=== PATIENT | male | born 1950 | race Caucasian/White ===

== ENCOUNTER 2020-05-12 11:32 | Emergency (ER) | payer MEDICARE, OTHER, SELFPAY ==
[2020-05-12 11:44] VITALS: BP 156/96; PULSE 80; RESP 20; TEMP 37.5; O2SAT 97; BMI 62.8
--- NOTE | 2020-05-12 11:56 | XR_ITS ---
EXAMINATION: XR CHEST CLINICAL INFORMATION: Fever and chills. COMPARISON: None TECHNIQUE: Frontal view of the chest was obtained. FINDINGS: The lungs are well expanded and clear. No focal consolidation or other abnormality. The pleural spaces are clear. Heart size is normal. Cardiac contours are unremarkable. Atherosclerotic changes are present in the aortic arch. Multilevel spondylosis is evident in the thoracic spine. No acute bony abnormality. IMPRESSION: No acute abnormality.
--- NOTE | 2020-05-12 12:06 | ED.FEVER ---
HPI - Fever General Chief Complaint: Fever Stated Complaint: fever Time Seen by Provider: 05/12/20 11:52 Source: patient Mode of arrival: ambulatory Limitations: no limitations History of Present Illness HPI Narrative: 69 y.o male with history of afib s/p cardioversion, on eliquis, HTN, depression prestenting with fever of 101 at home, fatgiue, myalgias, productive cough, and SOB for the last 2 days. He has a history of influenza B earlier this year and states he feels this feels similar. He lives with his who is not ill. No known sick contacts or known exposure to COVID-19. MD elicited complaint: fever and malaise Onset (ago): day(s) (2) Measured temperature: 101 F Exacerbating factors: exertion Relieving factors: acetaminophen Associated symptoms: chills, myalgias, headache, nasal congestion, cough, shortness of breath and nausea Treatments prior to arrival fever: none Related Data Allergies Allergy/AdvReac Type Severity Reaction Status Date / Time No Known Allergies Allergy Unverified 04/26/20 15:57 N.K.D.A. Allergy Unknown Uncoded 12/29/19 00:00 Review of Systems Review of Systems: Constitutional: positive fever and chills ENT/Mouth: mild sore throat, No Rhinorrhea, No Swallowing Difficulty Eyes: No Eye Pain, No Swelling, No Redness Cardiovascular: No Chest Pain, positive SOB, No Orthopnea, negative Edema Respiratory: postiive productive cough of white and brown phlegm, No Wheezing, positive dyspnea Gastrointestinal: positive Nausea, No Vomiting, No Diarrhea, No abdominal Pain, No Hematochezia, No Melena Genitourinary: No Dysuria, No Urinary Frequency, No Hematuria Musculoskeletal: No joint pain, positive Myalgias Skin: No Skin Lesions, No rash Neuro: No Weakness, No Numbness, No Dizziness, positive Headache Psych: No Anxiety/Panic, No Depression Heme/Lymph: No Bruising, No Lymphadenopathy Endocrine: No Polyuria, No Polydipsia All other 10 point ROS are negative. [facility] Past Medical History Attestation statement: The following information was validated with the patient. Medical History Cardiac arrhythmia Hypertension Social History Social History Alcohol intake: never Smoking Status: Never smoker Smoked in Last 30 Days: No Use of substances other than those prescribed or required for medical reasons: No Advance Directives: No Advance Directives Information Provided: No Physical Exam Vital Signs and I&O and Narrative: Vital Signs and I&O: Vital Signs Temp 99.5 F 05/12/20 11:44 Pulse 78 05/12/20 14:38 Resp 20 05/12/20 14:38 BP 148/99 H 05/12/20 14:38 Pulse Ox 97 05/12/20 11:44 Intake & Output 05/11/20 05/12/20 05/12/20 18:59 06:59 18:59 Intake Total 1000 / 1000 Balance 1000 / 1000 Weight 210 kg Intake: Intake, IV Amoun t 1000 / 1000 0.9 % Sodium C hloride 1,000 ml 1000 / 1000 @ 999 mls/hr I VCONT .Q1H1M NANNETTE Rx#:[id number] Body Mass Index 62.8 Appearance: Alert. Oriented X3. No acute distress. Eyes: Pupils equal, round and reactive to light. ENT: Pharynx normal. Neck: Normal inspection. Neck supple. CVS: Normal heart rate and rhythm. Pulses normal. Respiratory: No respiratory distress. Breath sounds normal. Abdomen: Soft and nontender. Skin: Skin warm and dry. Normal skin color. Normal skin turgor. Extremities: No lower extremity edema. No lower extremity edema. Neuro: Oriented X 3. No motor deficit. No sensory deficit. Course Course Hospital Course: 69 y/o male with hx afib, HTN, depression presenting with flu-like symptoms. Non-toxic appearing. Will panculture, gently hydrate and check CXR, COVID and influenza. Reevaluation(s) Reevaluation #1: Labs show mild hyperkalemia 5.3 - patient is on lisinopril. Lactic acid 2.1. Gently hydrating now. No leukocytosis, CXR and UA are clear. LFT's mildly elevated without abd pain/tenderness. CPR low making COVID less likely. Signs and symptoms likely due to another viral process. Vitals remain stable and he is in no distress. Time: 15:28 Reevaluation #2: Lactic acid normalized. Remains stable for discharge. MDM - Fever Differential Diagnosis Differential diagnosis: Likely fever of unknown origin, gastroenteritis, community acquired pneumonia, viral infection, sepsis and influenza Medical Records Attestation: I reviewed the patient's medical records. Lab Data Attestation: I reviewed the patient's lab results. Result diagrams: 05/12/20 12:35 05/12/20 12:36 Labs: Lab Results 05/12/20 05/12/20 05/12/20 Range/Units 12:25 12:35 12:35 WBC 7.1 (4.8-10.8) X10*3/uL RBC 4.64 (4.60-5.80) X10*6/uL Hgb 15.2 (14.0-18.0) g/dl Hct 44.3 (42-52) % MCV 95.5 (80-98) fL MCH 32.8 (27.0-33.0) pg MCHC 34.3 (31.0-36.0) g/dl RDW 13.3 (11.0-16.0) % Plt Count 247 (160-400) X10*3/uL MPV 10.0 (9.4-12.4) fL Immature Gran % (Auto) 0.4 (0.0-0.4) % Neut % (Auto) 63.2 (45-73) % Lymph % (Auto) 25.4 (20-40) % [place] % (Auto) 8.5 (2-11) % Eos % (Auto) 1.8 (0-4) % Baso % (Auto) 0.7 (0-2) % Neut # (Auto) 4.5 (2.0-8.3) X10*3/uL Lymph # (Auto) 1.8 (1.2-4.9) X10*3/uL [place] # (Auto) 0.6 (0.1-1.2) X10*3/uL Eos # (Auto) 0.1 (0.0-0.4) X10*3/uL Baso # (Auto) 0.1 (0.0-0.2) X10*3/uL Abs Immat Gran (auto) 0.03 (0.00-0.03) X10*3/uL Absolute Nucleated RBC 0.000 (0.0-0.012) X10*3/uL Nucleated RBC % (auto) 0.0 (0.0-0.2) /100WBC PT 14.8 H (10.8-13.0) SEC INR 1.2 H (0.9-1.1) APTT 35.0 (24.1-38.0) SEC Sodium (135-145) mmol/L Potassium (3.3-5.1) mmol/l Chloride (96-108) mmol/L Carbon Dioxide (22-29) mmol/L Anion Gap (12-20) BUN (9-16) mg/dL Creatinine (0.5-1.4) mg/dL Estim Creat Clear Calc Estimated GFR Random Glucose (60-115) mg/dL Lactic Acid (0.5-2.0) mmol/L Lactic Acid Fup @ 2Hr (0.5-2.0) mmol/L Calcium (8.4-10.2) mg/dL Magnesium (1.6-2.6) mg/dL Total Bilirubin (0.0-1.0) mg/dL Direct Bilirubin (0.0-0.5) mg/dL AST (5-37) U/L ALT (0-40) U/L Alkaline Phosphatase (39-117) U/L Lactate Dehydrogenase (118-273) U/L C-Reactive Protein (< or = 0.50) mg/dL Total Protein (6.5-8.0) g/dL Albumin (3.5-5.0) g/dL Procalcitonin ng/mL Urine Color YELLOW Urine Appearance CLEAR Urine pH 6.0 (5.0-8.0) Ur Specific [place] 1.025 (1.005-1.025) Urine Protein NEG (NEG-TRACE) MG/DL Urine Glucose (UA) NEG (NEG) MG/DL Urine Ketones NEG (NEG) MG/DL Urine Blood TRACE (NEG) Urine Nitrite NEG (NEG) Ur Leukocyte Esterase NEG (NEG) Urine RBC 0-2 (0) /HPF Urine WBC 0 (0-4) /HPF Ur Squamous Epith Cells NONE /LPF Urine Bacteria NONE /LPF Urine Mucus 1+ /LPF 05/12/20 05/12/20 05/12/20 Range/Units 12:35 12:35 12:36 WBC (4.8-10.8) X10*3/uL RBC (4.60-5.80) X10*6/uL Hgb (14.0-18.0) g/dl Hct (42-52) % MCV (80-98) fL MCH (27.0-33.0) pg MCHC (31.0-36.0) g/dl RDW (11.0-16.0) % Plt Count (160-400) X10*3/uL MPV (9.4-12.4) fL Immature Gran % (Auto) (0.0-0.4) % Neut % (Auto) (45-73) % Lymph % (Auto) (20-40) % [place] % (Auto) (2-11) % Eos % (Auto) (0-4) % Baso % (Auto) (0-2) % Neut # (Auto) (2.0-8.3) X10*3/uL Lymph # (Auto) (1.2-4.9) X10*3/uL [place] # (Auto) (0.1-1.2) X10*3/uL Eos # (Auto) (0.0-0.4) X10*3/uL Baso # (Auto) (0.0-0.2) X10*3/uL Abs Immat Gran (auto) (0.00-0.03) X10*3/uL Absolute Nucleated RBC (0.0-0.012) X10*3/uL Nucleated RBC % (auto) (0.0-0.2) /100WBC PT (10.8-13.0) SEC INR (0.9-1.1) APTT (24.1-38.0) SEC Sodium 141 (135-145) mmol/L Potassium 5.3 H (3.3-5.1) mmol/l Chloride 103 (96-108) mmol/L Carbon Dioxide 31 H (22-29) mmol/L Anion Gap 12 (12-20) BUN 10 (9-16) mg/dL Creatinine 0.94 (0.5-1.4) mg/dL Estim Creat Clear Calc 133.1 Estimated GFR > 60 Random Glucose 107 (60-115) mg/dL Lactic Acid 2.1 H* (0.5-2.0) mmol/L Lactic Acid Fup @ 2Hr (0.5-2.0) mmol/L Calcium 9.6 (8.4-10.2) mg/dL Magnesium 1.8 (1.6-2.6) mg/dL Total Bilirubin 0.8 (0.0-1.0) mg/dL Direct Bilirubin 0.4 (0.0-0.5) mg/dL AST 48 H (5-37) U/L ALT 54 H (0-40) U/L Alkaline Phosphatase 70 (39-117) U/L Lactate Dehydrogenase 205 (118-273) U/L C-Reactive Protein 0.04 (< or = 0.50) mg/dL Total Protein 7.1 (6.5-8.0) g/dL Albumin 4.2 (3.5-5.0) g/dL Procalcitonin 0.02 ng/mL Urine Color Urine Appearance Urine pH (5.0-8.0) Ur Specific [place] (1.005-1.025) Urine Protein (NEG-TRACE) MG/DL Urine Glucose (UA) (NEG) MG/DL Urine Ketones (NEG) MG/DL Urine Blood (NEG) Urine Nitrite (NEG) Ur Leukocyte Esterase (NEG) Urine RBC (0) /HPF Urine WBC (0-4) /HPF Ur Squamous Epith Cells /LPF Urine Bacteria /LPF Urine Mucus /LPF 05/12/20 Range/Units 14:54 WBC (4.8-10.8) X10*3/uL RBC (4.60-5.80) X10*6/uL Hgb (14.0-18.0) g/dl Hct (42-52) % MCV (80-98) fL MCH (27.0-33.0) pg MCHC (31.0-36.0) g/dl RDW (11.0-16.0) % Plt Count (160-400) X10*3/uL MPV (9.4-12.4) fL Immature Gran % (Auto) (0.0-0.4) % Neut % (Auto) (45-73) % Lymph % (Auto) (20-40) % [place] % (Auto) (2-11) % Eos % (Auto) (0-4) % Baso % (Auto) (0-2) % Neut # (Auto) (2.0-8.3) X10*3/uL Lymph # (Auto) (1.2-4.9) X10*3/uL [place] # (Auto) (0.1-1.2) X10*3/uL Eos # (Auto) (0.0-0.4) X10*3/uL Baso # (Auto) (0.0-0.2) X10*3/uL Abs Immat Gran (auto) (0.00-0.03) X10*3/uL Absolute Nucleated RBC (0.0-0.012) X10*3/uL Nucleated RBC % (auto) (0.0-0.2) /100WBC PT (10.8-13.0) SEC INR (0.9-1.1) APTT (24.1-38.0) SEC Sodium (135-145) mmol/L Potassium (3.3-5.1) mmol/l Chloride (96-108) mmol/L Carbon Dioxide (22-29) mmol/L Anion Gap (12-20) BUN (9-16) mg/dL Creatinine (0.5-1.4) mg/dL Estim Creat Clear Calc Estimated GFR Random Glucose (60-115) mg/dL Lactic Acid (0.5-2.0) mmol/L Lactic Acid Fup @ 2Hr 1.4 (0.5-2.0) mmol/L Calcium (8.4-10.2) mg/dL Magnesium (1.6-2.6) mg/dL Total Bilirubin (0.0-1.0) mg/dL Direct Bilirubin (0.0-0.5) mg/dL AST (5-37) U/L ALT (0-40) U/L Alkaline Phosphatase (39-117) U/L Lactate Dehydrogenase (118-273) U/L C-Reactive Protein (< or = 0.50) mg/dL Total Protein (6.5-8.0) g/dL Albumin (3.5-5.0) g/dL Procalcitonin ng/mL Urine Color Urine Appearance Urine pH (5.0-8.0) Ur Specific [place] (1.005-1.025) Urine Protein (NEG-TRACE) MG/DL Urine Glucose (UA) (NEG) MG/DL Urine Ketones (NEG) MG/DL Urine Blood (NEG) Urine Nitrite (NEG) Ur Leukocyte Esterase (NEG) Urine RBC (0) /HPF Urine WBC (0-4) /HPF Ur Squamous Epith Cells /LPF Urine Bacteria /LPF Urine Mucus /LPF Imaging Data Chest x-ray: Attestation: I personally reviewed and interpreted this imaging study as follows: My impression: No PNA and No GGO to suggest COVID. Radiologist's impression: IMPRESSION: No acute abnormality. Critical Care Time Critical Care Time Critical Care Time: No Discharge Plan Discharge Clinical Impression: Viral infection, Elevated liver enzymes, Hyperkalemia Patient Disposition: Home, Self-Care Instructions: Viral Syndrome (ED) Additional Instructions: You were tested for COVID-19 today. We will call you with the results in 2-3 days. Your lab work showed a mild elevation in your liver enzymes which is non-specific. Recommend following up with your PCP this week for repeat blood work. Stay hydrated. Take over the counter cold and flu medications for your fever, muscle aches and mild cough. If you develop difficulty breathing or chest pain come back to the ER for further evaluation.
[2020-05-12 12:12] VITALS: TEMP 38.3
[2020-05-12] MEDS: 0.9 % Sodium Chloride 1,000 ML 999 ML IVCONT (12:39)
[2020-05-12 12:45] LABS: MANUAL DIFF FLAG NO
[2020-05-12 12:47] LABS: Basophils Absolute Auto 0.1 X10*3/uL (0.0-0.2); Basophils Percent Auto 0.7 % (0-2); Eosinophils Absolute Auto 0.1 X10*3/uL (0.0-0.4); Eosinophils Percent Auto 1.8 % (0-4); Hematocrit 44.3 % (42-52); Hemoglobin 15.2 g/dl (14.0-18.0); Imm Gran Abs Auto 0.03 X10*3/uL (0.00-0.03); Imm Gran Pct Auto 0.4 % (0.0-0.4); Lymphocytes Absolute Auto 1.8 X10*3/uL (1.2-4.9); Lymphocytes Percent Auto 25.4 % (20-40); Mean Corpuscular HGB Conc 34.3 g/dl (31.0-36.0); Mean Corpuscular Hemoglobin 32.8 pg (27.0-33.0); Mean Corpuscular Volume 95.5 fL (80-98); Monocytes Absolute Auto 0.6 X10*3/uL (0.1-1.2); Monocytes Percent Auto 8.5 % (2-11); Neutrophils Absolute Auto 4.5 X10*3/uL (2.0-8.3); Neutrophils Percent Auto 63.2 % (45-73); Platelet Count 247 X10*3/uL (160-400); Red Blood Count 4.64 X10*6/uL (4.60-5.80); Red Cell Distribution Width 13.3 % (11.0-16.0); White Blood Count 7.1 X10*3/uL (4.8-10.8)
[2020-05-12 12:51] LABS: Glucose Urine UA NEG (NEG); Leukocyte Esterase Urine NEG (NEG); Nitrite Urine NEG (NEG); Specific Gravity - Urine 1.025 (1.005-1.025); Urine Blood TRACE (NEG); Urine Ketones NEG (NEG); Urine Protein NEG (NEG-TRACE)
[2020-05-12 12:54] LABS: INTERNATIONAL NORM RATIO 1.2 (0.9-1.1); Prothrombin Time 14.8 SEC (10.8-13.0)
[2020-05-12 12:55] LABS: Appearance Urine CLEAR; Color Urine YELLOW
[2020-05-12 12:59] LABS: Mucus Urine 1+ /LPF; RBC Urine 0-2 /HPF (0); WBC Urine 0 /HPF (0-4)
[2020-05-12 13:10] LABS: Alanine Aminotransferase 54 U/L (0-40); Albumin Level 4.2 g/dL (3.5-5.0); Alkaline Phosphatase 70 U/L (39-117); Anion Gap 12 (12-20); Aspartate Amino Transferase 48 U/L (5-37); Bilirubin Direct 0.4 mg/dL (0.0-0.5); Bilirubin Total 0.8 mg/dL (0.0-1.0); Blood Urea Nitrogen 10 mg/dL (9-16); C Reactive Protein 0.04 mg/dL (< or = 0.50); Calcium 9.6 mg/dL (8.4-10.2); Carbon Dioxide 31 mmol/L (22-29); Chloride 103 mmol/L (96-108); Creatinine Clr Calc Pharmacy 133.1; Estimated Glomerular Filt Rate > 60; Glucose Random 107 mg/dL (60-115); Lactate Dehydrogenase 205 U/L (118-273); Magnesium 1.8 mg/dL (1.6-2.6); Potassium 5.3 mmol/l (3.3-5.1); Sodium 141 mmol/L (135-145); Total Protein 7.1 g/dL (6.5-8.0)
[2020-05-12 13:20] LABS: Lactic Acid 2.1 mmol/L (0.5-2.0)
[2020-05-12 13:27] LABS: Procalcitonin 0.02 ng/mL
[2020-05-12 14:38] VITALS: BP 148/99; PULSE 78; RESP 20
[2020-05-12 14:43] LABS: Reflex Lactate? Lactic Acid Added
[2020-05-12 15:18] LABS: ~Lactic Acid-LAB USE ONLY 1.4 mmol/L (0.5-2.0)
== END 2020-05-12 15:55 | disposition home or self-care (01) ==
PROVIDERS: Physician Assistant; Emergency Provider Emergency Medicine; PCP Nurse Practitioner Family
DX: B34.9 Viral infection, unspecified (principal); Z20.828 Contact with and (suspected) exposure to other viral communicable diseases; R50.9 Fever, unspecified; R79.89 Other specified abnormal findings of blood chemistry; E87.5 Hyperkalemia; I10 Essential (primary) hypertension; I48.91 Unspecified atrial fibrillation; Z79.899 Other long term (current) drug therapy
CPT/HCPCS: 36415; 71045; 80048; 80076; 81001; 83605; 83615; 83735; 84145; 85025; 85610; 85730; 86140; 87040; 87635; 96360; 99284

== ENCOUNTER 2020-08-21 13:05 | Inpatient (IN) | payer MEDICARE, OTHER, SELFPAY ==
[2020-08-21 13:08] VITALS: BP 166/105; BP 175/115; PULSE 106; PULSE 115; RESP 22; TEMP 37.2; O2SAT 92; BMI 27.7
--- NOTE | 2020-08-21 13:09 | ECG_ITS ---
Test Reason : DYSPNEA Blood Pressure : / mmHG Vent. Rate : 109 BPM Atrial Rate : 109 BPM P-R Int : 188 ms QRS Dur : 076 ms QT Int : 326 ms P-R-T Axes : 077 020 072 degrees QTc Int : 439 ms Sinus tachycardia Otherwise normal ECG When compared with ECG of 30-AUG-2018 12:18, Vent. rate has increased BY 52 BPM Referred By: Shala Wasserman Electronically Signed By:CATHY NAGY MD
--- NOTE | 2020-08-21 13:09 | XR_ITS ---
EXAMINATION: XR CHEST CLINICAL INFORMATION: Shortness of breath, difficulty breathing COMPARISON: Chest radiographs 05/12/2020, 10/18/2019 TECHNIQUE: Portable upright AP x2 views of the chest was obtained. FINDINGS: The lungs are clear. There is no pneumothorax, vascular congestion, airspace consolidation, or groundglass opacity. The heart is normal in size. The hilar and mediastinal contours and bony structures are stable. XR/XR chest 1V IMPRESSION: Unremarkable examination.
--- NOTE | 2020-08-21 13:30 | ED.GENADULT ---
HPI - General Adult General Chief complaint: General Medical Stated complaint: diff breathing flu like sx Time Seen by Provider: 08/21/20 13:08 Source: patient and EMS Mode of arrival: EMS Limitations: no limitations History of Present Illness HPI narrative: 70 y/o male with history of COPD, atrial fibrillation/atrial flutter on apixaban, hx cardioversion multiple times in the past, HTN, HLD, hx etoh abuse who presents with 1 day history of dry cough, fatigue and SOB. He lives with his grandson who had a cold last week. He states he was getting ready to go into the walk-in clinic for evaluation today and after going up the stairs in his home he was so SOB he called 911. He states he couldn't breathe. No chest pain, fevers but he was diaphoretic on EMS arrival with SpO2 high 80's per report. MD complaint: SOB Onset (ago): day(s) (1) Location: chest Radiation: non-radiation Severity: severe Quality: aching Relieving factors: rest Exacerbating factors: movement Associated symptoms: cough, fever/chills, headaches, loss of appetite, malaise, shortness of breath and weakness Treatments prior to arrival: none Related Data Previous Rx's Medication Instructions Recorded apixaban 5 mg tablet 5 mg PO BID 90 Days #180 tab 08/01/20 Allergies Allergy/AdvReac Type Severity Reaction Status Date / Time No Known Allergies Allergy Verified 08/21/20 13:15 Review of Systems Review of Systems: Constitutional: No Fever, + Chills ENT/Mouth: No sore throat, No Rhinorrhea, No Swallowing Difficulty Cardiovascular: No Chest Pain, + SOB, No Orthopnea, No Edema Respiratory: + Cough, No Sputum, + Wheezing, + dyspnea Gastrointestinal: No Nausea, No Vomiting, No Diarrhea, No abdominal Pain Genitourinary: No Dysuria, No Urinary Frequency Musculoskeletal: No joint pain, + Myalgias Skin: No Skin Lesions, No rash Neuro: + Weakness, No Numbness, No Dizziness, + Headache Psych: No Anxiety/Panic, No Depression Heme/Lymph: No Bruising, No Lymphadenopathy PMFSH Past Medical History Attestation statement: The following information was validated with the patient. Medical History (Updated 08/21/20 @ 15:44 by INOCENCIO Conti) Atrial fibrillation Cardiac arrhythmia Hypertension Social History Social History Alcohol intake: never Smoking Status: Never smoker Advance Directives: No Advance Directives Information Provided: No Physical Exam Vital Signs: Vital Signs: Last Vital Signs Temp 96.5 F L 08/21/20 15:30 Pulse 93 08/21/20 15:30 Resp 20 08/21/20 15:30 BP 173/89 H 08/21/20 15:30 Pulse Ox 98 08/21/20 15:30 Body Mass Index 27.7 Appearance: Alert. Oriented X3. Mild respiratory distress with rapid breathing pattern Eyes: Pupils equal, round and reactive to light. ENT: Pharynx normal. Neck: Normal inspection. Neck supple. CVS: tachycardic, regular rhythm. Pulses normal. Respiratory: Mild respiratory distress, dyspneic when speaking, belly breathing at times, expiratory wheezes throughout right lung wayne, left lung coarse Abdomen: Softly distended and nontender. +BS x4 Skin: Skin warm and dry. Normal skin color. Normal skin turgor. No rashes. Extremities: No lower extremity edema. Negative Kirit's sign Neuro: Oriented X 3. No motor deficit. No sensory deficit. 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 He is dyspneic when speaking and SOB, RR mid 20's with wheezing, SpO2 92% on RA here, placed on 2L NC with improvement to 95%. Inhaler and IV steroids ordered for now. Concern for COVID-19 infection vs influenza, vs pneumonia vs COPD exacerbation. COVID/septic workup sent. Reevaluation(s) Reevaluation #1: Viral PCR negative. CXR without acute abnormality. DDimer <200 and patient is anticoagulated on Eliquis. Given degree of SOB will get CT chest to further assess. Reevaluation #2: CT chest did now show acute pulmonary disease, specifically no GGO or infiltrates. Pulmonary nodules noted. Will need outpatient follow up. He continues to be wheezy on exam and SOB. No convincing evidence for PNA or acute bronchitis. Will hold off on antibiotics for now. IV steroids given. Now that COVID is negative we can give an hour long albuterol nebulizer treatment. He remains on 3L NC. Will admit. Spoke with Dr. Blackburn who will admit. Medical Decision Making Lab Data Result diagrams: 08/21/20 13:24 08/21/20 13:31 Labs: Lab Results 08/21/20 08/21/20 08/21/20 Range/Units 13:23 13:23 13:23 WBC (4.8-10.8) X10*3/uL RBC (4.60-5.80) X10*6/uL Hgb (14.0-18.0) g/dl Hct (42-52) % MCV (80-98) fL MCH (27.0-33.0) pg MCHC (31.0-36.0) g/dl RDW (11.0-16.0) % Plt Count (160-400) X10*3/uL MPV (9.4-12.4) fL Immature Gran % (Auto) (0.0-0.4) % Neut % (Auto) (45-73) % Lymph % (Auto) (20-40) % [place] % (Auto) (2-11) % Eos % (Auto) (0-4) % Baso % (Auto) (0-2) % Lymph # (Auto) (1.2-4.9) X10*3/uL [place] # (Auto) (0.1-1.2) X10*3/uL Eos # (Auto) (0.0-0.4) X10*3/uL Baso # (Auto) (0.0-0.2) X10*3/uL Abs Immat Gran (auto) (0.00-0.03) X10*3/uL Absolute Neuts (auto) (2.0-8.3) X10*3/uL Absolute Nucleated RBC (0.0-0.012) X10*3/uL Nucleated RBC % (auto) (0.0-0.2) /100WBC PT 13.5 H (10.8-13.0) SEC INR 1.1 (0.9-1.1) APTT 33.0 (24.1-38.0) SEC D-Dimer < 200 NG/ML Sodium (135-145) mmol/L Potassium (3.3-5.1) mmol/l Chloride (96-108) mmol/L Carbon Dioxide (22-29) mmol/L Anion Gap (12-20) BUN (9-16) mg/dL Creatinine (0.5-1.4) mg/dL Estim Creat Clear Calc Estimated GFR POC Glucose (60-115) mg/dL Random Glucose (60-115) mg/dL Lactic Acid 1.8 (0.5-2.0) mmol/L Calcium (8.4-10.2) mg/dL Magnesium (1.6-2.6) mg/dL Ferritin (20-250) ng/mL Total Bilirubin (0.0-1.0) mg/dL Direct Bilirubin (0.0-0.5) mg/dL AST (5-37) U/L ALT (0-40) U/L Alkaline Phosphatase (39-117) U/L Troponin I High Sens < 3.5 (<3.5-35.0) ng/L C-Reactive Protein (< or = 0.50) mg/dL B-Natriuretic Peptide 44 (<100) pg/mL Total Protein (6.5-8.0) g/dL Albumin (3.5-5.0) g/dL Procalcitonin ng/mL Coronavirus (PCR) (Negative) Influenza Type A (PCR) (Negative) Influenza Type B (PCR) (Negative) RSV RNA Qual (PCR) (Negative) 08/21/20 08/21/20 08/21/20 Range/Units 13:24 13:31 13:31 WBC 9.3 (4.8-10.8) X10*3/uL RBC 4.47 L (4.60-5.80) X10*6/uL Hgb 14.7 (14.0-18.0) g/dl Hct 43.5 (42-52) % MCV 97.3 (80-98) fL MCH 32.9 (27.0-33.0) pg MCHC 33.8 (31.0-36.0) g/dl RDW 12.7 (11.0-16.0) % Plt Count 218 (160-400) X10*3/uL MPV 10.0 (9.4-12.4) fL Immature Gran % (Auto) 0.2 (0.0-0.4) % Neut % (Auto) 81.1 H (45-73) % Lymph % (Auto) 7.7 L (20-40) % [place] % (Auto) 8.9 (2-11) % Eos % (Auto) 1.8 (0-4) % Baso % (Auto) 0.3 (0-2) % Lymph # (Auto) 0.7 L (1.2-4.9) X10*3/uL [place] # (Auto) 0.8 (0.1-1.2) X10*3/uL Eos # (Auto) 0.2 (0.0-0.4) X10*3/uL Baso # (Auto) 0.0 (0.0-0.2) X10*3/uL Abs Immat Gran (auto) 0.02 (0.00-0.03) X10*3/uL Absolute Neuts (auto) 7.5 (2.0-8.3) X10*3/uL Absolute Nucleated RBC 0.000 (0.0-0.012) X10*3/uL Nucleated RBC % (auto) 0.0 (0.0-0.2) /100WBC PT (10.8-13.0) SEC INR (0.9-1.1) APTT (24.1-38.0) SEC D-Dimer NG/ML Sodium 141 (135-145) mmol/L Potassium 3.9 D (3.3-5.1) mmol/l Chloride 103 (96-108) mmol/L Carbon Dioxide 26 (22-29) mmol/L Anion Gap 16 (12-20) BUN 9 (9-16) mg/dL Creatinine 0.74 (0.5-1.4) mg/dL Estim Creat Clear Calc 101.9 Estimated GFR > 60 POC Glucose (60-115) mg/dL Random Glucose 151 H D (60-115) mg/dL Lactic Acid (0.5-2.0) mmol/L Calcium 9.5 (8.4-10.2) mg/dL Magnesium 1.7 (1.6-2.6) mg/dL Ferritin 247 (20-250) ng/mL Total Bilirubin 0.8 (0.0-1.0) mg/dL Direct Bilirubin 0.4 (0.0-0.5) mg/dL AST 37 (5-37) U/L ALT 62 H (0-40) U/L Alkaline Phosphatase 98 D (39-117) U/L Troponin I High Sens (<3.5-35.0) ng/L C-Reactive Protein 4.82 H (< or = 0.50) mg/dL B-Natriuretic Peptide (<100) pg/mL Total Protein 7.4 (6.5-8.0) g/dL Albumin 4.3 (3.5-5.0) g/dL Procalcitonin 0.05 ng/mL Coronavirus (PCR) (Negative) Influenza Type A (PCR) (Negative) Influenza Type B (PCR) (Negative) RSV RNA Qual (PCR) (Negative) 08/21/20 08/21/20 Range/Units 13:31 13:33 WBC (4.8-10.8) X10*3/uL RBC (4.60-5.80) X10*6/uL Hgb (14.0-18.0) g/dl Hct (42-52) % MCV (80-98) fL MCH (27.0-33.0) pg MCHC (31.0-36.0) g/dl RDW (11.0-16.0) % Plt Count (160-400) X10*3/uL MPV (9.4-12.4) fL Immature Gran % (Auto) (0.0-0.4) % Neut % (Auto) (45-73) % Lymph % (Auto) (20-40) % [place] % (Auto) (2-11) % Eos % (Auto) (0-4) % Baso % (Auto) (0-2) % Lymph # (Auto) (1.2-4.9) X10*3/uL [place] # (Auto) (0.1-1.2) X10*3/uL Eos # (Auto) (0.0-0.4) X10*3/uL Baso # (Auto) (0.0-0.2) X10*3/uL Abs Immat Gran (auto) (0.00-0.03) X10*3/uL Absolute Neuts (auto) (2.0-8.3) X10*3/uL Absolute Nucleated RBC (0.0-0.012) X10*3/uL Nucleated RBC % (auto) (0.0-0.2) /100WBC PT (10.8-13.0) SEC INR (0.9-1.1) APTT (24.1-38.0) SEC D-Dimer NG/ML Sodium (135-145) mmol/L Potassium (3.3-5.1) mmol/l Chloride (96-108) mmol/L Carbon Dioxide (22-29) mmol/L Anion Gap (12-20) BUN (9-16) mg/dL Creatinine (0.5-1.4) mg/dL Estim Creat Clear Calc Estimated GFR POC Glucose 157 H (60-115) mg/dL Random Glucose (60-115) mg/dL Lactic Acid (0.5-2.0) mmol/L Calcium (8.4-10.2) mg/dL Magnesium (1.6-2.6) mg/dL Ferritin (20-250) ng/mL Total Bilirubin (0.0-1.0) mg/dL Direct Bilirubin (0.0-0.5) mg/dL AST (5-37) U/L ALT (0-40) U/L Alkaline Phosphatase (39-117) U/L Troponin I High Sens (<3.5-35.0) ng/L C-Reactive Protein (< or = 0.50) mg/dL B-Natriuretic Peptide (<100) pg/mL Total Protein (6.5-8.0) g/dL Albumin (3.5-5.0) g/dL Procalcitonin ng/mL Coronavirus (PCR) NEGATIVE (Negative) Influenza Type A (PCR) NEGATIVE (Negative) Influenza Type B (PCR) NEGATIVE (Negative) RSV RNA Qual (PCR) NEGATIVE (Negative) ECG Data Attestation: I personally reviewed and interpreted this ECG as follows: Interpretation: sinus tachycardia, HR 109, artifact presents, normal AK interval, normal QTc, no ST elevations Discharge Plan Discharge Clinical Impression: Acute exacerbation of chronic obstructive pulmonary disease Patient Disposition: Admitted As Inpatient
[2020-08-21 13:32] LABS: Basophils Percent Auto 0.3 % (0-2); Eosinophils Absolute Auto 0.2 X10*3/uL (0.0-0.4); Eosinophils Percent Auto 1.8 % (0-4); Hematocrit 43.5 % (42-52); Hemoglobin 14.7 g/dl (14.0-18.0); Imm Gran Abs Auto 0.02 X10*3/uL (0.00-0.03); Imm Gran Pct Auto 0.2 % (0.0-0.4); Lymphocytes Absolute Auto 0.7 X10*3/uL (1.2-4.9); Lymphocytes Percent Auto 7.7 % (20-40); MANUAL DIFF FLAG NO; Mean Corpuscular HGB Conc 33.8 g/dl (31.0-36.0); Mean Corpuscular Hemoglobin 32.9 pg (27.0-33.0); Mean Corpuscular Volume 97.3 fL (80-98); Monocytes Absolute Auto 0.8 X10*3/uL (0.1-1.2); Monocytes Percent Auto 8.9 % (2-11); Neutrophils Absolute Auto 7.5 X10*3/uL (2.0-8.3); Neutrophils Percent Auto 81.1 % (45-73); Platelet Count 218 X10*3/uL (160-400); Red Blood Count 4.47 X10*6/uL (4.60-5.80); Red Cell Distribution Width 12.7 % (11.0-16.0); White Blood Count 9.3 X10*3/uL (4.8-10.8)
[2020-08-21 13:38] LABS: Glucose, Whole Blood 157 mg/dL (60-115)
[2020-08-21 13:40] LABS: INTERNATIONAL NORM RATIO 1.1 (0.9-1.1); Prothrombin Time 13.5 SEC (10.8-13.0)
[2020-08-21] MEDS: Albuterol Sulfate 90 MCG 8 GM INHALER 4 PUFF INHALE (13:43)
[2020-08-21] MEDS: 0.9 % Sodium Chloride 1,000 ML 999 ML IVCONT ×2 (13:45→15:18)
[2020-08-21 13:46] LABS: D Dimer < 200 NG/ML
[2020-08-21] MEDS: methylPREDNISolone Sod Succ/PF 125 MG/2 ML VIAL IVPUSH (13:49)
[2020-08-21] MEDS: Acetaminophen 325 MG TABLET 975 MG PO (13:49)
[2020-08-21 13:53] LABS: Lactic Acid 1.8 mmol/L (0.5-2.0)
[2020-08-21 14:04] LABS: B Type Natriuretic Peptide 44 pg/mL (<100); Troponin-I High Sensitivity < 3.5 ng/L (<3.5-35.0)
[2020-08-21 14:17] LABS: Influenza A PCR NEGATIVE (Negative); Influenza B PCR NEGATIVE (Negative); Resp Syncy Virus RNA Qual PCR NEGATIVE (Negative); SARS COV2 PCR INHOUSE NEGATIVE (Negative)
[2020-08-21 14:26] LABS: Alanine Aminotransferase 62 U/L (0-40); Albumin Level 4.3 g/dL (3.5-5.0); Alkaline Phosphatase 98 U/L (39-117); Anion Gap 16 (12-20); Aspartate Amino Transferase 37 U/L (5-37); Bilirubin Direct 0.4 mg/dL (0.0-0.5); Bilirubin Total 0.8 mg/dL (0.0-1.0); Blood Urea Nitrogen 9 mg/dL (9-16); C Reactive Protein 4.82 mg/dL (< or = 0.50); Calcium 9.5 mg/dL (8.4-10.2); Carbon Dioxide 26 mmol/L (22-29); Chloride 103 mmol/L (96-108); Creatinine Clr Calc Pharmacy 101.9; Estimated Glomerular Filt Rate > 60; Glucose Random 151 mg/dL (60-115); Magnesium 1.7 mg/dL (1.6-2.6); Potassium 3.9 mmol/l (3.3-5.1); Sodium 141 mmol/L (135-145); Total Protein 7.4 g/dL (6.5-8.0)
--- NOTE | 2020-08-21 14:36 | CT_ITS ---
EXAMINATION: CT CHEST WITHOUT CONTRAST CLINICAL INFORMATION: Shortness of breath. Difficulty breathing. COMPARISON: Previous chest x-rays most recent from earlier the same day in or the chest August 2016 TECHNIQUE: Multidetector volumetric CT imaging of the chest was done. Axial MIP volume rendering provided. Sagittal and coronal reformatted images were obtained. This CT examination was performed using dose optimization techniques as appropriate, variously including the following: *Automated exposure control *Adjustment of mA and/or kV according to patient size (this includes techniques or standardized protocols for targeted exams where dose is matched to indication/reason for exam; i.e. 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 There is a 4 mm peripheral or subpleural left lower lobe nodule adjacent to the pleural fissure axial image 264 series 5. There is a 2 mm peripheral right lower lobe nodule axial image 334 series 5. The lungs are otherwise clear. MEDIASTINUM: There is a slightly 1 cm low-attenuation right thyroid nodule. There are small mediastinal lymph nodes. The heart does not appear enlarged. The ascending thoracic aorta is dilated measuring 4.3 x 4.5 cm. The aortic arch is slightly dilated measuring 3.5 cm. The descending thoracic aorta is upper normal in size measuring 3 cm. There is no pericardial effusion. There is mild coronary artery calcification. PLEURA: There is no pleural effusion. No pleural mass or thickening. AXILLA: No lymphadenopathy. UPPER ABDOMEN: The gallbladder is incompletely visualized but appears upper normal in size. There may be a left renal cyst that is partially visualized measuring 2 cm. The celiac axis appears dilated measuring 1.5 cm. This could be better evaluated with CTA. OSSEOUS STRUCTURES: There are degenerative changes of the spine. CT/CT chest wo con IMPRESSION: Limited exam due to artifact from respiratory motion. No evidence for acute disease in the chest. Small pulmonary nodules, largest measuring 4 mm. According to the UPDATED 2017 Fleischner Society recommendations, the advised follow-up imaging for less than 6 mm nodule, low risk, no chest CT follow-up needed and high risk, optional chest CT follow-up in one year. Dilated ascending thoracic aorta and aortic arch. This is not appreciably changed from previous MRI of the chest August 2016. Dilated celiac axis measuring 1.6 cm. This could be better evaluated with CTA Upper normal-size gallbladder. Probable left renal cyst.
[2020-08-21 14:48] LABS: Procalcitonin 0.05 ng/mL
[2020-08-21 14:50] LABS: Ferritin 247 ng/mL (20-250)
[2020-08-21 15:30] VITALS: BP 173/89; PULSE 93; RESP 20; TEMP 35.8; O2SAT 98
--- NOTE | 2020-08-21 15:32 | PC.NURSE ---
Pt on 3liters o2 and 2nd bag of IVF running. He states that he feels much better at this time.
[2020-08-21] MEDS: Albuterol Sulfate (0.083%) 2.5 MG/3 ML VIAL.NEB 10 MG INHALE (15:42)
[2020-08-21 16:44] LABS: Adenovirus PCR Not Detected (Not Detect.); Bordetella parapertussis PCR Not Detected (Not Detect.); Bordetella pertussis PCR Not Detected (Not Detect.); Chlamydia pneumoniae PCR Not Detected (Not Detect.); Coronavirus 229E PCR Not Detected (Not Detect.); Coronavirus HKU1 PCR Not Detected (Not Detect.); Coronavirus NL63 PCR Not Detected (Not Detect.); Coronavirus OC43 PCR Not Detected (Not Detect.); Human metapneumovirus PCR Not Detected (Not Detect.); Influenza A PCR Not Detected (Not Detect.); Influenza B PCR Not Detected (Not Detect.); Mycoplasma pneumoniae PCR Not Detected (Not Detect.); Parainfluenza 1 PCR Not Detected (Not Detect.); Parainfluenza 2 PCR Not Detected (Not Detect.); Parainfluenza 3 PCR Not Detected (Not Detect.); Parainfluenza 4 PCR Not Detected (Not Detect.); RSV PCR Not Detected (Not Detect.); SARS-CoV-2 PCR Not Detected (Not Detect.)
[2020-08-21 17:55] VITALS: BP 170/87; PULSE 98; RESP 17; TEMP 35.6; O2SAT 97
[2020-08-21 20:13] LABS: Glucose Urine UA NEG (NEG); Leukocyte Esterase Urine NEG (NEG); Nitrite Urine NEG (NEG); PH 5.5 (5.0-8.0); Specific Gravity - Urine >= 1.030 (1.005-1.025); Urine Blood 1+ (NEG); Urine Ketones 5 MG/DL (NEG); Urine Protein NEG (NEG-TRACE)
[2020-08-21 20:19] LABS: Appearance Urine CLEAR; Color Urine YELLOW
[2020-08-21 20:22] LABS: WBC Urine 0-2 /HPF (0-4)
[2020-08-21 20:23] LABS: Mucus Urine 2+ /LPF; Squamous Epithelial Cell Urine 1+ /LPF
--- NOTE | 2020-08-21 20:55 | P.HPHOSP_ITS ---
History of Present Illness Date of Service: 08/21/20 Chief Complaint: Shortness of breath ankle symptoms This is a 70-year-old male with past medical history of COPD, atrial fibrillation on Eliquis, hypertension who presents to the hospital complaining of shortness of breath for the past 3 days. Patient reports that he started having cold symptoms including runny nose, rigors, generalized body aches as well as shortness of breath, and cough for about 3 days. He has no sputum production although feels congested in the chest he is just unable to bring up any phlegm. He had a fever yesterday of 101, no nausea vomiting, no abdominal pain, no diarrhea constipation. No urinary symptoms and no lower extremity edema. On arrival to the ED found to have a temp of 99.0?, heart rate of 106, respiratory rate of 22, blood pressure 166/105, satting 92% on room air Labs are significant for WBC count of 9.3, sodium of 141, potassium 3.9, glucose of 157, ALT of 62, C-reactive protein of 4.8, BNP of 44, UA negative, COVID-19 negative, influenza and RSV. Expanded respiratory viral panel pending otherwise. Chest CT shows no evidence of acute disease in the chest, small pulmonary nodules largest measuring 4 mm. Dilated ascending thoracic aorta and aortic arch with no change from MRI done in August 2016. Past medical history: COPD, atrial fib on Eliquis, hypertension Surgical history: Hernia repair, cardiac ablation, cardioversion, appendectomy Family history: Significant for prostate cancer in father as well as heart disease, mother had lung cancer Social history: Comes from home, walks independently, denies any tobacco alcohol or illicit drugs Review of Systems Review of Systems: Yes all other systems are reviewed and are negative [facility] Medical History (Updated 08/21/20 @ 21:04 by Jamin Schuster MD) Atrial fibrillation Cardiac arrhythmia COPD (chronic obstructive pulmonary disease) Hypertension Social History Alcohol intake: never Smoking Status: Never smoker Advance Directives: No Advance Directives Information Provided: No Meds Allergies Allergy/AdvReac Type Severity Reaction Status Date / Time No Known Allergies Allergy Verified 08/21/20 13:15 Home Medications Medication Instructions Recorded Confirmed Type atorvastatin 80 mg PO BEDTIME 08/21/20 08/21/20 History carvedilol 6.25 mg PO BID 08/21/20 08/21/20 History lisinopril 5 mg PO DAILY 08/21/20 08/21/20 History paroxetine HCl 20 mg PO DAILY 08/21/20 08/21/20 History Physical Exam Vital Signs and Narrative: Vital Signs: Last Vital Signs Temp 96.1 F L 08/21/20 17:55 Pulse 98 08/21/20 17:55 Resp 17 08/21/20 17:55 BP 170/87 H 08/21/20 17:55 Pulse Ox 97 08/21/20 17:55 Body Mass Index 27.7 Const: General: cooperative and no acute distress Orientation/co nsciousness: patient oriented x3 Eyes: General: appearance normal, both eyes and all related structures Resp: Effort & Inspection: normal respiratory effort and able to speak in co mplete sentences Cardio: Rate: regular rate Rhythm: regular rhythm GI: Palpation (GI): Soft to palpation Auscultation: normal bowel sounds Skin: General skin exam: no rashes or lesions noted Neuro: General: patient oriented x3 Cognition (Neuro): normal cognition Extrem: General: Yes normal to inspection and Yes no pedal edema Results Labs CBC and Chem 7: 08/21/20 13:24 08/21/20 13:31 Labs: Laboratory Results - last 24 hr 08/21/20 08/21/20 08/21/20 13:23 13:23 13:23 MCV MCH MCHC RDW Plt Count MPV Immature Gran % (Auto) Neut % (Auto) Lymph % (Auto) [place] % (Auto) Eos % (Auto) Baso % (Auto) Lymph # (Auto) [place] # (Auto) Eos # (Auto) Baso # (Auto) Abs Immat Gran (auto) Absolute Neuts (auto) Absolute Nucleated RBC Nucleated RBC % (auto) PT 13.5 H INR 1.1 APTT 33.0 D-Dimer < 200 Anion Gap Estim Creat Clear Calc Estimated GFR POC Glucose Random Glucose Lactic Acid 1.8 Calcium Magnesium Ferritin Total Bilirubin Direct Bilirubin AST ALT Alkaline Phosphatase Troponin I High Sens < 3.5 C-Reactive Protein B-Natriuretic Peptide 44 Total Protein Albumin Procalcitonin Urine Color Urine Appearance Urine pH Ur Specific Walters Urine Protein Urine Glucose (UA) Urine Ketones Urine Blood Urine Nitrite Ur Leukocyte Esterase Urine RBC Urine WBC Ur Squamous Epith Cells Urine Bacteria Urine Mucus Coronavirus (PCR) Influenza Type A (PCR) Influenza Type B (PCR) RSV RNA Qual (PCR) 08/21/20 08/21/20 08/21/20 13:24 13:31 13:31 MCV 97.3 MCH 32.9 MCHC 33.8 RDW 12.7 Plt Count 218 MPV 10.0 Immature Gran % (Auto) 0.2 Neut % (Auto) 81.1 H Lymph % (Auto) 7.7 L [place] % (Auto) 8.9 Eos % (Auto) 1.8 Baso % (Auto) 0.3 Lymph # (Auto) 0.7 L [place] # (Auto) 0.8 Eos # (Auto) 0.2 Baso # (Auto) 0.0 Abs Immat Gran (auto) 0.02 Absolute Neuts (auto) 7.5 Absolute Nucleated RBC 0.000 Nucleated RBC % (auto) 0.0 PT INR APTT D-Dimer Anion Gap 16 Estim Creat Clear Calc 101.9 Estimated GFR > 60 POC Glucose Random Glucose 151 H D Lactic Acid Calcium 9.5 Magnesium 1.7 Ferritin 247 Total Bilirubin 0.8 Direct Bilirubin 0.4 AST 37 ALT 62 H Alkaline Phosphatase 98 D Troponin I High Sens C-Reactive Protein 4.82 H B-Natriuretic Peptide Total Protein 7.4 Albumin 4.3 Procalcitonin 0.05 Urine Color Urine Appearance Urine pH Ur Specific Walters Urine Protein Urine Glucose (UA) Urine Ketones Urine Blood Urine Nitrite Ur Leukocyte Esterase Urine RBC Urine WBC Ur Squamous Epith Cells Urine Bacteria Urine Mucus Coronavirus (PCR) Influenza Type A (PCR) Influenza Type B (PCR) RSV RNA Qual (PCR) 08/21/20 08/21/20 08/21/20 13:31 13:33 20:00 MCV MCH MCHC RDW Plt Count MPV Immature Gran % (Auto) Neut % (Auto) Lymph % (Auto) [place] % (Auto) Eos % (Auto) Baso % (Auto) Lymph # (Auto) [place] # (Auto) Eos # (Auto) Baso # (Auto) Abs Immat Gran (auto) Absolute Neuts (auto) Absolute Nucleated RBC Nucleated RBC % (auto) PT INR APTT D-Dimer Anion Gap Estim Creat Clear Calc Estimated GFR POC Glucose 157 H Random Glucose Lactic Acid Calcium Magnesium Ferritin Total Bilirubin Direct Bilirubin AST ALT Alkaline Phosphatase Troponin I High Sens C-Reactive Protein B-Natriuretic Peptide Total Protein Albumin Procalcitonin Urine Color YELLOW Urine Appearance CLEAR Urine pH 5.5 Ur Specific Walters >= 1.030 H Urine Protein NEG Urine Glucose (UA) NEG Urine Ketones 5 Urine Blood 1+ H Urine Nitrite NEG Ur Leukocyte Esterase NEG Urine RBC 1-4 Urine WBC 0-2 Ur Squamous Epith Cells 1+ Urine Bacteria NONE Urine Mucus 2+ Coronavirus (PCR) NEGATIVE Influenza Type A (PCR) NEGATIVE Influenza Type B (PCR) NEGATIVE RSV RNA Qual (PCR) NEGATIVE Imaging Radiologist's Impressions: Impressions Chest X-Ray 08/21/20 13:09 IMPRESSION: Unremarkable examination. Chest CT 08/21/20 14:36 IMPRESSION: Limited exam due to artifact from respiratory motion. No evidence for acute disease in the chest. Small pulmonary nodules, largest measuring 4 mm. According to the UPDATED 2017 Fleischner Society recommendations, the advised follow-up imaging for less than 6 mm nodule, low risk, no chest CT follow-up needed and high risk, optional chest CT follow-up in one year. Dilated ascending thoracic aorta and aortic arch. This is not appreciably changed from previous MRI of the chest August 2016. Dilated celiac axis measuring 1.6 cm. This could be better evaluated with CTA Upper normal-size gallbladder. Probable left renal cyst. Assessment and Plan (1) Acute exacerbation of chronic obstructive pulmonary disease: Status: Acute (2) Atrial fibrillation: Qualifiers: Atrial fibrillation type: paroxysmal Qualified Code(s): I48.0 - Paroxysmal atrial fibrillation Status: Acute (3) Sepsis: Status: Acute 70-year-old male with history of COPD who presents to the hospital with complaints shortness of breath # acute COPD exacerbation - no hypoxia, has evidence of sepsis including tachycardia, tachypnea - COVID-19 negative, has chronic changes in the lungs with no acute changes and no evidence of pneumonia Plan: -will start him on Solu-Medrol 40 IV b.i.d., DuoNeb p.r.n., q.i.d. scheduled - given his severity of symptoms will start him on azithromycin - follow cultures # Sepsis - 2/2 COPD - UA -ve, CXR/CT shows no pna, covid 19 negative - pending RVP Plan: - Azithromycin - Blood culture - Tx of COPD as above # A. fib - rate controlled - continue carvedilol and eliquis DVT ppx: Eliquis
[2020-08-21 21:09] VITALS: BP 146/77; PULSE 77; RESP 16; TEMP 35.8; O2SAT 99
[2020-08-21 21:34] VITALS: BP 136/97; PULSE 80
[2020-08-21] MEDS: Apixaban 5 MG TABLET PO (21:34)
[2020-08-21] MEDS: Atorvastatin Calcium 80 MG TABLET PO (21:34)
[2020-08-21] MEDS: carvediloL 6.25 MG TABLET PO (21:34)
[2020-08-21] MEDS: Azithromycin 500 MG TABLET PO (22:17)
[2020-08-21 23:53] VITALS: BP 172/95; PULSE 105; RESP 20; TEMP 36.8; O2SAT 96
[2020-08-22] VITALS (9 sets, daily range): BP systolic 116–189; BP diastolic 75–109; PULSE 84–106; RESP 16–28; TEMP 35.7–36.7; O2SAT 96–98
[2020-08-22] MEDS: 0.9 % Sodium Chloride Flush 3 ML SYRINGE IVFLUSH ×4 (05:51→21:19)
[2020-08-22 05:52] LABS: Hematocrit 39.5 % (42-52); Hemoglobin 13.2 g/dl (14.0-18.0); Imm Gran Abs Auto 0.04 X10*3/uL (0.00-0.03); Imm Gran Pct Auto 0.5 % (0.0-0.4); Lymphocytes Absolute Auto 0.6 X10*3/uL (1.2-4.9); Lymphocytes Percent Auto 7.3 % (20-40); MANUAL DIFF FLAG SCAN; Mean Corpuscular HGB Conc 33.4 g/dl (31.0-36.0); Mean Corpuscular Hemoglobin 32.8 pg (27.0-33.0); Mean Corpuscular Volume 98.3 fL (80-98); Mean Platelet Volume 9.8 fL (9.4-12.4); Monocytes Absolute Auto 0.4 X10*3/uL (0.1-1.2); Monocytes Percent Auto 4.4 % (2-11); Neutrophils Absolute Auto 7.3 X10*3/uL (2.0-8.3); Neutrophils Percent Auto 87.8 % (45-73); Platelet Count 192 X10*3/uL (160-400); Red Blood Count 4.02 X10*6/uL (4.60-5.80); Red Cell Distribution Width 12.8 % (11.0-16.0); SCAN SMEAR FLAG 1; White Blood Count 8.3 X10*3/uL (4.8-10.8)
[2020-08-22 06:15] LABS: Anion Gap 12 (12-20); Blood Urea Nitrogen 8 mg/dL (9-16); Calcium 8.6 mg/dL (8.4-10.2); Carbon Dioxide 27 mmol/L (22-29); Chloride 107 mmol/L (96-108); Creatinine Clr Calc Pharmacy 109.3; Estimated Glomerular Filt Rate > 60; Glucose Random 152 mg/dL (60-115); Potassium 4.4 mmol/l (3.3-5.1); Sodium 142 mmol/L (135-145)
[2020-08-22 06:29] LABS: SLIDE REVIEW VERIFIED
[2020-08-22] MEDS: PARoxetine HCL 20 MG TABLET PO (08:31)
[2020-08-22] MEDS: carvediloL 6.25 MG TABLET PO ×2 (08:31→21:18)
[2020-08-22] MEDS: Apixaban 5 MG TABLET PO ×2 (08:32→21:18)
[2020-08-22 08:51] LABS: Rhino/Enterovirus PCR Detected (Not Detect.)
--- NOTE | 2020-08-22 12:32 | MHC.CM.PN ---
Addendum entered by Ellen Nunes 08/24/20 15:51: PCP IS ASHLEY GUNN. CASE MANAGEMENT OFFICE UPDATED. Original Note: CM met with patient [facility]. Admission pending bed. Very pleasant and cooperative. No HCP. Reviewed process and pt refuses completion at this time. Aware that if pt needed rehab, we would need to complete HCP. Understands. Pt is an [employer] , served in [place]. [facility]. PCP is Jose Marie N.P. IMM reviewed and signed. D/C plan is home without services. Will continue to monitor for d/c needs
--- NOTE | 2020-08-22 12:42 | PC.NURSE ---
CALLED UP TO [facility] FOR REPORT, EXPECTING CALL BACK
--- NOTE | 2020-08-22 14:04 | HO.PM.IMPN ---
Subjective Subjective Date of Service: 08/22/20 Interval History: Seen in follow-up for COPD exacerbation. He reports overall feeling much better than yesterday. But does not feel to be back at his baseline. Review of Systems No fever new line Shortness of breath. No cough No confusion Physical Exam Vital Signs: Vital Signs: Last Vital Signs Temp 97.8 F 08/22/20 13:53 Pulse 90 08/22/20 13:57 Resp 28 H 08/22/20 13:53 BP 171/98 H 08/22/20 13:57 Pulse Ox 96 08/22/20 13:53 Body Mass Index 27.7 Const: General: cooperative and no acute distress Orientation/consciousness: patient oriented x3 Resp: Other: Breath sounds diminished. Effort & Inspection: normal respiratory effort and able to speak in complete sentences Cardio: Rate: regular rate Rhythm: regular rhythm GI: Palpation (GI): Soft to palpation Auscultation: normal bowel sounds Skin: General skin exam: no rashes or lesions noted Neuro: General: patient oriented x3 Cognition (Neuro): normal cognition Objective Data Current Medications Generic Name Dose Route Start Last Admin Trade Name Davionq PRN Reason Stop Dose Admin Acetaminophen 650 mg 08/21/20 20:08 Acetaminophen 325 Mg Tablet PO Q6H PRN Pain, Mild (Pain Scale 1-3) Apixaban 5 mg 08/21/20 21:00 08/22/20 08:32 Apixaban 5 Mg Tablet PO 5 mg BID NANNETTE Administration Atorvastatin Calcium 80 mg 08/21/20 21:00 08/21/20 21:34 Atorvastatin Calcium 80 Mg Tablet PO 80 mg BEDTIME NANNETTE Administration Azithromycin 500 mg 08/21/20 22:00 08/21/20 22:17 Azithromycin 500 Mg Tablet PO 500 mg Q24H NANNETTE Administration Carvedilol 6.25 mg 08/21/20 21:00 08/22/20 08:31 Carvedilol 6.25 Mg Tablet PO 6.25 mg BID NANNETTE Administration Protocol Docusate Sodium 100 mg 08/21/20 20:08 Docusate Sodium 100 Mg Capsule PO DAILY PRN Constipation Lisinopril 5 mg 08/22/20 09:00 08/22/20 08:31 Lisinopril 5 Mg Tablet PO 5 mg DAILY NANNETTE Administration Protocol Ondansetron HCl 4 mg 08/21/20 20:08 Ondansetron Hcl 4 Mg/2 Ml Vial IVPUSH Q8H PRN Nausea and Vomiting Paroxetine HCl 20 mg 08/22/20 09:00 08/22/20 08:31 Paroxetine Hcl 20 Mg Tablet PO 20 mg DAILY NANNETTE Administration Pharmacy Consult 1 each 08/21/20 19:47 Consult Rx Perform Med Rec MISCELLANE ONCE PRN Consult order Sodium Chloride 3 ml 08/22/20 00:00 08/22/20 07:33 0.9 % Sodium Chloride Flush 3 Ml Syringe IVFLUSH 3 ml QSHIFT NANNETTE Administration Labs CBC & Chem 7: 08/22/20 05:40 08/22/20 05:40 Assessment and Plan (1) Acute exacerbation of chronic obstructive pulmonary disease: Status: Acute (2) Atrial fibrillation: Status: Acute (3) Sepsis: Status: Acute Assessment and Plan: 70-year-old male with history of COPD who presents to the hospital with complaints shortness of breath # acute COPD exacerbation--clinically improving. - no hypoxia, has evidence of sepsis including tachycardia, tachypnea - COVID-19 negative, has chronic changes in the lungs with no acute changes and no evidence of pneumonia Plan: -prednisone 40 mg daily for total of 5 days. - given his severity of symptoms will start him on azithromycin - follow cultures # Sepsis - 2/2 COPD --he no longer meets sepsis criteria. He probably has acute bronchitis. - UA -ve, CXR/CT shows no pna, covid 19 negative - pending RVP Plan: - Azithromycin - Blood culture - Tx of COPD as above # A. fib - rate controlled - continue carvedilol and eliquis # hypertension: Continue lisinopril if BP remained elevated increase the dose or add another medication. DVT ppx: Eliquis I think he can go home tomorrow.
[2020-08-22] MEDS: predniSONE 20 MG TABLET 40 MG PO (14:24)
--- NOTE | 2020-08-22 15:02 | PC.NURSE ---
[address] Stout aware
[2020-08-22] MEDS: Atorvastatin Calcium 80 MG TABLET PO (21:18)
[2020-08-22] MEDS: Azithromycin 500 MG TABLET PO (21:18)
[2020-08-23] VITALS (8 sets, daily range): BP systolic 141–172; BP diastolic 86–105; PULSE 76–88; RESP 18; TEMP 36.4–37; O2SAT 94–97
[2020-08-23] MEDS: 0.9 % Sodium Chloride Flush 3 ML SYRINGE IVFLUSH ×2 (10:31→16:31)
[2020-08-23] MEDS: Apixaban 5 MG TABLET PO ×2 (10:32→21:11)
[2020-08-23] MEDS: carvediloL 6.25 MG TABLET PO ×2 (10:32→21:11)
[2020-08-23] MEDS: predniSONE 20 MG TABLET 40 MG PO (10:32)
[2020-08-23] MEDS: PARoxetine HCL 20 MG TABLET PO (10:32)
--- NOTE | 2020-08-23 13:45 | P.PNIM_ITS ---
Subjective Subjective Date of Service: 08/23/20 Interval History: copd execerebation Review of Systems Patient still short of breath has some cough and producing yellow sputum. Denies any fever or chills or abdominal pain. Physical Exam Vital Signs: Vital Signs: Last Vital Signs Temp 97.5 F 08/23/20 11:50 Pulse 79 08/23/20 11:50 Resp 18 08/23/20 11:50 BP 163/97 H 08/23/20 11:50 Pulse Ox 96 08/23/20 11:50 Body Mass Index 27.7 Physical exam: Constitutional: Seems to be short of breath Cvs: rrr, [id number] , no murmur. res: air entry seems dimished , has b/l wheezing abd: no rebound or guarding ,nt, bs present. ext pulses present , no cyanosis neuro: axo3 , nonfocal. Objective Data Current Medications Generic Name Dose Route Start Last Admin Trade Name Freq PRN Reason Stop Dose Admin Acetaminophen 650 mg 08/21/20 20:08 Acetaminophen 325 Mg Tablet PO Q6H PRN Pain, Mild (Pain Scale 1-3) Albuterol/Ipratropium 3 ml 08/23/20 16:00 Albuterol/Iprat 2.5/0.5mg 3 Ml Ampul.Neb INHALE RQ4H WHILE AWAKE NANNETTE Albuterol/Ipratropium 3 ml 08/23/20 12:41 Albuterol/Iprat 2.5/0.5mg 3 Ml Ampul.Neb INHALE Q6H PRN Shortness of Breath Apixaban 5 mg 08/21/20 21:00 08/23/20 10:32 Apixaban 5 Mg Tablet PO 5 mg BID NANNETTE Administration Atorvastatin Calcium 80 mg 08/21/20 21:00 08/22/20 21:18 Atorvastatin Calcium 80 Mg Tablet PO 80 mg BEDTIME NANNETTE Administration Azithromycin 500 mg 08/21/20 22:00 08/22/20 21:18 Azithromycin 500 Mg Tablet PO 500 mg Q24H NANNETTE Administration Carvedilol 6.25 mg 08/21/20 21:00 08/23/20 10:32 Carvedilol 6.25 Mg Tablet PO 6.25 mg BID NANNETTE Administration Protocol Docusate Sodium 100 mg 08/21/20 20:08 Docusate Sodium 100 Mg Capsule PO DAILY PRN Constipation Lisinopril 5 mg 08/22/20 09:00 08/23/20 10:32 Lisinopril 5 Mg Tablet PO 5 mg DAILY NANNETTE Administration Protocol Ondansetron HCl 4 mg 08/21/20 20:08 Ondansetron Hcl 4 Mg/2 Ml Vial IVPUSH Q8H PRN Nausea and Vomiting Paroxetine HCl 20 mg 08/22/20 09:00 08/23/20 10:32 Paroxetine Hcl 20 Mg Tablet PO 20 mg DAILY NANNETTE Administration Pharmacy Consult 1 each 08/21/20 19:47 Consult Rx Perform Med Rec MISCELLANE ONCE PRN Consult order Prednisone 40 mg 08/22/20 14:10 08/23/20 10:32 Prednisone 20 Mg Tablet PO 40 mg DAILY NANNETTE Administration Sodium Chloride 3 ml 08/22/20 00:00 08/23/20 10:31 0.9 % Sodium Chloride Flush 3 Ml Syringe IVFLUSH 3 ml QSHIFT NANNETTE Administration Labs CBC & Chem 7: 08/22/20 05:40 08/22/20 05:40 Microbiology Microbiology Results: Microbiology 08/21/20 13:31 Blood - Venous Blood Culture - Preliminary No growth after 24 hours. 08/21/20 13:22 Blood - Venous Blood Culture - Preliminary No growth after 24 hours. Assessment and Plan (1) Sepsis: Status: Acute (2) Acute exacerbation of chronic obstructive pulmonary disease: Status: Acute (3) Atrial fibrillation: Status: Acute Assessment and Plan: 70-year-old male with history of COPD who presents to the hospital with c omplaints shortness of breath 1.acute COPD exacerbation- seems sob ,? nebs fall off started back. COVID-19 negative, has chronic changes in the lungs with no acute changes and no evidence of pneumonia. added nebs back, prednisone, taper oxygen slowly. continue azithromycin day2 2.Sepsis - 2/2 COPD --he no longer meets sepsis criteria. He probably has acute bronchitis. UA -ve, CXR/CT shows no pna, covid 19 negative RVP -shows positive for entero/rhino virus. continue Azithromycin , Blood culture prelim neg@24hrs 3. A. fib - rate controlled - continue carvedilol and eliquis 4.hypertension: Continue lisinopril if BP remained elevated increase the dose or add another medication. DVT ppx: Eliquis
[2020-08-23] MEDS: Albuterol/Iprat 2.5/0.5MG 3 ML AMPUL.NEB INHALE ×2 (15:07→21:24)
[2020-08-23] MEDS: Atorvastatin Calcium 80 MG TABLET PO (21:11)
[2020-08-23] MEDS: Azithromycin 500 MG TABLET PO (21:11)
[2020-08-24] VITALS (12 sets, daily range): BP systolic 155–184; BP diastolic 86–100; PULSE 76–92; RESP 18–20; TEMP 36.3–37.2; O2SAT 93–98
[2020-08-24] MEDS: 0.9 % Sodium Chloride Flush 3 ML SYRINGE IVFLUSH ×3 (00:38→17:00)
[2020-08-24] MEDS: Albuterol/Iprat 2.5/0.5MG 3 ML AMPUL.NEB INHALE ×4 (08:24→21:02)
[2020-08-24] MEDS: predniSONE 20 MG TABLET 40 MG PO (10:08)
[2020-08-24] MEDS: PARoxetine HCL 20 MG TABLET PO (10:09)
[2020-08-24] MEDS: carvediloL 6.25 MG TABLET PO ×2 (10:10→22:09)
[2020-08-24] MEDS: Apixaban 5 MG TABLET PO ×2 (10:10→22:09)
--- NOTE | 2020-08-24 12:00 | PC.NURSE ---
forrest Duran concerning BP 173/100, had his bp medication at 10:09 AM. Pt denies any chest pain, shortness of breath.
--- NOTE | 2020-08-24 15:16 | MHC.CM.PN ---
PATIENT IS AWARE THAT HE IS DISCHARGED HOME TOMORROW (08/25/20) HE IS AGREEABLE TO [facility] AND CHOOSES [facility]. REFERRAL PLACED. IF THEY ARE UNABLE TO OFFER, PATIENT IS AGREEABLE TO WHICH [facility] IS ABLE TO OFFER SERVICES. HE WILL NEED A PAIR OF [employer]ADA-PANTS TO GO HOME IN. TO TRANSPORT PATIENT HOME. IMM 08/24 IN CHART
--- NOTE | 2020-08-24 15:40 | MHC.CM.PN ---
[facility] IS OFFERING RN SKILLS. [facility] IS UNABLE TO SERVICE [facility]. IMM 08/24 IN CHART
--- NOTE | 2020-08-24 16:06 | P.PNIM_ITS ---
Subjective Subjective Date of Service: 08/24/20 Interval History: copd exacerbation. Review of Systems still sob, has cough Physical Exam Vital Signs: Vital Signs: Last Vital Signs Temp 97.3 F 08/24/20 10:57 Pulse 80 08/24/20 15:40 Resp 18 08/24/20 10:57 BP 162/95 H 08/24/20 12:30 Pulse Ox 94 08/24/20 10:57 Body Mass Index 27.7 Physical exam: Constitutional: Not in acute distress HEENT: Eyes anicteric, no discharge Mouth: Clean, no thrush Note significant erythema in the throat Cvs: rrr, [id number] , no murmur res: clear to auscultation ,no rhonchii or wheezing abd: no rebound or guarding ,nt, bs present. ext pulses present , no cyanosis neuro: axo3 , nonfocal. Objective Data Current Medications Generic Name Dose Route Start Last Admin Trade Name Freq PRN Reason Stop Dose Admin Acetaminophen 650 mg 08/21/20 20:08 Acetaminophen 325 Mg Tablet PO Q6H PRN Pain, Mild (Pain Scale 1-3) Albuterol/Ipratropium 3 ml 08/23/20 16:00 08/24/20 15:40 Albuterol/Iprat 2.5/0.5mg 3 Ml Ampul.Neb INHALE 3 ml RQ4H WHILE AWAKE NANNETTE Administration Albuterol/Ipratropium 3 ml 08/23/20 12:41 Albuterol/Iprat 2.5/0.5mg 3 Ml Ampul.Neb INHALE Q6H PRN Shortness of Breath Apixaban 5 mg 08/21/20 21:00 08/24/20 10:10 Apixaban 5 Mg Tablet PO 5 mg BID NANNETTE Administration Atorvastatin Calcium 80 mg 08/21/20 21:00 08/23/20 21:11 Atorvastatin Calcium 80 Mg Tablet PO 80 mg BEDTIME NANNETTE Administration Azithromycin 500 mg 08/21/20 22:00 08/23/20 21:11 Azithromycin 500 Mg Tablet PO 500 mg Q24H NANNETTE Administration Carvedilol 6.25 mg 08/21/20 21:00 08/24/20 10:10 Carvedilol 6.25 Mg Tablet PO 6.25 mg BID NANNETTE Administration Protocol Docusate Sodium 100 mg 08/21/20 20:08 Docusate Sodium 100 Mg Capsule PO DAILY PRN Constipation Lisinopril 5 mg 08/22/20 09:00 08/24/20 10:09 Lisinopril 5 Mg Tablet PO 5 mg DAILY [facility] Administration Protocol Ondansetron HCl 4 mg 08/21/20 20:08 Ondansetron Hcl 4 Mg/2 Ml Vial IVPUSH Q8H PRN Nausea and Vomiting Paroxetine HCl 20 mg 08/22/20 09:00 08/24/20 10:09 Paroxetine Hcl 20 Mg Tablet PO 20 mg DAILY NANNETTE Administration Pharmacy Consult 1 each 08/21/20 19:47 Consult Rx Perform Med Rec MISCELLANE ONCE PRN Consult order Prednisone 40 mg 08/22/20 14:10 08/24/20 10:08 Prednisone 20 Mg Tablet PO 40 mg DAILY NANNETTE Administration Sodium Chloride 3 ml 08/22/20 00:00 08/24/20 10:11 0.9 % Sodium Chloride Flush 3 Ml Syringe IVFLUSH 3 ml QSHIFT NANNETTE Administration Labs CBC & Chem 7: 08/22/20 05:40 08/22/20 05:40 Microbiology Microbiology Results: Microbiology 08/21/20 13:31 Blood - Venous Blood Culture - Preliminary No growth after 48 hours. 08/21/20 13:22 Blood - Venous Blood Culture - Preliminary No growth after 48 hours. Assessment and Plan (1) Sepsis: Status: Acute (2) Acute exacerbation of chronic obstructive pulmonary disease: Status: Acute (3) Atrial fibrillation: Status: Acute Assessment and Plan: 70-year-old male with history of COPD who presents to the hospital with complaints shortness of breath 1.acute COPD exacerbation- sob seems improving COVID-19 negative, has chronic changes in the lungs with no acute changes and no evidence of pneumonia. added nebs back, prednisone, taper oxygen slowly. continue azithromycin day3 2.Sepsis - 2/2 COPD --he no longer meets sepsis criteria. He probably has acute bronchitis. UA -ve, CXR/CT shows no pna, covid 19 negative RVP -shows positive for entero/rhino virus. continue Azithromycin , Blood culture prelim neg@24hrs 3. A. fib - rate controlled - continue carvedilol and eliquis 4.hypertension: Continue lisinopril if BP remained elevated increase the dose or add another medication. DVT ppx: Eliquis
[2020-08-24] MEDS: Atorvastatin Calcium 80 MG TABLET PO (22:09)
[2020-08-24] MEDS: Azithromycin 500 MG TABLET PO (22:09)
[2020-08-25] MEDS: 0.9 % Sodium Chloride Flush 3 ML SYRINGE IVFLUSH ×2 (00:05→08:42)
[2020-08-25 00:57] VITALS: BP 170/90; BP 179/103; PULSE 79; RESP 16; TEMP 36.4; O2SAT 94
[2020-08-25 04:44] VITALS: BP 178/90; PULSE 88; RESP 16; TEMP 37.3; O2SAT 94
[2020-08-25] MEDS: Albuterol/Iprat 2.5/0.5MG 3 ML AMPUL.NEB INHALE (07:51)
[2020-08-25 07:54] VITALS: PULSE 95; O2SAT 96
[2020-08-25 07:56] VITALS: BP 180/82; PULSE 81; RESP 20; TEMP 36.7; O2SAT 95
[2020-08-25] MEDS: Apixaban 5 MG TABLET PO (08:41)
[2020-08-25] MEDS: PARoxetine HCL 20 MG TABLET PO (08:41)
[2020-08-25] MEDS: carvediloL 6.25 MG TABLET PO (08:42)
[2020-08-25] MEDS: predniSONE 20 MG TABLET 40 MG PO (08:45)
[2020-08-25 09:20] VITALS: BP 168/94
[2020-08-25 12:00] VITALS: BP 166/99; PULSE 82; RESP 17; TEMP 36.3; O2SAT 96
--- NOTE | 2020-08-25 12:58 | P.DS_ITS ---
DS: Providers Provider Date of Service: 08/25/20 Date of admission: 08/21/20 20:08 Primary care physician: Unknown Physician DS: Diagnosis Discharge Diagnosis (1) Sepsis: Status: Acute (2) Acute exacerbation of chronic obstructive pulmonary disease: Status: Acute (3) Atrial fibrillation: Status: Acute DS: Medications Discharge Medications Home Medications: Home Medications Medication Instructions Recorded Confirmed atorvastatin 80 mg PO BEDTIME 08/21/20 08/21/20 carvedilol 6.25 mg PO BID 08/21/20 08/21/20 lisinopril 5 mg PO DAILY 08/21/20 08/21/20 paroxetine HCl 20 mg PO DAILY 08/21/20 08/21/20 Previous Rx's Medication Instructions Recorded apixaban 5 mg tablet 5 mg PO BID 90 Days #180 tab 08/01/20 DS: Summary Hospital Course Hospital Course: 70-year-old male with past medical history of COPD, atrial fibrillation on Eliquis, hypertension who presents to the hospital complaining of shortness of breath for the past 3 days. Patient reports that he started having cold symptoms including runny nose, rigors, generalized body aches as well as shortness of breath, and cough for about 3 days. He has no sputum production although feels congested in the chest he is just unable to bring up any phlegm. He had a fever yesterday of 101, no nausea vomiting, no abdominal pain, no diarrhea constipation. No urinary symptoms and no lower extremity edema. On arrival to the ED found to have a temp of 99.0?, heart rate of 106, respiratory rate of 22, blood pressure 166/105, satting 92% on room air Labs are significant for WBC count of 9.3, sodium of 141, potassium 3.9, glucose of 157, ALT of 62, C-reactive protein of 4.8, BNP of 44, UA negative, COVID-19 negative, influenza and RSV. Expanded respiratory viral panel pending otherwise. Chest CT shows no evidence of acute disease in the chest, small pulmonary nodules largest measuring 4 mm. Dilated ascending thoracic aorta and aortic arch with no change from MRI done in August 2016. Past medical history: COPD, atrial fib on Eliquis, hypertension. Hospital Course problem bauer section: Patient was admitted for shortness of breath and found to have sepsis/probably related to COPD exacerbation and acute bronchitis: Patient was started on steroids, nebs, azithromycin and subsequently patient shortness of breath improved as well as sepsis. Patient is going home with p.o. steroids and azithromycin-please complete the course. Above management discussed with the patient in detail length he understand and in agreement with the above plan, time spent 50 minutes and 50% time spent on counseling. Significant findings: As above. Procedures performed: None. Treatment and response: As above. Complications: None. Time Spent with Patient Time attestation: Total time spent providing and/or coordinating discharge services: Discharge coordination time: Greater than 30 minutes Physical Exam Vital Signs: Vital Signs: Last Vital Signs Temp 97.3 F 08/25/20 12:00 Pulse 82 08/25/20 12:00 Resp 17 08/25/20 12:00 BP 166/99 H 08/25/20 12:00 Pulse Ox 96 08/25/20 12:00 Body Mass Index 27.7 Physical exam: Constitutional: Patient not in distress. Cvs: rrr, [id number] , no murmur res: clear to auscultation ,no rhonchii or wheezing abd: no rebound or guarding ,nt, bs present. ext pulses present , no cyanosis neuro: axo3 , nonfocal. DS: Data Data Completed and Pending Labs on day of discharge: Laboratory Tests 08/21/20 08/21/20 08/21/20 13:00 13:23 13:23 WBC RBC Hgb Hct MCV MCH MCHC RDW Plt Count MPV Immature Gran % (Auto) Neut % (Auto) Lymph % (Auto) [place] % (Auto) Eos % (Auto) Baso % (Auto) Lymph # (Auto) [place] # (Auto) Eos # (Auto) Baso # (Auto) Abs Immat Gran (auto) Absolute Neuts (auto) Absolute Nucleated RBC Nucleated RBC % (auto) Smear Tech's Comments PT 13.5 H INR 1.1 APTT 33.0 D-Dimer < 200 Sodium Potassium Chloride Carbon Dioxide Anion Gap BUN Creatinine Estim Creat Clear Calc Estimated GFR POC Glucose Random Glucose Lactic Acid 1.8 Calcium Magnesium Ferritin Total Bilirubin Direct Bilirubin AST ALT Alkaline Phosphatase Troponin I High Sens C-Reactive Protein B-Natriuretic Peptide Total Protein Albumin Procalcitonin Urine Color Urine Appearance Urine pH Ur Specific [place] Urine Protein Urine Glucose (UA) Urine Ketones Urine Blood Urine Nitrite Ur Leukocyte Esterase Urine RBC Urine WBC Ur Squamous Epith Cells Urine Bacteria Urine Mucus Respiratory Panel Anders[place] See Note Adenovirus (Rapid PCR) Not Detected B.pert (TEM-PCR) Not Detected B.parapertussis DNA PCR Not Detected C. pneumoniae DNA (PCR) Not Detected Coronavirus (PCR) Coronavirus OC43 (PCR) Not Detected Coronavirus HKU1 (PCR) Not Detected Coronavirus 229E (PCR) Not Detected Coronavirus NL63 (PCR) Not Detected Human Metapneumovir PCR Not Detected Influenza A (RT-PCR) Not Detected Influenza Type A (PCR) Influenza B (RT-PCR) Not Detected Influenza Type B (PCR) M. pneumoniae (PCR) Not Detected Parainfluenza 1 (PCR) Not Detected Parainfluenza 2 (PCR) Not Detected Parainfluenza 3 (PCR) Not Detected Parainfluenza 4 (PCR) Not Detected RSV (PCR) Not Detected RSV RNA Qual (PCR) Entero/Rhino (PCR) Detected A SARS-CoV-2 RNA (RT-PCR) Not Detected 08/21/20 08/21/20 08/21/20 13:23 13:24 13:31 WBC 9.3 RBC 4.47 L Hgb 14.7 Hct 43.5 MCV 97.3 MCH 32.9 MCHC 33.8 RDW 12.7 Plt Count 218 MPV 10.0 Immature Gran % (Auto) 0.2 Neut % (Auto) 81.1 H Lymph % (Auto) 7.7 L [place] % (Auto) 8.9 Eos % (Auto) 1.8 Baso % (Auto) 0.3 Lymph # (Auto) 0.7 L [place] # (Auto) 0.8 Eos # (Auto) 0.2 Baso # (Auto) 0.0 Abs Immat Gran (auto) 0.02 Absolute Neuts (auto) 7.5 Absolute Nucleated RBC 0.000 Nucleated RBC % (auto) 0.0 Smear Tech's Comments PT INR APTT D-Dimer Sodium 141 Potassium 3.9 D Chloride 103 Carbon Dioxide 26 Anion Gap 16 BUN 9 Creatinine 0.74 Estim Creat Clear Calc 101.9 Estimated GFR > 60 POC Glucose Random Glucose 151 H D Lactic Acid Calcium 9.5 Magnesium 1.7 Ferritin 247 Total Bilirubin 0.8 Direct Bilirubin 0.4 AST 37 ALT 62 H Alkaline Phosphatase 98 D Troponin I High Sens < 3.5 C-Reactive Protein 4.82 H B-Natriuretic Peptide 44 Total Protein 7.4 Albumin 4.3 Procalcitonin Urine Color Urine Appearance Urine pH Ur Specific [place] Urine Protein Urine Glucose (UA) Urine Ketones Urine Blood Urine Nitrite Ur Leukocyte Esterase Urine RBC Urine WBC Ur Squamous Epith Cells Urine Bacteria Urine Mucus Respiratory Panel [place] Adenovirus (Rapid PCR) B.pert (TEM-PCR) B.parapertussis DNA PCR C. pneumoniae DNA (PCR) Coronavirus (PCR) Coronavirus OC43 (PCR) Coronavirus HKU1 (PCR) Coronavirus 229E (PCR) Coronavirus NL63 (PCR) Human Metapneumovir PCR Influenza A (RT-PCR) Influenza Type A (PCR) Influenza B (RT-PCR) Influenza Type B (PCR) M. pneumoniae (PCR) Parainfluenza 1 (PCR) Parainfluenza 2 (PCR) Parainfluenza 3 (PCR) Parainfluenza 4 (PCR) RSV (PCR) RSV RNA Qual (PCR) Entero/Rhino (PCR) SARS-CoV-2 RNA (RT-PCR) 08/21/20 08/21/20 08/21/20 13:31 13:31 13:33 WBC RBC Hgb Hct MCV MCH MCHC RDW Plt Count MPV Immature Gran % (Auto) Neut % (Auto) Lymph % (Auto) [place] % (Auto) Eos % (Auto) Baso % (Auto) Lymph # (Auto) [place] # (Auto) Eos # (Auto) Baso # (Auto) Abs Immat Gran (auto) Absolute Neuts (auto) Absolute Nucleated RBC Nucleated RBC % (auto) Smear Tech's Comments PT INR APTT D-Dimer Sodium Potassium Chloride Carbon Dioxide Anion Gap BUN Creatinine Estim Creat Clear Calc Estimated GFR POC Glucose 157 H Random Glucose Lactic Acid Calcium Magnesium Ferritin Total Bilirubin Direct Bilirubin AST ALT Alkaline Phosphatase Troponin I High Sens C-Reactive Protein B-Natriuretic Peptide Total Protein Albumin Procalcitonin 0.05 Urine Color Urine Appearance Urine pH Ur Specific [place] Urine Protein Urine Glucose (UA) Urine Ketones Urine Blood Urine Nitrite Ur Leukocyte Esterase Urine RBC Urine WBC Ur Squamous Epith Cells Urine Bacteria Urine Mucus Respiratory Panel [place] Adenovirus (Rapid PCR) B.pert (TEM-PCR) B.parapertussis DNA PCR C. pneumoniae DNA (PCR) Coronavirus (PCR) NEGATIVE Coronavirus OC43 (PCR) Coronavirus HKU1 (PCR) Coronavirus 229E (PCR) Coronavirus NL63 (PCR) Human Metapneumovir PCR Influenza A (RT-PCR) Influenza Type A (PCR) NEGATIVE Influenza B (RT-PCR) Influenza Type B (PCR) NEGATIVE M. pneumoniae (PCR) Parainfluenza 1 (PCR) Parainfluenza 2 (PCR) Parainfluenza 3 (PCR) Parainfluenza 4 (PCR) RSV (PCR) RSV RNA Qual (PCR) NEGATIVE Entero/Rhino (PCR) SARS-CoV-2 RNA (RT-PCR) 08/21/20 08/22/20 08/22/20 20:00 05:40 05:40 WBC 8.3 RBC 4.02 L Hgb 13.2 L Hct 39.5 L MCV 98.3 H MCH 32.8 MCHC 33.4 RDW 12.8 Plt Count 192 MPV 9.8 Immature Gran % (Auto) 0.5 H Neut % (Auto) 87.8 H Lymph % (Auto) 7.3 L [place] % (Auto) 4.4 Eos % (Auto) 0.0 Baso % (Auto) 0.0 Lymph # (Auto) 0.6 L [place] # (Auto) 0.4 Eos # (Auto) 0.0 Baso # (Auto) 0.0 Abs Immat Gran (auto) 0.04 H Absolute Neuts (auto) 7.3 Absolute Nucleated RBC 0.000 Nucleated RBC % (auto) 0.0 Smear Tech's Comments VERIFIED PT INR APTT D-Dimer Sodium 142 Potassium 4.4 Chloride 107 Carbon Dioxide 27 Anion Gap 12 BUN 8 L Creatinine 0.69 Estim Creat Clear Calc 109.3 Estimated GFR > 60 POC Glucose Random Glucose 152 H Lactic Acid Calcium 8.6 D Magnesium Ferritin Total Bilirubin Direct Bilirubin AST ALT Alkaline Phosphatase Troponin I High Sens C-Reactive Protein B-Natriuretic Peptide Total Protein Albumin Procalcitonin Urine Color YELLOW Urine Appearance CLEAR Urine pH 5.5 Ur Specific [place] >= 1.030 H Urine Protein NEG Urine Glucose (UA) NEG Urine Ketones 5 Urine Blood 1+ H Urine Nitrite NEG Ur Leukocyte Esterase NEG Urine RBC 1-4 Urine WBC 0-2 Ur Squamous Epith Cells 1+ Urine Bacteria NONE Urine Mucus 2+ Respiratory Panel [place] Adenovirus (Rapid PCR) B.pert (TEM-PCR) B.parapertussis DNA PCR C. pneumoniae DNA (PCR) Coronavirus (PCR) Coronavirus OC43 (PCR) Coronavirus HKU1 (PCR) Coronavirus 229E (PCR) Coronavirus NL63 (PCR) Human Metapneumovir PCR Influenza A (RT-PCR) Influenza Type A (PCR) Influenza B (RT-PCR) Influenza Type B (PCR) M. pneumoniae (PCR) Parainfluenza 1 (PCR) Parainfluenza 2 (PCR) Parainfluenza 3 (PCR) Parainfluenza 4 (PCR) RSV (PCR) RSV RNA Qual (PCR) Entero/Rhino (PCR) SARS-CoV-2 RNA (RT-PCR) Preliminary micro results at discharge 08/21/20 13:31 Blood Culture - Preliminary Blood - Venous No growth after 48 hours. 08/21/20 13:22 Blood Culture - Preliminary Blood - Venous No growth after 48 hours. Discharge Plan Discharge Patient Disposition: Home, Self-Care Referrals: Physician,Unknown [Primary Care Provider] - Discharge Medications: New prednisone 20 mg Tablet 40 mg PO DAILY Qty: 6 RF: 0 azithromycin [Zithromax] 250 mg tablet 250 mg PO DAILY Qty: 4 RF: 0 Continued Eliquis 5 mg tablet 5 mg PO BID 90 Days Qty: 180 RF: 3 atorvastatin 80 mg Tablet 80 mg PO BEDTIME RF: 0 carvedilol 6.25 mg Tablet 6.25 mg PO BID RF: 0 paroxetine HCl 20 mg Tablet 20 mg PO DAILY RF: 0 Changed lisinopril 5 mg Tablet 10 mg PO DAILY Qty: 60 RF: 0 Discharge Orders: Discharge Order (Routine); Ordered 08/25/20 Ordered By: Luis Fernando Duran Diet: advance to usual diet Activity on Discharge: As tolerated Visit Report Forms: Patient Portal Discharge page Care Plan Goals: Patient was admitted for shortness of breath an sepsis/probably related to COPD exacerbation and acute bronchitis: Patient was started on steroids, nebs, azithromycin and subsequently patient shortness of breath improved as well as sepsis. Patient is going home with p.o. steroids and azithromycin-please complete the course. Health Concerns: As above. Plan of Treatment: As above.
--- NOTE | 2020-08-26 09:42 | MHC.CM.PN ---
PT WAS DISCHARGED HOME ON WITH NO SERVICES ORDERED. PT WAS TRANSPORTED BY FAMILY. [facility] WAS NOTIFIED OF DC AND CANCELLATION OF REFERRAL VIA [employer].
--- NOTE | 2020-08-27 16:36 | MHC.CM.PN ---
CM REVEIVED A MESSAGE FROM CALL CENTER THAT THIS PT HAD CALLED AND WAS WORRIED HIS BP WAS HIGH AND HE NEEDS A VNA. CM SPOKE TO HOSPITALIST WHO DC'D PT AND A VNA ORDER WAS ADDED. PER CALL CENTER, PT ALSO INFORMED HIS PCP THAT HIS BP WAS HIGH AND WAS WAITING FOR A RESPONSE. [facility] TO [facility]MINE IF THEY WOULD STILL BE ABLE TO PROVIDE PTS SERVICES. CM RECEIVED A RETURN MESSAGE FROM [facility] WHO WILL CHECK AVAILABILITY TOMORROW AND PROVIDE AN ANSWER. 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
--- NOTE | 2020-08-27 17:57 | W.MHC.F2F ---
Service Date Service Date: 08/27/20 Encounter Date of encounter: 08/27/20 Encounter: copd exerecebation/sepsis Reasons for Services Homebound: Leaving the home is medically contraindicated at this time without the asist of a device and/or another person due th the listed conditions above and below. Homebound supporting statement: Patient is generalized weak and needed going to the appointment, monitor blood pressure Certification: Based on the above findings, I certify that this patient is confined to the home and needs intermittent intermediate care, physical therapy and/or speech therapy, or continues to need occupational therapy. The patient is under my care, and I have initiated the establishment of the plan of care. The patient will be followed by a physician who will periodically review the plan of care.
--- NOTE | 2020-08-28 09:07 | MHC.CM.PN ---
T/w spoke with Dr. Kasper office and they will contact [facility] to set up nursing for patient. Spoke with patient and informed him of plan.
== END 2020-08-25 15:55 | disposition home or self-care (01) | DRG 872 ==
LOC: HO.ED 15:44 → HO.EDOVER 20:30 → HO.S3 08-22 12:35
PROVIDERS: Physician Assistant; Admitting Provider Internal Medicine; Emergency Provider Emergency Medicine Emergency Medical Services; PCP Nurse Practitioner Family; Visit Provider Internal Medicine
DX: A41.9 Sepsis, unspecified organism (principal); J44.1 Chronic obstructive pulmonary disease with (acute) exacerbation; J44.0 Chronic obstructive pulmonary disease with (acute) lower respiratory infection; I10 Essential (primary) hypertension; I48.0 Paroxysmal atrial fibrillation; J20.6 Acute bronchitis due to rhinovirus; Z20.822 Contact with and (suspected) exposure to COVID-19; Z79.01 Long term (current) use of anticoagulants; Z79.899 Other long term (current) drug therapy
CPT/HCPCS: 0241U; 36415; 71045; 71250; 80048; 80076; 81001; 82728; 82947; 83605; 83735; 83880; 84145; 84484; 85025; 85379; 85610; 85730; 86140; 87040; 87633; 93005; 94640; 94644; 96361; 96374; 99285; J2930

== ENCOUNTER → 2020-09-21 11:25 | Outpatient (BNVA) | payer MEDICARE, OTHER, SELFPAY | PROVIDERS: PCP Nurse Practitioner Family; Visit Provider Surgery | DX: I71.2 Thoracic aortic aneurysm, without rupture (principal); R91.8 Other nonspecific abnormal finding of lung field; Z79.899 Other long term (current) drug therapy | CPT/HCPCS: 99212 ==

== ENCOUNTER → 2020-10-08 13:54 | Outpatient (BNVA) | payer MEDICARE, OTHER, SELFPAY | PROVIDERS: PCP Nurse Practitioner Family; Visit Provider Internal Medicine Pulmonary Disease | DX: R91.8 Other nonspecific abnormal finding of lung field (principal); R94.2 Abnormal results of pulmonary function studies | CPT/HCPCS: 99202 ==

== ENCOUNTER → 2020-10-17 10:36 | Outpatient (REF) | payer MEDICARE, OTHER, SELFPAY ==
--- NOTE | 2020-10-17 10:43 | CA_ITS ---
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 Normal LV systolic and diastolic function 2. Moderately dilated ascending aorta at 4.6 cm 3. Mild aortic and mitral regurgitation 4. No gross pericardial effusion Findings Left Ventricle Normal left ventricular size, thickness, and systolic function. The visually estimated ejection fraction is between 55-60%. Diastolic function is normal for age. Right Ventricle Normal right ventricular cavity size and systolic function. Atria The left atrium is normal in size. Interatrial shunt cannot be excluded. The right atrium is normal in size. Aortic Valve The aortic valve was not well visualized. There is no aortic valve stenosis. There is mild aortic valve regurgitation. Mitral Valve There is mild anterior and posterior mitral leaflet thickening. There is mild mitral valve regurgitation. There is no mitral valve stenosis. Pulmonic Valve The pulmonic valve was not well visualized. Tricuspid Valve Likely normal tricuspid valve structure and function. There is mild tricuspid valve regurgitation. The right ventricular systolic pressure is normal. The right ventricular systolic pressure is 22 mmHg. There is no evidence of pulmonary hypertension. Great Vessels The pulmonary artery was not well visualized. There is moderate dilatation of the ascending aorta measuring 4.60 cm. Venous The inferior vena cava is normal in size and collapses greater than 50% with inspiration. Pericardium/Pleural There is no evidence of pericardial effusion. Prior Study Comparison Changes noted compared to prior study dated: 04/20/2019. Ascending aorta was mention to be of normal size on prior study, consider further evaluation with CTA Measurements 2D Linear Measurements IVSd: 1.09 0.6-0.9/0.6-1.0 cm LVIDd: 5.16 3.9-5.3/4.2-5.9 cm LVIDd Index: 2.37 2.4-3.2/2.2-3.1 cm/m2 LVIDs: 3.86 2.0-3.6 cm LVPWd: 1.23 0.7-1.1 cm Ao Root: 3.90 2.1-3.5 cm LA Diam: 3.40 2.7-3.8/3.0-4.0 cm LAIDs Index: 1.56 1.5-2.3 cm/m2 LV Mass: 292.37 67-162/88-224 g LV Mass Index: 134.11 43-95/49-115 g/m2 LVOT Diam: 2.10 3.0+(-)1.3 cm 2D Systolic Function EF 4C: 60.90 >55% EF 2C: 47.50 >55% EF BiP: 55.10 >55% Mitral Valve MV Pk E: 0.88 MV PK A: 0.64 MV Decel Time: 170.00 E/A: 1.40 E'Lateral: 8.70 E'Medial: 9.25 E/E' Med: 9.50 E/E' Lat: 10.10 PHT: 50.00 MVA PHT: 4.40 Decel Mcmullen: 5.14 Aortic Valve AoV Pk Brian: 1.19 AoV Pk Grad: 6.00 AI Pk Brian: 3.34 AI Mcmullen: 1.45 LVOT LVOT Pk Brian: 0.98 LVOT Mn Brian: 0.62 LVOT VTI: 0.21 LVOT Pk Grad: 4.00 LVOT Mn Grad: 2.00 LVOT Diam: 2.10 LVOT Area: 3.46 Diastolic Function MV Pk E: 0.88 MV Pk A: 0.64 E/A: 1.40 E'Medial: 9.25 E/E' Med: 9.50 E' Laterial: 8.70 E/E' Lat: 10.10 Tricuspid Valve TR Pk Brian: 2.20 TR Pk Grad: 19.00 RA Press: 3.00 RVSP: 22.00 Great Vessels Aorta Ao Root-2D: 3.90 2.0-3.7 cm Ao Asc: 4.60 2.1-3.4 cm Updated in Other Vendor System with Status of Final Dhiraj Gurrola MD electronically signed on 10/17/2020 5:22:25 PM with status of Final
--- NOTE | 2020-10-17 10:48 | ECG_ITS ---
Hook-up date: 2020-10-17 11:55:00 Duration: 23:28:00 Test Indications: AFIB Medications: 101808 QRS complexes 255 Ventricular ectopics which represent <1 % of total QRS comp. 1241 Supraventricular ectopics which represent 1 % of total QRS comp. * Paced QRS complexs which represent % of total QRS comp. VENTRICULAR ECTOPY 253 Isolated 3 Bigeminal Cycles 1 Couplets 0 Runs 0 Beats in Runs * Beats LONGEST at * BPM at :: -- * Beats FASTEST at * BPM at :: -- SUPRAVENTRICULAR ECTOPY 1188 Isolated 11 Couplets 7 Runs 31 Beats in Runs 8 Beats LONGEST at 192 BPM at 02:23:11 2020-10-18 8 Beats FASTEST at 192 BPM at 02:23:11 2020-10-18 HEART RATES 57 MIN at 03:46:26 2020-10-18 85 AVG 136 MAX at 17:32:27 2020-10-17 LONGEST RR 1.4560 secs at 03:46:23 2020-10-18 S-T LEVELS Channel 1 - 128 mm at 11:55:00 2020-10-17 - 128 mm at 11:55:00 2020-10-17 Channel 2 - 128 mm at 11:55:00 2020-10-17 - 128 mm at 11:55:00 2020-10-17 Channel 3 - 128 mm at 03:11:41 -- - 128 mm at 03:11:41 Underlying rhythm is sinus; Average ventricular rate 85/min; range 57-136/min; Occasional PACs(1%); mostly isolated; Possible very brief atrial flutter (vs PAC run); No events in patient diary. Referred By: Atul Santos Overread By: ATUL SANTOS
== END ==
LOC: HO.CARD 10:36
PROVIDERS: Visit Provider Internal Medicine
DX: I48.0 Paroxysmal atrial fibrillation (principal); I42.8 Other cardiomyopathies; Z98.890 Other specified postprocedural states
CPT/HCPCS: 93225; 93226; 93306

== ENCOUNTER → 2020-11-05 10:14 | Outpatient (BNVA) | payer MEDICARE, OTHER, SELFPAY | PROVIDERS: PCP Nurse Practitioner Family; Visit Provider Internal Medicine | DX: I48.0 Paroxysmal atrial fibrillation (principal); I42.8 Other cardiomyopathies; I10 Essential (primary) hypertension; I71.2 Thoracic aortic aneurysm, without rupture; Z98.890 Other specified postprocedural states | CPT/HCPCS: 99212 ==

== ENCOUNTER 2020-11-07 07:36 | Outpatient (REF) | payer MEDICARE, OTHER, SELFPAY ==
[2020-11-07 11:59] LABS: TSH reflex Free T4 3.19 uIU/mL (0.32-4.0)
[2020-11-07 12:19] LABS: Alanine Aminotransferase 29 U/L (0-40); Albumin Level 4.3 g/dL (3.5-5.0); Alkaline Phosphatase 64 U/L (39-117); Aspartate Amino Transferase 24 U/L (5-37); Bilirubin Total 0.6 mg/dL (0.0-1.0); Blood Urea Nitrogen 18 mg/dL (9-16); Calcium 9.2 mg/dL (8.4-10.2); Cholesterol 164 mg/dL; Estimated Glomerular Filt Rate > 60; Glucose Fasting 93 mg/dL (60-99); HDL Cholesterol 87 mg/dL; LDL Cholesterol Calculated 62 mg/dl; Triglycerides 78 mg/dL
[2020-11-07 12:41] LABS: Anion Gap 17 (12-20); Carbon Dioxide 25 mmol/L (22-29); Chloride 104 mmol/L (96-108); Potassium 6.1 mmol/L (3.3-5.1); Sodium 140 mmol/L (135-145)
[2020-11-07 16:53] LABS: Anion Gap 16 (12-20); Carbon Dioxide 26 mmol/L (22-29); Chloride 103 mmol/L (96-108); Potassium 5.8 mmol/L (3.3-5.1); Sodium 139 mmol/L (135-145)
== END 2020-11-07 07:37 | disposition home or self-care (01) ==
LOC: HO.HMGCLDS 07:36
PROVIDERS: PCP Nurse Practitioner Family; Visit Provider Nurse Practitioner Family
DX: J44.1 Chronic obstructive pulmonary disease with (acute) exacerbation (principal); E87.5 Hyperkalemia; I10 Essential (primary) hypertension
CPT/HCPCS: 36415; 80051; 80053; 80061; 84443

== ENCOUNTER 2020-11-09 10:52 | Outpatient (REF) | payer MEDICARE, OTHER, SELFPAY ==
[2020-11-09 14:47] LABS: Anion Gap 14 (12-20); Carbon Dioxide 31 mmol/L (22-29); Chloride 103 mmol/L (96-108); Potassium 5.4 mmol/L (3.3-5.1); Sodium 143 mmol/L (135-145)
[2020-11-09 14:52] LABS: Prostate Specific Antigen Scr 1.42 ng/mL (<0.05-4.0)
== END 2020-11-09 10:53 | disposition home or self-care (01) ==
LOC: HO.HMGCLDS 10:52
PROVIDERS: PCP Nurse Practitioner Family; Visit Provider Nurse Practitioner Family
DX: E87.5 Hyperkalemia (principal); Z12.5 Encounter for screening for malignant neoplasm of prostate
CPT/HCPCS: 36415; 80051; 84153

== ENCOUNTER 2020-11-10 08:55 | Outpatient (REF) | payer MEDICARE, OTHER, SELFPAY ==
[2020-11-10 09:38] LABS: Anion Gap 10 (12-20); Carbon Dioxide 34 mmol/L (22-29); Chloride 103 mmol/L (96-108); Potassium 5.7 mmol/L (3.3-5.1); Sodium 141 mmol/L (135-145)
== END 2020-11-10 08:56 | disposition home or self-care (01) ==
LOC: HO.LAB 08:55
PROVIDERS: PCP Nurse Practitioner Family; Visit Provider Nurse Practitioner Family
DX: E87.5 Hyperkalemia (principal)
CPT/HCPCS: 36415; 80051

== ENCOUNTER 2020-11-12 15:19 | Outpatient (REF) | payer MEDICARE, OTHER, SELFPAY ==
[2020-11-12 16:54] LABS: Anion Gap 14 (12-20); Carbon Dioxide 28 mmol/L (22-29); Chloride 102 mmol/L (96-108); Potassium 5.3 mmol/L (3.3-5.1); Sodium 139 mmol/L (135-145)
== END 2020-11-12 15:20 | disposition home or self-care (01) ==
LOC: HO.HMGCLDS 15:19
PROVIDERS: PCP Nurse Practitioner Family; Visit Provider Nurse Practitioner Family
DX: E87.5 Hyperkalemia (principal)
CPT/HCPCS: 36415; 80051

== ENCOUNTER 2020-11-19 09:25 | Outpatient (REF) | payer MEDICARE, OTHER, SELFPAY ==
[2020-11-19 11:54] LABS: Anion Gap 13 (12-20); Blood Urea Nitrogen 18 mg/dL (9-16); Calcium 9.6 mg/dL (8.4-10.2); Carbon Dioxide 29 mmol/L (22-29); Chloride 106 mmol/L (96-108); Estimated Glomerular Filt Rate > 60; Glucose Random 90 mg/dL (60-115); Potassium 5.2 mmol/L (3.3-5.1); Sodium 143 mmol/L (135-145)
== END 2020-11-19 09:26 | disposition home or self-care (01) ==
LOC: HO.HMGCLDS 09:25
PROVIDERS: PCP Nurse Practitioner Family; Visit Provider Nurse Practitioner Family
DX: E87.5 Hyperkalemia (principal)
CPT/HCPCS: 36415; 80048

== ENCOUNTER 2020-11-23 11:03 | Outpatient (REF) | payer MEDICARE, OTHER, SELFPAY ==
[2020-11-23 14:16] LABS: Anion Gap 15 (12-20); Carbon Dioxide 28 mmol/L (22-29); Chloride 107 mmol/L (96-108); Sodium 145 mmol/L (135-145)
== END 2020-11-23 11:04 | disposition home or self-care (01) ==
LOC: HO.HMGCLDS 11:03
PROVIDERS: PCP Nurse Practitioner Family; Visit Provider Nurse Practitioner Family
DX: E87.5 Hyperkalemia (principal)
CPT/HCPCS: 36415; 80051

== ENCOUNTER 2021-01-23 08:54 | Outpatient (REF) | payer MEDICARE, OTHER, SELFPAY ==
--- NOTE | ~2021-01-23 | CT_ITS ---
EXAMINATION: CT CHEST WITHOUT CONTRAST CLINICAL INFORMATION: Follow-up pulmonary nodule COMPARISON: Previous chest CT August 2020 TECHNIQUE: Multidetector volumetric CT imaging of the chest was done. Axial MIP volume rendering provided. Sagittal and coronal reformatted images were obtained. This CT examination was performed using dose optimization techniques as appropriate, variously including the following: *Automated exposure control *Adjustment of mA and/or kV according to patient size (this includes techniques or standardized protocols for targeted exams where dose is matched to indication/reason for exam; i.e. extremities or head) *Use of iterative reconstruction technique DLP: 187 mGy-cm FINDINGS: LUNGS: There is biapical pleural and parenchymal scarring. There are small bilateral pulmonary nodules that are stable. Largest pulmonary nodules are 2 x 5 mm peripheral or subpleural left lower lobe nodule axial image 236 series 5 and a 3 x 5 mm left lower lobe peripheral or subpleural nodule adjacent to the fissure axial image 236 series 5. These probably represent subpleural lymph nodes. No new pulmonary nodules are seen. MEDIASTINUM: There is a 1 cm right thyroid nodule that is stable. No follow-up indicated. There are small mediastinal lymph nodes that are stable. No enlarged lymph nodes are seen. The heart does not appear enlarged. There is mild coronary artery calcification. The thoracic aorta is slightly dilated. The ascending thoracic aorta measures 4.3 x 4.3 cm. The aortic arch measures 3.3 cm. The descending thoracic aorta is normal in caliber measuring 2.8 cm. PLEURA: There is no pleural effusion. No pleural mass or thickening. AXILLA: No lymphadenopathy. UPPER ABDOMEN: There may be a 2 cm left renal cyst that is partially visualized. The gallbladder again appears upper normal in size. There is dilatation of the proximal celiac axis measuring 1.5 cm. This may represent post stenotic dilatation or aneurysm. Again, this could be better evaluated with CTA. OSSEOUS STRUCTURES: There are degenerative changes of the spine. CT/CT chest wo con IMPRESSION: Stable small pulmonary nodules. Mild coronary artery calcification. Stable dilatation of the thoracic aorta. Stable abdominal findings. Probable renal cysts, prominent gallbladder and dilated celiac axis questionable for poststenotic dilatation versus aneurysm.
== END 2021-01-23 08:55 | disposition home or self-care (01) ==
LOC: HO.CT 08:54
PROVIDERS: PCP Nurse Practitioner Family; Visit Provider Internal Medicine Pulmonary Disease
DX: R91.8 Other nonspecific abnormal finding of lung field (principal)
CPT/HCPCS: 71250

== ENCOUNTER 2021-01-24 14:06 | Outpatient (REF) | payer MEDICARE, OTHER, SELFPAY ==
--- NOTE | 2021-01-24 17:01 | PFT_ITS ---
INDICATION: Abnormal PFT. SPIROMETRY: FEV1 to FVC is 50% with an FEV1 of 2.19 L, which is 64% predicted and an FVC of 4.38 L, which is 93% predicted. Post bronchodilators, there was a significant improvement of the FVC by 20% and of the FEV1 by 21%. The maximum voluntary ventilation 62% predicted. No significant small airways disease. LUNG VOLUMES: Total lung capacity 108% predicted with a residual volume 169% predicted. DIFFUSION CAPACITY: DLCO 66% predicted. COMPARISONS: PFTs from 2013. INTERPRETATION: There is an obstructive ventilatory defect consistent with moderate COPD. There was a significant response to bronchodilators noted and significant small airways disease. There is also a moderate decrease in maximum voluntary ventilation of 62%. Lung volumes are demonstrating significant air trapping due to the COPD and mild diffusion impairment. When compared to 2013, there is a significant decrease in the FVC and significant decrease in the FEV1. No significant change in total lung capacity. A significant increase in the residual volume and a significant decrease in the diffusion capacity. Clinical correlation warranted. MD CHARLES Holly/MODDesi / [id number]
== END 2021-01-24 14:07 | disposition home or self-care (01) ==
LOC: HO.RESP 14:06
PROVIDERS: PCP Nurse Practitioner Family; Visit Provider Internal Medicine Pulmonary Disease
DX: R94.2 Abnormal results of pulmonary function studies (principal)
CPT/HCPCS: 94060; 94727; 94729

== ENCOUNTER → 2021-02-12 10:53 | Outpatient (BNVA) | payer MEDICARE, OTHER, SELFPAY | PROVIDERS: PCP Nurse Practitioner Family; Visit Provider Internal Medicine Pulmonary Disease | DX: J44.9 Chronic obstructive pulmonary disease, unspecified (principal); R91.8 Other nonspecific abnormal finding of lung field | CPT/HCPCS: 99212 ==

== ENCOUNTER → 2021-04-11 10:28 | Outpatient (REF) | payer MEDICARE, OTHER, SELFPAY ==
--- NOTE | 2021-04-11 10:33 | CA_ITS ---
Transthoracic Echocardiogram Patient (Last, First, Middle): Nakul Real, Gender: Male Date of : 1950 Age: 70 Procedure Date: 04/11/2021 Procedure Type: Transthoracic Echocardiogram Location: OP Height: 182.88 cm Weight: 99.79 kg BSA: 2.22 m2 Heart Rate: bpm BP: 135 / 85 mmHg Personal Lines Account Executive: Referring MD: Juarez Herrera MD Symptoms: I71.2 - Thoracic aortic aneurysm, without rupture Conclusions: - 1. Normal LV systolic and diastolic function 2. Moderately dilated ascending aorta at 4.7 cm 3. Mild aortic regurgitation 4. No gross pericardial effusion 5. Normal RV systolic pressure Findings Left Ventricle Normal left ventricular size, thickness, and systolic function. The visually estimated ejection fraction is between 55-60%. Spectral Doppler is indicative of a normal filling pattern. Right Ventricle Normal right ventricular cavity size and systolic function. Atria The left atrium is likely dilated. There is lipomatous hypertrophy of the interatrial septum. There is no evidence of interatrial shunt. The right atrium is normal in size. Aortic Valve The aortic valve was not well visualized. There is no aortic valve stenosis. There is mild aortic valve regurgitation. Mitral Valve Normal mitral valve structure and function. There is trace mitral valve regurgitation. There is no mitral valve stenosis. Pulmonic Valve The pulmonic valve is likely normal. There is trace pulmonic valve regurgitation. Tricuspid Valve Normal tricuspid valve structure. There is mild tricuspid valve regurgitation. The right ventricular systolic pressure is normal. The right ventricular systolic pressure is 28 mmHg. Normal right atrial pressure. There is no evidence of pulmonary hypertension. Great Vessels The pulmonary artery was not well visualized. There is moderate dilatation of the ascending aorta. Venous The inferior vena cava is normal in size and collapses greater than 50% with inspiration. Pericardium/Pleural There is no evidence of pericardial effusion. Prior Study Comparison No significant change compared to prior study dated: 10/17/2020. Measurements 2D Linear Measurements RVIDd: 3.14 RVIDd Index: 1.41 IVSd: 1.05 0.6-0.9/0.6-1.0 cm LVIDd: 5.83 3.9-5.3/4.2-5.9 cm LVIDd Index: 2.63 2.4-3.2/2.2-3.1 cm/m2 LVIDs: 4.03 2.0-3.6 cm LVPWd: 1.09 0.7-1.1 cm Ao Root: 4.10 2.1-3.5 cm LA Diam: 3.70 2.7-3.8/3.0-4.0 cm LAIDs Index: 1.67 1.5-2.3 cm/m2 LV Mass: 320.43 67-162/88-224 g LV Mass Index: 144.34 43-95/49-115 g/m2 LVOT Diam: 2.40 3.0+(-)1.3 cm 2D Systolic Function EF 4C: 57.50 >55% EF 2C: 51.80 >55% Mitral Valve MV Pk E: 0.51 MV PK A: 0.41 MV Decel Time: 296.00 E/A: 1.20 E'Lateral: 9.25 E'Medial: 9.25 E/E' Med: 5.50 E/E' Lat: 5.50 Aortic Valve AoV Pk Brian: 1.41 AoV Mn Brian: 1.11 AoV VTI: 0.30 AoV Pk Grad: 8.00 Aov Mn Grad: 5.00 ROSALVA Cont.VTI: 2.47 LVOT LVOT Pk Brian: 0.85 LVOT Mn Brian: 0.63 LVOT VTI: 0.16 LVOT Pk Grad: 3.00 LVOT Mn Grad: 2.00 LVOT Diam: 2.40 LVOT Area: 4.52 Diastolic Function MV Pk E: 0.51 MV Pk A: 0.41 E/A: 1.20 E'Medial: 9.25 E/E' Med: 5.50 E' Laterial: 9.25 E/E' Lat: 5.50 Right Ventricle TAPSE (mm): 21.00 TVS' Brian: 7.90 Tricuspid Valve TR Pk Brian: 2.52 TR Pk Grad: 25.00 RA Press: 3.00 RVSP: 28.00 Great Vessels Aorta Ao Root-2D: 4.10 2.0-3.7 cm Ao Asc: 4.70 2.1-3.4 cm Ao Arch: 4.00 Updated in Other Vendor System with Status of Final Dhiraj Gurrola MD electronically signed on 04/12/2021 11:47:05 AM with status of Final
== END ==
LOC: HO.CARD 10:28
PROVIDERS: Visit Provider Internal Medicine
DX: I71.2 Thoracic aortic aneurysm, without rupture (principal)
CPT/HCPCS: 93306

== ENCOUNTER → 2021-05-13 10:30 | Outpatient (BNVA) | payer MEDICARE, OTHER, SELFPAY | PROVIDERS: PCP Nurse Practitioner Family; Visit Provider Internal Medicine | DX: I48.0 Paroxysmal atrial fibrillation (principal); I42.8 Other cardiomyopathies; I10 Essential (primary) hypertension; I71.2 Thoracic aortic aneurysm, without rupture | CPT/HCPCS: 99212 ==

== ENCOUNTER 2021-05-26 07:47 | Inpatient (IN) | payer OTHER, MEDICARE, SELFPAY ==
[2021-05-26] VITALS (12 sets, daily range): BP systolic 128–166; BP diastolic 82–100; PULSE 92–113; RESP 17–26; TEMP 36.5–37.9; O2SAT 84–97; BMI 29.1
--- NOTE | ~2021-05-26 | XR_ITS ---
EXAMINATION: XR CHEST CLINICAL INFORMATION: Dyspnea. COMPARISON: Chest radiograph done on 08/21/2020. TECHNIQUE: Frontal view of the chest was obtained. FINDINGS: No significant abnormality is noted involving the heart, lungs, mediastinum, bony thorax or soft tissues. No significant change since 08/21/2020. XR/XR chest 1V IMPRESSION: No radiographic evidence of acute cardiopulmonary disease, unchanged since 08/21/2020.
--- NOTE | 2021-05-26 07:59 | ED.SOB ---
HPI - SOB/Dyspnea General Chief Complaint: Dyspnea Stated Complaint: copd Time Seen by Provider: 05/26/21 07:59 Source: patient Mode of arrival: ambulatory Limitations: no limitations History of Present Illness HPI Narrative: EMS notes RA sats 84% - 88% on arrival to ED placed on 4L NC up to 94% MD elicited complaint: shortness of breath and cough Pertinent past history: COPD Onset (ago): day(s) (started on ) Timing: constant and progressively worsening Severity: moderate Exacerbating factors: exertion Relieving factors: oxygen and rest Known history of: COPD Associated symptoms: fever (101), cough, wheezing and sputum production Treatment prior to arrival: oxygen and bronchodilator (2 duonebs with EMS ) Related Data Home Medications Medication Instructions Recorded Confirmed latanoprost 0.005 % eye drops 1 drp OPHTHALMIC (EYE) BEDTIME 01/10/21 05/26/21 triamcinolone acetonide 0.1 % 1 appl TOPICAL DAILY PRN 01/10/21 05/26/21 topical ointment lisinopril 5 mg tablet 10 mg PO DAILY 03/14/21 05/26/21 cholecalciferol (vitamin D3) 25 25 mcg PO DAILY 05/26/21 05/26/21 mcg (1,000 unit) tablet (Vitamin D3) Previous Rx's Medication Instructions Recorded apixaban 5 mg tablet (Eliquis) 5 mg PO BID 90 Days #180 tab 08/01/20 umeclidinium 62.5 mcg-vilanterol 1 inh INHALATION DAILY 30 Days #1 02/12/21 25 mcg/actuation powdr for ea inhalation (Anoro Ellipta) amlodipine 5 mg tablet 5 mg PO DAILY 90 Days #90 tab 04/07/21 carvedilol 6.25 mg tablet 6.25 mg PO BID #180 tab 04/24/21 atorvastatin 80 mg tablet 80 mg PO DAILY #90 tab 05/23/21 paroxetine HCl 20 mg tablet 20 mg PO QAM #90 tab 05/24/21 Allergies Allergy/AdvReac Type Severity Reaction Status Date / Time No Known Allergies Allergy Verified 03/14/21 11:54 Review of Systems Review of Systems: Constitutional : pos Fever, No Chills ENT/Mouth : No sore throat, No Rhinorrhea, No Swallowing Difficulty Eyes: No Eye Pain, No Swelling, No Redness Cardiovascular : No Chest Pain, positive SOB, No Orthopnea, no Edema Respiratory : pos Cough, pos Sputum, pos Wheezing, positive dyspnea Gastrointestinal : No Nausea, No Vomiting, No Diarrhea, No abdominal Pain, No Hematochezia, No Melena Genitourinary : No Dysuria, No Urinary Frequency, No Hematuria Musculoskeletal : No joint pain, No Myalgias Skin : No Skin Lesions, No rash Neuro : No Weakness, No Numbness, No Dizziness, No Headache Psych : No Anxiety/Panic, No Depression Heme/Lymph: No Bruising, No Lymphadenopathy Endocrine : No Polyuria, No Polydipsia All other systems reviewed and are negative [facility] Past Medical History Attestation statement: The following information was validated with the patient. Medical History Atrial fibrillation Cardiac arrhythmia COPD (chronic obstructive pulmonary disease) Essential hypertension Hypertension NICM (nonischemic cardiomyopathy) PAF (paroxysmal atrial fibrillation) Surgical History History of appendectomy History of colonoscopy History of hernia repair Status post catheter ablation of atrial fibrillation Family History Family History (Updated 03/14/21 @ 11:17 by Leslie Barksdale) Father Cancer of prostate Mother No problems noted. Daughter No problems noted. Daughter No problems noted. Brother Cancer of prostate Social History Social History Household Members: Family Housing: House Do you presently have visiting nurse or other home services: No Alcohol intake: never Patient Tobacco Use Status: Never used Tobacco Second Hand Smoke Exposure: No Advance Directives: Yes Advance Directives Information Provided: No Advance Directives on File: No service: Yes Current occupational status: retired Physical Exam Vital Signs: Vital Signs: Last Vital Signs Temp 98.3 F 05/26/21 15:38 Pulse 100 05/26/21 15:38 Resp 17 05/26/21 15:38 BP 153/88 H 05/26/21 15:38 Pulse Ox 94 05/26/21 15:38 Body Mass Index 29.1 Appearance: Alert. Oriented X3. Mild acute distress. Eyes: Pupils equal, round and reactive to light. ENT: Pharynx normal. Neck: Normal inspection. Neck supple. CVS: tachycardic heart rate and rhythm. Pulses normal. Respiratory: mild respiratory distress tachypnea/retractions. Breath sounds diminished with diffuse wheezing and rhonchi Abdomen: Soft and nontender. Skin: Skin warm and dry. Normal skin color. Normal skin turgor. Extremities: No lower extremity edema. No calf ttp Neuro: Oriented X 3. No motor deficit. No sensory deficit. MDM - SOB/Dyspnea MDM Narrative Medical decision making narrative: 70 yo male with COPD, NICM, afib, HTN, takes eliquis at this time c/o cough, fevers, sputum production found to be hypoxic by EMS - not usually on home O2. Patient is wheezing on arrival here. At this time labs, COVID/RSV swab, CXR, cultures, lactic acid, neb, IV steroids and empiric antibiotics for COPD. Dispo per results improvement if he requires O2 Lab Data Result diagrams: 05/26/21 08:28 05/26/21 08:28 Labs: Lab Results 05/26/21 05/26/21 05/26/21 Range/Units 08:11 08:28 08:28 WBC 6.1 (4.8-10.8) X10*3/uL RBC 4.55 L (4.60-5.80) X10*6/uL Hgb 14.3 (14.0-18.0) g/dl Hct 42.8 (42-52) % MCV 94.1 (80-98) fL MCH 31.4 (27.0-33.0) pg MCHC 33.4 (31.0-36.0) g/dl RDW 13.2 (11.0-16.0) % Plt Count 165 (160-400) X10*3/uL MPV 9.9 (9.4-12.4) fL Immature Gran % (Auto) 0.3 (0.0-0.4) % Neut % (Auto) 72.7 (45-73) % Lymph % (Auto) 13.0 L (20-40) % [place] % (Auto) 11.5 H (2-11) % Eos % (Auto) 2.0 (0-4) % Baso % (Auto) 0.5 (0-2) % Lymph # (Auto) 0.8 L (1.2-4.9) X10*3/uL [place] # (Auto) 0.7 (0.1-1.2) X10*3/uL Eos # (Auto) 0.1 (0.0-0.4) X10*3/uL Baso # (Auto) 0.0 (0.0-0.2) X10*3/uL Abs Immat Gran (auto) 0.02 (0.00-0.03) X10*3/uL Absolute Neuts (auto) 4.4 (2.0-8.3) X10*3/uL Absolute Nucleated RBC 0.000 (0.0-0.012) X10*3/uL Nucleated RBC % (auto) 0.0 (0.0-0.2) /100WBC Sodium 136 (135-145) mmol/L Potassium 4.2 (3.3-5.1) mmol/L Chloride 103 (96-108) mmol/L Carbon Dioxide 21 L (22-29) mmol/L Anion Gap 16 (12-20) BUN 7 L D (9-16) mg/dL Creatinine 0.83 (0.5-1.4) mg/dL Estim Creat Clear Calc 97.3 Estimated GFR > 60 Random Glucose 136 H D (60-115) mg/dL Lactic Acid (0.5-2.0) mmol/L Lactic Acid Fup @ 2Hr (0.5-2.0) mmol/L Calcium 9.1 (8.4-10.2) mg/dL Magnesium 1.6 (1.6-2.6) mg/dL Total Bilirubin 0.6 (0.0-1.0) mg/dL Direct Bilirubin 0.3 (0.0-0.5) mg/dL AST 32 (5-37) U/L ALT 45 H (0-40) U/L Alkaline Phosphatase 89 D (39-117) U/L Troponin I High Sens (<3.5-35.0) ng/L B-Natriuretic Peptide (<100) pg/mL Total Protein 7.3 (6.5-8.0) g/dL Albumin 4.2 (3.5-5.0) g/dL Coronavirus (PCR) NEGATIVE (Negative) Influenza Type A (PCR) NEGATIVE (Negative) Influenza Type B (PCR) NEGATIVE (Negative) RSV RNA Qual (PCR) POSITIVE A (Negative) 05/26/21 05/26/21 05/26/21 Range/Units 08:28 08:28 10:49 WBC (4.8-10.8) X10*3/uL RBC (4.60-5.80) X10*6/uL Hgb (14.0-18.0) g/dl Hct (42-52) % MCV (80-98) fL MCH (27.0-33.0) pg MCHC (31.0-36.0) g/dl RDW (11.0-16.0) % Plt Count (160-400) X10*3/uL MPV (9.4-12.4) fL Immature Gran % (Auto) (0.0-0.4) % Neut % (Auto) (45-73) % Lymph % (Auto) (20-40) % [place] % (Auto) (2-11) % Eos % (Auto) (0-4) % Baso % (Auto) (0-2) % Lymph # (Auto) (1.2-4.9) X10*3/uL [place] # (Auto) (0.1-1.2) X10*3/uL Eos # (Auto) (0.0-0.4) X10*3/uL Baso # (Auto) (0.0-0.2) X10*3/uL Abs Immat Gran (auto) (0.00-0.03) X10*3/uL Absolute Neuts (auto) (2.0-8.3) X10*3/uL Absolute Nucleated RBC (0.0-0.012) X10*3/uL Nucleated RBC % (auto) (0.0-0.2) /100WBC Sodium (135-145) mmol/L Potassium (3.3-5.1) mmol/L Chloride (96-108) mmol/L Carbon Dioxide (22-29) mmol/L Anion Gap (12-20) BUN (9-16) mg/dL Creatinine (0.5-1.4) mg/dL Estim Creat Clear Calc Estimated GFR Random Glucose (60-115) mg/dL Lactic Acid 3.1 H* (0.5-2.0) mmol/L Lactic Acid Fup @ 2Hr 2.6 H* (0.5-2.0) mmol/L Calcium (8.4-10.2) mg/dL Magnesium (1.6-2.6) mg/dL Total Bilirubin (0.0-1.0) mg/dL Direct Bilirubin (0.0-0.5) mg/dL AST (5-37) U/L ALT (0-40) U/L Alkaline Phosphatase (39-117) U/L Troponin I High Sens < 3.5 (<3.5-35.0) ng/L B-Natriuretic Peptide 14 (<100) pg/mL Total Protein (6.5-8.0) g/dL Albumin (3.5-5.0) g/dL Coronavirus (PCR) (Negative) Influenza Type A (PCR) (Negative) Influenza Type B (PCR) (Negative) RSV RNA Qual (PCR) (Negative) ECG Data Attestation: I personally reviewed and interpreted this ECG as follows: ECG interpretation date: 05/26/21 ECG interpretation time: 08:16 Interpretation: Rate: 100 Rhythm: NSR Kopperl: left Normal P waves. Normal ANA. Normal QRS complex. ST T wave : no AMINA< nonspecific qTC: normal prior studies: no acute ischemia The study has been interpreted contemporaneously by me. . Critical Care Time Critical Care Time Critical Care Time: Yes Total Critical Care Time: 45 Attestation: repeat nebs, treatment of hypoxia I attest to this time spent taking care of the patient Discharge Plan Discharge Clinical Impression: Acute exacerbation of chronic obstructive airways disease, Acidosis, lactic, Hypoxia, RSV infection Patient Disposition: Admitted As Inpatient
--- NOTE | 2021-05-26 08:04 | ECG_ITS ---
Test Reason : dyspnea Blood Pressure : / mmHG Vent. Rate : 100 BPM Atrial Rate : 100 BPM P-R Int : 176 ms QRS Dur : 084 ms QT Int : 344 ms P-R-T Axes : 077 -13 057 degrees QTc Int : 443 ms Normal sinus rhythm Low voltage QRS Left axis deviation Abnormal ECG When compared with ECG of 21-AUG-2020 13:18, No significant change was found Referred By: Johanna Earl Electronically Signed By:GIANA ALEXANDRA MD
[2021-05-26] MEDS: Albuterol Sulfate (0.083%) 2.5 MG/3 ML VIAL.NEB INHALE ×4 (08:09→20:11)
[2021-05-26 08:33] LABS: MANUAL DIFF FLAG NO
[2021-05-26 08:34] LABS: Basophils Percent Auto 0.5 % (0-2); Eosinophils Absolute Auto 0.1 X10*3/uL (0.0-0.4); Hematocrit 42.8 % (42-52); Hemoglobin 14.3 g/dl (14.0-18.0); Imm Gran Abs Auto 0.02 X10*3/uL (0.00-0.03); Imm Gran Pct Auto 0.3 % (0.0-0.4); Lymphocytes Absolute Auto 0.8 X10*3/uL (1.2-4.9); Mean Corpuscular HGB Conc 33.4 g/dl (31.0-36.0); Mean Corpuscular Hemoglobin 31.4 pg (27.0-33.0); Mean Corpuscular Volume 94.1 fL (80-98); Mean Platelet Volume 9.9 fL (9.4-12.4); Monocytes Absolute Auto 0.7 X10*3/uL (0.1-1.2); Monocytes Percent Auto 11.5 % (2-11); Neutrophils Absolute Auto 4.4 X10*3/uL (2.0-8.3); Neutrophils Percent Auto 72.7 % (45-73); Platelet Count 165 X10*3/uL (160-400); Red Blood Count 4.55 X10*6/uL (4.60-5.80); Red Cell Distribution Width 13.2 % (11.0-16.0); White Blood Count 6.1 X10*3/uL (4.8-10.8)
[2021-05-26 08:36] LABS: Venous Blood Gas Refer to POC result
[2021-05-26] MEDS: 0.9 % Sodium Chloride 250 ML IV (08:40)
--- NOTE | 2021-05-26 08:50 | PHA.MEDREC ---
Pharmacy Consult ? Medication Reconciliation Pharmacy has completed the medication reconciliation. Patient is unsure if he is still taking lisinopril. It was just filled at his pharmacy in April for a 90 days supply. Sadaf Adkins, RicoD
[2021-05-26 08:54] LABS: Alanine Aminotransferase 45 U/L (0-40); Albumin Level 4.2 g/dL (3.5-5.0); Alkaline Phosphatase 89 U/L (39-117); Anion Gap 16 (12-20); Aspartate Amino Transferase 32 U/L (5-37); Bilirubin Direct 0.3 mg/dL (0.0-0.5); Bilirubin Total 0.6 mg/dL (0.0-1.0); Blood Urea Nitrogen 7 mg/dL (9-16); Calcium 9.1 mg/dL (8.4-10.2); Carbon Dioxide 21 mmol/L (22-29); Chloride 103 mmol/L (96-108); Creatinine Clr Calc Pharmacy 97.3; Estimated Glomerular Filt Rate > 60; Glucose Random 136 mg/dL (60-115); Magnesium 1.6 mg/dL (1.6-2.6); Potassium 4.2 mmol/L (3.3-5.1); Sodium 136 mmol/L (135-145); Total Protein 7.3 g/dL (6.5-8.0)
[2021-05-26 08:56] LABS: Lactic Acid 3.1 mmol/L (0.5-2.0)
[2021-05-26 08:58] LABS: B Type Natriuretic Peptide 14 pg/mL (<100); Troponin-I High Sensitivity < 3.5 ng/L (<3.5-35.0)
[2021-05-26] MEDS: cefTRIAXone sodium 1 GM in 0.9 % Sodium Chloride 50 ML IV (09:29)
[2021-05-26] MEDS: methylPREDNISolone Sod Succ 125 MG/2 ML VIAL IVPUSH (09:29)
[2021-05-26] MEDS: Azithromycin 500 MG in 0.9 % Sodium Chloride 250 ML 125 MG IV (09:30)
[2021-05-26 10:22] LABS: Influenza A PCR NEGATIVE (Negative); Influenza B PCR NEGATIVE (Negative); Resp Syncy Virus RNA Qual PCR POSITIVE (Negative); SARS COV2 PCR INHOUSE NEGATIVE (Negative)
[2021-05-26 10:31] LABS: Reflex Lactate? Lactic Acid Added
--- NOTE | 2021-05-26 10:58 | P.HPHOSP_ITS ---
History of Present Illness Date of Service: 05/26/21 <Deidra Villa NP - Last Filed: 05/26/21 13:58> Chief Complaint: Shortness of breath <Deidra Villa NP - Last Filed: 05/26/21 13:58> 70 year old man presenting with increased shortness of breath since . He reported that his grandson had a cold and he feels like he also had a cold. He reported fevers and chills at night, tmax 100. He has been sleeping in his chair the last few days. in the ED, CXR negative for consolidation or effusion. He was noted to be hypoxic at 87% on ra. He is also noted to have tachycardia, tachypnea, lactic acidosis and is RSV positive. He was given solumedrol, rocephin. azithromycin and albuterol in the ED. He will be admitted for further management and treatment of COPD exacerbation. <Deidra Villa NP - Last Filed: 05/26/21 13:58> 70 year old man presenting with increased shortness of breath since . He reported that his grandson had a cold and he feels like he also had a cold. He reported fevers and chills at night, tmax 100. He has been sleeping in his chair the last few days. in the ED, CXR negative for consolidation or effusion. He was noted to be hypoxic at 87% on ra. He is also noted to have tachycardia, tachy pnea, lactic acidosis and is RSV positive. He was given solumedrol, rocephin. azithromycin and albuterol in the ED. He will be admitted for further management and treatment of COPD exacerbation. <Yuriy Stout MD - Last Filed: 06/03/21 16:23> Review of Systems Review of Systems: Denies any recent fever chills or decrease in appetite respiratory See hPI cardiovascular Denies chest pain gastrointestinal denies any dysphagia abdominal pain nausea vomiting or diarrhea genitourinary denies any dysuria frequency or hematuria musculoskeletal denies any joint pain or swelling neuropsych denies any weakness or seizures all other systems reviewed are negative <Deidra Villa NP - Last Filed: 05/26/21 13:58> [facility] Medical History: Medical History Atrial fibrillation Cardiac arrhythmia COPD (chronic obstructive pulmonary disease) Essential hypertension Hypertension NICM (nonischemic cardiomyopathy) PAF (paroxysmal atrial fibrillation) <Deidra Villa NP - Last Filed: 05/26/21 13:58> Family History: Family History (Updated 03/14/21 @ 11:17 by Leslie Barksdale) Father Cancer of prostate Mother No problems noted. Daughter No problems noted. Daughter No problems noted. Brother Cancer of prostate <Deidra Villa NP - Last Filed: 05/26/21 13:58> Pertinent family history: . <Deidra Villa NP - Last Filed: 05/26/21 13:58> Surgical History: Surgical History History of appendectomy History of colonoscopy History of hernia repair Status post catheter ablation of atrial fibrillation <Deidra Villa NP - Last Filed: 05/26/21 13:58> Social History: Social History Household Members: Spouse Housing: House Do you presently have visiting nurse or other home services: No Alcohol intake: never Patient Tobacco Use Status: Never used Tobacco Second Hand Smoke Exposure: No Advance Directives Date on File: 05/26/21 service: Yes Current occupational status: retired <Deidra Villa NP - Last Filed: 05/26/21 13:58> Meds Allergies/Adverse reactions: Allergies Allergy/AdvReac Type Severity Reaction Status Date / Time No Known Allergies Allergy Verified 03/14/21 11:54 <Deidra Villa NP - Last Filed: 05/26/21 13:58> Active Medications: Current Medications Sodium Chloride (Ns) 250 mls @ 250 mls/hr IV .Q1H NANNETTE Stop: 05/26/21 11:44 Pharmacy Consult (Consult Rx Perform Med Rec) 1 each MISCELLANE ONCE PRN PRN Reason: Consult order <Deidra Villa NP - Last Filed: 05/26/21 13:58> Home medications: Home Medications Medication Instructions Recorded Confirmed Last Taken Type latanoprost 0.005 % eye drops 1 drp OPHTHALMIC (EYE) BEDTIME 01/10/21 05/26/21 05/25/21 History triamcinolone acetonide 0.1 % 1 appl TOPICAL DAILY PRN 01/10/21 05/26/21 05/25/21 History topical ointment lisinopril 5 mg tablet 10 mg PO DAILY 03/14/21 05/26/21 05/25/21 History cholecalciferol (vitamin D3) 25 25 mcg PO DAILY 05/26/21 05/26/21 05/25/21 History mcg (1,000 unit) tablet (Vitamin D3) <Deidra Villa NP - Last Filed: 05/26/21 13:58> Physical Exam Vital Signs and Narrative: Vital Signs: Last Vital Signs Temp 99.9 F 05/26/21 10:51 Pulse 104 H 05/26/21 10:51 Resp 26 H 05/26/21 10:51 BP 166/94 H 05/26/21 10:51 Pulse Ox 93 05/26/21 10:51 Body Mass Index 29.1 <Deidra Villa NP - Last Filed: 05/26/21 13:58> Appearing in no acute distress head is normocephalic atraumatic eyes pupils are PERRLA sclera is anicteric mouth throat mucous membranes are intact and moist neck is supple no lymphadenopathy, no JVD noted lung sounds are clear to auscultation heart regular rate rhythm, clear S1, S2 positive bowel sounds, abdomen is soft, nontender neuro patient is alert x3, no focal deficits <Deidra Villa NP - Last Filed: 05/26/21 13:58> Results Labs CBC and Chem 7: : 05/28/21 05:49 05/28/21 05:45 <Deidra Villa NP - Last Filed: 05/26/21 13:58> Labs: Laboratory Results - last 24 hr 05/26/21 05/26/21 05/26/21 08:11 08:28 08:28 MCV 94.1 MCH 31.4 MCHC 33.4 RDW 13.2 Plt Count 165 MPV 9.9 Immature Gran % (Auto) 0.3 Neut % (Auto) 72.7 Lymph % (Auto) 13.0 L [place] % (Auto) 11.5 H Eos % (Auto) 2.0 Baso % (Auto) 0.5 Lymph # (Auto) 0.8 L [place] # (Auto) 0.7 Eos # (Auto) 0.1 Baso # (Auto) 0.0 Abs Immat Gran (auto) 0.02 Absolute Neuts (auto) 4.4 Absolute Nucleated RBC 0.000 Nucleated RBC % (auto) 0.0 Anion Gap 16 Estim Creat Clear Calc 97.3 Estimated GFR > 60 Random Glucose 136 H D Lactic Acid Calcium 9.1 Magnesium 1.6 Total Bilirubin 0.6 Direct Bilirubin 0.3 AST 32 ALT 45 H Alkaline Phosphatase 89 D Troponin I High Sens B-Natriuretic Peptide Total Protein 7.3 Albumin 4.2 Coronavirus (PCR) NEGATIVE Influenza Type A (PCR) NEGATIVE Influenza Type B (PCR) NEGATIVE RSV RNA Qual (PCR) POSITIVE A 05/26/21 05/26/21 08:28 08:28 MCV MCH MCHC RDW Plt Count MPV Immature Gran % (Auto) Neut % (Auto) Lymph % (Auto) [place] % (Auto) Eos % (Auto) Baso % (Auto) Lymph # (Auto) [place] # (Auto) Eos # (Auto) Baso # (Auto) Abs Immat Gran (auto) Absolute Neuts (auto) Absolute Nucleated RBC Nucleated RBC % (auto) Anion Gap Estim Creat Clear Calc Estimated GFR Random Glucose Lactic Acid 3.1 H* Calcium Magnesium Total Bilirubin Direct Bilirubin AST ALT Alkaline Phosphatase Troponin I High Sens < 3.5 B-Natriuretic Peptide 14 Total Protein Albumin Coronavirus (PCR) Influenza Type A (PCR) Influenza Type B (PCR) RSV RNA Qual (PCR) <Deidra Villa NP - Last Filed: 05/26/21 13:58> Imaging Radiologist's Impressions: Impressions Chest X-Ray 05/26/21 08:04 IMPRESSION: No radiographic evidence of acute cardiopulmonary disease, unchanged since 08/21/2020. <Deidra Villa NP - Last Filed: 05/26/21 13:58> Assessment and Plan (1) Acute exacerbation of chronic obstructive airways disease: Status: Acute <Deidra Villa NP - Last Filed: 05/26/21 13:58> (2) Hypertension: Status: Acute <Deidra Villa NP - Last Filed: 05/26/21 13:58> (3) Acute respiratory failure with hypoxia: Status: Acute <Deidra Villa NP - Last Filed: 05/26/21 13:58> (4) Viral sepsis: Status: Acute <Deidra Villa NP - Last Filed: 05/26/21 13:58> (5) PAF (paroxysmal atrial fibrillation): Status: Acute <Deidra Villa NP - Last Filed: 05/26/21 13:58> 70 year old man admitted with viral sepsis secondary to RSV and COPD exacerbation Severe sepsis. Viral. tachycardia, tachypnea, lactic acidosis Follow blood cultures COPD exacerbation /RSV positive Will treat with Solu-Medrol, scheduled DuoNeb treatments Azithromycin Supplemental oxygen as needed Paroxysmal atrial fibrillation. No exacerbation Continue carvedilol and Eliquis Hypertension. Stable blood pressure Continue amlodipine and lisinopril Mental health Continue home medications DVT prophylaxis with [facility] Attending Dr. Stout <Deidra Villa NP - Last Filed: 05/26/21 13:58> 70 year old man admitted with viral sepsis secondary to RSV and COPD exacerbation Severe sepsis. Viral. tachycardia, tachypnea, lactic acidosis Follow blood cultures COPD exacerbation /RSV positive Will treat with Solu-Medrol, scheduled DuoNeb treatments Azithromycin Supplemental oxygen as needed Paroxysmal atrial fibrillation. No exacerbation Continue carvedilol and Eliquis Hypertension. Stable blood pressure Continue amlodipine and lisinopril Mental health Continue home medications DVT prophylaxis with [facility] Attending Dr. Stout I saw and examine patient and discussed physical finding, labs, medication and studies with mid-level provider and I agree with plan and disposition as above. --Thomas Stout MD <Yuriy Stout MD - Last Filed: 06/03/21 16:23> Quality Stroke Does the patient have a stroke diagnosis?: No <Deidra Villa NP - Last Filed: 05/26/21 13:58> VTE Prior VTE?: No <Deidra Villa NP - Last Filed: 05/26/21 13:58> VTE Risk Level:: Medical - moderate - high <Deidra Villa NP - Last Filed: 05/26/21 13:58> VTE Device Contraindication: Treatment Not Indicated <Deidra Villa NP - Last Filed: 05/26/21 13:58> VTE Drug Contraindication: N/A - Med Ordered <Deidra Villa NP - Last Filed: 05/26/21 13:58>
[2021-05-26 11:10] LABS: ~Lactic Acid-LAB USE ONLY 2.6 mmol/L (0.5-2.0)
--- NOTE | 2021-05-26 12:08 | PC.NURSE ---
call to med surg. will await return call
[2021-05-26 12:54] LABS: Reflex Lactate? 2 Y
[2021-05-26 13:23] LABS: ~Lactic Acid-LAB USE ONLY 2.4 mmol/L (0.5-2.0)
[2021-05-26] MEDS: 0.9 % Sodium Chloride Flush 3 ML SYRINGE IVFLUSH ×2 (17:34→20:18)
[2021-05-26 17:47] LABS: Lactic Acid 4.1 mmol/L (0.5-2.0)
[2021-05-26] MEDS: 0.9 % Sodium Chloride 1,000 ML 999 ML IV (18:13)
[2021-05-26 19:30] LABS: Reflex Lactate? Lactic Acid Added
[2021-05-26 21:57] LABS: Reflex Lactate? 2 Y
[2021-05-26] MEDS: Dextrose 5 % and 0.45 % NaCl 1,000 ML 50 ML IVCONT (22:37)
[2021-05-26 22:40] LABS: ~Lactic Acid-LAB USE ONLY 4.9 mmol/L (0.5-2.0)
[2021-05-27] VITALS (10 sets, daily range): BP systolic 146–176; BP diastolic 78–110; PULSE 95–110; RESP 16–20; TEMP 36.8–37; O2SAT 93–97
[2021-05-27 06:02] LABS: MANUAL DIFF FLAG NO
[2021-05-27 06:05] LABS: Hematocrit 42.8 % (42-52); Hemoglobin 13.9 g/dl (14.0-18.0); Imm Gran Abs Auto 0.03 X10*3/uL (0.00-0.03); Imm Gran Pct Auto 0.4 % (0.0-0.4); Lymphocytes Absolute Auto 0.6 X10*3/uL (1.2-4.9); Lymphocytes Percent Auto 8.3 % (20-40); Mean Corpuscular HGB Conc 32.5 g/dl (31.0-36.0); Mean Corpuscular Volume 95.3 fL (80-98); Mean Platelet Volume 9.9 fL (9.4-12.4); Monocytes Absolute Auto 0.6 X10*3/uL (0.1-1.2); Monocytes Percent Auto 8.1 % (2-11); Neutrophils Absolute Auto 6.4 X10*3/uL (2.0-8.3); Neutrophils Percent Auto 83.2 % (45-73); Platelet Count 179 X10*3/uL (160-400); Red Blood Count 4.49 X10*6/uL (4.60-5.80); Red Cell Distribution Width 13.4 % (11.0-16.0); White Blood Count 7.7 X10*3/uL (4.8-10.8)
[2021-05-27 06:20] LABS: Anion Gap 16 (12-20); Blood Urea Nitrogen 8 mg/dL (9-16); Calcium 9.1 mg/dL (8.4-10.2); Carbon Dioxide 23 mmol/L (22-29); Chloride 107 mmol/L (96-108); Creatinine Clr Calc Pharmacy 102.2; Estimated Glomerular Filt Rate > 60; Glucose Random 162 mg/dL (60-115); Potassium 4.1 mmol/L (3.3-5.1); Sodium 142 mmol/L (135-145)
[2021-05-27] MEDS: 0.9 % Sodium Chloride Flush 3 ML SYRINGE IVFLUSH ×3 (07:56→20:38)
[2021-05-27 08:19] LABS: VBG Base Excess -1.9 mmol/L; VBG HCO3 22 mmol/L (22-26); VBG pCO2 34 mmHg; VBG pO2 51 mmHg
[2021-05-27 08:20] LABS: Glucose, Whole Blood 131 mg/dL (60-115)
[2021-05-27] MEDS: Albuterol Sulfate (0.083%) 2.5 MG/3 ML VIAL.NEB INHALE ×4 (08:33→20:24)
[2021-05-27 08:55] LABS: Lactic Acid 1.7 mmol/L (0.5-2.0)
--- NOTE | 2021-05-27 09:20 | MHC.CM.PN ---
IMM 05/27/2021, CM REVIEWED INSURANCE COVERAGE W/PT AND PT REPORTS MEDICARE COVERS 80%, [facility] 20% AND HE USES [facility] FOR AUDIOLOGY APPTS ONLY, EMR REVIEWED PT ADMITTED W/COPD EXAC AND RSV, CM MET W/PT WHO REPORTS HE LIVES W/ AND SON IN APT ATTACHED TO HOUSE, PT IS INDEPENDENT AT HOME, USES [employer]HAL[employer] AND NO OTHER DME, NO HOME SERVICES HOWEVER WOULD LIKE [facility] UPON D/C WHOM HE USED IN AUGUST AFTER INPT STAY. PCP AND NO HCP, CM HAS OFFERED TO COMPLETE. D/C PLAN: HOME W/[facility], FAMILY FOR TRANSPORT. PCP: HARMONY TIMMONS
[2021-05-27] MEDS: Azithromycin 500 MG in 0.9 % Sodium Chloride 250 ML 125 MG IV (10:32)
--- NOTE | 2021-05-27 11:15 | PM.IMPN ---
Progress Note: A&P (1) Viral sepsis: Status: Acute (2) Acute respiratory failure with hypoxia: Status: Acute (3) COPD (chronic obstructive pulmonary disease): Status: Acute (4) Hypertension: Status: Acute Assessment and Plan: 70 year old man admitted with viral sepsis secondary to RSV and COPD exacerbation Severe sepsis. Viral. tachycardia, tachypnea, lactic acidosis Follow blood cultures COPD exacerbation /RSV positive. Still very wheezy Will treat with Solu-Medrol 60mg Q8, scheduled and prn DuoNeb treatments Azithromycin Supplemental oxygen as needed Paroxysmal atrial fibrillation.? No exacerbation Continue carvedilol and Eliquis Hypertension.? Stable blood pressure Continue amlodipine and lisinopril Mental health Continue home medications DVT prophylaxis with [facility] Attending Dr. Blackburn Subjective Subjective Date of Service: 05/27/21 Review of Systems Follow up COPD exacerbation Still very wheezy and short of breath Physical Exam Vital Signs: Vital Signs: Last Vital Signs Temp 98.6 F 05/27/21 08:00 Pulse 110 H 05/27/21 08:34 Resp 16 05/27/21 08:00 BP 170/110 H 05/27/21 08:00 Pulse Ox 93 05/27/21 08:00 Body Mass Index 29.1 Appearing in no acute distress lung sounds expiratory wheezing heart regular rate rhythm, clear S1, S2 positive bowel sounds, abdomen is soft, nontender neuro patient is alert x3, no focal deficits Objective Data Current Medications Acetaminophen (Acetaminophen 325 Mg Tablet) 650 mg PO Q6H PRN PRN Reason: Pain, Mild (Pain Scale 1-3) Albuterol Sulfate (Albuterol Sulfate (0.083%) 2.5 Mg/3 Ml Vial.Neb) 2.5 mg INHALE RQ4H WHILE AWAKE [facility] Last Admin: 05/27/21 08:33 Dose: 2.5 mg Documented by: Azithromycin 500 mg/ Sodium (Chloride) 250 mls @ 125 mls/hr IV Q24H NANNETTE Last Admin: 05/27/21 10:32 Dose: 125 mls/hr Documented by: Dextrose/Sodium Chloride (D51/2ns) 1,000 mls @ 50 mls/hr IVCONT .Q20H NANNETTE Last Admin: 05/26/21 22:37 Dose: 50 mls/hr Documented by: Ondansetron HCl (Ondansetron Hcl 4 Mg/2 Ml Vial) 4 mg IVPUSH Q8H PRN PRN Reason: Nausea and Vomiting Pharmacy Consult (Consult Rx Perform Med Rec) 1 each MISCELLANE ONCE PRN PRN Reason: Consult order Sodium Chloride (0.9 % Sodium Chloride Flush 3 Ml Syringe) 3 ml IVFLUSH QSHIFT [facility] Last Admin: 05/27/21 07:56 Dose: 3 ml Documented by: Labs CBC & Chem 7: 05/27/21 05:30 05/27/21 05:30 Labs: Laboratory Results - last 24 hr 05/26/21 05/26/21 05/26/21 08:08 08:32 13:03 MCV MCH MCHC RDW Plt Count MPV Immature Gran % (Auto) Neut % (Auto) Lymph % (Auto) [place] % (Auto) Eos % (Auto) Baso % (Auto) Lymph # (Auto) [place] # (Auto) Eos # (Auto) Baso # (Auto) Abs Immat Gran (auto) Absolute Neuts (auto) Absolute Nucleated RBC Nucleated RBC % (auto) VBG pH 7.40 VBG pCO2 34 VBG pO2 51 VBG HCO3 22 VBG O2 Saturation 79.0 VBG Base Excess -1.9 Anion Gap Estim Creat Clear Calc Estimated GFR POC Glucose 131 H Random Glucose Lactic Acid Lactic Acid Fup @ 2Hr Lactic Acid Fup @ 4Hr 2.4 H* Calcium 05/26/21 05/26/21 05/26/21 17:26 19:41 22:13 MCV MCH MCHC RDW Plt Count MPV Immature Gran % (Auto) Neut % (Auto) Lymph % (Auto) [place] % (Auto) Eos % (Auto) Baso % (Auto) Lymph # (Auto) [place] # (Auto) Eos # (Auto) Baso # (Auto) Abs Immat Gran (auto) Absolute Neuts (auto) Absolute Nucleated RBC Nucleated RBC % (auto) VBG pH VBG pCO2 VBG pO2 VBG HCO3 VBG O2 Saturation VBG Base Excess Anion Gap Estim Creat Clear Calc Estimated GFR POC Glucose Random Glucose Lactic Acid 4.1 H* Lactic Acid Fup @ 2Hr 4.0 H* Lactic Acid Fup @ 4Hr 4.9 H* Calcium 05/27/21 05/27/21 05/27/21 05:30 05:30 08:25 MCV 95.3 MCH 31.0 MCHC 32.5 RDW 13.4 Plt Count 179 MPV 9.9 Immature Gran % (Auto) 0.4 Neut % (Auto) 83.2 H Lymph % (Auto) 8.3 L [place] % (Auto) 8.1 Eos % (Auto) 0.0 Baso % (Auto) 0.0 Lymph # (Auto) 0.6 L [place] # (Auto) 0.6 Eos # (Auto) 0.0 Baso # (Auto) 0.0 Abs Immat Gran (auto) 0.03 Absolute Neuts (auto) 6.4 Absolute Nucleated RBC 0.000 Nucleated RBC % (auto) 0.0 VBG pH VBG pCO2 VBG pO2 VBG HCO3 VBG O2 Saturation VBG Base Excess Anion Gap 16 Estim Creat Clear Calc 102.2 Estimated GFR > 60 POC Glucose Random Glucose 162 H Lactic Acid 1.7 Lactic Acid Fup @ 2Hr Lactic Acid Fup @ 4Hr Calcium 9.1 Microbiology Microbiology Results: Microbiology 05/26/21 08:27 Blood - Venous Blood Culture - Preliminary No growth after 24 hours. Quality Stroke Does the patient have a stroke diagnosis?: No VTE Prior VTE?: No VTE Risk Level:: Medical - moderate - high VTE Device Contraindication: Treatment Not Indicated VTE Drug Contraindication: N/A - Med Ordered
[2021-05-27] MEDS: amLODIPine Besylate 5 MG TABLET PO (11:55)
[2021-05-27] MEDS: lisinopriL 10 MG TABLET PO (11:56)
[2021-05-27] MEDS: PARoxetine HCL 20 MG TABLET PO (11:56)
[2021-05-27] MEDS: methylPREDNISolone Sod Succ 125 MG/2 ML VIAL 60 MG IVPUSH (16:22)
[2021-05-27] MEDS: Dextrose 5 % and 0.45 % NaCl 1,000 ML 50 ML IVCONT (16:22)
[2021-05-27] MEDS: carvediloL 6.25 MG TABLET PO (20:37)
[2021-05-27] MEDS: Apixaban 5 MG TABLET PO (20:37)
[2021-05-27] MEDS: Latanoprost 0.005 % Ophth Sol 2.5 ML DROPS 1 DROP EYE-BOTH (20:44)
[2021-05-28] VITALS (14 sets, daily range): BP systolic 135–169; BP diastolic 81–95; PULSE 86–103; RESP 16–22; TEMP 36.2–37.1; O2SAT 91–95
[2021-05-28] MEDS: Albuterol Sulfate (0.083%) 2.5 MG/3 ML VIAL.NEB INHALE ×6 (00:30→23:43)
[2021-05-28] MEDS: methylPREDNISolone Sod Succ 125 MG/2 ML VIAL 60 MG IVPUSH ×4 (00:37→23:59)
[2021-05-28 06:27] LABS: Anion Gap 17 (12-20); Blood Urea Nitrogen 11 mg/dL (9-16); Calcium 9.3 mg/dL (8.4-10.2); Carbon Dioxide 24 mmol/L (22-29); Chloride 107 mmol/L (96-108); Creatinine Clr Calc Pharmacy 103.6; Estimated Glomerular Filt Rate > 60; Glucose Random 163 mg/dL (60-115); Potassium 4.8 mmol/L (3.3-5.1); Sodium 143 mmol/L (135-145)
[2021-05-28 06:46] LABS: Hemoglobin 13.7 g/dl (14.0-18.0); Mean Corpuscular HGB Conc 31.9 g/dl (31.0-36.0); Mean Corpuscular Hemoglobin 30.6 pg (27.0-33.0); Mean Corpuscular Volume 96.2 fL (80-98); Mean Platelet Volume 10.2 fL (9.4-12.4); Platelet Count 215 X10*3/uL (160-400); Red Blood Count 4.47 X10*6/uL (4.60-5.80); Red Cell Distribution Width 13.6 % (11.0-16.0); White Blood Count 8.3 X10*3/uL (4.8-10.8)
[2021-05-28] MEDS: 0.9 % Sodium Chloride Flush 3 ML SYRINGE IVFLUSH ×3 (08:06→19:31)
[2021-05-28] MEDS: carvediloL 6.25 MG TABLET PO ×2 (08:07→19:31)
[2021-05-28] MEDS: PARoxetine HCL 20 MG TABLET PO (08:07)
[2021-05-28] MEDS: lisinopriL 10 MG TABLET PO (08:10)
[2021-05-28] MEDS: Apixaban 5 MG TABLET PO ×2 (08:10→19:31)
[2021-05-28] MEDS: Atorvastatin Calcium 80 MG TABLET PO (08:11)
[2021-05-28] MEDS: amLODIPine Besylate 5 MG TABLET PO (08:11)
[2021-05-28] MEDS: Cholecalciferol (Vitamin D3) 25 MCG TABLET PO (08:12)
--- NOTE | 2021-05-28 08:58 | P.PNIM_ITS ---
Progress Note: A&P (1) COPD (chronic obstructive pulmonary disease): Status: Acute (2) PAF (paroxysmal atrial fibrillation): Status: Acute (3) Hypertension: Status: Acute Assessment and Plan: 70 year old man admitted with viral sepsis secondary to RSV and COPD exacerbation Severe sepsis. Viral. Resolved tachycardia, tachypnea, lactic acidosis Follow blood cultures COPD exacerbation /RSV positive. Improving but still wheezy Will treat with Solu-Medrol 60mg Q8, scheduled and prn DuoNeb treatments Azithromycin Supplemental oxygen as needed Paroxysmal atrial fibrillation.? No exacerbation Continue carvedilol and Eliquis Hypertension.? Stable blood pressure Continue amlodipine and lisinopril Mental health Continue home medications DVT prophylaxis with [facility] Attending Dr. Blackburn Subjective Subjective Date of Service: 05/28/21 Review of Systems Follow up and COPD exacerbation Still wheezing but sloghtly improved Physical Exam Vital Signs: Vital Signs: Last Vital Signs Temp 97.2 F 05/28/21 07:34 Pulse 97 05/28/21 08:11 Resp 19 05/28/21 07:34 BP 169/95 H 05/28/21 08:11 Pulse Ox 93 05/28/21 07:34 Body Mass Index 29.1 Appearing in no acute distress lung sounds exp wheezing heart regular rate rhythm, clear S1, S2 positive bowel sounds, abdomen is soft, nontender neuro patient is alert x3, no focal deficits Objective Data Current Medications Acetaminophen (Acetaminophen 325 Mg Tablet) 650 mg PO Q6H PRN PRN Reason: Pain, Mild (Pain Scale 1-3) Albuterol Sulfate (Albuterol Sulfate (0.083%) 2.5 Mg/3 Ml Vial.Neb) 2.5 mg INHALE RQ4H WHILE AWAKE [facility] Last Admin: 05/28/21 07:44 Dose: 2.5 mg Documented by: Albuterol Sulfate (Albuterol Sulfate (0.083%) 2.5 Mg/3 Ml Vial.Neb) 2.5 mg INHALE RQ4H PRN PRN Reason: Wheezing Last Admin: 05/27/21 12:36 Dose: 2.5 mg Documented by: Amlodipine Besylate (Amlodipine Besylate 5 Mg Tablet) 5 mg PO DAILY [facility]; Protocol Last Admin: 05/28/21 08:11 Dose: 5 mg Documented by: Apixaban (Apixaban 5 Mg Tablet) 5 mg PO BID [facility] Last Admin: 05/28/21 08:10 Dose: 5 mg Documented by: Atorvastatin Calcium (Atorvastatin Calcium 80 Mg Tablet) 80 mg PO DAILY [facility] Last Admin: 05/28/21 08:11 Dose: 80 mg Documented by: Carvedilol (Carvedilol 6.25 Mg Tablet) 6.25 mg PO BID [facility]; Protocol Last Admin: 05/28/21 08:07 Dose: 6.25 mg Documented by: Azithromycin 500 mg/ Sodium (Chloride) 250 mls @ 125 mls/hr IV Q24H [facility] Last Infusion: 05/27/21 12:32 Dose: Infused Documented by: Latanoprost (Latanoprost 0.005 % Ophth Samara 2.5 Ml Drops) 1 drop EYE-BOTH BEDTIME [facility] Last Admin: 05/27/21 20:44 Dose: 1 drop Documented by: Lisinopril (Lisinopril 10 Mg Tablet) 10 mg PO DAILY [facility]; Protocol Last Admin: 05/28/21 08:10 Dose: 10 mg Documented by: Methylprednisolone Sodium Succinate (Methylprednisolone Sod Succ 125 Mg/2 Ml Via l) 60 mg IVPUSH Q8H [facility] Last Admin: 05/28/21 08:13 Dose: 60 mg Documented by: Ondansetron HCl (Ondansetron Hcl 4 Mg/2 Ml Vial) 4 mg IVPUSH Q8H PRN PRN Reason: Nausea and Vomiting Paroxetine HCl (Paroxetine Hcl 20 Mg Tablet) 20 mg PO DAILY [facility] Last Admin: 05/28/21 08:07 Dose: 20 mg Documented by: Pharmacy Consult (Consult Rx Perform Med Rec) 1 each MISCELLANE ONCE PRN PRN Reason: Consult order Sodium Chloride (0.9 % Sodium Chloride Flush 3 Ml Syringe) 3 ml IVFLUSH QSHIFT [facility] Last Admin: 05/28/21 08:06 Dose: 3 ml Documented by: Triamcinolone Acetonide (Triamcinolone Acet 0.1 % Oint 15 Gm Tube) 1 appl TOPICAL DAILY PRN PRN Reason: Rash Vitamin D (Cholecalciferol (Vitamin D3) 25 Mcg Tablet) 25 mcg PO DAILY [facility] Last Admin: 05/28/21 08:12 Dose: 25 mcg Documented by: Labs CBC & Chem 7: 05/28/21 05:49 05/28/21 05:45 Labs: Laboratory Results - last 24 hr 05/28/21 05/28/21 05:45 05:49 MCV 96.2 MCH 30.6 MCHC 31.9 RDW 13.6 Plt Count 215 MPV 10.2 Absolute Nucleated RBC 0.000 Nucleated RBC % (auto) 0.0 Anion Gap 17 Estim Creat Clear Calc 103.6 Estimated GFR > 60 Random Glucose 163 H Calcium 9.3 Microbiology Microbiology Results: Microbiology 05/26/21 09:25 Blood - Venous Blood Culture - Preliminary No growth after 24 hours. 05/26/21 08:27 Blood - Venous Blood Culture - Preliminary No growth after 24 hours. Quality Stroke Does the patient have a stroke diagnosis?: No VTE Prior VTE?: No VTE Risk Level:: Medical - moderate - high VTE Device Contraindication: Treatment Not Indicated VTE Drug Contraindication: N/A - Med Ordered
[2021-05-28] MEDS: Azithromycin 500 MG in 0.9 % Sodium Chloride 250 ML 125 MG IV (09:36)
[2021-05-28] MEDS: Latanoprost 0.005 % Ophth Sol 2.5 ML DROPS 1 DROP EYE-BOTH (19:52)
[2021-05-28 22:04] LABS: CDiff Gene PCR NEGATIVE (Negative)
[2021-05-29] VITALS (14 sets, daily range): BP systolic 139–180; BP diastolic 81–95; PULSE 82–97; RESP 18–20; TEMP 36.3–37.2; O2SAT 90–98
[2021-05-29] MEDS: Albuterol Sulfate (0.083%) 2.5 MG/3 ML VIAL.NEB INHALE ×2 (03:50→08:58)
[2021-05-29] MEDS: Atorvastatin Calcium 80 MG TABLET PO (08:07)
[2021-05-29] MEDS: carvediloL 6.25 MG TABLET PO ×2 (08:07→20:14)
[2021-05-29] MEDS: Apixaban 5 MG TABLET PO ×2 (08:07→20:14)
[2021-05-29] MEDS: amLODIPine Besylate 5 MG TABLET PO (08:07)
[2021-05-29] MEDS: Cholecalciferol (Vitamin D3) 25 MCG TABLET PO (08:08)
[2021-05-29] MEDS: lisinopriL 10 MG TABLET PO (08:08)
[2021-05-29] MEDS: methylPREDNISolone Sod Succ 125 MG/2 ML VIAL 60 MG IVPUSH (08:08)
[2021-05-29] MEDS: PARoxetine HCL 20 MG TABLET PO (08:08)
[2021-05-29] MEDS: 0.9 % Sodium Chloride Flush 3 ML SYRINGE IVFLUSH ×3 (08:09→23:16)
[2021-05-29] MEDS: Azithromycin 500 MG in 0.9 % Sodium Chloride 250 ML 125 MG IV (10:26)
--- NOTE | 2021-05-29 11:15 | HO.PM.IMPN ---
Subjective Subjective Date of Service: 05/29/21 Interval History: seen and examined this AM reports loose stool, which are chronic for him, asking for imdoium which he takes at home. denies abd pain, n/v breathing still not good . reports fatigue and exhaustion with even minimal movement Review of Systems negative except above Physical Exam Vital Signs: Vital Signs: Last Vital Signs Temp 97.9 F 05/29/21 08:00 Pulse 93 05/29/21 08:58 Resp 20 05/29/21 08:00 BP 180/89 H 05/29/21 08:08 Pulse Ox 94 05/29/21 08:00 Body Mass Index 29.1 Const: Other: General - no acute distress, appears comfortable Cardiovascular - regular rate and rhythm, S1-S2 Lungs - scattered wheezing Abdomen - soft, nontender, no rebound or guarding Extremities - no edema bilaterally Neuro - awake and alert, no focal deficits Objective Data Active Medications Acetaminophen (Acetaminophen 325 Mg Tablet) 650 mg PO Q6H PRN PRN Reason: Pain, Mild (Pain Scale 1-3) Albuterol Sulfate (Albuterol Sulfate (0.083%) 2.5 Mg/3 Ml Vial.Neb) 2.5 mg INHALE RQ4H WHILE AWAKE [facility] Last Admin: 05/29/21 08:58 Dose: 2.5 mg Documented by: ADRIANNA Albuterol Sulfate (Albuterol Sulfate (0.083%) 2.5 Mg/3 Ml Vial.Neb) 2.5 mg INHALE RQ4H PRN PRN Reason: Wheezing Last Admin: 05/27/21 12:36 Dose: 2.5 mg Documented by: TRU Amlodipine Besylate (Amlodipine Besylate 5 Mg Tablet) 5 mg PO DAILY [facility]; Protocol Last Admin: 05/29/21 08:07 Dose: 5 mg Documented by: OXANA Apixaban (Apixaban 5 Mg Tablet) 5 mg PO BID [facility] Last Admin: 05/29/21 08:07 Dose: 5 mg Documented by: OXANA Atorvastatin Calcium (Atorvastatin Calcium 80 Mg Tablet) 80 mg PO DAILY [facility] Last Admin: 05/29/21 08:07 Dose: 80 mg Documented by: OXANA Carvedilol (Carvedilol 6.25 Mg Tablet) 6.25 mg PO BID [facility]; Protocol Last Admin: 05/29/21 08:07 Dose: 6.25 mg Documented by: OXANA Azithromycin 500 mg/ Sodium (Chloride) 250 mls @ 125 mls/hr IV Q24H [facility] Last Admin: 05/29/21 10:26 Dose: 125 mls/hr Documented by: OXANA Latanoprost (Latanoprost 0.005 % Ophth Samara 2.5 Ml Drops) 1 drop EYE-BOTH BEDTIME [facility] Last Admin: 05/28/21 19:52 Dose: 1 drop Documented by: DB Lisinopril (Lisinopril 10 Mg Tablet) 10 mg PO DAILY [facility]; Protocol Last Admin: 05/29/21 08:08 Dose: 10 mg Documented by: OXANA Loperamide HCl (Loperamide Hcl 2 Mg Capsule) 2 mg PO Q4H PRN PRN Reason: Diarrhea Methylprednisolone Sodium Succinate (Methylprednisolone Sod Succ 125 Mg/2 Ml Vial) 60 mg IVPUSH Q8H [facility] Last Admin: 05/29/21 08:08 Dose: 60 mg Documented by: OXANA Ondansetron HCl (Ondansetron Hcl 4 Mg/2 Ml Vial) 4 mg IVPUSH Q8H PRN PRN Reason: Nausea and Vomiting Paroxetine HCl (Paroxetine Hcl 20 Mg Tablet) 20 mg PO DAILY [facility] Last Admin: 05/29/21 08:08 Dose: 20 mg Documented by: OXANA Pharmacy Consult (Consult Rx Perform Med Rec) 1 each MISCELLANE ONCE PRN PRN Reason: Consult order Sodium Chloride (0.9 % Sodium Chloride Flush 3 Ml Syringe) 3 ml IVFLUSH QSHIFT [facility] Last Admin: 05/29/21 08:09 Dose: 3 ml Documented by: OXANA Triamcinolone Acetonide (Triamcinolone Acet 0.1 % Oint 15 Gm Tube) 1 appl TOPICAL DAILY PRN PRN Reason: Rash Vitamin D (Cholecalciferol (Vitamin D3) 25 Mcg Tablet) 25 mcg PO DAILY [facility] Last Admin: 05/29/21 08:08 Dose: 25 mcg Documented by: OXANA Labs CBC & Chem 7: 05/28/21 05:49 05/28/21 05:45 Labs: Laboratory Results - last 24 hr 05/28/21 16:50 C. difficile Tox B Gene NEGATIVE Microbiology Microbiology Results: Microbiology 05/26/21 09:25 Blood Culture - Preliminary Blood - Venous No growth after 48 hours. 05/26/21 08:27 Blood Culture - Preliminary Blood - Venous No growth after 48 hours. Assessment and Plan (1) Viral sepsis: Status: Acute Assessment and Plan: 70 year old man admitted with viral sepsis secondary to RSV and COPD exacerbation Severe sepsis secondary to Viral infection (RSV) sepsis resolved blood cx negative COPD exacerbation secondary to RSV Acute respiratory failure with hypoxia -- present on admission (84% on arrival) still highly symptomatic with minial exertion (SOB with movement from bed to commode) continue solu-medrol, taper to 40 BID continue updrafts continue O2 -- wean as tolerated PAF Continue carvedilol and Eliquis Hypertension Continue amlodipine and lisinopril Diarrhea chronic prn immodium Mood Continue home medications DVT prophylaxis - on eliquis Full Code Quality Stroke Does the patient have a stroke diagnosis?: No VTE Prior VTE?: No VTE Risk Level:: Medical - moderate - high VTE Device Contraindication: Treatment Not Indicated VTE Drug Contraindication: N/A - Med Ordered
[2021-05-29] MEDS: Albuterol/Iprat 2.5/0.5MG 3 ML AMPUL.NEB INHALE ×3 (11:57→21:00)
--- NOTE | 2021-05-29 15:36 | MHC.CM.PN ---
EMR REVIEWED, PT'S BP ELEVATED THIS AM, PT CONT'S TO NEED SUPPLEMENTAL O2 AT 2L NC AND IV SOLU-MEDROL, NO PLAN FOR D/C TODAY, CM WILL CONT TO FOLLOW D/C NEEDS. D/C PLAN: HOME W/[facility] FOR SN, FAMILY FOR TRANSPORT
[2021-05-29] MEDS: methylPREDNISolone Sod Succ 40 MG/ML VIAL IVPUSH (20:14)
[2021-05-29] MEDS: Latanoprost 0.005 % Ophth Sol 2.5 ML DROPS 1 DROP EYE-BOTH (20:15)
[2021-05-29] MEDS: Loperamide HCl 2 MG CAPSULE PO (20:20)
[2021-05-30] VITALS (11 sets, daily range): BP systolic 141–180; BP diastolic 75–99; PULSE 83–122; RESP 16–20; TEMP 36.7–37.1; O2SAT 83–95
[2021-05-30] MEDS: Albuterol Sulfate (0.083%) 2.5 MG/3 ML VIAL.NEB INHALE (01:20)
[2021-05-30] MEDS: methylPREDNISolone Sod Succ 40 MG/ML VIAL IVPUSH (06:29)
[2021-05-30] MEDS: 0.9 % Sodium Chloride Flush 3 ML SYRINGE IVFLUSH (08:08)
[2021-05-30] MEDS: PARoxetine HCL 20 MG TABLET PO (08:08)
[2021-05-30] MEDS: Apixaban 5 MG TABLET PO (08:08)
[2021-05-30] MEDS: Atorvastatin Calcium 80 MG TABLET PO (08:08)
[2021-05-30] MEDS: carvediloL 6.25 MG TABLET PO (08:08)
[2021-05-30] MEDS: Cholecalciferol (Vitamin D3) 25 MCG TABLET PO (08:08)
[2021-05-30] MEDS: lisinopriL 10 MG TABLET PO (08:09)
[2021-05-30] MEDS: amLODIPine Besylate 5 MG TABLET PO (08:09)
[2021-05-30] MEDS: Albuterol/Iprat 2.5/0.5MG 3 ML AMPUL.NEB INHALE ×3 (08:18→15:51)
--- NOTE | 2021-05-30 12:50 | PM.DS ---
DS: Providers Provider Date of Service: 05/30/21 Date of admission: 05/26/21 10:56 Primary care physician: CAYDEN Beal DS: Diagnosis Discharge Diagnosis (1) Viral sepsis: Status: Acute (2) Acute respiratory failure with hypoxia: Status: Acute (3) Acute exacerbation of chronic obstructive airways disease: Status: Acute (4) RSV infection: Status: Acute DS: Summary Hospital Course Hospital Course: From the admission HPI: 70 year old man presenting with increased shortness of breath since . He reported that his grandson had a cold and he feels like he also had a cold. He reported fevers and chills at night, tmax 100. He has been sleeping in his chair the last few days. in the ED, CXR negative for consolidation or effusion. He was noted to be hypoxic at 87% on ra. He is also noted to have tachycardia, tachypnea, lactic acidosis and is RSV positive. He was given solumedrol, rocephin. azithromycin and albuterol in the ED. He will be admitted for further management and treatment of COPD exacerbation. Hospital Course: Patient was found to be hypoxic despite treatment in the ED. He was started on supplemental oxygen, systemic steroids, scheduled and PRN bronchodilators and empiric zithromax. Over the course of 4 days in the hospital, the patients respiratory symptoms improved significantly. He completed a course of zithromax for COPD exacerbation in the hospital. He was weaned from oxygen to room air at rest. However, he did desaturate with exertion and was evaluated for home oxgey for which he qualified (3L oxymizer) with exertion. He will be discahrge home with a short course of prednisone. 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 He should continue his baseline COPD medications as previously. He should maintain standard precautions at home due to his RSV. He was offered physical therapy evaluation (in the hospital) and possible short term rehabilitation transition -- both of which he refused. Instead, he opted for visiting nusing and PT at home, which will be arranged. Time Spent with Patient Time attestation: Total time spent providing and/or coordinating discharge services: Discharge coordination time: Greater than 30 minutes Quality: Stroke Does the patient have a stroke diagnosis?: No Physical Exam Vital Signs: Vital Signs: Last Vital Signs Temp 98.2 F 10/21/21 11:34 Pulse 85 05/30/21 11:34 Resp 19 05/30/21 11:34 BP 141/75 H 05/30/21 11:34 Pulse Ox 92 05/30/21 11:34 Body Mass Index 29.1 Const: Other: General - no acute distress, appears comfortable Cardiovascular - regular rate and rhythm, S1-S2 Lungs - no wheezing, no distress at rest Abdomen - soft, nontender, no rebound or guarding Extremities - no edema bilaterally Neuro - awake and alert, no focal deficits DS: Data Data Completed and Pending Labs on day of discharge: Preliminary micro results at discharge 05/26/21 09:25 Blood Culture - Preliminary Blood - Venous No growth after 48 hours. 05/26/21 08:27 Blood Culture - Preliminary Blood - Venous No growth after 48 hours. Discharge Plan Discharge Patient Disposition: Home Health Service Discharge Diagnosis: COPD due to RSV Referrals: Lillian Medina [Outside] - 1 Day (RETIREMENT, PLEASE CALL [phone] IF YOU DO NOT HEAR FROM A NURSE BY NOON ON 05/31/21.) Jose Marie FNP- [Primary Care Provider] - 1 Week Discharge Medications: New prednisone 20 mg tablet 40 mg PO DAILY Qty: 10 RF: 0 Continued Eliquis 5 mg tablet 5 mg PO BID 90 Days Qty: 180 RF: 3 amlodipine 5 mg tablet 5 mg PO DAILY 90 Days Qty: 90 RF: 0 carvedilol 6.25 mg tablet 6.25 mg PO BID Qty: 180 RF: 0 atorvastatin 80 mg tablet 80 mg PO DAILY Qty: 90 RF: 1 paroxetine HCl 20 mg tablet 20 mg PO QAM Qty: 90 RF: 1 cholecalciferol (vitamin D3) [Vitamin D3] 25 mcg (1,000 unit) Tablet 25 mcg PO DAILY RF: 0 latanoprost 0.005 % drops 1 drp ophthalmic (eye) BEDTIME RF: 0 triamcinolone acetonide 0.1 % ointment 1 appl topical DAILY PRN (Reason: Rash) RF: 0 lisinopril 5 mg tablet 10 mg PO DAILY RF: 0 Anoro Ellipta 62.5-25 mcg/actuation blister with device 1 inh inhalation DAILY 30 Days Qty: 1 RF: 6 Discharge Orders: Discharge Order (Routine); Ordered 05/30/21 Ordered By: Marky Blackburn Diet: advance to usual diet Activity on Discharge: As tolerated Stand Alone Forms: Patient Portal Discharge page Care Plan Goals: To stay healthy and out of the hospital. Health Concerns: COPD RSV infection Plan of Treatment: COPD - Take 5 more days of prednisone RSV infection - Standard precautions at home. Assessment: 70 yo M admitted for acute. hypoxic resp failure due to COPD due to RSV. Treated with steroids and updrafts. Improved and will be d/c home on 5 more days steroids. Also tested for home o2 and qualified for 3L with oxymizer. Patient Instructions: Respiratory Syncytial Virus (DC)
--- NOTE | 2021-05-30 15:24 | P.F2F_ITS ---
Service Date Service Date: 05/30/21 Encounter Date of encounter: 05/30/21 Reasons for Services Signs and symptoms assessed: medication management symptom assessment Reason for senior living: medication management and medication treatment Reason for physical therapy: therapeutic exercises Overseeing Care: Jose Marie Homebound: Leaving the home is medically contraindicated at this time without the asist of a device and/or another person due th the listed conditions above and below. Reason homebound: shortness of breath with minimal effort Certification: Based on the above findings, I certify that this patient is confined to the home and needs intermittent senior living care, physical therapy and/or speech therapy, or continues to need occupational therapy. The patient is under my care, and I have initiated the establishment of the plan of care. The patient will be followed by a physician who will periodically review the plan of care.
--- NOTE | 2021-05-30 15:29 | MHC.CM.PN ---
PT DISCHARGING HOME W/NEW O2 ON EXERTION AND [facility] FOR [facility], PT ARRANGING TRANSPORTATION
== END 2021-05-30 16:23 | disposition home health service (06) | DRG 871 ==
LOC: HO.ED 10:36 → HO.EDOVER 11:54 → HO.S3 11:55
PROVIDERS: Admitting Provider Nurse Practitioner Acute Care; Emergency Provider Emergency Medicine; PCP Nurse Practitioner Family; Visit Provider Family Medicine
DX: A41.89 Other specified sepsis (principal); J96.01 Acute respiratory failure with hypoxia; J44.1 Chronic obstructive pulmonary disease with (acute) exacerbation; E87.2 Acidosis; I10 Essential (primary) hypertension; K52.9 Noninfective gastroenteritis and colitis, unspecified; R65.20 Severe sepsis without septic shock; B97.4 Respiratory syncytial virus as the cause of diseases classified elsewhere; Z20.822 Contact with and (suspected) exposure to COVID-19; Z79.01 Long term (current) use of anticoagulants; Z79.899 Other long term (current) drug therapy
CPT/HCPCS: 0241U; 36415; 71045; 80048; 80076; 82803; 82947; 83605; 83735; 83880; 84484; 85025; 85027; 87040; 87493; 93005; 94640; 99284; J0456; J0696; J2920; J2930

== ENCOUNTER → 2021-06-20 10:15 | Outpatient (BNVA) | payer MEDICARE, OTHER, SELFPAY | PROVIDERS: PCP Nurse Practitioner Family; Visit Provider Internal Medicine Pulmonary Disease | DX: J44.9 Chronic obstructive pulmonary disease, unspecified (principal); R91.8 Other nonspecific abnormal finding of lung field; Z99.81 Dependence on supplemental oxygen | CPT/HCPCS: 99212 ==

== ENCOUNTER 2021-08-23 12:11 | Outpatient (REF) | payer MEDICARE, OTHER, SELFPAY ==
[2021-08-23 13:53] LABS: Appearance Urine CLEAR; Color Urine YELLOW; Glucose Urine UA NEG (NEG); Leukocyte Esterase Urine NEG (NEG); Nitrite Urine NEG (NEG); PH 5.5 (5.0-8.0); Specific Gravity - Urine 1.025 (1.005-1.025); Urine Blood NEG (NEG); Urine Ketones NEG (NEG); Urine Protein NEG (NEG-TRACE)
[2021-08-23 14:25] LABS: Alanine Aminotransferase 22 U/L (0-40); Albumin Level 4.1 g/dL (3.5-5.0); Alkaline Phosphatase 66 U/L (39-117); Anion Gap 13 (12-20); Aspartate Amino Transferase 17 U/L (5-37); Bilirubin Total 0.6 mg/dL (0.0-1.0); Blood Urea Nitrogen 13 mg/dL (9-16); Calcium 9.8 mg/dL (8.4-10.2); Carbon Dioxide 28 mmol/L (22-29); Chloride 107 mmol/L (96-108); Cholesterol 202 mg/dL; Estimated Glomerular Filt Rate > 60; Glucose Fasting 93 mg/dL (60-99); HDL Cholesterol 75 mg/dL; LDL Cholesterol Calculated 101 mg/dl; Potassium 4.5 mmol/L (3.3-5.1); Sodium 143 mmol/L (135-145); Total Protein 6.9 g/dL (6.5-8.0); Triglycerides 133 mg/dL
[2021-08-23 14:32] LABS: TSH reflex Free T4 4.95 uIU/mL (0.32-4.0)
[2021-08-23 15:10] LABS: Free T4 (Free Thyroxine) 0.82 ng/dL (0.71-1.85)
== END 2021-08-23 12:12 | disposition home or self-care (01) ==
LOC: HO.HMGCLDS 12:11
PROVIDERS: PCP Nurse Practitioner Family; Visit Provider Nurse Practitioner Family
DX: E87.2 Acidosis (principal); B97.4 Respiratory syncytial virus as the cause of diseases classified elsewhere; J44.9 Chronic obstructive pulmonary disease, unspecified; I10 Essential (primary) hypertension
CPT/HCPCS: 36415; 80053; 80061; 81003; 84439; 84443

== ENCOUNTER 2021-09-07 22:53 | Emergency (ER) | payer MEDICARE, OTHER, SELFPAY ==
[2021-09-07 22:59] VITALS: BP 113/73; PULSE 72; RESP 16; TEMP 37; O2SAT 94; BMI 29.8
--- NOTE | 2021-09-07 23:26 | ED_ITS ---
HPI - Skin/Abscess/Foreign Bdy General Chief complaint: Skin/Abscess/Foreign Body Stated complaint: lac on arm Time Seen by Provider: 09/07/21 22:55 Source: patient Mode of arrival: ambulatory Limitations: no limitations History of Present Illness HPI narrative: 71-year-old male on who presents emergency department for evaluation of laceration to his left wrist. The patient was washing a glass when the glass broke and cut his wrist. He states that his clean up the wound and the wound continued to bleed therefore came to emergency department for evaluation. Patient does not know when his last tetanus shot was given but he believes that it was within 5 years. MD complaint: laceration Onset (ago): hour(s) (1) Tetanus up to date: unsure Location: LUE (Left wrist) Severity: mild Quality: aching Pain Consistency: constant Relieving factors: none Exacerbating factors: none Treatments prior to arrival: other (Patient washed the wound out with soap and water) Related Data Home Medications Medication Instructions Recorded Confirmed latanoprost 0.005 % eye 1 drp OPHTHALMIC (EYE) 01/10/21 06/18/21 drops BEDTIME triamcinolone acetonide 0.1 1 appl TOPICAL DAILY PRN 01/10/21 06/18/21 % topical ointment lisinopril 5 mg tablet 10 mg PO DAILY 03/14/21 06/18/21 cholecalciferol (vitamin D3) 25 mcg PO DAILY 05/26/21 06/18/21 25 mcg (1,000 unit) tablet (Vitamin D3) Previous Rx's Medication Instructions Recorded atorvastatin 80 mg tablet 80 mg PO DAILY #90 tab 05/23/21 paroxetine HCl 20 mg tablet 20 mg PO QAM #90 tab 05/24/21 prednisone 10 mg tablet 40 mg PO DAILY 5 Days #20 tab 07/15/21 Anoro Ellipta 62.5 mcg-25 1 ea INHALATION DAILY #180 ea NS 07/29/21 mcg/actuation powder for inhalation (umeclidinium-vilanterol) apixaban 5 mg tablet (Eliquis) 5 mg PO BID 90 Days #180 tab 08/06/21 amlodipine 5 mg tablet 5 mg PO DAILY 90 Days #90 tab 08/12/21 carvedilol 6.25 mg tablet 6.25 mg PO BID #180 tab 08/31/21 Allergies Allergy/AdvReac Type Severity Reaction Status Date / Time No Known Allergies Allergy Verified 09/07/21 23:02 Review of Systems Verdana 4l Review of Systems: Yes all other systems are reviewed and Verdana 4d are negative [facility] Past Medical History Medical History Atrial fibrillation Cardiac arrhythmia COPD (chronic obstructive pulmonary disease) COPD (chronic obstructive pulmonary disease) Essential hypertension Hypertension NICM (nonischemic cardiomyopathy) PAF (paroxysmal atrial fibrillation) RSV infection Surgical History History of appendectomy History of colonoscopy History of hernia repair Status post catheter ablation of atrial fibrillation Family History Family History Father Cancer of prostate Mother No problems noted. Daughter No problems noted. Daughter No problems noted. Brother Cancer of prostate Social History Social History Household Members: Spouse Housing: House Do you presently have visiting nurse or other home services: No Alcohol intake: never Patient Tobacco Use Status: Never used Tobacco Second Hand Smoke Exposure: No Advance Directives Date on File: 05/26/21 service: Yes Current occupational status: retired Physical Exam Verdana 4l Vital Signs: Verdana 4d Verdana 4d Vital Signs: Verdana 4d Verdana 4Bd Last Vital Signs Verdana 4d Biomass Technician New 4d Biomass Technician New 4d Temp 98.6 F 09/07/21 22:59 Biomass Technician New 4d Pulse 72 09/07/21 22:59 Biomass Technician New 4d Resp 16 09/07/21 22:59 BP 113/73 09/07/21 22:59 Pulse Ox 94 09/07/21 22:59 BMI result Body Mass Index 29.8 Const: Other: Awake, alert, male patient, very pleasant cooperative. Does not appear to be in distress Extrem: Other: Patient has a 4.0 cm laceration to the left wrist, the laceration is full skin thickness, there is no active bleeding noted, the patient has full range of motion of his wrist and his fingers with normal sensory exam normal capillary refill Course Course Course Narrative: 71-year-old male who sustained a laceration to his left wrist while he was washing dishes and a glass broke. Patient had a 4.0 cm laceration to his left wrist which was full skin thickness and required suture repair. The patient's wound was repaired with 4.0 Ethilon sutures x5. Patient's wound was then covered with bacitracin and a sterile dressing. The wound is a low wrist tetanus wound in the patient believes that he has had a tetanus shot within 5-10 years. He does not want a tetanus shot at this time and he wants to follow-up with his PCP to check his tetanus status and get 1 as an outpatient. Patient was given printed and verbal instructions and discharged home. Procedures Laceration 4.0 cm left wrist laceration: Site: other (Wrist) Side (If applicable): left Size (cm): 4.0 Description: linear Depth: simple, single layer Local Anesthetic: lidocaine 1% Amount of anesthesia used (mL): 5 Pre-repair: wound explored Skin layer closed with: nylon Size (cm): 4-0 Number of sutures: 5 Technique: simple, interrupted Discharge Plan Discharge Clinical Impression: Laceration of wrist Patient Disposition: Home, Self-Care Instructions: Laceration (ED) Additional Instructions: The laceration was closed with non dissolvable stitches. The stitches need to be removed in 7-10 days by either your doctor, in urgent care clinic or the emergency department. Apply bacitracin twice a day to the wound until the stitches are removed. Watch for signs of infection which would include increased redness, increased pain, red streaks going away from the wound, drainage of pus. If the wound looks infected you should follow-up with PCP or come back to the emergency department for re-evaluation. This is a low risk wound for tetanus however you should check with her doctor on Thursday morning to see if your tetanus vaccination is up-to-date. Follow-up with your doctor in 1 days. Please return to the emergency department if your symptoms get worse or if you develop any symptoms that are concerning to you. Prescriptions: No Action atorvastatin 80 mg tablet 80 mg PO DAILY Qty: 90 1RF paroxetine HCl 20 mg tablet 20 mg PO QAM Qty: 90 1RF prednisone 10 mg tablet 40 mg PO DAILY 5 Days Qty: 20 0RF Anoro Ellipta 62.5-25 mcg/actuation blister with device 1 ea inhalation DAILY Qty: 180 2RF Eliquis 5 mg tablet 5 mg PO BID 90 Days Qty: 180 3RF amlodipine 5 mg tablet 5 mg PO DAILY 90 Days Qty: 90 1RF carvedilol 6.25 mg tablet 6.25 mg PO BID Qty: 180 0RF cholecalciferol (vitamin D3) [Vitamin D3] 25 mcg (1,000 unit) Tablet 25 mcg PO DAILY 0RF latanoprost 0.005 % drops 1 drp ophthalmic (eye) BEDTIME 0RF triamcinolone acetonide 0.1 % ointment 1 appl topical DAILY PRN (Reason: Rash) 0RF lisinopril 5 mg tablet 10 mg PO DAILY 0RF
[2021-09-07] MEDS: Lidocaine HCl 1 % MPF 5 ML VIAL 10 ML INFILTRATI (23:32)
== END 2021-09-07 23:44 | disposition home or self-care (01) ==
LOC: HO.ED 23:38
PROVIDERS: Emergency Provider Emergency Medicine Emergency Medical Services; PCP Nurse Practitioner Family
DX: S61.512A Laceration without foreign body of left wrist, initial encounter (principal); W25.XXXA Contact with sharp glass, initial encounter; I10 Essential (primary) hypertension; I48.0 Paroxysmal atrial fibrillation; Y93.G1 Activity, food preparation and clean up; Y92.010 Kitchen of single-family (private) house as the place of occurrence of the external cause; Y99.9 Unspecified external cause status; Z79.01 Long term (current) use of anticoagulants
CPT/HCPCS: 12002; 99284

== ENCOUNTER → 2021-10-17 11:07 | Outpatient (BNVA) | payer MEDICARE, OTHER, SELFPAY | PROVIDERS: PCP Nurse Practitioner Family; Visit Provider Internal Medicine Pulmonary Disease | DX: J44.9 Chronic obstructive pulmonary disease, unspecified (principal); R91.8 Other nonspecific abnormal finding of lung field; Z99.81 Dependence on supplemental oxygen | CPT/HCPCS: 99212 ==

== ENCOUNTER → 2021-10-23 10:16 | Outpatient (REF) | payer MEDICARE, OTHER, SELFPAY ==
--- NOTE | 2021-10-23 10:19 | CA_ITS ---
Transthoracic Echocardiogram Patient (Last, First, Middle): Nakul Real, Gender: Male Date of : 1950 Age: 71 Procedure Date: 10/23/2021 Procedure Type: Transthoracic Echocardiogram Location: OP Height: 182.88 cm Weight: 102.06 kg BSA: 2.24 m2 Heart Rate: bpm BP: 135 / 90 mmHg Production Metal Sprayer: YR/TO Referring MD: Juarez Herrera MD Symptoms: I71.2 - Thoracic aortic aneurysm, without rupture Study Quality: Fair ECG Rhythm: Sinus with extra beats Conclusions: - The left ventricular systolic function is normal. The calculated ejection fraction is 60% by biplane method. - No obvious valvular pathology seen on this study. - There is mild dilatation of the sinuses of Valsalva measuring 4.30 cm, no dilatation of the sino tubular ridge measuring 3.88 cm, moderate dilatation of the ascending aorta measuring 4.70 cm, and no dilatation of the aortic arch measuring 3.70 cm. Findings Left Ventricle There is normal left ventricular wall thickness. The left ventricular systolic function is normal. The calculated ejection fraction is 60% by biplane method. There is no evidence of regional wall motion abnormalities. Diastolic function is normal for age. Top-normal of LV size. LVEDD 5.6cm. Right Ventricle Normal right ventricular cavity size and systolic function. Atria Both atria are normal in size. Aortic Valve There is a normal trileaflet aortic valve. There is no aortic valve stenosis. There is no aortic valve regurgitation. Mitral Valve The mitral valve appears normal. There is trace mitral valve regurgitation. There is no mitral valve stenosis. Pulmonic Valve The pulmonic valve was not well visualized. Tricuspid Valve There is trace tricuspid valve regurgitation. The pulmonary artery systolic pressure is normal. Great Vessels There is mild dilatation of the sinuses of Valsalva measuring 4.30 cm, no dilatation of the sino tubular ridge measuring 3.88 cm, moderate dilatation of the ascending aorta measuring 4.70 cm, and no dilatation of the aortic arch measuring 3.70 cm. Venous The inferior vena cava is normal in size and collapses greater than 50% with inspiration. Pericardium/Pleural There is a trivial pericardial effusion. Prior Study Comparison No significant change compared to prior study dated: 04/11/2021. Recommendations, Care & Conclusions No obvious valvular pathology seen on this study. Measurements 2D Linear Measurements IVSd: 0.86 0.6-0.9/0.6-1.0 cm LVIDd: 5.56 3.9-5.3/4.2-5.9 cm LVIDd Index: 2.48 2.4-3.2/2.2-3.1 cm/m2 LVIDs: 3.66 2.0-3.6 cm LVPWd: 0.93 0.7-1.1 cm LA Diam: 4.50 2.7-3.8/3.0-4.0 cm LAIDs Index: 2.01 1.5-2.3 cm/m2 LV Mass: 233.86 67-162/88-224 g LV Mass Index: 104.40 43-95/49-115 g/m2 LVOT Diam: 2.30 3.0+(-)1.3 cm 2D Systolic Function EF 4C: 61.00 >55% EF 2C: 58.80 >55% EF BiP: 59.60 >55% Mitral Valve MV Pk E: 0.61 MV PK A: 0.50 MV Decel Time: 187.00 E/A: 1.20 E'Lateral: 6.64 E'Medial: 5.87 E/E' Med: 10.40 E/E' Lat: 9.20 PHT: 55.00 MVA PHT: 4.00 Decel Towner: 3.27 Aortic Valve AoV Pk Brian: 1.23 AoV Mn Brian: 0.91 AoV VTI: 0.26 AoV Pk Grad: 6.00 Aov Mn Grad: 4.00 ROSALVA Cont.VTI: 3.36 LVOT LVOT Pk Brian: 0.96 LVOT Mn Brian: 0.68 LVOT VTI: 0.21 LVOT Pk Grad: 4.00 LVOT Mn Grad: 2.00 LVOT Diam: 2.30 LVOT Area: 4.15 Diastolic Function MV Pk E: 0.61 MV Pk A: 0.50 E/A: 1.20 E'Medial: 5.87 E/E' Med: 10.40 E' Laterial: 6.64 E/E' Lat: 9.20 Right Ventricle TAPSE (mm): 24.30 TVS' Brian: 12.00 Tricuspid Valve TR Pk Brian: 2.26 TR Pk Grad: 20.00 RA Press: 3.00 RVSP: 23.00 Great Vessels Aorta Sinus of Valsalva: 4.30 2.0-3.[address] Ridge: 3.88 1.7-3.4 cm Ao Asc: 4.70 2.1-3.4 cm Ao Arch: 3.70 Updated in Other Vendor System with Status of Final Juarez Herrera MD electronically signed on 10/25/2021 4:28:23 PM with status of Final
== END ==
LOC: HO.CARD 10:16
PROVIDERS: PCP Nurse Practitioner Family; Visit Provider Internal Medicine
DX: I71.2 Thoracic aortic aneurysm, without rupture (principal)
CPT/HCPCS: 93306

== ENCOUNTER → 2021-11-18 11:10 | Outpatient (BNVA) | payer MEDICARE, OTHER, SELFPAY | PROVIDERS: PCP Nurse Practitioner Family; Referring Provider Nurse Practitioner Family; Visit Provider Internal Medicine | DX: I48.0 Paroxysmal atrial fibrillation (principal); I42.8 Other cardiomyopathies; I71.2 Thoracic aortic aneurysm, without rupture; I10 Essential (primary) hypertension | CPT/HCPCS: 99212 ==

== ENCOUNTER 2022-01-13 12:31 | Outpatient (REF) | payer MEDICARE, OTHER, SELFPAY ==
[2022-01-13 14:21] LABS: Prostate Specific Antigen Scr 1.39 ng/mL (<0.05-4.0)
== END 2022-01-13 12:32 | disposition home or self-care (01) ==
LOC: HO.HMGCLDS 12:31
PROVIDERS: PCP Nurse Practitioner Family; Visit Provider Nurse Practitioner Family
DX: Z12.5 Encounter for screening for malignant neoplasm of prostate (principal)
CPT/HCPCS: 36415; 84153

== ENCOUNTER 2022-02-28 15:37 | Inpatient (IN) | payer OTHER, MEDICARE, SELFPAY ==
[2022-02-28] VITALS (8 sets, daily range): BP systolic 97–126; BP diastolic 72–84; PULSE 89–130; RESP 16–20; TEMP 36.6; O2SAT 94–100; BMI 32.5
--- NOTE | 2022-02-28 15:38 | ECG_ITS ---
Test Reason : AFIB Blood Pressure : / mmHG Vent. Rate : 130 BPM Atrial Rate : 000 BPM P-R Int : 000 ms QRS Dur : 080 ms QT Int : 304 ms P-R-T Axes : 000 -20 092 degrees QTc Int : 447 ms Atrial fibrillation with rapid ventricular response Inferior infarct (cited on or before 28-FEB-2022) Possible Anterior infarct , age undetermined Abnormal ECG When compared with ECG of 26-MAY-2021 08:07, Atrial fibrillation has replaced Sinus rhythm Nonspecific T wave abnormality now evident in Lateral leads Referred By: Generic ED Physician Electronically Signed By:Matthew Savage
[2022-02-28 15:57] LABS: MANUAL DIFF FLAG NO
[2022-02-28 16:00] LABS: Basophils Percent Auto 0.4 % (0-2); Eosinophils Absolute Auto 0.1 X10*3/uL (0.0-0.4); Eosinophils Percent Auto 1.1 % (0-4); Hematocrit 47.7 % (42.0-52.0); Hemoglobin 15.8 g/dl (14.0-18.0); Imm Gran Abs Auto 0.03 X10*3/uL (0.00-0.03); Imm Gran Pct Auto 0.4 % (0.0-0.4); Lymphocytes Absolute Auto 1.6 X10*3/uL (1.2-4.9); Lymphocytes Percent Auto 18.6 % (20-40); Mean Corpuscular HGB Conc 33.1 g/dl (31.0-36.0); Mean Corpuscular Hemoglobin 30.7 pg (27.0-33.0); Mean Corpuscular Volume 92.6 fL (80.0-98.0); Mean Platelet Volume 9.8 fL (9.4-12.4); Monocytes Absolute Auto 0.8 X10*3/uL (0.1-1.2); Monocytes Percent Auto 9.1 % (2-11); Neutrophils Percent Auto 70.4 % (45-73); Platelet Count 266 X10*3/uL (160-400); Red Blood Count 5.15 X10*6/uL (4.60-5.80); Red Cell Distribution Width 13.4 % (11.0-16.0); White Blood Count 8.6 X10*3/uL (4.8-10.8)
[2022-02-28 16:16] LABS: Alanine Aminotransferase 58 U/L (0-40); Albumin Level 4.4 g/dL (3.5-5.0); Alkaline Phosphatase 73 U/L (39-117); Anion Gap 14 (12-20); Aspartate Amino Transferase 35 U/L (5-37); Bilirubin Total 0.8 mg/dL (0.0-1.0); Blood Urea Nitrogen 17 mg/dL (9-16); Calcium 9.6 mg/dL (8.4-10.2); Carbon Dioxide 26 mmol/L (22-29); Chloride 106 mmol/L (96-108); Creatinine Clr Calc Pharmacy 98.6; Estimated Glomerular Filt Rate > 60; Glucose Random 130 mg/dL (60-115); Potassium 4.6 mmol/L (3.3-5.1); Sodium 141 mmol/L (135-145); Total Protein 7.3 g/dL (6.5-8.0)
[2022-02-28 16:20] LABS: B Type Natriuretic Peptide 215 pg/mL (<100); Troponin-I High Sensitivity 3.6 ng/L (<3.5-35.0)
--- NOTE | 2022-02-28 17:28 | ED_ITS ---
HPI - Arrhythmia/Palpitations General Chief Complaint: Arrhythmia/Palpitations Stated Complaint: Afib w/ RBR Time Seen by Provider: 02/28/22 15:49 Source: patient Mode of arrival: ambulatory Limitations: no limitations History of Present Illness HPI narrative: Patient history of AFib status post cardioversion on Eliquis patient has been in sinus rhythm since had cardioversion last year for last 4 days patient having palpitation episodes with slight weakness and dizziness and shortness of breath heart rate been fluctuating between 80-140. On arrival patient's heart rate was in 130s Related Data Home Medications Medication Instructions Recorded Confirmed latanoprost 0.005 % eye drops 1 drp ophthalmic (eye) BEDTIME 01/10/21 02/28/22 triamcinolone acetonide 0.1 % 1 appl topical DAILY PRN Rash 01/10/21 02/28/22 topical ointment cholecalciferol (vitamin D3) 25 25 mcg PO DAILY 05/26/21 02/28/22 mcg (1,000 unit) tablet (Vitamin D3) Previous Rx's Medication Instructions Recorded apixaban 5 mg tablet (Eliquis) 5 mg PO BID 90 days #180 tabs 08/06/21 Anoro Ellipta 62.5 mcg-25 1 ea inhalation DAILY #180 ea 10/17/21 mcg/actuation powder for inhalation (umeclidinium-vilanterol) amlodipine 5 mg tablet 7.5 mg PO DAILY 90 days #135 tabs 11/18/21 atorvastatin 80 mg tablet 80 mg PO DAILY #90 tabs 11/22/21 carvedilol 6.25 mg tablet 6.25 mg PO BID #180 tabs 11/22/21 paroxetine HCl 20 mg tablet 20 mg PO QAM #90 tabs 11/22/21 Allergies Allergy/AdvReac Type Severity Reaction Status Date / Time No Known Allergies Allergy Verified 01/13/22 12:20 Review of Systems Review of Systems: Yes all other systems are reviewed and are negative PMFSH Past Medical History Medical History Atrial fibrillation Cardiac arrhythmia COPD (chronic obstructive pulmonary disease) COPD (chronic obstructive pulmonary disease) Essential hypertension Hypertension NICM (nonischemic cardiomyopathy) PAF (paroxysmal atrial fibrillation) RSV infection Surgical History History of appendectomy History of colonoscopy History of hernia repair Status post catheter ablation of atrial fibrillation Family History Family History Father Cancer of prostate Mother No problems noted. Daughter No problems noted. Daughter No problems noted. Brother Cancer of prostate Social History Social History Household Members: Spouse Housing: House Do you presently have visiting nurse or other home services: No Alcohol intake: current Alcohol intake frequency: 3 or more drinks per day Patient Tobacco Use Status: Never used Tobacco e-Cigarette/Vaping Use: Never Used Second Hand Smoke Exposure: No Use of substances other than those prescribed or required for medical reasons: No Advance Directives: Yes Advance Directives Information Provided: No Advance Directives on File: No Advance Directives Date on File: 05/26/21 service: Yes Current occupational status: retired Physical Exam Vital Signs: Vital Signs: Last Vital Signs Temp 97.8 F 02/28/22 15:41 Pulse 104 H 02/28/22 22:02 Resp 19 02/28/22 20:35 BP 126/80 02/28/22 22:02 Pulse Ox 95 02/28/22 22:02 O2 Del Method 02/28/22 22:02 BMI result Body Mass Index 32.5 Appearance: Alert. Oriented X3. No acute distress. Eyes: No pallor /icterus ENT: Pharynx normal. Oral Mucosa moist Neck: Normal inspection. Neck supple. CVS: Tachycardia regular irregular. Pulses normal. Respiratory: No respiratory distress. Equal air entry bilateral, no wheezing/rales/rhonchi Abdomen: Soft and nontender. Bowel sounds are present, no mass palpable, no CVA tenderness Skin: Skin warm and dry. Normal skin color. Normal skin turgor. Extremities: No lower extremity edema. No calf tenderness Neuro: Oriented X 3. No motor deficit. No sensory deficit. MDM - Arrhythmia/Palpitations MDM Narrative Medical decision making narrative: 2300 Patient with AFib with rapid ventricular rate is started on Cardizem drip rate controlled now but still in AFib will admit for further evaluation and management Lab Data Attestation: I reviewed the patient's lab results. Result diagrams: 02/28/22 15:49 02/28/22 15:50 Labs: Lab Results 02/28/22 02/28/22 02/28/22 Range/Units 15:49 15:50 15:50 WBC 8.6 (4.8-10.8) X10*3/uL RBC 5.15 (4.60-5.80) X10*6/uL Hgb 15.8 (14.0-18.0) g/dl Hct 47.7 (42.0-52.0) % MCV 92.6 (80.0-98.0) fL MCH 30.7 (27.0-33.0) pg MCHC 33.1 (31.0-36.0) g/dl RDW 13.4 (11.0-16.0) % Plt Count 266 (160-400) X10*3/uL MPV 9.8 (9.4-12.4) fL Immature Gran % (Auto) 0.4 (0.0-0.4) % Neut % (Auto) 70.4 (45-73) % Lymph % (Auto) 18.6 L (20-40) % Larue % (Auto) 9.1 (2-11) % Eos % (Auto) 1.1 (0-4) % Baso % (Auto) 0.4 (0-2) % Lymph # (Auto) 1.6 (1.2-4.9) X10*3/uL Larue # (Auto) 0.8 (0.1-1.2) X10*3/uL Eos # (Auto) 0.1 (0.0-0.4) X10*3/uL Baso # (Auto) 0.0 (0.0-0.2) X10*3/uL Abs Immat Gran (auto) 0.03 (0.00-0.03) X10*3/uL Absolute Neuts (auto) 6.0 (2.0-8.3) x10*3/uL Absolute Nucleated RBC 0.000 (0.0-0.012) X10*3/uL Nucleated RBC % (auto) 0.0 (0.0-0.2) /100WBC PT (10.0-13.1) SEC INR (0.9-1.1) APTT (24.1-38.0) SEC Sodium 141 (135-145) mmol/L Potassium 4.6 (3.3-5.1) mmol/L Chloride 106 (96-108) mmol/L Carbon Dioxide 26 (22-29) mmol/L Anion Gap 14 (12-20) BUN 17 H (9-16) mg/dL Creatinine 0.85 (0.5-1.4) mg/dL Estim Creat Clear Calc 98.6 Estimated GFR > 60 Random Glucose 130 H (60-115) mg/dL Calcium 9.6 (8.4-10.2) mg/dL Total Bilirubin 0.8 (0.0-1.0) mg/dL AST 35 D (5-37) U/L ALT 58 H (0-40) U/L Alkaline Phosphatase 73 (39-117) U/L Troponin I High Sens 3.6 (<3.5-35.0) ng/L B-Natriuretic Peptide 215 H (<100) pg/mL Total Protein 7.3 (6.5-8.0) g/dL Albumin 4.4 (3.5-5.0) g/dL 02/28/22 Range/Units 17:55 WBC (4.8-10.8) X10*3/uL RBC (4.60-5.80) X10*6/uL Hgb (14.0-18.0) g/dl Hct (42.0-52.0) % MCV (80.0-98.0) fL MCH (27.0-33.0) pg MCHC (31.0-36.0) g/dl RDW (11.0-16.0) % Plt Count (160-400) X10*3/uL MPV (9.4-12.4) fL Immature Gran % (Auto) (0.0-0.4) % Neut % (Auto) (45-73) % Lymph % (Auto) (20-40) % Larue % (Auto) (2-11) % Eos % (Auto) (0-4) % Baso % (Auto) (0-2) % Lymph # (Auto) (1.2-4.9) X10*3/uL Larue # (Auto) (0.1-1.2) X10*3/uL Eos # (Auto) (0.0-0.4) X10*3/uL Baso # (Auto) (0.0-0.2) X10*3/uL Abs Immat Gran (auto) (0.00-0.03) X10*3/uL Absolute Neuts (auto) (2.0-8.3) x10*3/uL Absolute Nucleated RBC (0.0-0.012) X10*3/uL Nucleated RBC % (auto) (0.0-0.2) /100WBC PT 12.1 (10.0-13.1) SEC INR 1.1 (0.9-1.1) APTT 43.9 H (24.1-38.0) SEC Sodium (135-145) mmol/L Potassium (3.3-5.1) mmol/L Chloride (96-108) mmol/L Carbon Dioxide (22-29) mmol/L Anion Gap (12-20) BUN (9-16) mg/dL Creatinine (0.5-1.4) mg/dL Estim Creat Clear Calc Estimated GFR Random Glucose (60-115) mg/dL Calcium (8.4-10.2) mg/dL Total Bilirubin (0.0-1.0) mg/dL AST (5-37) U/L ALT (0-40) U/L Alkaline Phosphatase (39-117) U/L Troponin I High Sens (<3.5-35.0) ng/L B-Natriuretic Peptide (<100) pg/mL Total Protein (6.5-8.0) g/dL Albumin (3.5-5.0) g/dL Critical Care Time Critical Care Time Critical Care Time: Yes Total Critical Care Time: 50 Attestation: I spent 50 minutes of critical care, with interventions, assessments, speaking to patient, consultants, and family. Discharge Plan Discharge Clinical Impression: Paroxysmal atrial fibrillation with rapid ventricular response Patient Disposition: Admitted As Inpatient
[2022-02-28] MEDS: dilTIAZem HCL 50 MG/10 ML VIAL 20 MG IVPUSH (17:59)
--- NOTE | 2022-02-28 18:07 | PC.NURSE ---
pt alert and oriented, skin pwd, respirations even and unlabored, pt reports since Thursday he has been experiencing palpitations, reports hx of a-fib and some sob but denies chest pain a-fib on the monitor originally was in the 140's, now in the high 90-80
[2022-02-28 18:08] LABS: INTERNATIONAL NORM RATIO 1.1 (0.9-1.1); Prothrombin Time 12.1 SEC (10.0-13.1)
[2022-02-28 18:10] LABS: Partial Thromboplastin Time 43.9 SEC (24.1-38.0)
[2022-02-28] MEDS: dilTIAZem HCL 125 MG in 0.9 % Sodium Chloride 100 ML 10 MG IVCONT (20:15)
--- NOTE | 2022-02-28 21:26 | P.HPHOSP_ITS ---
History of Present Illness Date of Service: 02/28/22 Chief Complaint: Palpitations 71-year-old male with a past medical history of hypertension, hyperlipidemia, COPD-not on home oxygen, atrial fibrillation status post ablation, on Eliquis, nonischemic cardiomyopathy; presented to the hospital today with a chief co mplaint of palpitation. Patient reports that for the past 2 days he has been having palpitations, feels heart racing, no associated lightheadedness dizziness, shortness of breath. Denies any fever chills cough. Denies any sputum production. Denies any GI symptoms. Patient mentioned that he had ablation in the past for AFib; and has not had AFib until this past 2 days. Review of all other systems is negative except mentioned above ER course: Per ER team patient on presentation noted to be in rapid AFib with heart rate in 140s; did not improve with IV pushes; subsequently started on diltiazem drip. Admitted to the hospital for further management. [facility] Medical History Atrial fibrillation Cardiac arrhythmia COPD (chronic obstructive pulmonary disease) COPD (chronic obstructive pulmonary disease) Essential hypertension Hypertension NICM (nonischemic cardiomyopathy) PAF (paroxysmal atrial fibrillation) RSV infection Family History Father Cancer of prostate Mother No problems noted. Daughter No problems noted. Daughter No problems noted. Brother Cancer of prostate Surgical History History of appendectomy History of colonoscopy History of hernia repair Status post catheter ablation of atrial fibrillation Social History Household Members: Spouse Housing: House Do you presently have visiting nurse or other home services: No Alcohol intake: current Alcohol intake frequency: 3 or more drinks per day Patient Tobacco Use Status: Never used Tobacco e-Cigarette/Vaping Use: Never Used Second Hand Smoke Exposure: No Use of substances other than those prescribed or required for medical reasons: No Advance Directives: Yes Advance Directives Information Provided: No Advance Directives on File: No Advance Directives Date on File: 05/26/21 service: Yes Current occupational status: retired Meds Allergies Allergy/AdvReac Type Severity Reaction Status Date / Time No Known Allergies Allergy Verified 01/13/22 12:20 Active Medications: Current Medications Acetaminophen (Acetaminophen 325 Mg Tablet) 650 mg PO Q6H PRN PRN Reason: Pain, Mild (Pain Scale 1-3) Diltiazem HCl 125 mg/ Sodium (Chloride) 125 mls @ 0 mls/hr IVCONT .Q0M [facility]; Protocol Last Titration: 02/28/22 20:47 Dose: 15 mg/hr, 15 mls/hr Melatonin (Melatonin 3 Mg Tablet) 6 mg PO BEDTIME PRN PRN Reason: Insomnia Senna (Sennosides 8.6 Mg Tablet) 17.2 mg PO BEDTIME PRN PRN Reason: Constipation Sodium Chloride (0.9 % Sodium Chloride Flush 3 Ml Syringe) 3 ml IVFLUSH QSHIFT [facility] Home Medications Medication Instructions Recorded Confirmed Last Taken Type latanoprost 0.005 % eye drops 1 drp ophthalmic (eye) BEDTIME 01/10/21 01/13/22 05/25/21 History triamcinolone acetonide 0.1 % 1 appl topical DAILY PRN Rash 01/10/21 01/13/22 05/25/21 History topical ointment cholecalciferol (vitamin D3) 25 25 mcg PO DAILY 05/26/21 01/13/22 05/25/21 History mcg (1,000 unit) tablet (Vitamin D3) Physical Exam Vital Signs and Narrative: Vital Signs: Last Vital Signs Temp 97.8 F 02/28/22 15:41 Pulse 123 H 02/28/22 20:35 Resp 19 02/28/22 20:35 BP 110/79 02/28/22 20:35 Pulse Ox 95 02/28/22 20:35 O2 Del Method 02/28/22 20:35 BMI result Body Mass Index 32.5 Gen: Appears be in no acute distress HEENT: NCAT, Moist mucosa. Pulmonary: Vesicular breath sounds, fair air entry CVS: Normal S1-S2 Abdomen: BS+, Soft, Nontender Extremities: Warm well perfused Neuro: Alert and awake. Results Labs CBC and Chem 7: 02/28/22 15:49 02/28/22 15:50 Labs: Laboratory Results - last 24 hr 02/28/22 02/28/22 02/28/22 15:49 15:50 15:50 MCV 92.6 MCH 30.7 MCHC 33.1 RDW 13.4 Plt Count 266 MPV 9.8 Immature Gran % (Auto) 0.4 Neut % (Auto) 70.4 Lymph % (Auto) 18.6 L Hodgeman % (Auto) 9.1 Eos % (Auto) 1.1 Baso % (Auto) 0.4 Lymph # (Auto) 1.6 Hodgeman # (Auto) 0.8 Eos # (Auto) 0.1 Baso # (Auto) 0.0 Abs Immat Gran (auto) 0.03 Absolute Neuts (auto) 6.0 Absolute Nucleated RBC 0.000 Nucleated RBC % (auto) 0.0 PT INR APTT Anion Gap 14 Estim Creat Clear Calc 98.6 Estimated GFR > 60 Random Glucose 130 H Calcium 9.6 Total Bilirubin 0.8 AST 35 D ALT 58 H Alkaline Phosphatase 73 Troponin I High Sens 3.6 B-Natriuretic Peptide 215 H Total Protein 7.3 Albumin 4.4 02/28/22 17:55 MCV MCH MCHC RDW Plt Count MPV Immature Gran % (Auto) Neut % (Auto) Lymph % (Auto) Hodgeman % (Auto) Eos % (Auto) Baso % (Auto) Lymph # (Auto) Hodgeman # (Auto) Eos # (Auto) Baso # (Auto) Abs Immat Gran (auto) Absolute Neuts (auto) Absolute Nucleated RBC Nucleated RBC % (auto) PT 12.1 INR 1.1 APTT 43.9 H Anion Gap Estim Creat Clear Calc Estimated GFR Random Glucose Calcium Total Bilirubin AST ALT Alkaline Phosphatase Troponin I High Sens B-Natriuretic Peptide Total Protein Albumin Assessment and Plan (1) Rapid atrial fibrillation: Status: Acute Plan 71-year-old male with a past medical history of hypertension, hyperlipidemia, COPD-not on home oxygen, atrial fibrillation status post ablation, on Eliquis, nonischemic cardiomyopathy; presented to the hospital today with a chief complaint of palpitation. Noted to be in rapid AFib. Admitted for further management. AFib with RVR: Patient started on diltiazem drip in the ER-will continue Monitor on telemetry cycle cardiac enzymes Continue home carvedilol Continue home Eliquis Echocardiogram Cardiology consult History of hypertension/hyperlipidemia: Continue home carvedilol, statin. Hold home amlodipine for now. DVT prophylaxis: Patient on Eliquis Code status: Full code Quality Stroke Does the patient have a stroke diagnosis?: No VTE Prior VTE?: No VTE Risk Level:: Medical - moderate - high VTE Device Contraindication: Treatment Not Indicated VTE Drug Contraindication: N/A - Med Ordered
--- NOTE | 2022-02-28 22:30 | ECG_ITS ---
Test Reason : ARRYTHYMIA Blood Pressure : / mmHG Vent. Rate : 086 BPM Atrial Rate : 000 BPM P-R Int : 000 ms QRS Dur : 080 ms QT Int : 362 ms P-R-T Axes : 000 -09 021 degrees QTc Int : 433 ms Atrial fibrillation Inferior infarct (cited on or before 28-FEB-2022) Abnormal ECG When compared with ECG of 28-FEB-2022 15:33, Vent. rate has decreased BY 44 BPM Questionable change in initial forces of Inferior leads Nonspecific T wave abnormality now evident in Inferior leads Referred By: Rodriguez Chavez Electronically Signed By:Matthew Savage
--- NOTE | 2022-02-28 22:46 | PHA.MEDREC ---
Pharmacy Consult ? Medication Reconciliation Pharmacy has reviewed the medication reconciliation done by Ellen
[2022-03-01 00:30] VITALS: BMI 32.3
[2022-03-01] MEDS: 0.9 % Sodium Chloride Flush 3 ML SYRINGE IVFLUSH (00:40)
[2022-03-01 00:43] VITALS: BP 131/90; PULSE 104; RESP 20; TEMP 36.8; O2SAT 95
[2022-03-01] MEDS: dilTIAZem HCL 125 MG in 0.9 % Sodium Chloride 100 ML 15 MG IVCONT ×2 (05:12→14:10)
[2022-03-01 06:41] LABS: MANUAL DIFF FLAG NO
[2022-03-01 06:46] LABS: Basophils Percent Auto 0.3 % (0-2); Eosinophils Absolute Auto 0.1 X10*3/uL (0.0-0.4); Hematocrit 44.5 % (42.0-52.0); Hemoglobin 14.6 g/dl (14.0-18.0); Imm Gran Abs Auto 0.04 X10*3/uL (0.00-0.03); Imm Gran Pct Auto 0.5 % (0.0-0.4); Lymphocytes Absolute Auto 1.8 X10*3/uL (1.2-4.9); Lymphocytes Percent Auto 21.2 % (20-40); Mean Corpuscular HGB Conc 32.8 g/dl (31.0-36.0); Mean Corpuscular Hemoglobin 30.8 pg (27.0-33.0); Mean Corpuscular Volume 93.9 fL (80.0-98.0); Mean Platelet Volume 10.4 fL (9.4-12.4); Monocytes Absolute Auto 0.7 X10*3/uL (0.1-1.2); Monocytes Percent Auto 8.2 % (2-11); Neutrophils Percent Auto 68.8 % (45-73); Platelet Count 230 X10*3/uL (160-400); Red Blood Count 4.74 X10*6/uL (4.60-5.80); Red Cell Distribution Width 13.2 % (11.0-16.0); White Blood Count 8.7 X10*3/uL (4.8-10.8)
[2022-03-01 07:51] VITALS: BP 95/61; PULSE 94; RESP 18; TEMP 37.2; O2SAT 95
[2022-03-01 08:14] LABS: Anion Gap 13 (12-20); Blood Urea Nitrogen 14 mg/dL (9-16); Carbon Dioxide 27 mmol/L (22-29); Chloride 106 mmol/L (96-108); Creatinine Clr Calc Pharmacy 104.4; Estimated Glomerular Filt Rate > 60; Glucose Random 106 mg/dL (60-115); Potassium 4.3 mmol/L (3.3-5.1); Sodium 142 mmol/L (135-145)
[2022-03-01 08:57] LABS: Calcium 9.2 mg/dL (8.4-10.2)
--- NOTE | 2022-03-01 09:50 | P.CONCA_ITS ---
History of Present Illness History of Present Illness Date of Service: 03/01/22 Requesting physician: Yuriy Stout Chief complaint: Afib w/ RVR Narrative: 71-year-old gentleman with background history of atrial fibrillation status post ablation who is presenting with palpitations and fatigue. He was noted to be in AFib with RVR. Denying any chest discomfort shortness of breath. He was started on Cardizem drip but continues to have uncontrolled heart rates. He is saying his feeling little better than admission. Has been taking Eliquis regularly. [facility] Past Medical History Medical History Atrial fibrillation Cardiac arrhythmia COPD (chronic obstructive pulmonary disease) COPD (chronic obstructive pulmonary disease) Essential hypertension Hypertension NICM (nonischemic cardiomyopathy) PAF (paroxysmal atrial fibrillation) RSV infection Family History Family History Father Cancer of prostate Mother No problems noted. Daughter No problems noted. Daughter No problems noted. Brother Cancer of prostate Surgical History Surgical History History of appendectomy History of colonoscopy History of hernia repair Status post catheter ablation of atrial fibrillation Social History Social History Household Members: Spouse Housing: House Do you presently have visiting nurse or other home services: No Alcohol intake: current Alcohol intake frequency: 3 or more drinks per day Patient Tobacco Use Status: Never used Tobacco e-Cigarette/Vaping Use: Never Used Second Hand Smoke Exposure: No Use of substances other than those prescribed or required for medical reasons: No Have you been hit, kicked, punched, or otherwise hurt by someone within the past year? If so, by whom?: No Do you feel safe in your current relationship?: Yes Is there a partner from a previous relationship who is making you feel unsafe now?: No Are you made to feel afraid or neglected: No Advance Directives: Yes Advance Directives Information Provided: No Advance Directives on File: No Advance Directives Date on File: 05/26/21 Do you have thoughts of harming others: None Do you have a plan to hurt others: No Plan Recently lost weight without trying: No Nutrition Risks: No Nutritional Risk service: Yes Current occupational status: retired Meds Allergies Allergy/AdvReac Type Severity Reaction Status Date / Time No Known Allergies Allergy Verified 01/13/22 12:20 Active Medications: Current Medications Acetaminophen (Acetaminophen 325 Mg Tablet) 650 mg PO Q6H PRN PRN Reason: Pain, Mild (Pain Scale 1-3) Diltiazem HCl 125 mg/ Sodium (Chloride) 125 mls @ 0 mls/hr IVCONT .Q[facility]M [facility]; Protocol Last Titration: 03/01/22 09:15 Dose: 15 mg/hr, 15 mls/hr Melatonin (Melatonin 3 Mg Tablet) 6 mg PO BEDTIME PRN PRN Reason: Insomnia Senna (Sennosides 8.6 Mg Tablet) 17.2 mg PO BEDTIME PRN PRN Reason: Constipation Sodium Chloride (0.9 % Sodium Chloride Flush 3 Ml Syringe) 3 ml IVFLUSH QSHIFT [facility] Last Admin: 03/01/22 09:05 Dose: Not Given Home Medications Medication Instructions Recorded Confirmed Last Taken Type latanoprost 0.005 % eye drops 1 drp ophthalmic (eye) BEDTIME 01/10/21 02/28/22 05/25/21 History triamcinolone acetonide 0.1 % 1 appl topical DAILY PRN Rash 01/10/21 02/28/22 05/25/21 History topical ointment cholecalciferol (vitamin D3) 25 25 mcg PO DAILY 05/26/21 02/28/22 05/25/21 History mcg (1,000 unit) tablet (Vitamin D3) Physical Exam Vital Signs: Vital Signs: Last Vital Signs Temp 99.0 F 03/01/22 07:51 Pulse 94 03/01/22 07:51 Resp 18 03/01/22 07:51 BP 95/61 03/01/22 07:51 Pulse Ox 95 03/01/22 07:51 O2 Del Method 03/01/22 07:51 BMI result Body Mass Index 32.3 GENERAL APPEARANCE: in no acute distress, pleasant. NECK: no carotid bruit, no jugular venous distention. SKIN: no suspicious lesions, warm and dry. HEART: no murmurs, irregularly regular rhythm. Tachycardic. LUNGS: clear to auscultation bilaterally. ABDOMEN: soft, nontender. EXTREMITIES: no edema. PERIPHERAL PULSES: equal. NEUROLOGIC: No gross deficits, AAO X 3 Objective Labs and Meds Result diagrams: 03/01/22 05:59 03/01/22 05:59 Lab results: Laboratory Results - last 24 hr 02/28/22 02/28/22 02/28/22 15:49 15:50 15:50 WBC 8.6 RBC 5.15 Hgb 15.8 Hct 47.7 MCV 92.6 MCH 30.7 MCHC 33.1 RDW 13.4 Plt Count 266 MPV 9.8 Immature Gran % (Auto) 0.4 Neut % (Auto) 70.4 Lymph % (Auto) 18.6 L Alexander % (Auto) 9.1 Eos % (Auto) 1.1 Baso % (Auto) 0.4 Lymph # (Auto) 1.6 Alexander # (Auto) 0.8 Eos # (Auto) 0.1 Baso # (Auto) 0.0 Abs Immat Gran (auto) 0.03 Absolute Neuts (auto) 6.0 Absolute Nucleated RBC 0.000 Nucleated RBC % (auto) 0.0 PT INR APTT Sodium 141 Potassium 4.6 Chloride 106 Carbon Dioxide 26 Anion Gap 14 BUN 17 H Creatinine 0.85 Estim Creat Clear Calc 98.6 Estimated GFR > 60 Random Glucose 130 H Calcium 9.6 Total Bilirubin 0.8 AST 35 D ALT 58 H Alkaline Phosphatase 73 Troponin I High Sens 3.6 B-Natriuretic Peptide 215 H Total Protein 7.3 Albumin 4.4 02/28/22 03/01/22 03/01/22 17:55 05:59 05:59 WBC 8.7 RBC 4.74 Hgb 14.6 Hct 44.5 MCV 93.9 MCH 30.8 MCHC 32.8 RDW 13.2 Plt Count 230 MPV 10.4 Immature Gran % (Auto) 0.5 H Neut % (Auto) 68.8 Lymph % (Auto) 21.2 Alexander % (Auto) 8.2 Eos % (Auto) 1.0 Baso % (Auto) 0.3 Lymph # (Auto) 1.8 Alexander # (Auto) 0.7 Eos # (Auto) 0.1 Baso # (Auto) 0.0 Abs Immat Gran (auto) 0.04 H Absolute Neuts (auto) 6.0 Absolute Nucleated RBC 0.000 Nucleated RBC % (auto) 0.0 PT 12.1 INR 1.1 APTT 43.9 H Sodium 142 Potassium 4.3 Chloride 106 Carbon Dioxide 27 Anion Gap 13 BUN 14 Creatinine 0.80 Estim Creat Clear Calc 104.4 Estimated GFR > 60 Random Glucose 106 Calcium 9.2 Total Bilirubin AST ALT Alkaline Phosphatase Troponin I High Sens B-Natriuretic Peptide Total Protein Albumin Assessment and Plan (1) Paroxysmal atrial fibrillation with rapid ventricular response: Status: Acute Plan 71-year-old gentleman known history of atrial fibrillation status post ablation the pattern is presenting with fatigue and palpitations. Was noted to be in AFib with RVR. On anticoagulation with Eliquis. Heart rate is uncontrolled. He is maxed out on Cardizem currently. Can continue Cardizem drip for now. Continue carvedilol at the same dose. If he continues to have fast heart rates then we can try couple of IV doses of digoxin. I will not start standing dose of digoxin with Cardizem and carvedilol though. He will need cardioversion on Thursday. Keep him NPO after midnight on Thursday. Thank you for allowing me to participate in the care of your patient. Please feel free to contact me if you have any questions. Procedures Date of Service Date of Service: 03/01/22
--- NOTE | 2022-03-01 10:19 | HO.PM.IMPN ---
Subjective Subjective Date of Service: 03/01/22 Interval History: f/u on afib with rvr hr remains intermittently high, no sob, bP is marginal Review of Systems no sob no fever Physical Exam Vital Signs: Vital Signs: Last Vital Signs Temp 99.0 F 03/01/22 07:51 Pulse 94 03/01/22 07:51 Resp 18 03/01/22 07:51 BP 95/61 03/01/22 07:51 Pulse Ox 95 03/01/22 07:51 O2 Del Method 03/01/22 07:51 BMI result Body Mass Index 32.3 Const: Other: General: AO X 3, no acute distress Resp: CTA bilateral CVS: [id number] GI: +BS, NT, no distention Skin: No rash Neuro: motor grossly intact Psych: appropriate affect Objective Data Active Medications Acetaminophen (Acetaminophen 325 Mg Tablet) 650 mg PO Q6H PRN PRN Reason: Pain, Mild (Pain Scale 1-3) Diltiazem HCl 125 mg/ Sodium (Chloride) 125 mls @ 0 mls/hr IVCONT .Q0M [facility]; Protocol Last Titration: 03/01/22 09:15 Dose: 15 mg/hr, 15 mls/hr Documented By: TATIANA Melatonin (Melatonin 3 Mg Tablet) 6 mg PO BEDTIME PRN PRN Reason: Insomnia Senna (Sennosides 8.6 Mg Tablet) 17.2 mg PO BEDTIME PRN PRN Reason: Constipation Sodium Chloride (0.9 % Sodium Chloride Flush 3 Ml Syringe) 3 ml IVFLUSH [facility] Last Admin: 03/01/22 09:05 Dose: Not Given Documented By: TATIANA Non-Admin Reason: IV Running Labs CBC & Chem 7: 03/01/22 05:59 03/01/22 05:59 Labs: Laboratory Results - last 24 hr 02/28/22 02/28/22 02/28/22 15:49 15:50 15:50 MCV 92.6 MCH 30.7 MCHC 33.1 RDW 13.4 Plt Count 266 MPV 9.8 Immature Gran % (Auto) 0.4 Neut % (Auto) 70.4 Lymph % (Auto) 18.6 L [place]illion % (Auto) 9.1 Eos % (Auto) 1.1 Baso % (Auto) 0.4 Lymph # (Auto) 1.6 [place] # (Auto) 0.8 Eos # (Auto) 0.1 Baso # (Auto) 0.0 Abs Immat Gran (auto) 0.03 Absolute Neuts (auto) 6.0 Absolute Nucleated RBC 0.000 Nucleated RBC % (auto) 0.0 PT INR APTT Anion Gap 14 Estim Creat Clear Calc 98.6 Estimated GFR > 60 Random Glucose 130 H Calcium 9.6 Total Bilirubin 0.8 AST 35 D ALT 58 H Alkaline Phosphatase 73 Troponin I High Sens 3.6 B-Natriuretic Peptide 215 H Total Protein 7.3 Albumin 4.4 02/28/22 03/01/22 03/01/22 17:55 05:59 05:59 MCV 93.9 MCH 30.8 MCHC 32.8 RDW 13.2 Plt Count 230 MPV 10.4 Immature Gran % (Auto) 0.5 H Neut % (Auto) 68.8 Lymph % (Auto) 21.2 [place] % (Auto) 8.2 Eos % (Auto) 1.0 Baso % (Auto) 0.3 Lymph # (Auto) 1.8 [place] # (Auto) 0.7 Eos # (Auto) 0.1 Baso # (Auto) 0.0 Abs Immat Gran (auto) 0.04 H Absolute Neuts (auto) 6.0 Absolute Nucleated RBC 0.000 Nucleated RBC % (auto) 0.0 PT 12.1 INR 1.1 APTT 43.9 H Anion Gap 13 Estim Creat Clear Calc 104.4 Estimated GFR > 60 Random Glucose 106 Calcium 9.2 Total Bilirubin AST ALT Alkaline Phosphatase Troponin I High Sens B-Natriuretic Peptide Total Protein Albumin Assessment and Plan (1) Paroxysmal atrial fibrillation with rapid ventricular response: Status: Acute Plan 71-year-old male with a past medical history of hypertension, hyperlipidemia, COPD-not on home oxygen, atrial fibrillation status post ablation, on Eliquis, nonischemic cardiomyopathy; presented to the hospital today with a chief complaint of palpitation.? Noted to be in rapid AFib.? Admitted for further management.? AFib with RVR Heart rate still fluctuating Wean cardizem iv and transition to oral cardizem and discontinue Norvasc for HTN Monitor on telemetry continue corege Continue home Eliquis Cardiology will see him History of hypertension/hyperlipidemia:? Continue home carvedilol, statin.? Hold home amlodipine for now. DVT prophylaxis:? Patient on Eliquis Code status: Full code Quality Stroke Does the patient have a stroke diagnosis?: No VTE Prior VTE?: No VTE Risk Level:: Medical - moderate - high VTE Device Contraindication: Treatment Not Indicated VTE Drug Contraindication: N/A - Med Ordered
[2022-03-01 11:40] VITALS: BP 115/79; PULSE 85; RESP 18; TEMP 36.4; O2SAT 95
[2022-03-01] MEDS: Apixaban 5 MG TABLET PO ×2 (11:54→20:03)
[2022-03-01] MEDS: PARoxetine HCL 20 MG TABLET PO (11:54)
[2022-03-01 19:51] VITALS: BP 114/78; PULSE 89; RESP 18; TEMP 36.7; O2SAT 95
[2022-03-01] MEDS: Atorvastatin Calcium 80 MG TABLET PO (20:03)
[2022-03-01] MEDS: carvediloL 6.25 MG TABLET PO (20:03)
[2022-03-01] MEDS: Melatonin 3 MG TABLET 6 MG PO (20:04)
[2022-03-01] MEDS: Latanoprost 0.005 % Ophth Sol 2.5 ML DROPS 1 DROP EYE-BOTH (21:08)
[2022-03-01 22:54] VITALS: PULSE 79
[2022-03-01 22:58] VITALS: BP 166/82; PULSE 76; RESP 18; TEMP 36.4; O2SAT 98
[2022-03-02] VITALS (7 sets, daily range): BP systolic 106–116; BP diastolic 62–79; PULSE 70–103; RESP 17–20; TEMP 36.4–37.3; O2SAT 94–95
--- NOTE | 2022-03-02 08:11 | HO.PM.IMPN ---
Subjective Subjective Date of Service: 03/02/22 Interval History: f/u on afib with rvr hr remains intermittently high, presently in 130, Review of Systems no sob no fever Physical Exam Vital Signs: Vital Signs: Last Vital Signs Temp 98.8 F 03/02/22 02:54 Pulse 88 03/02/22 02:54 Resp 17 03/02/22 02:54 BP 106/68 03/02/22 02:54 Pulse Ox 94 03/02/22 02:54 O2 Del Method 03/02/22 02:54 BMI result Body Mass Index 32.3 Const: Other: General: AO X 3, no acute distress Resp: CTA bilateral CVS: [id number] GI: +BS, NT, no distention Skin: No rash Neuro: motor grossly intact Psych: appropriate affect Objective Data Active Medications Acetaminophen (Acetaminophen 325 Mg Tablet) 650 mg PO Q6H PRN PRN Reason: Pain, Mild (Pain Scale 1-3) Apixaban (Apixaban 5 Mg Tablet) 5 mg PO BID [facility] Last Admin: 03/01/22 20:03 Dose: 5 mg Documented By: REYMUNDO Atorvastatin Calcium (Atorvastatin Calcium 80 Mg Tablet) 80 mg PO BEDTIME NANNETTE Last Admin: 03/01/22 20:03 Dose: 80 mg Documented By: REYMUNDO Carvedilol (Carvedilol 6.25 Mg Tablet) 6.25 mg PO BID [facility]; Protocol Last Admin: 03/01/22 20:03 Dose: 6.25 mg Documented By: REYMUNDO Diltiazem HCl 125 mg/ Sodium (Chloride) 125 mls @ 0 mls/hr IVCONT .Q0M [facility]; Protocol Last Titration: 03/01/22 22:53 Dose: 0 mg/hr, 0 mls/hr Documented By: REYMUNDO Latanoprost (Latanoprost 0.005 % Ophth Samara 2.5 Ml Drops) 1 drop EYE-BOTH BEDTIME [facility] Last Admin: 03/01/22 21:08 Dose: 1 drop Documented By: REYMUNDO Melatonin (Melatonin 3 Mg Tablet) 6 mg PO BEDTIME PRN PRN Reason: Insomnia Last Admin: 03/01/22 20:04 Dose: 6 mg Documented By: REYMUNDO Non-Formulary Medication (Umeclidinium-Vilanterol [Anoro Ellipta]) 1 each INHALE DAILY [facility] Paroxetine HCl (Paroxetine Hcl 20 Mg Tablet) 20 mg PO DAILY [facility] Last Admin: 03/01/22 11:54 Dose: 20 mg Documented By: TATIANA Senna (Sennosides 8.6 Mg Tablet) 17.2 mg PO BEDTIME PRN PRN Reason: Constipation Sodium Chloride (0.9 % Sodium Chloride Flush 3 Ml Syringe) 3 ml IVFLUSH QSHIFT [facility] Last Admin: 03/02/22 00:34 Dose: Not Given Documented By: REYMUNDO Non-Admin Reason: IV Running Triamcinolone Acetonide (Triamcinolone Acet 0.1 % Oint 15 Gm Tube) 1 appl TOPICAL DAILY PRN PRN Reason: Rash Vitamin D (Cholecalciferol (Vitamin D3) 25 Mcg Tablet) 25 mcg PO DAILY [facility] Labs CBC & Chem 7: 03/01/22 05:59 03/01/22 05:59 Labs: Laboratory Results - last 24 hr 03/01/22 05:59 Anion Gap 13 Estim Creat Clear Calc 104.4 Estimated GFR > 60 Random Glucose 106 Calcium 9.2 Assessment and Plan (1) Paroxysmal atrial fibrillation with rapid ventricular response: Status: Acute Plan 71-year-old male with a past medical history of hypertension, hyperlipidemia, COPD-not on home oxygen, atrial fibrillation status post ablation, on Eliquis, nonischemic cardiomyopathy; presented to the hospital today with a chief complaint of palpitation.? Noted to be in rapid AFib.? Admitted for further management.? AFib with RVR Heart rate still fluctuating continue IV cardizem Monitor on telemetry continue corege Continue home Eliquis Will have cardioversion on 03/03 History of hypertension/hyperlipidemia:? Continue home carvedilol, statin.? hold norvasc DVT prophylaxis:? Patient on Eliquis Code status: Full code Need for inaptient: AFIB with RVR on IV cardizem, will need cardioversion Quality Stroke Does the patient have a stroke diagnosis?: No VTE Prior VTE?: No VTE Risk Level:: Medical - moderate - high VTE Device Contraindication: Treatment Not Indicated VTE Drug Contraindication: N/A - Med Ordered
[2022-03-02] MEDS: 0.9 % Sodium Chloride Flush 3 ML SYRINGE IVFLUSH ×3 (08:58→20:16)
[2022-03-02] MEDS: dilTIAZem HCL 125 MG in 0.9 % Sodium Chloride 100 ML 10 MG IVCONT (10:09)
[2022-03-02] MEDS: Cholecalciferol (Vitamin D3) 25 MCG TABLET PO (10:13)
[2022-03-02] MEDS: PARoxetine HCL 20 MG TABLET PO (10:13)
[2022-03-02] MEDS: carvediloL 6.25 MG TABLET PO ×2 (10:13→20:17)
[2022-03-02] MEDS: Apixaban 5 MG TABLET PO ×2 (10:13→20:17)
--- NOTE | 2022-03-02 12:04 | PM.PNCARD ---
Subjective Subjective Date of Service: 03/02/22 Interval history: Seen examined at bedside. On Cardizem drip. Denying symptoms. Physical Exam Vital Signs: Last Vital Signs Temp 98.1 F 03/02/22 11:50 Pulse 72 03/02/22 11:50 Resp 18 03/02/22 11:50 BP 110/62 03/02/22 11:50 Pulse Ox 95 03/02/22 11:50 O2 Del Method 03/02/22 11:50 BMI result Body Mass Index 32.3 GENERAL APPEARANCE: in no acute distress, pleasant. NECK: no carotid bruit, no jugular venous distention. SKIN: no suspicious lesions, warm and dry. HEART: no murmurs, irregularly regular rhythm. Tachycardic. LUNGS: clear to auscultation bilaterally. ABDOMEN: soft, nontender. EXTREMITIES: no edema. PERIPHERAL PULSES: equal. NEUROLOGIC: No gross deficits, AAO X 3 Objective Labs and Meds Result diagrams: 03/01/22 05:59 03/01/22 05:59 Progress Note: A&P Assessment and plan (1) Paroxysmal atrial fibrillation with rapid ventricular response: Status: Acute Plan 71-year-old gentleman with symptomatic paroxysmal atrial fibrillation. On Cardizem drip and carvedilol. He is anticoagulated. He will need cardioversion. Keep NPO after midnight. Thank you for allowing me to participate in the care of your patient. Please feel free to contact me if you have any questions. Time Spent With Patient Time: Total time spent is greater than 50% in coordination of care (as documented) at patient's floor/unit and/or counseling patient: Progress Note: Quality Stroke Does the patient have a stroke diagnosis?: No Procedures Date of Service Date of Service: 03/02/22
--- NOTE | 2022-03-02 12:12 | MHC.CM.PN ---
PT REPORTS HE LIVES WITH HIS AND IS INDEPENDENT WITH CARE PT DENIES USE OF DME OR HOME SERVICES PT REPORTS HE IS COVID VACCINATED AND BOOSTED X 2 PT REPORTS HE DOES NOT HAVE A HCP YET BUT DOES HAVE THE INFO AT HOME HE PLANS TO REVIEW/COMPLETE WITH HIS , HE DECLINED OFFERS TO COMPLETE ONE HERE WITH ASSISTANCE OF CM PT REPORTS HIS PCP IS HARMONY TIMMONS, NOT LEO GUNN INDICATED IN PAST NOTES. IMM DELIVERED CURRENT DC PLAN HOME NO SERVICES TO TRANSPORT
--- NOTE | 2022-03-02 16:03 | PC.NURSE ---
Pt Anora inhaler from home placed in pt specific bin. Pharmacy notified.
[2022-03-02] MEDS: Latanoprost 0.005 % Ophth Sol 2.5 ML DROPS 1 DROP EYE-BOTH (20:17)
[2022-03-02] MEDS: Atorvastatin Calcium 80 MG TABLET PO (20:17)
[2022-03-02] MEDS: Melatonin 3 MG TABLET 6 MG PO (20:24)
[2022-03-03] VITALS (10 sets, daily range): BP systolic 101–129; BP diastolic 57–90; PULSE 71–120; RESP 16–22; TEMP 36.1–37; O2SAT 93–98
--- NOTE | 2022-03-03 02:26 | PC.NURSE ---
Cardizem drip held since 14:30 for HR 90's. Upon shift report, pt's HR 88-low 100's. Cardizem gtt order is to titrate for HR<120 and goal of 90. Did not restart due to HR bouncing between 86-109, afib. Coreg given at HS as ordered. Pt NPO for cardioversion. Will continue to monitor.
[2022-03-03] MEDS: carvediloL 6.25 MG TABLET PO ×2 (08:34→21:02)
[2022-03-03] MEDS: Cholecalciferol (Vitamin D3) 25 MCG TABLET PO (08:34)
[2022-03-03] MEDS: PARoxetine HCL 20 MG TABLET PO (08:34)
[2022-03-03] MEDS: 0.9 % Sodium Chloride Flush 3 ML SYRINGE IVFLUSH ×3 (08:35→21:03)
[2022-03-03] MEDS: Apixaban 5 MG TABLET PO ×2 (08:37→21:02)
--- NOTE | 2022-03-03 09:54 | HO.PM.IMPN ---
Subjective Subjective Date of Service: 03/03/22 Interval History: f/u on afib with rvr he remains in afib with rvr Review of Systems no sob no fever Physical Exam Vital Signs: Vital Signs: Last Vital Signs Temp 97.5 F 03/03/22 07:30 Pulse 71 03/03/22 07:30 Resp 20 03/03/22 07:30 BP 108/68 03/03/22 07:30 Pulse Ox 94 03/03/22 07:30 O2 Del Method 03/03/22 07:30 BMI result Body Mass Index 32.3 Const: Other: General: AO X 3, no acute distress Resp: CTA bilateral CVS: S1,[id number] GI: +BS, NT, no distention Skin: No rash Neuro: motor grossly intact Psych: appropriate affect Objective Data Active Medications Acetaminophen (Acetaminophen 325 Mg Tablet) 650 mg PO Q6H PRN PRN Reason: Pain, Mild (Pain Scale 1-3) Apixaban (Apixaban 5 Mg Tablet) 5 mg PO BID [facility] Last Admin: 03/03/22 08:37 Dose: 5 mg Documented By: LISANDRA Atorvastatin Calcium (Atorvastatin Calcium 80 Mg Tablet) 80 mg PO BEDTIME NANNETTE Last Admin: 03/02/22 20:17 Dose: 80 mg Documented By: MARGARITA Carvedilol (Carvedilol 6.25 Mg Tablet) 6.25 mg PO BID [facility]; Protocol Last Admin: 03/03/22 08:34 Dose: 6.25 mg Documented By: LISANDRA Diltiazem HCl 125 mg/ Sodium (Chloride) 125 mls @ 0 mls/hr IVCONT .Q0M [facility]; Protocol Last Titration: 03/02/22 14:52 Dose: 0 mg/hr, 0 mls/hr Documented By: CESIA Latanoprost (Latanoprost 0.005 % Ophth Samara 2.5 Ml Drops) 1 drop EYE-BOTH BEDTIME [facility] Last Admin: 03/02/22 20:17 Dose: 1 drop Documented By: MARGARITA Melatonin (Melatonin 3 Mg Tablet) 6 mg PO BEDTIME PRN PRN Reason: Insomnia Last Admin: 03/02/22 20:24 Dose: 6 mg Documented By: MARGARITA Pt Own (Umeclidinium -Vilanterol [Anoro Ellipta] 62.5-25 Mcg /Actuation) 1 puff PO RDAILY [facility] Last Admin: 03/03/22 08:37 Dose: 1 puff Documented By: LISANDRA Paroxetine HCl (Paroxetine Hcl 20 Mg Tablet) 20 mg PO DAILY [facility] Last Admin: 03/03/22 08:34 Dose: 20 mg Documented By: LISANDRA Senna (Sennosides 8.6 Mg Tablet) 17.2 mg PO BEDTIME PRN PRN Reason: Constipation Sodium Chloride (0.9 % Sodium Chloride Flush 3 Ml Syringe) 3 ml IVFLUSH QSHIFT [facility] Last Admin: 03/03/22 08:35 Dose: 3 ml Documented By: LISANDRA Triamcinolone Acetonide (Triamcinolone Acet 0.1 % Oint 15 Gm Tube) 1 appl TOPICAL DAILY PRN PRN Reason: Rash Vitamin D (Cholecalciferol (Vitamin D3) 25 Mcg Tablet) 25 mcg PO DAILY [facility] Last Admin: 03/03/22 08:34 Dose: 25 mcg Documented By: LISANDRA Labs CBC & Chem 7: 03/01/22 05:59 03/01/22 05:59 Assessment and Plan (1) Paroxysmal atrial fibrillation with rapid ventricular response: Status: Acute Plan 71-year-old male with a past medical history of hypertension, hyperlipidemia, COPD-not on home oxygen, atrial fibrillation status post ablation, on Eliquis, nonischemic cardiomyopathy; presented to the hospital today with a chief complaint of palpitation.? Noted to be in rapid AFib.? Admitted for further management.? Chronic AFIB s/p ablation in the past now AFIB with RVR again continue IV cardizem not really controlling HR Monitor on telemetry continue corege Continue Eliquis For cardioversion today 03/03 HTN--Coreg HLD--Statin DVT prophylaxis:? Patient on Eliquis Code status: Full code Need for inaptient: AFIB with RVR on IV cardizem, will need cardioversion Quality Stroke Does the patient have a stroke diagnosis?: No VTE Prior VTE?: No VTE Risk Level:: Medical - moderate - high VTE Device Contraindication: Treatment Not Indicated VTE Drug Contraindication: N/A - Med Ordered
--- NOTE | 2022-03-03 10:56 | PM.PNCARD ---
Subjective Subjective Date of Service: 03/03/22 Interval history: He states that he is feeling okay. Does not have any clear cardiac symptoms at this time. Review of Systems Review of Systems Yes all other systems are reviewed and are negative Constitutional: Reports as per HPI Eyes: Reports as per HPI Reports as per HPI Cardiovascular: Reports as per HPI, Denies acrocyanosis, Denies cool extremities, Denies chest pain, Denies leg edema, Denies lightheadedness, Denies palpitations and Denies dyspnea Respiratory: Reports as per HPI, Reports no additional respiratory complaints and Denies dyspnea Gastrointestinal: Reports as per HPI and Reports no additional gastrointestinal complaints Genitourinary: Reports no additional male genitourinary complaints and Reports as per HPI Musculoskeletal: Reports no additional musculoskeletal complaints and Reports as per HPI Skin/Breast: Reports system reviewed and no additional complaints, except as docu Reports system reviewed and no additional complaints, except as documented and Reports as per HPI Psychiatric: Reports no additional psychiatric complaints and Reports as per HPI Endocrine: Reports no additional endocrine complaints, Reports as per HPI and Denies palpitations Hematologic/Lymphatic: Reports no additional hematologic/lymphatic complaints and Reports as per HPI Allergic/Immunologic: Reports no additional allergic/immunologic complaints and Reports as per HPI Physical Exam Vital Signs: Last Vital Signs Temp 97.5 F 03/03/22 07:30 Pulse 71 03/03/22 07:30 Resp 20 03/03/22 07:30 BP 108/68 03/03/22 07:30 Pulse Ox 94 03/03/22 07:30 O2 Del Method 03/03/22 07:30 BMI result Body Mass Index 32.3 Const General: comfortable and no acute distress Orientation/consciousness: patient oriented x3 HEENT Other: Unremarkable Head: Yes normal to inspection Neck Neck: Yes normal visual inspection Chest Chest palpation & inspection: normal inspection of the chest Resp Auscultation: clear to auscultation bilaterally Cardio Palpation: normal PMI Heart sounds: S1 normal heart sound present, S2 normal heart sound present, no gallops, no murmurs and no rubs GI Palpation (GI): Soft to palpation Back/Spine/Pelvis Other: unremarkable Skin General skin exam: no rashes or lesions noted Neuro General: patient oriented x3 Extrem General: Yes normal to inspection Psych Mental Status: mental status grossly normal Objective Labs and Meds Result diagrams: 03/01/22 05:59 03/01/22 05:59 Progress Note: A&P Assessment and plan (1) Paroxysmal atrial fibrillation with rapid ventricular response: Status: Acute Plan He continues to be in atrial fibrillation with rapid rate. Has been on diltiazem drip but not at this time. Otherwise, listed to be on carvedilol as well as Eliquis. He has a history of prior ablation as well as history of tachycardia induced cardiomyopathy. We will plan on proceeding with cardioversion today. Per patient, he has been on uninterrupted Eliquis. Keep NPO. Discussed with . Time Spent With Patient Time: Total time spent is greater than 50% in coordination of care (as documented) at patient's floor/unit and/or counseling patient: 35min. Progress Note: Quality Stroke Does the patient have a stroke diagnosis?: No Procedures Date of Service Date of Service: 03/03/22
--- NOTE | 2022-03-03 11:02 | MHC.SHP ---
Pre-Procedural Eval Section A Date of Service: 03/03/22 Section B Chief Complaint: Afib w/ RVR Allergies: Allergies Allergy/AdvReac Type Severity Reaction Status Date / Time No Known Allergies Allergy Verified 01/13/22 12:20 Plan I have reviewed the history and physical and performed a pertinent physical examination on my patient. No changes have occurred unless specified.
--- NOTE | 2022-03-03 12:40 | HO.ANESPROP2 ---
HPI - Anesthesia Eval Consult details Narrative: Atrial fibrillation with RVR PMFSH Active Problems Active Problems: All Active Problems (Updated 02/28/22 @ 23:30 by Rodriguez Chavez MD) Paroxysmal atrial fibrillation with rapid ventricular response (Acute) Rapid atrial fibrillation (Acute) Medicare annual wellness visit, subsequent (Acute) Laceration of wrist (Acute) Visit for suture removal (Acute) Supplemental oxygen dependent (Acute) Lactic acid acidosis (Acute) RSV (respiratory syncytial virus infection) (Acute) COPD (chronic obstructive pulmonary disease) (Acute) Encounter for annual wellness visit (AWV) in Medicare patient (Acute) Screening PSA (prostate specific antigen) (Acute) Hyperkalemia (Acute) Essential hypertension (Acute) NICM (nonischemic cardiomyopathy) (Acute) Status post catheter ablation of atrial fibrillation (Acute) Obstructive pattern present on pulmonary function testing (Acute) Ascending aortic aneurysm (Acute) Pulmonary nodules (Acute) Sepsis (Acute) Acute exacerbation of chronic obstructive pulmonary disease (Acute) Atrial fibrillation (Acute) Past Medical History Medical History Atrial fibrillation Cardiac arrhythmia COPD (chronic obstructive pulmonary disease) COPD (chronic obstructive pulmonary disease) Essential hypertension Hypertension NICM (nonischemic cardiomyopathy) PAF (paroxysmal atrial fibrillation) RSV infection Family History Family History Father Cancer of prostate Mother No problems noted. Daughter No problems noted. Daughter No problems noted. Brother Cancer of prostate Family history of problems with anesthesia: No Surgical History Surgical History History of appendectomy History of colonoscopy History of hernia repair Status post catheter ablation of atrial fibrillation History of Problems with Anesthesia: No Social History Social History Household Members: Spouse Housing: House Do you presently have visiting nurse or other home services: No Alcohol intake: current Alcohol intake frequency: 3 or more drinks per day Patient Tobacco Use Status: Never used Tobacco e-Cigarette/Vaping Use: Never Used Second Hand Smoke Exposure: No Use of substances other than those prescribed or required for medical reasons: No Currently Displaying Signs/Symptoms of Drug Intoxication Withdrawal: No Have you been hit, kicked, punched, or otherwise hurt by someone within the past year? If so, by whom?: No Do you feel safe in your current relationship?: Yes Is there a partner from a previous relationship who is making you feel unsafe now?: No Are you made to feel afraid or neglected: No Are you DNR?: No Advance Directives: Yes Advance Directives Information Provided: No Advance Directives on File: No Advance Directives Date on File: 05/26/21 Do you have thoughts of harming others: None Do you have a plan to hurt others: No Plan Recently lost weight without trying: No Nutrition Risks: No Nutritional Risk service: Yes Current occupational status: retired [employer] Allergies Allergy/AdvReac Type Severity Reaction Status Date / Time No Known Allergies Allergy Verified 01/13/22 12:20 Active Medications: Current Medications Acetaminophen (Acetaminophen 325 Mg Tablet) 650 mg PO Q6H PRN PRN Reason: Pain, Mild (Pain Scale 1-3) Apixaban (Apixaban 5 Mg Tablet) 5 mg PO BID [facility] Last Admin: 03/03/22 08:37 Dose: 5 mg Atorvastatin Calcium (Atorvastatin Calcium 80 Mg Tablet) 80 mg PO BEDTIME [facility] Last Admin: 03/02/22 20:17 Dose: 80 mg Carvedilol (Carvedilol 6.25 Mg Tablet) 6.25 mg PO BID [facility]; Protocol Last Admin: 03/03/22 08:34 Dose: 6.25 mg Diltiazem HCl 125 mg/ Sodium (Chloride) 125 mls @ 0 mls/hr IVCONT .Q0M [facility]; Protocol Last Titration: 03/02/22 14:52 Dose: 0 mg/hr, 0 mls/hr Latanoprost (Latanoprost 0.005 % Ophth Samara 2.5 Ml Drops) 1 drop EYE-BOTH BEDTIME [facility] Last Admin: 03/02/22 20:17 Dose: 1 drop Melatonin (Melatonin 3 Mg Tablet) 6 mg PO BEDTIME PRN PRN Reason: Insomnia Last Admin: 03/02/22 20:24 Dose: 6 mg Pt Own (Umeclidinium -Vilanterol [Anoro Ellipta] 62.5-25 Mcg /Actuation) 1 puff PO RDAILY [facility] Last Admin: 03/03/22 08:37 Dose: 1 puff Paroxetine HCl (Paroxetine Hcl 20 Mg Tablet) 20 mg PO DAILY [facility] Last Admin: 03/03/22 08:34 Dose: 20 mg Senna (Sennosides 8.6 Mg Tablet) 17.2 mg PO BEDTIME PRN PRN Reason: Constipation Sodium Chloride (0.9 % Sodium Chloride Flush 3 Ml Syringe) 3 ml IVFLUSH QSHIFT [facility] Last Admin: 03/03/22 08:35 Dose: 3 ml Triamcinolone Acetonide (Triamcinolone Acet 0.1 % Oint 15 Gm Tube) 1 appl TOPICAL DAILY PRN PRN Reason: Rash Vitamin D (Cholecalciferol (Vitamin D3) 25 Mcg Tablet) 25 mcg PO DAILY [facility] Last Admin: 03/03/22 08:34 Dose: 25 mcg Home Medications Medication Instructions Recorded Confirmed Last Taken Type latanoprost 0.005 % eye drops 1 drp ophthalmic (eye) BEDTIME 01/10/21 02/28/22 05/25/21 History triamcinolone acetonide 0.1 % 1 appl topical DAILY PRN Rash 01/10/21 02/28/22 05/25/21 History topical ointment cholecalciferol (vitamin D3) 25 25 mcg PO DAILY 05/26/21 02/28/22 05/25/21 History mcg (1,000 unit) tablet (Vitamin D3) Exam Exam Date and Time: March 03, 2022 1240 Height,Weight and Vital Signs: Height 6 ft Weight 108 kg Last Vital Signs Temp 97.9 F 03/03/22 11:28 Pulse 110 H 03/03/22 11:28 Resp 20 03/03/22 11:28 BP 102/78 03/03/22 11:28 Pulse Ox 95 03/03/22 11:28 O2 Del Method 03/03/22 11:28 Pertinent Lab Results Pertinent Lab Results: Laboratory Tests 02/28/22 02/28/22 02/28/22 15:49 15:50 15:50 WBC 8.6 RBC 5.15 Hgb 15.8 Hct 47.7 MCV 92.6 MCH 30.7 MCHC 33.1 RDW 13.4 Plt Count 266 MPV 9.8 Immature Gran % (Auto) 0.4 Neut % (Auto) 70.4 Lymph % (Auto) 18.6 L Dukes % (Auto) 9.1 Eos % (Auto) 1.1 Baso % (Auto) 0.4 Lymph # (Auto) 1.6 Dukes # (Auto) 0.8 Eos # (Auto) 0.1 Baso # (Auto) 0.0 Abs Immat Gran (auto) 0.03 Absolute Neuts (auto) 6.0 Absolute Nucleated RBC 0.000 Nucleated RBC % (auto) 0.0 PT INR APTT Sodium 141 Potassium 4.6 Chloride 106 Carbon Dioxide 26 Anion Gap 14 BUN 17 H Creatinine 0.85 Estim Creat Clear Calc 98.6 Estimated GFR > 60 Random Glucose 130 H Calcium 9.6 Total Bilirubin 0.8 AST 35 D ALT 58 H Alkaline Phosphatase 73 Troponin I High Sens 3.6 B-Natriuretic Peptide 215 H Total Protein 7.3 Albumin 4.4 02/28/22 03/01/22 03/01/22 17:55 05:59 05:59 WBC 8.7 RBC 4.74 Hgb 14.6 Hct 44.5 MCV 93.9 MCH 30.8 MCHC 32.8 RDW 13.2 Plt Count 230 MPV 10.4 Immature Gran % (Auto) 0.5 H Neut % (Auto) 68.8 Lymph % (Auto) 21.2 Dukes % (Auto) 8.2 Eos % (Auto) 1.0 Baso % (Auto) 0.3 Lymph # (Auto) 1.8 Dukes # (Auto) 0.7 Eos # (Auto) 0.1 Baso # (Auto) 0.0 Abs Immat Gran (auto) 0.04 H Absolute Neuts (auto) 6.0 Absolute Nucleated RBC 0.000 Nucleated RBC % (auto) 0.0 PT 12.1 INR 1.1 APTT 43.9 H Sodium 142 Potassium 4.3 Chloride 106 Carbon Dioxide 27 Anion Gap 13 BUN 14 Creatinine 0.80 Estim Creat Clear Calc 104.4 Estimated GFR > 60 Random Glucose 106 Calcium 9.2 Total Bilirubin AST ALT Alkaline Phosphatase Troponin I High Sens B-Natriuretic Peptide Total Protein Albumin Airway Mallampati Class: III TM Dist: >3cm Neck ROM: Full Loose/Missing/Broken Teeth: No Heart: irre g irreg s1s2 Lungs: cta b/l Assessment and Plan Assessment Anesthesia Assessment: Anesthesia Plan Discussed and Chart Reviewed Final Anesthetic Review Family History of Problems with Anesthesia: No History of Problems with Anesthesia: No NPO: Yes ASA Class: III Final Preanesthetic Review: No Changes in Pt Med Stat, Meds/Allgs Chart Reviewed, Consent Obtained/Reviewed and Anes Risks/Benef Reviewed Patient Risk: Intermediate Procedure Risk: Intermediate Assessment/Block/Sedation in SS: Assess/Block/Sedation-SS Anesthetic Plan Anesthetic Plan: GA and Agree w/ Assess. and Plan Disposition: Standard PACU
[2022-03-03] MEDS: Lactated Ringers 500 ML 50 ML IV (12:51)
--- NOTE | 2022-03-03 13:22 | ECG_ITS ---
Test Reason : CARDIOVERSION Blood Pressure : / mmHG Vent. Rate : 081 BPM Atrial Rate : 081 BPM P-R Int : 186 ms QRS Dur : 088 ms QT Int : 368 ms P-R-T Axes : 056 -20 024 degrees QTc Int : 427 ms Normal sinus rhythm Normal ECG When compared with ECG of 28-FEB-2022 23:13, Sinus rhythm has replaced Atrial fibrillation Referred By: Atul Santos Electronically Signed By:ATUL SANTOS
--- NOTE | 2022-03-03 13:23 | HO.CARDIVERS ---
Cardioversion Procedure Note Cardioversion Date of Procedure: 03/03/2022 Ordering Provider: Dr. Herrera. Performing Provider: Dr. Herrera. Indication for Procedure: Atrial fibrillation with rapid rate Pre-Op Diagnosis: Atrial fibrillation with rapid rate Post-Op Diagnosis: Sinus rhythm. History: See full consultation and follow-up notes. Consent: Informed consent obtained. Procedure: After informed consent was obtained, patient was taken to the PACU. The patient was then positioned appropriately. The cardioversion pads were placed in anteroposterior position. Once under anesthesia, 120 joules of synchronized shock was administered. The rhythm converted from atrial fibrillation to sinus rhythm. Patient remained in sinus rhythm after the end of procedure. Complications: None. Impression: Successful cardioversion from atrial fibrillation to sinus. Recommendations: Start amiodarone.
[2022-03-03] MEDS: Amiodarone HCL 200 MG TABLET 400 MG PO ×2 (13:51→20:59)
--- NOTE | 2022-03-03 14:08 | MHC.CM.PN ---
Per MD ROUNDS, Patient is not yet medically cleared for dc (needs Cardioversion);Home is the goal and CM will continue to follow for any changing dc needs.
[2022-03-03] MEDS: Melatonin 3 MG TABLET 6 MG PO (21:01)
[2022-03-03] MEDS: Atorvastatin Calcium 80 MG TABLET PO (21:02)
[2022-03-03] MEDS: Latanoprost 0.005 % Ophth Sol 2.5 ML DROPS 1 DROP EYE-BOTH (21:04)
[2022-03-04 02:58] VITALS: BP 104/59; PULSE 69; RESP 20; TEMP 37; O2SAT 98
--- NOTE | 2022-03-04 07:13 | HO.POSTANES ---
Post Anesthesia Evaluation Post Anesthesia Evaluation Vital Signs: Vital Signs Temp Pulse Resp BP Pulse Ox O2 Del Method 03/04/22 02:58 98.6 F 69 20 104/59 L 98 Room Air 03/03/22 23:11 98.2 F 79 18 111/57 L 93 Room Air Anesthesia: General Mental Status: Awake Pain Control: Satisfactory Nausea/Vomiting: None Hydration: Adequate Anesthesia-Related Issues: No Anes. Related Issues
[2022-03-04 07:31] VITALS: BP 109/66; PULSE 76; RESP 20; TEMP 36.6; O2SAT 95
--- NOTE | 2022-03-04 08:11 | ECG_ITS ---
Test Reason : post cardioversion Blood Pressure : / mmHG Vent. Rate : 070 BPM Atrial Rate : 070 BPM P-R Int : 196 ms QRS Dur : 092 ms QT Int : 396 ms P-R-T Axes : 080 -11 011 degrees QTc Int : 427 ms Normal sinus rhythm Normal ECG When compared with ECG of 03-MAR-2022 13:29, No significant change was found Referred By: Atul Santos Electronically Signed By:ATUL SANTOS
[2022-03-04] MEDS: 0.9 % Sodium Chloride Flush 3 ML SYRINGE IVFLUSH (08:46)
[2022-03-04] MEDS: Amiodarone HCL 200 MG TABLET 400 MG PO (08:46)
[2022-03-04] MEDS: carvediloL 6.25 MG TABLET PO (08:47)
[2022-03-04] MEDS: PARoxetine HCL 20 MG TABLET PO (08:47)
[2022-03-04] MEDS: Apixaban 5 MG TABLET PO (08:47)
[2022-03-04] MEDS: Cholecalciferol (Vitamin D3) 25 MCG TABLET PO (08:47)
--- NOTE | 2022-03-04 10:01 | PM.PNCARD ---
Subjective Subjective Date of Service: 03/04/22 Interval history: He states that he feels okay. No specific cardiac symptoms. Review of Systems Review of Systems Yes all other systems are reviewed and are negative Constitutional: Reports as per HPI Eyes: Reports as per HPI Reports as per HPI Cardiovascular: Reports as per HPI, Denies acrocyanosis, Denies cool extremities, Denies chest pain, Denies leg edema, Denies lightheadedness, Denies palpitations and Denies dyspnea Respiratory: Reports as per HPI, Reports no additional respiratory complaints and Denies dyspnea Gastrointestinal: Reports as per HPI and Reports no additional gastrointestinal complaints Genitourinary: Reports no additional male genitourinary complaints and Reports as per HPI Musculoskeletal: Reports no additional musculoskeletal complaints and Reports as per HPI Skin/Breast: Reports system reviewed and no additional complaints, except as docu Reports system reviewed and no additional complaints, except as documented and Reports as per HPI Psychiatric: Reports no additional psychiatric complaints and Reports as per HPI Endocrine: Reports no additional endocrine complaints, Reports as per HPI and Denies palpitations Hematologic/Lymphatic: Reports no additional hematologic/lymphatic complaints and Reports as per HPI Allergic/Immunologic: Reports no additional allergic/immunologic complaints and Reports as per HPI Physical Exam Vital Signs: Last Vital Signs Temp 97.9 F 03/04/22 07:31 Pulse 76 03/04/22 07:31 Resp 20 03/04/22 07:31 BP 109/66 03/04/22 07:31 Pulse Ox 95 03/04/22 07:31 O2 Del Method 03/04/22 07:31 O2 Flow Rate 2 03/03/22 13:30 BMI result Body Mass Index 32.3 Const General: comfortable and no acute distress Orientation/consciousness: patient oriented x3 HEENT Other: Unremarkable Head: Yes normal to inspection Neck Neck: Yes normal visual inspection Chest Chest palpation & inspection: normal inspection of the chest Resp Auscultation: clear to auscultation bilaterally Cardio Palpation: normal PMI Heart sounds: S1 normal heart sound present, S2 normal heart sound present, no gallops, no murmurs and no rubs GI Palpation (GI): Soft to palpation Back/Spine/Pelvis Other: unremarkable Skin General skin exam: no rashes or lesions noted Neuro General: patient oriented x3 Extrem General: Yes normal to inspection Psych Mental Status: mental status grossly normal Objective Labs and Meds Result diagrams: 03/01/22 05:59 03/01/22 05:59 Progress Note: A&P Assessment and plan (1) Paroxysmal atrial fibrillation with rapid ventricular response: Status: Acute (2) Excessive drinking alcohol: Status: Acute Plan As he continued to be in atrial fibrillation with rapid rate, he underwent cardioversion today. He did well with 120 joules and converted to sinus rhythm. We can keep him on amiodarone 200 mg b.i.d. for 2 weeks or so and then changed to 100 mg daily. Continue with anticoagulation. Otherwise, with regard to excessive alcohol use, counseled about this extensively. Advised him that if he continues keep drinking, then he will probably have recurrent atrial fibrillation. He states he understands and will try to control it. However not sure if he will keep his word. There is slight abnormality LFTs. Could be from his alcohol use. Can be followed through the office. We will arrange follow-up in the office. Time Spent With Patient Time: Total time spent is greater than 50% in coordination of care (as documented) at patient's floor/unit and/or counseling patient: 35min. Progress Note: Quality Stroke Does the patient have a stroke diagnosis?: No Procedures Date of Service Date of Service: 03/04/22
--- NOTE | 2022-03-04 11:35 | P.DS_ITS ---
DS: Providers Provider Date of Service: 03/04/22 Date of admission: 02/28/22 21:25 Primary care physician: ALLEN Beal Consults: 02/28/22 21:26 Consult to Cardiology Routine Consulting Provider: Matthew Savage Reason for consultation: afib RVR DS: Diagnosis Discharge Diagnosis (1) Paroxysmal atrial fibrillation with rapid ventricular response: Status: Acute (2) Excessive drinking alcohol: Status: Acute DS: Summary Hospital Course Hospital Course: 71-year-old male with a past medical history of hypertension, hyperlipidemia, COPD-not on home oxygen, atrial fibrillation status post ablation, on Eliquis, nonischemic cardiomyopathy; presented to the hospital today with a chief complaint of palpitation.? Noted to be in rapid AFib.? Admitted for further management.? Hopsital course: patient came to the hospital due to AFib with RVR -started on a Cardizem drip and seen by Cardiology - patient is status post cardioversion yesterday now in sinus rhythm- patient Coreg continued as well as amiodarone added after cardioversion- patient needs to take amiodarone 200 mg by mouth twice daily until 03/18/2022, and then switched to amiodarone 200 mg daily by mouth on March 19 2022. patient was strongly advised to abstain from alcohol, monitor liver function test with PCP in 1 week due to mild elevated LFT. Cardiology may arrange their own appointment. Above management discussed with the patient in detail length he understand and in agreement with the above plan, time spent 50 minutes and 50% time spent on counseling. Significant findings: As above. Procedures performed: None. Treatment and response: As above. Complications: None. Time Spent with Patient Time attestation: Total time spent providing and/or coordinating discharge services: Discharge coordination time: Greater than 30 minutes Quality: Safe Use of Opioids Does Pt have an Active Cancer Diagnosis on the Problem List?: No Quality: Stroke Does the patient have a stroke diagnosis?: No Physical Exam Vital Signs: Vital Signs: Last Vital Signs Temp 97.9 F 03/04/22 07:31 Pulse 76 03/04/22 07:31 Resp 20 03/04/22 07:31 BP 109/66 03/04/22 07:31 Pulse Ox 95 03/04/22 07:31 O2 Del Method 03/04/22 07:31 O2 Flow Rate 2 03/03/22 13:30 BMI result Body Mass Index 32.3 General: AO X 3, no acute distress Resp:? CTA bilateral CVS: S1,[id number] GI: +BS, NT, no distention Skin: No rash Neuro:? motor grossly intact Psych: appropriate affect DS: Data Additional Comments Additional comments: 03/01/22 ? 05:59 Anion Gap ?13 Estim Creat Clear Calc ?104.4 Estimated GFR ?> 60 Random Glucose ?106 Calcium ?9.2 Discharge Plan Discharge Patient Disposition: Home, Self-Care Discharge Diagnosis: AFib with RVR Status post cardioversion. Referrals: Jose Marie PLISSE MACHINE OPERATOR-BC [Primary Care Provider] - 1 Week Discharge Medications: New amiodarone 200 mg tablet 200 mg PO BID Qty: 35 0RF Rx Instructions: take amiodarone 1 tablet by mouth twice daily until March 18- then switched to amiodarone 1 tablet by mouth daily on March 19. Continued Eliquis 5 mg tablet 5 mg PO BID 90 Days Qty: 180 3RF carvedilol 6.25 mg tablet 6.25 mg PO BID Qty: 180 0RF paroxetine HCl 20 mg tablet 20 mg PO QAM Qty: 90 1RF atorvastatin 80 mg tablet 80 mg PO DAILY Qty: 90 1RF cholecalciferol (vitamin D3) [Vitamin D3] 25 mcg (1,000 unit) Tablet 25 mcg PO DAILY latanoprost 0.005 % drops 1 drp ophthalmic (eye) BEDTIME triamcinolone acetonide 0.1 % ointment 1 appl topical DAILY PRN (Reason: Rash) Anoro Ellipta 62.5-25 mcg/actuation blister with device 1 ea inhalation DAILY Qty: 180 2RF amlodipine 5 mg tablet 7.5 mg PO DAILY 90 Days Qty: 135 3RF Discharge Orders: Discharge Order (Routine); Ordered 03/04/22 Ordered By: Luis Fernando Duran Diet: Advance to usual diet Activity on Discharge: As tolerated Stand Alone Forms: Patient Portal Discharge page Other Ambulatory Orders: Liver Panel (Routine) Timeframe: 1 Week Facility: [facility] - Location: Laboratory Ordered By: Luis Fernando Duran Care Plan Goals: patient came to the hospital due to AFib with RVR -started on a Cardizem drip and seen by Cardiology - patient is status post cardioversion yesterday now in sinus rhythm- patient Coreg continued as well as amiodarone added after cardioversion- patient needs to take amiodarone 200 mg by mouth twice daily until 03/18/2022, and then switched to amiodarone 200 mg daily by mouth on March 19 2022. patient was strongly advised to abstain from alcohol, monitor liver function test with PCP in 1 week due to mild elevated LFT. Cardiology may arrange their own appointment. Health Concerns: as above. Plan of Treatment: As above. Assessment: As above.
--- NOTE | 2022-03-04 11:52 | MHC.CM.PN ---
Patient has been medically cleared for dc to home today, self care. Last IMM addressed on 03/02/2026.
== END 2022-03-04 12:19 | disposition home or self-care (01) | DRG 310 ==
LOC: HO.ED 18:00 → HO.EDOVER 21:30 → HO.IMC 23:57
PROVIDERS: Emergency Medicine Emergency Medical Services; Internal Medicine; Admitting Provider Hospitalist; Emergency Provider Internal Medicine; PCP Nurse Practitioner Family; Visit Provider Internal Medicine
PROC: 5A2204Z Restoration of Cardiac Rhythm, Single (ICD-10-PCS; principal; 2022-03-03 13:00)
DX: I48.0 Paroxysmal atrial fibrillation (principal); I42.8 Other cardiomyopathies; I10 Essential (primary) hypertension; E78.5 Hyperlipidemia, unspecified; Z79.01 Long term (current) use of anticoagulants; Z79.899 Other long term (current) drug therapy; J44.9 Chronic obstructive pulmonary disease, unspecified
CPT/HCPCS: 36415; 80048; 80053; 83880; 84484; 85025; 85610; 85730; 92960; 93005; 96365; 96375; 99285; J0330; J0461; Q9957

== ENCOUNTER → 2022-03-10 09:13 | Outpatient (BNVA) | payer MEDICARE, OTHER, SELFPAY | PROVIDERS: PCP Nurse Practitioner Family; Visit Provider Internal Medicine | DX: I48.0 Paroxysmal atrial fibrillation (principal); I42.8 Other cardiomyopathies; I10 Essential (primary) hypertension; I71.2 Thoracic aortic aneurysm, without rupture; F10.10 Alcohol abuse, uncomplicated; Z79.01 Long term (current) use of anticoagulants; Z79.899 Other long term (current) drug therapy | CPT/HCPCS: 93005; 99212 ==

== ENCOUNTER → 2022-03-17 09:56 | Outpatient (BNVA) | payer MEDICARE, OTHER, SELFPAY | PROVIDERS: PCP Nurse Practitioner Family; Referring Provider Nurse Practitioner Family; Visit Provider Internal Medicine | DX: Z13.6 Encounter for screening for cardiovascular disorders (principal) | CPT/HCPCS: 93005 ==

== ENCOUNTER → 2022-03-19 13:55 | Outpatient (REF) | payer MEDICARE, OTHER, SELFPAY ==
--- NOTE | 2022-03-19 13:58 | CA_ITS ---
Transthoracic Echocardiogram Patient (Last, First, Middle): Nakul Real, Gender: Male Date of : 1950 Age: 71 Procedure Date: 03/19/2022 Procedure Type: Transthoracic Echocardiogram Location: OP Height: 180.34 cm Weight: 108.86 kg BSA: 2.28 m2 Heart Rate: bpm BP: 124 / 70 mmHg Inside Outside Sales Representative: Referring MD: Juarez Herrera MD Symptoms: I71.2 - Thoracic aortic aneurysm, without rupture Study Quality: Fair ECG Rhythm: Sinus Conclusions: - The left ventricular systolic function is normal. The calculated ejection fraction is 58% by biplane method. - No obvious valvular pathology seen on this study. - There is mild dilatation of the sinuses of Valsalva measuring 4.30 cm and moderate dilatation of the ascending aorta measuring 4.60 cm. Findings Left Ventricle Mildly increased left ventricular cavity size. There is mildly increased left ventricular wall thickness. The left ventricular systolic function is normal. The calculated ejection fraction is 58% by biplane method. There is no evidence of regional wall motion abnormalities. Diastolic function is normal for age. Right Ventricle Normal right ventricular cavity size and systolic function. Atria Both atria are normal in size. Aortic Valve There is a normal trileaflet aortic valve. There is no aortic valve stenosis. There is no aortic valve regurgitation. Mitral Valve The mitral valve appears normal. There is trace mitral valve regurgitation. There is no mitral valve stenosis. Pulmonic Valve The pulmonic valve is likely normal. Tricuspid Valve There is trace tricuspid valve regurgitation. The pulmonary artery systolic pressure is normal. Great Vessels There is mild dilatation of the sinuses of Valsalva measuring 4.30 cm and moderate dilatation of the ascending aorta measuring 4.60 cm. Venous The inferior vena cava is normal in size and collapses greater than 50% with inspiration. Pericardium/Pleural There is no evidence of pericardial effusion. Prior Study Comparison No significant change compared to prior study dated: 10/23/2021. Recommendations, Care & Conclusions No obvious valvular pathology seen on this study. Measurements 2D Linear Measurements IVSd: 1.10 0.6-0.9/0.6-1.0 cm LVIDd: 5.68 3.9-5.3/4.2-5.9 cm LVIDd Index: 2.49 2.4-3.2/2.2-3.1 cm/m2 LVIDs: 3.43 2.0-3.6 cm LVPWd: 1.15 0.7-1.1 cm Ao Root: 4.30 2.1-3.5 cm LA Diam: 4.30 2.7-3.8/3.0-4.0 cm LAIDs Index: 1.89 1.5-2.3 cm/m2 LV Mass: 328.04 67-162/88-224 g LV Mass Index: 143.88 43-95/49-115 g/m2 LVOT Diam: 2.20 3.0+(-)1.3 cm 2D Systolic Function EF 4C: 60.70 >55% EF 2C: 56.40 >55% EF BiP: 58.00 >55% Mitral Valve MV Pk E: 0.66 MV PK A: 0.52 MV Decel Time: 143.00 E/A: 1.30 E'Lateral: 9.14 E'Medial: 6.31 E/E' Med: 10.50 E/E' Lat: 7.20 PHT: 42.00 MVA PHT: 5.24 Decel Blanco: 4.63 Aortic Valve AoV Pk Brian: 1.13 AoV Mn Brian: 0.79 AoV VTI: 0.27 AoV Pk Grad: 5.00 Aov Mn Grad: 3.00 ROSALVA Cont.VTI: 2.28 LVOT LVOT Pk Brian: 0.78 LVOT Mn Brian: 0.45 LVOT VTI: 0.16 LVOT Pk Grad: 2.00 LVOT Mn Grad: 1.00 LVOT Diam: 2.20 LVOT Area: 3.80 Diastolic Function MV Pk E: 0.66 MV Pk A: 0.52 E/A: 1.30 E'Medial: 6.31 E/E' Med: 10.50 E' Laterial: 9.14 E/E' Lat: 7.20 Right Ventricle TAPSE (mm): 25.00 TVS' Brian: 11.00 Tricuspid Valve TR Pk Brian: 2.25 TR Pk Grad: 20.00 RA Press: 3.00 RVSP: 23.00 Great Vessels Aorta Ao Root-2D: 4.30 2.0-3.7 cm Sinus of Valsalva: 4.30 2.0-3.5 cm Ao Asc: 4.60 2.1-3.4 cm Pulmonary Valve PV Pk Brian: 0.99 Peak PV Grad: 4.00 Updated in Other Vendor System with Status of Final Juarez Herrera MD electronically signed on 03/21/2022 2:31:23 PM with status of Final
== END ==
LOC: HO.CARD 13:55
PROVIDERS: PCP Nurse Practitioner Family; Visit Provider Internal Medicine
DX: I71.2 Thoracic aortic aneurysm, without rupture (principal)
CPT/HCPCS: 93306

== ENCOUNTER 2022-04-01 11:14 | Outpatient (REF) | payer MEDICARE, OTHER, SELFPAY ==
--- NOTE | ~2022-04-01 | CT_ITS ---
EXAMINATION: CT CHEST WITHOUT CONTRAST CLINICAL INFORMATION: Abnormal lung findings. COMPARISON: Chest x-ray 05/26/2021. CT chest 01/23/2021. TECHNIQUE: Multidetector volumetric CT imaging of the chest was done. Axial MIP volume rendering provided. Sagittal and coronal reformatted images were obtained. This CT examination was performed using dose optimization techniques as appropriate, variously including the following: *Automated exposure control *Adjustment of mA and/or kV according to patient size (this includes techniques or standardized protocols for targeted exams where dose is matched to indication/reason for exam; i.e. extremities or head) *Use of iterative reconstruction technique DLP: 216 mGy-cm. FINDINGS: CHAIN FORMING MACHINE OPERATOR: Unremarkable. LUNGS: The lungs are well expanded with band-like atelectatic changes right middle lobe, right lower lobe, lingula and left lower lobe. There is a 7 mm nodule left lower lobe attached to the major fissure on the axial image 279/6. Previously it measured 5 mm. No additional pulmonary nodules seen. There is no acute consolidation. MEDIASTINUM: The thyroid lobes are symmetrical in size with a small hypodense nodule along the anterior aspects of both lobes measuring approximately 1 cm each. Central trachea and the bronchi are widely patent. The heart size and the great vessels are normal caliber. There are coronary artery and ascending aorta atherosclerotic calcifications. No pericardial effusion seen. PLEURA: There is no pleural effusion. No pleural mass or thickening. AXILLA: No abnormal axillary lymph nodes seen. UPPER ABDOMEN: Visualized liver, spleen, pancreas and bilateral adrenal glands are unremarkable. There is bilateral perinephric stranding. OSSEOUS STRUCTURES: No lytic or sclerotic process seen. There is mild ventral spondylosis mid and lower dorsal spine. CT/CT chest wo con IMPRESSION: There is a 7 mm nodule left lower lobe adherent to the major fissure. Previously it measured 5 mm. There is bilateral lower lobe, right middle lobe and lingular band-like atelectasis or old inflammatory process but new since 01/23/2021. Fleischner guidelines were followed.
== END 2022-04-01 11:15 | disposition home or self-care (01) ==
LOC: HO.CT 11:14
PROVIDERS: Visit Provider Internal Medicine Pulmonary Disease
DX: R91.8 Other nonspecific abnormal finding of lung field (principal)
CPT/HCPCS: 71250

== ENCOUNTER → 2022-04-24 10:59 | Outpatient (BNVA) | payer MEDICARE, OTHER, SELFPAY | PROVIDERS: PCP Nurse Practitioner Family; Visit Provider Internal Medicine Pulmonary Disease | DX: J44.9 Chronic obstructive pulmonary disease, unspecified (principal); R91.8 Other nonspecific abnormal finding of lung field; Z79.899 Other long term (current) drug therapy; Z99.81 Dependence on supplemental oxygen | CPT/HCPCS: 99212 ==

== ENCOUNTER 2022-05-29 09:42 | Outpatient (REF) | payer MEDICARE, OTHER, SELFPAY ==
[2022-05-29 11:33] LABS: MANUAL DIFF FLAG NO
[2022-05-29 11:49] LABS: Basophils Percent Auto 0.6 % (0-2); Eosinophils Absolute Auto 0.2 X10*3/uL (0.0-0.4); Eosinophils Percent Auto 2.4 % (0-4); Hematocrit 45.4 % (42.0-52.0); Hemoglobin 14.5 g/dl (14.0-18.0); Imm Gran Abs Auto 0.02 X10*3/uL (0.00-0.03); Imm Gran Pct Auto 0.3 % (0.0-0.4); Lymphocytes Absolute Auto 2.1 X10*3/uL (1.2-4.9); Mean Corpuscular HGB Conc 31.9 g/dl (31.0-36.0); Mean Corpuscular Hemoglobin 29.4 pg (27.0-33.0); Mean Corpuscular Volume 92.1 fL (80.0-98.0); Mean Platelet Volume 10.7 fL (9.4-12.4); Monocytes Absolute Auto 0.7 X10*3/uL (0.1-1.2); Monocytes Percent Auto 9.7 % (2-11); Neutrophils Absolute Auto 4.1 x10*3/uL (2.0-8.3); Platelet Count 278 X10*3/uL (160-400); Red Blood Count 4.93 X10*6/uL (4.60-5.80); Red Cell Distribution Width 12.7 % (11.0-16.0); White Blood Count 7.1 X10*3/uL (4.8-10.8)
[2022-05-29 12:10] LABS: Alanine Aminotransferase 32 U/L (0-40); Albumin Level 4.2 g/dL (3.5-5.0); Alkaline Phosphatase 69 U/L (39-117); Anion Gap 16 (12-20); Aspartate Amino Transferase 20 U/L (5-37); Bilirubin Total 0.6 mg/dL (0.0-1.0); Blood Urea Nitrogen 18 mg/dL (9-16); Calcium 10.1 mg/dL (8.4-10.2); Carbon Dioxide 29 mmol/L (22-29); Chloride 106 mmol/L (96-108); Cholesterol 160 mg/dL; Estimated Glomerular Filt Rate > 60; Glucose Fasting 112 mg/dL (60-99); HDL Cholesterol 52 mg/dL; LDL Cholesterol Calculated 83 mg/dl; Potassium 5.8 mmol/L (3.3-5.1); Sodium 145 mmol/L (135-145); Total Protein 6.9 g/dL (6.5-8.0); Triglycerides 126 mg/dL
[2022-05-29 12:40] LABS: TSH reflex Free T4 4.82 uIU/mL (0.32-4.0)
[2022-05-29 13:14] LABS: Free T4 (Free Thyroxine) 0.99 ng/dL (0.71-1.85)
[2022-05-29 13:19] LABS: Appearance Urine Clear; Color Urine Yellow; Glucose Urine UA Negative (Negative); Leukocyte Esterase Urine Negative (Negative); Nitrite Urine Negative (Negative); Urine Blood Negative (Negative); Urine Ketones Negative (Negative); Urine Protein Negative (Neg-Trace)
== END 2022-05-29 09:43 | disposition home or self-care (01) ==
LOC: HO.HMGCLDS 09:42
PROVIDERS: Absent Provider Internal Medicine; PCP Nurse Practitioner Family; Visit Provider Nurse Practitioner Family
DX: I48.0 Paroxysmal atrial fibrillation (principal); R79.89 Other specified abnormal findings of blood chemistry; F10.10 Alcohol abuse, uncomplicated
CPT/HCPCS: 36415; 80053; 80061; 81003; 84439; 84443; 85025

== ENCOUNTER 2022-06-18 14:14 | Outpatient (REF) | payer MEDICARE, OTHER, SELFPAY ==
[2022-06-18 16:48] LABS: Anion Gap 17 (12-20); Carbon Dioxide 28 mmol/L (22-29); Chloride 104 mmol/L (96-108); Potassium 4.8 mmol/L (3.3-5.1); Sodium 144 mmol/L (135-145)
[2022-06-18 17:13] LABS: TSH reflex Free T4 2.71 uIU/mL (0.32-4.0)
[2022-06-20 09:32] LABS: Thyroid Peroxidase Antibodies 1 IU/mL (<9)
== END 2022-06-18 14:15 | disposition home or self-care (01) ==
LOC: HO.HMGCLDS 14:14
PROVIDERS: PCP Nurse Practitioner Family; Visit Provider Nurse Practitioner Family
DX: E87.5 Hyperkalemia (principal); R79.89 Other specified abnormal findings of blood chemistry
CPT/HCPCS: 36415; 80051; 84443; 86376

== ENCOUNTER → 2022-08-25 13:51 | Outpatient (BNVA) | payer MEDICARE, OTHER, SELFPAY | PROVIDERS: PCP Nurse Practitioner Family; Referring Provider Nurse Practitioner Family; Visit Provider Internal Medicine | DX: I48.0 Paroxysmal atrial fibrillation (principal); I42.8 Other cardiomyopathies; I10 Essential (primary) hypertension; I71.20 Thoracic aortic aneurysm, without rupture, unspecified; F10.10 Alcohol abuse, uncomplicated | CPT/HCPCS: 93005; 99212 ==

== ENCOUNTER 2022-10-22 11:06 | Outpatient (REF) | payer MEDICARE, OTHER, SELFPAY ==
--- NOTE | ~2022-10-22 | CT_ITS ---
EXAMINATION: CT CHEST WITHOUT CONTRAST CLINICAL INFORMATION: Nonspecific abnormal findings of lungs. COMPARISON: CT chest 04/01/2022. TECHNIQUE: Multidetector volumetric CT imaging of the chest was done. Axial MIP volume rendering provided. Sagittal and coronal reformatted images were obtained. This CT examination was performed using dose optimization techniques as appropriate, variously including the following: *Automated exposure control *Adjustment of mA and/or kV according to patient size (this includes techniques or standardized protocols for targeted exams where dose is matched to indication/reason for exam; i.e. extremities or head) *Use of iterative reconstruction technique DLP: 370 mGy-cm FINDINGS: INSPECTOR GLASS OR MIRROR: The lungs are hyperinflated. LUNGS: The lungs are well-expanded and clear of acute pneumonic process. Again visualized is a 7 mm nodule left lower lobe adjacent to the major fissure on axial image 260/6. Atelectatic changes are seen in right upper lobe anterior segment, right middle lobe, right lower lobe anterobasal segment and left lower lobe lateral basal segment. Focal atelectatic changes also seen in lingula. 6 mm subpleural nodular densities are seen right lower lobe axial image 362/6. MEDIASTINUM: There is a small hypodense nodule in the right thyroid lobe. Otherwise, both glands are symmetrical and normal. Central trachea and the bronchi are widely patent. Heart size and the great vessels are normal caliber. No abnormal size mediastinal or hilar lymph nodes seen. There is no pericardial effusion. CORONARY ARTERY CALCIFICATION: No coronary artery calcification is seen. PLEURA: No pleural effusion, thickening or calcification. AXILLA: Small shotty lymph nodes are visualized in the axilla. UPPER ABDOMEN: Visualized liver, spleen, pancreas and bilateral adrenal glands are unremarkable. There are no radiopaque gallstones. OSSEOUS STRUCTURES: No aggressive lytic or sclerotic process. CT/CT chest wo IV con IMPRESSION: Stable 7 mm nodule left lower lobe adjacent to the major fissure. 5 mm subpleural new nodular density right lower lobe likely part of atelectatic changes. Atelectatic changes in both lungs as described above. Fleischner guidelines were followed.
== END 2022-10-22 11:07 | disposition home or self-care (01) ==
LOC: HO.CT 11:06
PROVIDERS: PCP Nurse Practitioner Family; Visit Provider Internal Medicine Pulmonary Disease
DX: R91.8 Other nonspecific abnormal finding of lung field (principal)
CPT/HCPCS: 71250

== ENCOUNTER → 2022-11-04 11:00 | Outpatient (BNVA) | payer MEDICARE, OTHER, SELFPAY | PROVIDERS: PCP Nurse Practitioner Family; Visit Provider Internal Medicine Pulmonary Disease | DX: J44.9 Chronic obstructive pulmonary disease, unspecified (principal); R91.8 Other nonspecific abnormal finding of lung field; Z99.81 Dependence on supplemental oxygen | CPT/HCPCS: 99212 ==

== ENCOUNTER → 2022-11-19 10:50 | Outpatient (BNVA) | payer MEDICARE, OTHER, SELFPAY | PROVIDERS: PCP Nurse Practitioner Family; Referring Provider Nurse Practitioner Family; Visit Provider Internal Medicine | DX: Z13.89 Encounter for screening for other disorder (principal) | CPT/HCPCS: 93005 ==

== ENCOUNTER → 2023-02-12 13:43 | Outpatient (REF) | payer MEDICARE, OTHER, SELFPAY | LOC: HO.CARD 13:43 | PROVIDERS: PCP Nurse Practitioner Family; Visit Provider Internal Medicine | DX: I42.8 Other cardiomyopathies (principal); I71.20 Thoracic aortic aneurysm, without rupture, unspecified | CPT/HCPCS: 93306 ==

== ENCOUNTER 2023-03-04 13:27 | Outpatient (AMB) | payer MEDICARE, OTHER, SELFPAY ==
[2023-03-04 13:29] VITALS: BP 126/80; PULSE 66; BMI 32.4
--- NOTE | 2023-03-04 13:29 | MHC.OFFVIS ---
Intake Vital Signs 03/04/23 13:29 Height 6 ft Weight 238 lb 15.697 oz BMI 32.4 BP 126/80 Blood Pressure Location Lt brachial Position Sitting Pulse 66 Intake Visit Reasons: 6 mth fu Intake Note: 6 month follow up Palliative Care Nurse Required: No Accompanied by: Self / Same As Patient Allergies No Known Allergies Allergy (Verified 03/04/23 13:31) Medication List - Last Reconciled 03/04/23 by Juarez Herrera MD amlodipine 7.5 mg (1.5 x 5 mg) PO DAILY 90 days Anoro Ellipta 62.5-25 mcg/actuation (umeclidinium-vilanterol) 1 inh inhalation DAILY NS apixaban (Eliquis) 5 mg PO BID 90 days atorvastatin 80 mg PO DAILY carvedilol 6.25 mg PO BID cholecalciferol (vitamin D3) (Vitamin D3) 25 mcg PO DAILY dronedarone (Multaq) 400 mg PO BID 90 days latanoprost 0.005% 1 drp ophthalmic (eye) BEDTIME paroxetine HCl 20 mg PO QAM triamcinolone acetonide 0.1% 1 appl topical DAILY PRN HPI HPI Comments History of Present Illness Details Nakul returns for follow-up regarding atrial fibrillation, cardiomyopathy as well as aortic aneurysm. Due to symptomatic atrial fibrillation in spite of cardioversions as well as Amiodarone use, he underwent atrial fibrillation ablation. In 2021, he had a recurrence of the same. Possibly related to alcohol. Then underwent one further cardioversion and then was on Amiodarone. Then switched to Multaq. Siince last seen, no new complaints. No angina or shortness of breath or in fact anything cardiac sounding symptoms. Also not drinking alcohol anymore. [facility] [place] Medical History Atrial fibrillation Cardiac arrhythmia COPD (chronic obstructive pulmonary disease) COPD (chronic obstructive pulmonary disease) Essential hypertension Hypertension NICM (nonischemic cardiomyopathy) PAF (paroxysmal atrial fibrillation) RSV infection Surgical History History of appendectomy History of colonoscopy History of hernia repair Status post catheter ablation of atrial fibrillation Family History Father Cancer of prostate Mother No problems noted. Daughter No problems noted. Daughter No problems noted. Brother Cancer of prostate Social History (Updated 08/25/22 @ 14:08 by Tika Monsivais) Household Members: Spouse Housing: House Do you presently have visiting nurse or other home services: No Alcohol intake: former Year quit: 2021 Patient Tobacco Use Status: Never used Tobacco e-Cigarette/Vaping Use: Never Used Second Hand Smoke Exposure: No Advance Directives Date on File: 05/26/21 service: Yes Current occupational status: retired Cognitive needs: No Hearing needs: No Vision needs: Yes Review of Systems Const Denies weakness ENT Denies dizziness Card Denies chest pain, Denies chest pain with activity, Denies syncope, Denies rapid heart rate, Denies pedal edema, Denies edema, Denies leg edema, Denies lightheadedness, Denies palpitations, Denies dyspnea, Denies dyspnea on exertion and Denies orthopnea Resp Denies cough, Denies dyspnea and Denies dyspnea on exertion GI Denies hematochezia and Denies change in stool character Musc Denies abnormal gait, Denies muscle cramps, Denies muscle weakness, Denies numbness, Denies radiating pain into limb and Denies tingling Neuro Denies abnormal gait, Denies dizziness, Denies syncope, Denies numbness, Denies tingling and Denies weakness Endo Denies palpitations Physical Exam Vital Signs: Last Vital Signs Pulse 66 03/04/23 13:29 BP 126/80 03/04/23 13:29 BMI result Body Mass Index 32.4 Const General: comfortable and no acute distress Orientation/consciousness: patient oriented x3 HEENT Other: Unremarkable Head: Yes normal to inspection Neck Neck: Yes normal visual inspection Chest Chest palpation & inspection: normal inspection of the chest Resp Auscultation: clear to auscultation bilaterally Cardio Palpation: normal PMI Heart sounds: S1 normal heart sound present, S2 normal heart sound present, no gallops, no murmurs and no rubs GI Palpation (GI): Soft to palpation Back/Spine/Pelvis Other: unremarkable Skin General skin exam: no rashes or lesions noted Neuro General: patient oriented x3 Extrem General: Yes normal to inspection Psych Mental Status: mental status grossly normal Office Procedures EKG Details: EKG with sinus rhythm at 66/Min; no significant ST-T changes and otherwise unremarkable. [place] [address]-[id number], Complete Assessment & Plan Assessment & Plan (1) PAF (paroxysmal atrial fibrillation): Code(s): I48.0 - Paroxysmal atrial fibrillation Plan: Status post atrial fibrillation ablation. Continue Multaq. Continue Eliquis. (2) NICM (nonischemic cardiomyopathy): Code(s): I42.8 - Other cardiomyopathies Plan: Cardiac catheterization from 2017 with normal coronary arteries. Most recent echocardiogram with recovered LVEF. 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 Continue Coreg. He has hyperkalemia and hence unable to take lisinopril. Clinically, he does not have any symptoms or signs of congestive heart failure. Not on any regular diuretics. (3) Essential hypertension: Code(s): I10 - Essential (primary) hypertension Plan: Continue Amlodipine. (4) Ascending aortic aneurysm: Code(s): I71.2 - Thoracic aortic aneurysm, without rupture Plan: In the most recent echocardiogram, ascending aortic size 4.7 cm. Aortic as 4.1 cm. Per radiology reports, this has been stable since 2017. Measurement of ascending aorta in the CT scan from August 2020-4.3/4.5 cm. Aortic arch was measured at 3.5 cm. Descending thoracic aorta at 3 cm. Echocardiogram measures ascending aorta at 4.6 cm. Echocardiogram from 2017 shows ascending aortic size at 4.6 cm. Overall, stable without any major changes. Can follow this yearly. (5) Excessive drinking alcohol: Code(s): F10.10 - Alcohol abuse, uncomplicated Plan: No recent alcohol use per patient. He is aware of the dangers specifically in relationship with atrial fibrillation. Coding Level of Care Code Est Pt Level 4 (99702) Diagnoses PAF (paroxysmal atrial fibrillation) I48.0 NICM (nonischemic cardiomyopathy) I42.8 Essential hypertension I10 Ascending aortic aneurysm I71.2 Excessive drinking alcohol F10.10 CPT Codes EKG - CPT: 50617-[id number], Complete ([id number])
== END 2023-03-04 13:47 | disposition home or self-care (01) ==
PROVIDERS: Visit Provider Internal Medicine
DX: I48.0 Paroxysmal atrial fibrillation (principal); I42.8 Other cardiomyopathies; I10 Essential (primary) hypertension; I71.20 Thoracic aortic aneurysm, without rupture, unspecified; F10.10 Alcohol abuse, uncomplicated
CPT/HCPCS: 93010; 99214

== ENCOUNTER → 2023-03-04 13:27 | Outpatient (BNVA) | payer MEDICARE, OTHER, SELFPAY | PROVIDERS: Visit Provider Internal Medicine | DX: I48.0 Paroxysmal atrial fibrillation (principal); I42.8 Other cardiomyopathies; I10 Essential (primary) hypertension; I71.20 Thoracic aortic aneurysm, without rupture, unspecified; F10.10 Alcohol abuse, uncomplicated | CPT/HCPCS: 93005; 99212 ==

== ENCOUNTER → 2023-05-14 09:52 | Outpatient (BNVA) | payer MEDICARE, OTHER, SELFPAY | PROVIDERS: PCP Nurse Practitioner Family; Visit Provider Internal Medicine ==

== ENCOUNTER 2023-05-26 11:51 | Outpatient (AMB) | payer MEDICARE, OTHER, SELFPAY ==
[2023-05-26 11:52] VITALS: BP 111/67; PULSE 65; O2SAT 65; BMI 32.1
--- NOTE | 2023-05-26 11:52 | A.OFFVIS_ITS ---
Intake Vital Signs 05/26/23 11:52 Height 6 ft Weight 236 lb 15.951 oz BMI 32.1 BP 111/67 Blood Pressure Location Rt brachial Position Sitting Pulse 65 Pulse Source Doppler Pulse Oximetry (%) 65 L Oxygen Delivery Method Room Air Intake Visit Reasons: COPD Allergies No Known Allergies Allergy (Verified 05/26/23 11:56) HPI COPD HPI Details 72-year-old gentleman, never smoker of t obacco products, previously used marijuana,?followed for underlying moderate COPD and pulmonary nodules.? He continues to use Anoro and albuterol MDI with good control of his underlying symptoms.? He denies any recent COPD exacerbations.? He is using supplemental oxygen at 1 L intermittently with exertion. [facility] Medical History Atrial fibrillation Cardiac arrhythmia COPD (chronic obstructive pulmonary disease) COPD (chronic obstructive pulmonary disease) Essential hypertension Hypertension NICM (nonischemic cardiomyopathy) PAF (paroxysmal atrial fibrillation) RSV infection Surgical History History of appendectomy History of colonoscopy History of hernia repair Status post catheter ablation of atrial fibrillation Family History Father Cancer of prostate Mother No problems noted. Daughter No problems noted. Daughter No problems noted. Brother Cancer of prostate Social History Household Members: Spouse Housing: House Do you presently have visiting nurse or other home services: No Alcohol intake: former Year quit: 2021 Patient Tobacco Use Status: Never used Tobacco e-Cigarette/Vaping Use: Never Used Second Hand Smoke Exposure: No Advance Directives Date on File: 05/26/21 service: Yes Current occupational status: retired Cognitive needs: No Hearing needs: No Vision needs: Yes Review of Systems Const Denies daytime sleepiness, Denies excessive sweating, Denies fatigue, Denies fever(s), Denies lethargy, Denies malaise, Denies night sweats, Denies snoring and Denies weight loss Eyes Denies blurry vision and Denies itchy eyes ENT Denies nasal congestion, Denies post nasal drip, Denies sinus pain, Denies sinus pressure and Denies other ( Thrush) Card Denies chest pain, Denies pedal edema, Denies dyspnea, Denies orthopnea and Denies paroxysmal nocturnal dyspnea Resp Denies cough, Denies hemoptysis, Denies excessive phlegm production, Denies dyspnea, Denies snoring and Denies wheezing GI Denies abdominal pain and Denies heartburn Musc Denies myalgias, Denies arthralgias and Denies joint swelling Skin/Breast Denies rash Neuro Denies memory loss and Denies seizure-like activity Psych Denies abnormal sleep pattern, Denies anxiety and Denies memory loss Endo Denies excessive sweating, Denies fatigue and Denies heat intolerance Channing/Lymph Denies easy bruising Aller/Immun Denies itchy eyes, Denies seasonal rhinorrhea and Denies wheezing Physical Exam Vital Signs: Last Vital Signs Pulse 65 05/26/23 11:52 BP 111/67 05/26/23 11:52 Pulse Ox 65 L 05/26/23 11:52 Oxygen Delivery Method Room Air 05/26/23 11:52 BMI result Body Mass Index 32.1 Const General: no acute distress and alert Nutritional Appearance: not obese Orientation/consciousness: Other orientation findings ( oriented) HEENT Head: Yes atraumatic Eyes General: appearance normal, both eyes and all related structures Sclerae: sclerae normal EOM: EOMs intact bilaterally Neck Neck: Yes supple Lymphatic: no lymphadenopathy noted Resp Effort & Inspection: normal respiratory effort and no use of accessory muscles Auscultation: clear to auscultation bilaterally Cardio Rate: regular rate Rhythm: regular rhythm Heart sounds: no gallops, no murmurs and no rubs Skin General skin exam: other ( warm) Extrem General: No clubbing, No cyanosis and No edema Assessment & Plan Assessment & Plan (1) COPD (chronic obstructive pulmonary disease): Code(s): J44.9 - Chronic obstructive pulmonary disease, unspecified Plan: Well controlled on current regimen of Anoro and albuterol MDI. Continue current regimen. (2) Pulmonary nodules: Code(s): R91.8 - Other nonspecific abnormal finding of lung field Plan: Previously stable 5-7 mm pulmonary nodules. Follow-up CT chest is pending for October of 2023. Coding Level of Care Code Est Pt Level 4 (08308) Diagnoses COPD (chronic obstructive pulmonary disease) J44.9 Pulmonary nodules R91.8
== END 2023-05-26 12:03 | disposition home or self-care (01) ==
PROVIDERS: PCP Nurse Practitioner Family; Visit Provider Internal Medicine Pulmonary Disease
DX: J44.9 Chronic obstructive pulmonary disease, unspecified (principal); R91.8 Other nonspecific abnormal finding of lung field
CPT/HCPCS: 99214

== ENCOUNTER → 2023-05-26 11:51 | Outpatient (BNVA) | payer MEDICARE, OTHER, SELFPAY | PROVIDERS: PCP Nurse Practitioner Family; Visit Provider Internal Medicine Pulmonary Disease | DX: J44.9 Chronic obstructive pulmonary disease, unspecified (principal); R91.8 Other nonspecific abnormal finding of lung field; Z99.81 Dependence on supplemental oxygen | CPT/HCPCS: 99212 ==

== ENCOUNTER 2023-06-04 13:54 | Outpatient (AMB) | payer MEDICARE, OTHER, SELFPAY ==
--- NOTE | 2023-06-04 14:28 | AM.OFFVISNUR ---
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 Patient feeling good no complaints. EKG shows NSR w/ a heart rate of 64 bpm. Office Procedures EKG [id number], Complete Coding CPT Codes EKG - CPT: 24057-Rutoxtosnwetlzvbj, Complete ([id number])
== END 2023-06-04 15:15 | disposition home or self-care (01) ==
PROVIDERS: PCP Nurse Practitioner Family; Visit Provider Internal Medicine
DX: I48.0 Paroxysmal atrial fibrillation (principal)
CPT/HCPCS: 93010

== ENCOUNTER → 2023-06-04 13:54 | Outpatient (BNVA) | payer MEDICARE, OTHER, SELFPAY | PROVIDERS: PCP Nurse Practitioner Family; Visit Provider Internal Medicine | DX: Z51.81 Encounter for therapeutic drug level monitoring (principal); Z79.899 Other long term (current) drug therapy | CPT/HCPCS: 93005 ==

== ENCOUNTER 2023-09-03 14:20 | Outpatient (AMB) | payer MEDICARE, OTHER, SELFPAY ==
--- NOTE | 2023-09-03 14:24 | MHC.OFFVIS ---
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 Accompanied by: Self / Same As Patient Allergies No Known Allergies Allergy (Verified 09/03/23 14:26) Medication List - Last Reconciled 09/03/23 by Juarez Herrera MD amlodipine 7.5 mg (1.5 x 5 mg) PO DAILY 90 days Anoro Ellipta 62.5-25 mcg/actuation (umeclidinium-vilanterol) 1 inh inhalation DAILY NS apixaban (Eliquis) 5 mg PO BID atorvastatin 80 mg PO DAILY carvedilol 6.25 mg PO BID cholecalciferol (vitamin D3) (Vitamin D3) 25 mcg PO DAILY dronedarone (Multaq) 400 mg PO BID 90 days latanoprost 0.005% 1 drp ophthalmic (eye) BEDTIME paroxetine HCl 20 mg PO QAM triamcinolone acetonide 0.1% 1 appl topical DAILY PRN HPI HPI Comments History of Present Illness Details Nakul returns for follow-up regarding atrial fibrillation, cardiomyopathy as well as aortic aneurysm. Due to symptomatic atrial fibrillation in spite of cardioversions as well as Amiodarone use, he underwent atrial fibrillation ablation. In 2021, he had a recurrence of the same. Possibly related to alcohol. Then underwent one further cardioversion and then was on Amiodarone. Then switched to Multaq. Overall, he is doing good. No new complaints. No further atrial fibrillation episodes. He states he has cut back a lot on his alcohol. [facility] Medical History (Updated 07/08/23 @ 15:41 by Jose Marie, [facility]) Retinopathy RSV infection COPD (chronic obstructive pulmonary disease) Essential hypertension NICM (nonischemic cardiomyopathy) PAF (paroxysmal atrial fibrillation) COPD (chronic obstructive pulmonary disease) Atrial fibrillation Hypertension Cardiac arrhythmia Surgical History Status post catheter ablation of atrial fibrillation History of appendectomy History of hernia repair History of colonoscopy Family History Father Cancer of prostate Mother No problems noted. Daughter No problems noted. Daughter No problems noted. Brother Cancer of prostate Social History Household Members: Spouse Housing: House Do you presently have visiting nurse or other home services: No Alcohol intake: former Year quit: 2021 Patient Tobacco Use Status: Never used Tobacco e-Cigarette/Vaping Use: Never Used Second Hand Smoke Exposure: No Advance Directives Date on File: 05/26/21 service: Yes Current occupational status: retired Cognitive needs: No Hearing needs: No Vision needs: Yes Review of Systems Const Denies weakness ENT Denies dizziness Card Denies chest pain, Denies chest pain with activity, Denies syncope, Denies rapid heart rate, Denies pedal edema, Denies edema, Denies leg edema, Denies lightheadedness, Denies palpitations and Denies orthopnea Resp Denies cough GI Denies hematochezia and Denies change in stool character Musc Denies abnormal gait, Denies muscle cramps, Denies muscle weakness, Denies numbness, Denies radiating pain into limb and Denies tingling Neuro Denies abnormal gait, Denies dizziness, Denies syncope, Denies numbness, Denies tingling and Denies weakness Endo Denies palpitations Physical Exam Vital Signs: Last Vital Signs Pulse 73 09/03/23 14:26 BP 122/70 09/03/23 14:26 BMI result Body Mass Index 32.3 Const General: comfortable and no acute distress Orientation/consciousness: patient oriented x3 HEENT Other: Unremarkable Head: Yes normal to inspection Neck Neck: Yes normal visual inspection Chest Chest palpation & inspection: normal inspection of the chest Resp Auscultation: clear to auscultation bilaterally Cardio Palpation: normal PMI Heart sounds: S1 normal heart sound present, S2 normal heart sound present, no gallops, no murmurs and no rubs GI Palpation (GI): Soft to palpation Back/Spine/Pelvis Other: unremarkable Skin General skin exam: no rashes or lesions noted Neuro General: patient oriented x3 Extrem General: Yes normal to inspection Psych Mental Status: mental status grossly normal Office Procedures EKG Details: EKG with sinus rhythm at 69/Min; can not exclude old anterior infarct but could be from body habitus; [place] [id number], Complete Assessment & Plan Assessment & Plan (1) PAF (paroxysmal atrial fibrillation): Code(s): I48.0 - Paroxysmal atrial fibrillation Plan: Status post atrial fibrillation ablation. Continue Multaq. Continue Eliquis. (2) NICM (nonischemic cardiomyopathy): Code(s): I42.8 - Other cardiomyopathies Plan: Cardiac catheterization from 2017 with normal coronary arteries. Most recent echocardiogram with recovered LVEF. 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 Continue Coreg. He has hyperkalemia and hence unable to take lisinopril. Otherwise, stable. (3) Essential hypertension: Code(s): I10 - Essential (primary) hypertension Plan: Stable. Continue Amlodipine. (4) Ascending aortic aneurysm: Code(s): I71.2 - Thoracic aortic aneurysm, without rupture Plan: In the most recent echocardiogram, ascending aortic size 4.7 cm. Aortic as 4.1 cm. Per radiology reports, this has been stable since 2017. Measurement of ascending aorta in the CT scan from August 2020-4.3/4.5 cm. Aortic arch was measured at 3.5 cm. Descending thoracic aorta at 3 cm. Echocardiogram measures ascending aorta at 4.6 cm. Echocardiogram from 2017 shows ascending aortic size at 4.6 cm. We will recheck this before next visit. (5) Excessive drinking alcohol: Code(s): F10.10 - Alcohol abuse, uncomplicated Plan: No recent alcohol use per patient. He is aware of the dangers specifically in relationship with atrial fibrillation. Orders: Orders Complete Blood Count Auto Diff 11/25/22 I10 - Essential (primary) hypertension Comprehensive Paron. Panel Fast 11/25/22 I10 - Essential (primary) hypertension CA echo transthoracic complete 6 Months I71.2 - Thoracic aortic aneurysm, without rupture Coding Level of Care Code Est Pt Level 4 (97018) Diagnoses PAF (paroxysmal atrial fibrillation) I48.0 NICM (nonischemic cardiomyopathy) I42.8 Essential hypertension I10 Ascending aortic aneurysm I71.2 Excessive drinking alcohol F10.10 CPT Codes EKG - CPT: [id number], Complete ([id number])
[2023-09-03 14:26] VITALS: BP 122/70; PULSE 73; BMI 32.3
== END 2023-09-03 14:53 | disposition home or self-care (01) ==
PROVIDERS: PCP Nurse Practitioner Family; Visit Provider Internal Medicine
DX: I48.0 Paroxysmal atrial fibrillation (principal); I42.8 Other cardiomyopathies; I10 Essential (primary) hypertension; I71.20 Thoracic aortic aneurysm, without rupture, unspecified; F10.10 Alcohol abuse, uncomplicated
CPT/HCPCS: 93010; 99214

== ENCOUNTER → 2023-09-03 14:20 | Outpatient (BNVA) | payer MEDICARE, OTHER, SELFPAY | PROVIDERS: PCP Nurse Practitioner Family; Visit Provider Internal Medicine | DX: I48.0 Paroxysmal atrial fibrillation (principal); I42.8 Other cardiomyopathies; I10 Essential (primary) hypertension; I71.21 Aneurysm of the ascending aorta, without rupture; F10.10 Alcohol abuse, uncomplicated | CPT/HCPCS: 93005; 99212 ==

== ENCOUNTER 2023-11-04 09:09 | Outpatient (REF) | payer MEDICARE, OTHER, SELFPAY ==
[2023-11-04 10:17] LABS: MANUAL DIFF FLAG NO
[2023-11-04 10:21] LABS: Appearance Urine Clear; Color Urine Yellow; Glucose Urine UA Negative (Negative); Leukocyte Esterase Urine Negative (Negative); Nitrite Urine Negative (Negative); PH 5.5 (5.0-9.0); Specific Gravity - Urine >= 1.030 (1.005-1.025); UMIC TRIGGER UACC YES; Urine Blood Small (1+) (Negative); Urine Ketones Negative (Negative); Urine Protein Negative (Neg-Trace)
[2023-11-04 10:22] LABS: Basophils Percent Auto 0.4 % (0-2); Eosinophils Absolute Auto 0.1 X10*3/uL (0.0-0.4); Eosinophils Percent Auto 1.9 % (0-4); Hematocrit 43.4 % (42.0-52.0); Hemoglobin 14.5 g/dl (14.0-18.0); Imm Gran Abs Auto 0.02 X10*3/uL (0.00-0.03); Imm Gran Pct Auto 0.3 % (0.0-0.4); Lymphocytes Absolute Auto 1.7 X10*3/uL (1.2-4.9); Lymphocytes Percent Auto 25.1 % (20-40); Mean Corpuscular HGB Conc 33.4 g/dl (31.0-36.0); Mean Corpuscular Hemoglobin 30.5 pg (27.0-33.0); Mean Corpuscular Volume 91.4 fL (80.0-98.0); Mean Platelet Volume 10.1 fL (9.4-12.4); Monocytes Absolute Auto 0.6 X10*3/uL (0.1-1.2); Monocytes Percent Auto 8.2 % (2-11); Neutrophils Absolute Auto 4.3 x10*3/uL (2.0-8.3); Neutrophils Percent Auto 64.1 % (45-73); Platelet Count 252 X10*3/uL (160-400); Red Blood Count 4.75 X10*6/uL (4.60-5.80); Red Cell Distribution Width 12.7 % (11.0-16.0); White Blood Count 6.7 X10*3/uL (4.8-10.8)
[2023-11-04 10:35] LABS: Bacteria Urine None Seen (None Seen); Hyaline Casts Urine 0-2 /LPF (0-2); RBC Urine 0-2 /HPF (0-2); Squamous Epithelial Cell Urine 0-2 /HPF (0-2); WBC Urine 0-5 /HPF (0-5)
[2023-11-04 11:28] LABS: Alanine Aminotransferase 34 U/L (0-40); Albumin Level 3.8 g/dL (3.5-5.0); Alkaline Phosphatase 64 U/L (39-117); Anion Gap 10 (12-20); Aspartate Amino Transferase 24 U/L (5-37); Bilirubin Total 0.7 mg/dL (0.0-1.0); Blood Urea Nitrogen 16 mg/dL (9-16); Calcium 9.4 mg/dL (8.4-10.2); Carbon Dioxide 29 mmol/L (22-29); Chloride 107 mmol/L (96-108); Cholesterol 128 mg/dL (<200); Estimated Glomerular Filt Rate > 60; Glucose Fasting 108 mg/dL (60-99); HDL Cholesterol 50 mg/dL (>40); LDL Cholesterol Calculated 62 mg/dL (<100); Potassium 5.1 mmol/L (3.3-5.1); Sodium 141 mmol/L (135-145); Total Protein 6.6 g/dL (6.5-8.0); Triglycerides 83 mg/dL (<150)
[2023-11-04 11:38] LABS: TSH reflex Free T4 3.08 uIU/mL (0.32-4.0)
== END 2023-11-04 09:10 | disposition home or self-care (01) ==
LOC: HO.HMGCLDS 09:09
PROVIDERS: PCP Nurse Practitioner Family; Visit Provider Internal Medicine
DX: I10 Essential (primary) hypertension (principal); R31.29 Other microscopic hematuria
CPT/HCPCS: 36415; 80053; 80061; 81001; 84443; 85025

== ENCOUNTER 2023-11-11 09:32 | Outpatient (AMB) | payer MEDICARE, OTHER, SELFPAY ==
--- NOTE | 2023-11-11 10:03 | A.OFFPC_ITS ---
Vital Signs 11/11/23 10:05 Height 6 ft Weight 238 lb BMI 32.3 BP 112/76 Blood Pressure Location Rt brachial Position Sitting Pulse 66 Pulse Source Pulse Oximeter Pulse Oximetry (%) 93 Oxygen Delivery Method Room Air Intake Visit Reasons: Follow up COPD Intake Note: Patient here for COPD f/u. Allergies No Known Allergies Allergy (Verified 11/11/23 12:51) Medication List - Last Reconciled 11/11/23 by ALLEN Cooper amlodipine 7.5 mg (1.5 x 5 mg) PO DAILY 90 days Anoro Ellipta 62.5-25 mcg/actuation (umeclidinium-vilanterol) 1 inh inhalation DAILY NS apixaban (Eliquis) 5 mg PO BID atorvastatin 80 mg PO DAILY carvedilol 6.25 mg PO BID cholecalciferol (vitamin D3) (Vitamin D3) 25 mcg PO DAILY dronedarone (Multaq) 400 mg PO BID 90 days latanoprost 0.005% 1 drp ophthalmic (eye) BEDTIME paroxetine HCl 20 mg PO QAM triamcinolone acetonide 0.1% 1 appl topical DAILY PRN Tobacco use date assessed: 11/11/23 Fall risk assessment: No Falls in past year Last assessed Fall Risk: 11/11/23 Dental Screening Dental Screen Date: 11/11/23 Did you have a dental visit in the last 12 months?: Yes Did you have a dental problem in the last 6 months where you did not have access to dental care?: No Was dental information given to patient?: Patient has dentist HPI Follow up COPD HPI Details COPD: Pt is currently using anoro. He reports that this works well and he would not like a rescue inhaler. Pt reports some shortness of breath with exertion but overall he is doing very well. Pt sees pulmonology. Denies fever, chills, and chest pain. [facility] Medical History (Updated 11/11/23 @ 12:50 by ALLEN Cooper) Retinopathy RSV infection COPD (chronic obstructive pulmonary disease) Essential hypertension NICM (nonischemic cardiomyopathy) PAF (paroxysmal atrial fibrillation) COPD (chronic obstructive pulmonary disease) Atrial fibrillation Hypertension Cardiac arrhythmia Surgical History Status post catheter ablation of atrial fibrillation History of appendectomy History of hernia repair History of colonoscopy Family History Father Cancer of prostate Mother No problems noted. Daughter No problems noted. Daughter No problems noted. Brother Cancer of prostate Social History Household Members: Spouse Housing: House Do you presently have visiting nurse or other home services: No Alcohol intake: former Year quit: 2021 Patient Tobacco Use Status: Never used Tobacco e-Cigarette/Vaping Use: Never Used Second Hand Smoke Exposure: No Advance Directives Date on File: 05/26/21 service: Yes Current occupational status: retired Cognitive needs: No Hearing needs: No Vision needs: Yes Questionnaire Thrive Questionnaire Date Thrive assessed: 11/25/22 AUDIT C Alcohol Use Questionnaire (AUDIT-C) 1. How often do you have a drink containing alcohol?: Never 3. How often do you have six or more drinks on one occasion?: Never Total Score: 0 Score Reviewed/Action Taken: No ROSE-7 AMB Questionnaire ROSE-7 Date ROSE - 7 assessed: 11/25/22 Source: Developed by Drs. Avelino Burrell, Francine Montana, Kannan Shane and colleagues, with an educational ronaldo from [employer]. Review of Systems Const Reports as per HPI Physical exam (Primary Care) Vital Signs: Last Vital Signs Pulse 66 11/11/23 10:05 BP 112/76 11/11/23 10:05 Pulse Ox 93 11/11/23 10:05 Oxygen Delivery Method Room Air 11/11/23 10:05 BMI result Body Mass Index 32.3 Tobacco/Smoking Status: Tobacco use Status Tobacco use date assessed 11/11/23 11/11/23 10:09 Patient Tobacco Use Status Never used Tobacco 11/11/23 10:09 e-Cigarette/Vaping Use Never Used 11/11/23 10:09 Thrive Assessment: Date of Thrive Assessment Date Thrive assessed 11/25/22 11/11/23 10:09 Const General: cooperative Nutritional Appearance: obese Orientation/consciousness: patient oriented x3 Resp Effort & Inspection: normal respiratory effort Auscultation: diminished lung sounds Cardio Rate: regular rate Rhythm: regular rhythm Heart sounds: S1 normal heart sound present and S2 normal heart sound present Neuro General: patient oriented x3 Psych Appearance: grossly normal Mental Status: mental status grossly normal Speech and movement: Normal speech and movement present Affect: normal affect Attitude: cooperative Thought process: Normal thought process present Thought content: Normal thought content present Insight: Good insight present (Psych) Judgement: Good judgement present (Psych) Assessment and Plan Assessment & Plan (1) Screening PSA (prostate specific antigen): Code(s): Z12.5 - Encounter for screening for malignant neoplasm of prostate (2) COPD (chronic obstructive pulmonary disease): Code(s): J44.9 - Chronic obstructive pulmonary disease, unspecified Plan The patient agreed to the use of a manager medical writing for this encounter. Scribed for ALLEN Huerta by Blaire Flores manager medical writing, on 11/11/2023 at 10:10 EST. Orders: Orders Prostate Specific Antigen Scr Today Z12.5 - Encounter for screening for malignant neoplasm of prostate Coding Level of Care Code Est Pt Level 3 (66645) Diagnoses Screening PSA (prostate specific antigen) Z12.5 COPD (chronic obstructive pulmonary disease) J44.9
[2023-11-11 10:05] VITALS: BP 112/76; PULSE 66; O2SAT 93; BMI 32.3
== END 2023-11-11 12:16 | disposition home or self-care (01) ==
PROVIDERS: PCP Nurse Practitioner Family; Visit Provider Nurse Practitioner Family
DX: J44.9 Chronic obstructive pulmonary disease, unspecified (principal); Z12.5 Encounter for screening for malignant neoplasm of prostate
CPT/HCPCS: 99213

== ENCOUNTER 2023-11-11 10:25 | Outpatient (REF) | payer MEDICARE, OTHER, SELFPAY ==
[2023-11-11 13:51] LABS: Appearance Urine Clear; Color Urine Dark Yellow; Glucose Urine UA Negative (Negative); Leukocyte Esterase Urine Negative (Negative); Nitrite Urine Negative (Negative); PH 5.5 (5.0-9.0); Urine Blood Negative (Negative); Urine Ketones Negative (Negative); Urine Protein Negative (Neg-Trace)
[2023-11-11 14:20] LABS: Prostate Specific Antigen Scr 2.03 ng/mL (<0.05-4.0)
== END 2023-11-11 10:26 | disposition home or self-care (01) ==
LOC: HO.HMGCLDS 10:25
PROVIDERS: PCP Nurse Practitioner Family; Visit Provider Nurse Practitioner Family
DX: R31.29 Other microscopic hematuria (principal); Z12.5 Encounter for screening for malignant neoplasm of prostate
CPT/HCPCS: 36415; 81003; 84153

== ENCOUNTER 2023-11-13 14:10 | Outpatient (REF) | payer MEDICARE, OTHER, SELFPAY ==
--- NOTE | ~2023-11-13 | CT_ITS ---
EXAMINATION: CT CHEST WITHOUT CONTRAST CLINICAL INFORMATION: Pulmonary nodule. Other nonspecific abnormal finding of lung field. COMPARISON: None available. TECHNIQUE: Multidetector volumetric CT imaging of the chest was done. Axial MIP volume rendering provided. Sagittal and coronal reformatted images were obtained. This CT examination was performed using dose optimization techniques as appropriate, variously including the following: *Automated exposure control. *Adjustment of mA and/or kV according to patient size (this includes techniques or standardized protocols for targeted exams where dose is matched to indication/reason for exam; i.e. extremities or head). *Use of iterative reconstruction technique. DLP: 223 mGy-cm FINDINGS: LUNGS: Band-like atelectasis is present at the lung bases. Bronchial thickening is seen. Mild emphysematous changes are present. Again seen is a 7 mm perifissural lymph node in the left lower lobe along the major fissure, unchanged (5:311 compare prior 6:261). A 4 mm subpleural right lower lobe nodule, unchanged (5:370 compare prior 6:314). No new, increased size or suspicious pulmonary nodules are seen. MEDIASTINUM: A 1.1 cm right thyroid nodule appears smaller, previously measuring 1.7 cm. No mediastinal or hilar lymphadenopathy. Ascending aorta prominent in size at 4.5 cm in maximal transverse dimension, unchanged from prior. CORONARY ARTERY CALCIFICATION: Minimal. PLEURA: No pleural effusions or thickening. AXILLA: No lymphadenopathy. UPPER ABDOMEN: A benign 3 cm left upper pole Bosniak class I renal cyst is noted which requires no additional imaging or follow up. No solid renal masses are seen. OSSEOUS STRUCTURES: Degenerative changes are present throughout the spine. No bony destructive lesions. CT/CT chest wo IV con IMPRESSION: 1. Stable pulmonary nodules. 2. Incidental note made of emphysema, bronchial thickening and 4.5 cm ascending aortic aneurysm. 3. Other incidental findings as described above including decreased size of a right thyroid nodule. Fleischner guidelines were followed.
== END 2023-11-13 14:11 | disposition home or self-care (01) ==
LOC: HO.CT 14:10
PROVIDERS: Visit Provider Internal Medicine Pulmonary Disease
DX: R91.8 Other nonspecific abnormal finding of lung field (principal)
CPT/HCPCS: 71250

== ENCOUNTER → 2023-11-26 14:53 | Outpatient (BNVA) | payer MEDICARE, OTHER, SELFPAY | PROVIDERS: PCP Nurse Practitioner Family; Visit Provider Internal Medicine ==

== ENCOUNTER 2023-12-04 11:45 | Outpatient (AMB) | payer MEDICARE, OTHER, SELFPAY ==
--- NOTE | 2023-12-04 11:46 | A.OFFVIS_ITS ---
Vital Signs 12/04/23 11:47 Height 6 ft Weight 240 lb BMI 32.5 BP 114/78 Blood Pressure Location Rt brachial Position Sitting Pulse 64 Pulse Source Doppler Pulse Oximetry (%) 94 Oxygen Delivery Method Room Air Intake Visit Reasons: COPD Allergies No Known Allergies Allergy (Verified 12/04/23 11:51) HPI HPI COPD: Details: 75-year-old gentleman, never smoker of tobacco products, previously used marijuana,?followed for underlying moderate COPD and pulmonary nodules.? He continues to use Anoro and albuterol MDI with good control of his underlying symptoms.? He denies any recent COPD exacerbations.? He is using supplemental oxygen at 1 L intermittently with exertion. His follow-up CT chest showed stable pulmonary nodules. [facility] Medical History (Updated 11/11/23 @ 12:50 by ALLEN Cooper) Retinopathy RSV infection COPD (chronic obstructive pulmonary disease) Essential hypertension NICM (nonischemic cardiomyopathy) PAF (paroxysmal atrial fibrillation) COPD (chronic obstructive pulmonary disease) Atrial fibrillation Hypertension Cardiac arrhythmia Surgical History Status post catheter ablation of atrial fibrillation History of appendectomy History of hernia repair History of colonoscopy Family History Father Cancer of prostate Mother No problems noted. Daughter No problems noted. Daughter No problems noted. Brother Cancer of prostate Social History Household Members: Spouse Housing: House Do you presently have visiting nurse or other home services: No Alcohol intake: former Year quit: 2021 Patient Tobacco Use Status: Never used Tobacco e-Cigarette/Vaping Use: Never Used Second Hand Smoke Exposure: No Advance Directives Date on File: 05/26/21 service: Yes Current occupational status: retired Cognitive needs: No Hearing needs: No Vision needs: Yes Review of Systems Const Denies daytime sleepiness, Denies excessive sweating, Denies fatigue, Denies fever(s), Denies lethargy, Denies malaise, Denies night sweats, Denies snoring and Denies weight loss Eyes Denies blurry vision and Denies itchy eyes ENT Denies nasal congestion, Denies post nasal drip, Denies sinus pain, Denies sinus pressure and Denies other ( Thrush) Card Denies chest pain, Denies pedal edema, Denies dyspnea, Denies orthopnea and Denies paroxysmal nocturnal dyspnea Resp Denies cough, Denies hemoptysis, Denies excessive phlegm production, Denies dyspnea, Denies snoring and Denies wheezing GI Denies abdominal pain and Denies heartburn Musc Denies myalgias, Denies arthralgias and Denies joint swelling Skin/Breast Denies rash Neuro Denies memory loss and Denies seizure-like activity Psych Denies abnormal sleep pattern, Denies anxiety and Denies memory loss Endo Denies excessive sweating, Denies fatigue and Denies heat intolerance Channing/Lymph Denies easy bruising Aller/Immun Denies itchy eyes, Denies seasonal rhinorrhea and Denies wheezing Physical Exam Vital Signs: Last Vital Signs Pulse 64 12/04/23 11:47 BP 114/78 12/04/23 11:47 Pulse Ox 94 12/04/23 11:47 Oxygen Delivery Method Room Air 12/04/23 11:47 BMI result Body Mass Index 32.5 Const General: no acute distress and alert Nutritional Appearance: not obese Orientation/consciousness: Other orientation findings ( oriented) HEENT Head: Yes atraumatic Eyes General: appearance normal, both eyes and all related structures Sclerae: sclerae normal EOM: EOMs intact bilaterally Neck Neck: Yes supple Lymphatic: no lymphadenopathy noted Resp Effort & Inspection: normal respiratory effort and no use of accessory muscles Auscultation: clear to auscultation bilaterally Cardio Rate: regular rate Rhythm: regular rhythm Heart sounds: no gallops, no murmurs and no rubs Skin General skin exam: other ( warm) Extrem General: No clubbing, No cyanosis and No edema Assessment & Plan Assessment & Plan (1) COPD (chronic obstructive pulmonary disease): Code(s): J44.9 - Chronic obstructive pulmonary disease, unspecified Category: Medical Plan: Well controlled on current regimen of Anoro and albuterol MDI. Continue current regimen. (2) Pulmonary nodules: Code(s): R91.8 - Other nonspecific abnormal finding of lung field Category: Medical Plan: Results of follow-up CT chest reviewed, stable pulmonary nodules. At this time does not require further imaging follow-up. Coding Level of Care Code Est Pt Level 4 (41297) Diagnoses COPD (chronic obstructive pulmonary disease) J44.9 Pulmonary nodules R91.8
[2023-12-04 11:47] VITALS: BP 114/78; PULSE 64; O2SAT 94; BMI 32.5
== END 2023-12-04 11:56 | disposition home or self-care (01) ==
PROVIDERS: PCP Nurse Practitioner Family; Visit Provider Internal Medicine Pulmonary Disease
DX: J44.9 Chronic obstructive pulmonary disease, unspecified (principal); R91.8 Other nonspecific abnormal finding of lung field
CPT/HCPCS: 99214

== ENCOUNTER → 2023-12-04 11:45 | Outpatient (BNVA) | payer MEDICARE, OTHER, SELFPAY | PROVIDERS: PCP Nurse Practitioner Family; Visit Provider Internal Medicine Pulmonary Disease | DX: J44.9 Chronic obstructive pulmonary disease, unspecified (principal); R91.8 Other nonspecific abnormal finding of lung field; Z79.899 Other long term (current) drug therapy | CPT/HCPCS: 99212 ==

== ENCOUNTER 2023-12-22 15:22 | Outpatient (REF) | payer MEDICARE, OTHER, SELFPAY ==
--- NOTE | ~2023-12-22 | CT_ITS ---
EXAMINATION: CT ABDOMEN AND PELVIS WITHOUT AND WITH CONTRAST CLINICAL INFORMATION: Microscopic hematuria. COMPARISON: Abdominal ultrasound 01/14/2018. TECHNIQUE: Noncontrast CT of the abdomen and pelvis is performed followed by split bolus contrast-enhanced images using 85 mL Omnipaque 350 contrast.? Postcontrast imaging is performed during the combined nephrogram and excretion phase. Sagittal and coronal reformatted images were obtained on the technologist's workstation for both the precontrast and postcontrast phases. This CT examination was performed using dose optimization techniques as appropriate, variously including the following: *Automated exposure control *Adjustment of mA and/or kV according to patient size (this includes techniques or standardized protocols for targeted exams where dose is matched to indication/reason for exam; i.e. extremities or head) *Use of iterative reconstruction technique DLP: 1091 mGy-cm FINDINGS: LUNG BASES: Stable scarring in the lingula and bilateral lower lobes compared to CT chest 11/13/2023. LIVER, GALLBLADDER, AND BILIARY TREE: The liver is normal in size, shape, and attenuation tiny cyst in the left hepatic lobe for which no imaging follow-up is recommended. No biliary ductal dilatation is present. The gallbladder is unremarkable with no evidence of radiopaque gallstones, gallbladder wall thickening, or obvious pericholecystic inflammatory changes. PANCREAS: No discrete pancreatic mass. No pancreatic ductal dilatation. SPLEEN: Unremarkable. ADRENAL GLANDS: Unremarkable. KIDNEYS AND URETERS: No nephrolithiasis. Symmetric nephrograms. Simple cysts in the mid and lower left kidney. No follow-up imaging is recommended. Several tiny cortical hypodensities in both kidneys are too small to characterize but most likely cysts and no follow-up imaging is indicated. Symmetric urinary excretion of contrast no hydroureteronephrosis. No filling defects in the collecting system or ureters. BLADDER: Trabeculated urinary bladder. There is a sessile area of thickening along the posterior bladder wall measuring 3.3 x 1.7 cm in diameter and approximately 10 mm in thickness. This appears separate from the prostate. GASTROINTESTINAL TRACT: Small large bowel are normal in caliber. No inflammatory changes. ABDOMINAL WALL: Fat-containing left inguinal hernia. LYMPH NODES: No adenopathy. VASCULAR: No aortic aneurysm. Mild aortoiliac atherosclerosis. PELVIC VISCERA: The prostate is mildly enlarged measuring 4.2 x 3.2 x 4.4 cm. OSSEUS STRUCTURES: Degenerative changes in the spine. CT/CT urogram IMPRESSION: No nephrolithiasis or renal mass to explain hematuria. The renal collecting systems appear normal. No hydroureteronephrosis. Trabeculated bladder with prominent area of sessile thickening along the posterior bladder wall measuring 3.3 x 1.7 x 1.0 cm. This may be a more prominent trabeculation although a bladder mass is not excluded. In the presence of hematuria, recommend cystoscopy for further examination. Mildly enlarged prostate.
[2023-12-22] MEDS: iohexoL 350 MG/ML 100 ML INFUS..BTL IV (17:25)
[2023-12-23 14:05] LABS: Creatinine POC 1.1 mg/dL (0.5-1.4); GFR POC > 60
== END 2023-12-22 15:23 | disposition home or self-care (01) ==
LOC: HO.CT 15:22
PROVIDERS: PCP Nurse Practitioner Family; Visit Provider Nurse Practitioner Family
DX: R31.29 Other microscopic hematuria (principal)
CPT/HCPCS: 74178; 82565; Q9967

== ENCOUNTER 2024-01-03 06:56 | Emergency (ER) | payer MEDICARE, OTHER, SELFPAY ==
--- NOTE | ~2024-01-03 | XR_ITS ---
EXAMINATION: XR CHEST CLINICAL INFORMATION: Chest tightness COMPARISON: Chest x-ray May 2021 TECHNIQUE: Frontal view of the chest was obtained. FINDINGS: No significant abnormality is noted involving the heart, lungs, mediastinum, bony thorax or soft tissues. XR/XR chest 1V IMPRESSION: Unremarkable examination.
[2024-01-03 07:21] VITALS: BP 116/68; PULSE 81; RESP 18; TEMP 37.7; O2SAT 90; BMI 33.5
--- NOTE | 2024-01-03 07:25 | ECG_ITS ---
Test Reason : CHEST TIGHTNESS Blood Pressure : / mmHG Vent. Rate : 073 BPM Atrial Rate : 073 BPM P-R Int : 200 ms QRS Dur : 084 ms QT Int : 382 ms P-R-T Axes : 061 -17 051 degrees QTc Int : 420 ms Normal sinus rhythm Normal ECG When compared with ECG of 04-MAR-2022 08:36, Nonspecific T wave abnormality no longer evident in Inferior leads Referred By: Generic ED Physician Electronically Signed By:Matthew Savage
[2024-01-03 07:58] LABS: MANUAL DIFF FLAG NO
[2024-01-03 08:01] LABS: VBG Base Excess 3.7 mmol/L; VBG HCO3 29 mmol/L (22-26); VBG pCO2 49 mmHg; VBG pH 7.39 (7.32-7.43); VBG pO2 34 mmHg
[2024-01-03 08:01] LABS: Venous Blood Gas Refer to POC result
[2024-01-03 08:05] LABS: Basophils Percent Auto 0.3 % (0-2); Eosinophils Absolute Auto 0.2 X10*3/uL (0.0-0.4); Eosinophils Percent Auto 1.7 % (0-4); Hematocrit 47.8 % (42.0-52.0); Hemoglobin 16.2 g/dl (14.0-18.0); Imm Gran Abs Auto 0.03 X10*3/uL (0.00-0.03); Imm Gran Pct Auto 0.3 % (0.0-0.4); Lymphocytes Absolute Auto 0.6 X10*3/uL (1.2-4.9); Lymphocytes Percent Auto 6.5 % (20-40); Mean Corpuscular HGB Conc 33.9 g/dl (31.0-36.0); Mean Corpuscular Hemoglobin 30.6 pg (27.0-33.0); Mean Corpuscular Volume 90.4 fL (80.0-98.0); Mean Platelet Volume 9.5 fL (9.4-12.4); Monocytes Absolute Auto 0.7 X10*3/uL (0.1-1.2); Monocytes Percent Auto 7.8 % (2-11); Neutrophils Absolute Auto 7.2 x10*3/uL (2.0-8.3); Neutrophils Percent Auto 83.4 % (45-73); Platelet Count 235 X10*3/uL (160-400); Red Blood Count 5.29 X10*6/uL (4.60-5.80); White Blood Count 8.6 X10*3/uL (4.8-10.8)
[2024-01-03 08:16] LABS: Alanine Aminotransferase 33 U/L (0-40); Albumin Level 4.5 g/dL (3.5-5.0); Alkaline Phosphatase 83 U/L (39-117); Anion Gap 16 (12-20); Aspartate Amino Transferase 21 U/L (5-37); Bilirubin Total 1.4 mg/dL (0.0-1.0); Blood Urea Nitrogen 14 mg/dL (9-16); Calcium 10.2 mg/dL (8.4-10.2); Carbon Dioxide 26 mmol/L (22-29); Chloride 102 mmol/L (96-108); Creatinine Clr Calc Pharmacy 85.9; Estimated Glomerular Filt Rate > 60; Glucose Random 111 mg/dL (60-115); Potassium 4.2 mmol/L (3.3-5.1); Sodium 140 mmol/L (135-145)
[2024-01-03 08:21] LABS: B Type Natriuretic Peptide < 10 pg/mL (<100)
[2024-01-03 08:26] LABS: Troponin-I High Sensitivity < 2.7 ng/L (<3.5-35.0)
[2024-01-03 08:42] LABS: Influenza A PCR NEGATIVE (Negative); Influenza B PCR NEGATIVE (Negative); Resp Syncy Virus RNA Qual PCR NEGATIVE (Negative); SARS COV2 PCR INHOUSE NEGATIVE (Negative)
[2024-01-03 11:43] VITALS: BP 120/73; PULSE 78; RESP 20; TEMP 37.2; O2SAT 92
--- NOTE | 2024-01-03 11:49 | ED.SOB ---
HPI - SOB/Dyspnea General Chief Complaint: Dyspnea Stated Complaint: fever Time Seen by Provider: 01/03/24 11:38 Source: patient Mode of arrival: ambulatory History of Present Illness ED Provider: Dr Munoz HPI Narrative: 73-year-old male with known history of COPD reports shortness of breath and fevers for the past couple of days, denies any GI or symptoms and denies any recent alcohol use. Related Data Home Medications ?Medication ?Instructions ?Recorded ?Confirmed latanoprost 0.005 % eye drops 1 drp ophthalmic (eye) BEDTIME 01/10/21 11/11/23 triamcinolone acetonide 0.1 % 1 appl topical DAILY PRN Rash 01/10/21 11/11/23 topical ointment cholecalciferol (vitamin D3) 25 25 mcg PO DAILY 05/26/21 11/11/23 mcg (1,000 unit) tablet (Vitamin D3) Previous Rx's ?Medication ?Instructions ?Recorded Anoro Ellipta 62.5 mcg-25 1 inh inhalation DAILY #180 ea 03/11/23 mcg/actuation powder for inhalation (umeclidinium-vilanterol) dronedarone 400 mg tablet (Multaq) 400 mg PO BID 90 days #180 tabs 05/20/23 apixaban 5 mg tablet (Eliquis) 5 mg PO BID #180 tabs 08/13/23 carvedilol 6.25 mg tablet 6.25 mg PO BID #180 tabs 08/18/23 atorvastatin 80 mg tablet 80 mg PO DAILY #90 tabs 11/16/23 paroxetine HCl 20 mg tablet 20 mg PO QAM #90 tabs 11/16/23 amlodipine 5 mg tablet 7.5 mg (1.5 x 5 mg) PO DAILY #135 11/30/23 tabs doxycycline monohydrate 100 mg 100 mg PO BID 5 days #10 caps 01/03/24 capsule prednisone 50 mg tablet 50 mg PO DAILY 4 days #4 tabs 01/03/24 Allergies Allergy/AdvReac Type Severity Reaction Status Date / Time No Known Allergies Allergy Verified 01/03/24 07:25 Review of Systems Review of Systems: Pertinent positives and negatives as stated in HPI [facility] Past Medical History Source: nursing notes reviewed Medical History Retinopathy RSV infection COPD (chronic obstructive pulmonary disease) Essential hypertension NICM (nonischemic cardiomyopathy) PAF (paroxysmal atrial fibrillation) COPD (chronic obstructive pulmonary disease) Atrial fibrillation Hypertension Cardiac arrhythmia Surgical History Status post catheter ablation of atrial fibrillation History of appendectomy History of hernia repair History of colonoscopy Family History Family History Father Cancer of prostate Mother No problems noted. Daughter No problems noted. Daughter No problems noted. Brother Cancer of prostate Social History Social History Household Members: Spouse Housing: House Do you presently have visiting nurse or other home services: No Alcohol intake: former Year quit: 2021 Patient Tobacco Use Status: Never used Tobacco e-Cigarette/Vaping Use: Never Used Second Hand Smoke Exposure: No Advance Directives: No Advance Directives Information Provided: No Advance Directives Date on File: 05/26/21 service: Yes Current occupational status: retired Cognitive needs: No Hearing needs: No Vision needs: Yes Physical Exam Vital Signs: Vital Signs: Last Vital Signs Temp 99.0 F 01/03/24 11:43 Pulse 71 01/03/24 11:54 Resp 18 01/03/24 11:54 BP 120/73 01/03/24 11:43 Pulse Ox 92 01/03/24 11:43 O2 Del Method Room Air 01/03/24 11:43 BMI result Body Mass Index 33.5 VITAL SIGNS: Reviewed. GENERAL: Well developed, well nourished, in no acute distress. HEAD: Normocephalic/atraumatic EYES: PERRLA, EOMI EARS: Ext canals without abnormality, TMs non-bulging and non-erythematous NOSE: Nares patent bilateral OROPHARYNX: no oral lesions noted, posterior pharynx clear and non-erythematous without noted tonsillar enlargement/erythema/exudates NECK: Supple, no adenopathy LUNGS: Coarse rhonchi throughout without tachypnea or increased work of breathing, no expiratory wheeze appreciated. SpO2<92> CARDIOVASCULAR: Regular rate and rhythm without noted murmurs, no JVD bilateral 1+ pitting ankle edema ABDOMEN: Soft, non-tender, non-distended with bowel sounds. MUSCULOSKELETAL: No tenderness, deformities, or effusions noted on gross inspection. EXTREMITIES: No cyanosis, clubbing or edema. SKIN: Inspection of the skin reveals no rashes NEUROLOGIC: Alert and oriented x 4. Strength and sensation to light touch were grossly intact x 4. Medications Administered Discontinued Medications Generic Name Dose Route Start Last Admin Trade Name Freq PRN Reason Stop Dose Admin Albuterol Sulfate 2.5 mg/ 0 mg 01/03/24 11:50 01/03/24 11:52 Albuterol/Ipratropium 3 ml INHALE 01/03/24 11:51 1 dose ONCE ONE Administration Medical Decision Making Medical Decision Making MDM Narrative: 73-year-old male with history and clinical presentation, DDX: COPD bronchitis, viral illness, possible pneumonia, doubt ACS. I reviewed all investigations and hematologic indices are negative for leukocytosis/anemia/thrombocytopenia. VBG is not demonstrating any respiratory acidosis or significant hypercapnia. Chemistry indices are negative for TOR/electrolyte derangements there is an isolated bump in T bili of unclear significance as patient does not express any upper abdominal pain. I sensitivity troponin is undetectable and BNP is undetectable. Chest x-ray does not demonstrate any infiltrate or venous congestion otherwise my interpretation is in agreement with radiology's impression. Viral testing is negative for influenza/COVID-19/RSV. INTERVENTION: ED bronch, oral prednisone, doxycycline. My interpretation is that patient is experiencing COPD bronchitis and will be discharged on a course of antibiotics and steroids. Differential Diagnosis Differential Diagnoses: The differential diagnosis associated with the presentation includes Please see the discussion above Admission/Observation Consideration of admission/observation: Escalation of care including admission/observation considered Please see the discussion above Lab Data [facility] Lab Attestation statement: I reviewed the patient's lab results. Please see the discussion above 01/03/24 07:53 01/03/24 07:53 Labs: Lab Results 01/03/24 01/03/24 01/03/24 Range/Units 07:53 07:55 07:57 WBC 8.6 (4.8-10.8) X10*3/uL RBC 5.29 (4.60-5.80) X10*6/uL Hgb 16.2 (14.0-18.0) g/dl Hct 47.8 (42.0-52.0) % MCV 90.4 (80.0-98.0) fL MCH 30.6 (27.0-33.0) pg MCHC 33.9 (31.0-36.0) g/dl RDW 13.0 (11.0-16.0) % Plt Count 235 (160-400) X10*3/uL MPV 9.5 (9.4-12.4) fL Immature Gran % (Auto) 0.3 (0.0-0.4) % Neut % (Auto) 83.4 H (45-73) % Lymph % (Auto) 6.5 L (20-40) % [place] % (Auto) 7.8 (2-11) % Eos % (Auto) 1.7 (0-4) % Baso % (Auto) 0.3 (0-2) % Lymph # (Auto) 0.6 L (1.2-4.9) X10*3/uL [place] # (Auto) 0.7 (0.1-1.2) X10*3/uL Eos # (Auto) 0.2 (0.0-0.4) X10*3/uL Baso # (Auto) 0.0 (0.0-0.2) X10*3/uL Abs Immat Gran (auto) 0.03 (0.00-0.03) X10*3/uL Absolute Neuts (auto) 7.2 (2.0-8.3) x10*3/uL Absolute Nucleated RBC 0.000 (0.0-0.012) X10*3/uL Nucleated RBC % (auto) 0.0 (0.0-0.2) /100WBC VBG pH 7.39 (7.32-7.43) VBG pCO2 49 mmHg VBG pO2 34 mmHg VBG HCO3 29 H (22-26) mmol/L VBG O2 Saturation 52.0 % VBG Base Excess 3.7 mmol/L Sodium 140 (135-145) mmol/L Potassium 4.2 (3.3-5.1) mmol/L Chloride 102 (96-108) mmol/L Carbon Dioxide 26 (22-29) mmol/L Anion Gap 16 (12-20) BUN 14 (9-16) mg/dL Creatinine 0.96 (0.5-1.4) mg/dL Estim Creat Clear Calc 85.9 Estimated GFR > 60 Random Glucose 111 (60-115) mg/dL Calcium 10.2 D (8.4-10.2) mg/dL Total Bilirubin 1.4 H (0.0-1.0) mg/dL AST 21 (5-37) U/L ALT 33 (0-40) U/L Alkaline Phosphatase 83 (39-117) U/L Troponin I High Sens < 2.7 (<3.5-35.0) ng/L B-Natriuretic Peptide < 10 (<100) pg/mL Total Protein 8.0 (6.5-8.0) g/dL Albumin 4.5 (3.5-5.0) g/dL Ethyl Alcohol < 10 mg/dL Influenza Type A (PCR) NEGATIVE (Negative) Influenza Type B (PCR) NEGATIVE (Negative) RSV RNA Qual (PCR) NEGATIVE (Negative) SARS-CoV-2 RNA (RT-PCR) NEGATIVE (Negative) Independent Interpretation I performed an independent interpretation of an: EKG Interpretation: Normal sinus rhythm, HR-73, no STEMI, AL/QRS/QTC is within normal limits. Radiology Impression Discussion of test interpretation with radiology: I have reviewed the radiologist's reading. Radiologist Impression: Please see the discussion above External Record Review External record reviewed: Outpatient record, Prior outpatient labs and Prior outpatient radiology Chronic Conditions COPD Critical Care Time Critical Care Time Critical Care Time: Yes Total Critical Care Time: 45 Attestation: I personally attest to this time spent taking care of the patient. Discharge Plan Discharge Clinical Impression: Acute bronchitis with COPD Instructions: Acute Bronchitis (ED), COPD (Chronic Obstructive Pulmonary Disease) (ED) Additional Instructions: 1. Please complete the course of antibiotics and steroids that you have been prescribed. 2. Follow-up with your primary care doctor by calling the office on Thursday. Return to the ER for any worsening symptoms. Prescriptions: New doxycycline monohydrate 100 mg capsule 100 mg PO BID 5 Days Qty: 10 0RF prednisone 50 mg tablet 50 mg PO DAILY 4 Days Qty: 4 0RF No Action Anoro Ellipta 62.5-25 mcg/actuation blister with device 1 inh inhalation DAILY Qty: 180 2RF Multaq 400 mg tablet 400 mg PO BID 90 Days Qty: 180 3RF Rx Instructions: must administer with a meal/food Eliquis 5 mg tablet 5 mg PO BID Qty: 180 3RF carvedilol 6.25 mg tablet 6.25 mg PO BID Qty: 180 3RF atorvastatin 80 mg tablet 80 mg PO DAILY Qty: 90 1RF paroxetine HCl 20 mg tablet 20 mg PO QAM Qty: 90 1RF amlodipine 5 mg tablet 7.5 mg PO DAILY Qty: 135 3RF cholecalciferol (vitamin D3) [Vitamin D3] 25 mcg (1,000 unit) Tablet 25 mcg PO DAILY latanoprost 0.005 % drops 1 drp ophthalmic (eye) BEDTIME triamcinolone acetonide 0.1 % ointment 1 appl topical DAILY PRN (Reason: Rash) Referrals: Jose Marie, [employer] [Primary Care Provider] - Print Language: Chinese
[2024-01-03] MEDS: Albuterol Sulfate 2.5 MG, Albuterol/Iprat 2.5/0.5MG 3 ML 3 ML INHALE (11:52)
[2024-01-03 11:54] VITALS: PULSE 71; RESP 18; O2SAT 92
[2024-01-03 12:04] LABS: Ethanol < 10 mg/dL
[2024-01-03 13:11] VITALS: BP 117/72; PULSE 79; RESP 13; TEMP 37.3; O2SAT 92
[2024-01-03] MEDS: predniSONE 10 MG TABLET 50 MG PO (13:12)
[2024-01-03] MEDS: Doxycycline Monohydrate 100 MG CAPSULE PO (13:12)
== END 2024-01-03 13:19 | disposition home or self-care (01) ==
PROVIDERS: Emergency Provider Student in an Organized Health Care Education/Training Program; PCP Nurse Practitioner Family
DX: J44.0 Chronic obstructive pulmonary disease with (acute) lower respiratory infection (principal); J20.9 Acute bronchitis, unspecified; I10 Essential (primary) hypertension; I48.0 Paroxysmal atrial fibrillation
CPT/HCPCS: 0241U; 71045; 80053; 80307; 82803; 83880; 84484; 85025; 93005; 94640; 99284

== ENCOUNTER → 2024-01-03 07:25 | Outpatient (BNV) | payer MEDICARE, OTHER, SELFPAY | PROVIDERS: Emergency Provider Student in an Organized Health Care Education/Training Program; PCP Nurse Practitioner Family; Visit Provider Internal Medicine Cardiovascular Disease | DX: R07.9 Chest pain, unspecified (principal) | CPT/HCPCS: 93010 ==

== ENCOUNTER 2024-01-15 15:30 | Outpatient (AMB) | payer MEDICARE, OTHER, SELFPAY ==
--- NOTE | 2024-01-15 15:32 | MHC.OFFVIS ---
Vital Signs 01/15/24 15:33 Height 6 ft Weight 227 lb BMI 30.8 BP 102/70 Blood Pressure Location Rt brachial Position Sitting Pulse 74 Pulse Source Doppler Temp 99.1 F Temp Source Temporal Artery Scan Pulse Oximetry (%) 93 Oxygen Delivery Method Room Air Intake Visit Reasons: SOB not better after ER visit Allergies No Known Allergies Allergy (Verified 01/15/24 15:36) HPI HPI SOB not better after ER visit: Details: 73-year-old gentleman, never smoker of tobacco products, previously used marijuana,?followed for underlying moderate COPD and pulmonary nodules.? He continues to use Anoro and albuterol MDI with good control of his underlying symptoms.? patient recently had the exacerbation of his underlying COPD evaluated in treated at emergency room with a course of prednisone and doxycycline. Patient states that he has been doing well for approximately 2 weeks except the day of the visit when he started to feel like he is getting another exacerbation. [facility] Medical History Retinopathy RSV infection COPD (chronic obstructive pulmonary disease) Essential hypertension NICM (nonischemic cardiomyopathy) PAF (paroxysmal atrial fibrillation) COPD (chronic obstructive pulmonary disease) Atrial fibrillation Hypertension Cardiac arrhythmia Surgical History Status post catheter ablation of atrial fibrillation History of appendectomy History of hernia repair History of colonoscopy Family History Father Cancer of prostate Mother No problems noted. Daughter No problems noted. Daughter No problems noted. Brother Cancer of prostate Social History Household Members: Spouse Housing: House Do you presently have visiting nurse or other home services: No Alcohol intake: former Year quit: 2021 Patient Tobacco Use Status: Never used Tobacco e-Cigarette/Vaping Use: Never Used Second Hand Smoke Exposure: No Advance Directives Date on File: 05/26/21 service: Yes Current occupational status: retired Cognitive needs: No Hearing needs: No Vision needs: Yes Review of Systems Const Denies daytime sleepiness, Denies excessive sweating, Denies fatigue, Denies fever(s), Denies lethargy, Denies malaise, Denies night sweats, Denies snoring and Denies weight loss Eyes Denies blurry vision and Denies itchy eyes ENT Denies nasal congestion, Denies post nasal drip, Denies sinus pain, Denies sinus pressure and Denies other ( Thrush) Card Denies chest pain, Denies pedal edema, Denies dyspnea, Denies orthopnea and Denies paroxysmal nocturnal dyspnea Resp Reports cough, Denies hemoptysis, Denies excessive phlegm production, Denies dyspnea, Denies snoring and Reports wheezing GI Denies abdominal pain and Denies heartburn Musc Denies myalgias, Denies arthralgias and Denies joint swelling Skin/Breast Denies rash Neuro Denies memory loss and Denies seizure-like activity Psych Denies abnormal sleep pattern, Denies anxiety and Denies memory loss Endo Denies excessive sweating, Denies fatigue and Denies heat intolerance [place]/Lymph Denies easy bruising Aller/Immun Denies itchy eyes, Denies seasonal rhinorrhea and Reports wheezing Physical Exam Vital Signs: Last Vital Signs Temp 99.1 F 01/15/24 15:33 Pulse 74 01/15/24 15:33 BP 102/70 01/15/24 15:33 Pulse Ox 93 01/15/24 15:33 Oxygen Delivery Method Room Air 01/15/24 15:33 BMI result Body Mass Index 30.8 Const General: no acute distress and alert Nutritional Appearance: not obese Orientation/consciousness: Other orientation findings ( oriented) HEENT Head: Yes atraumatic Eyes General: appearance normal, both eyes and all related structures Sclerae: sclerae normal EOM: EOMs intact bilaterally Neck Neck: Yes supple Lymphatic: no lymphadenopathy noted Resp Effort & Inspection: normal respiratory effort and no use of accessory muscles Auscultation: clear to auscultation bilaterally Cardio Rate: regular rate Rhythm: regular rhythm Heart sounds: no gallops, no murmurs and no rubs Skin General skin exam: other ( warm) Extrem General: No clubbing, No cyanosis and No edema Assessment & Plan Assessment & Plan (1) COPD (chronic obstructive pulmonary disease): Code(s): J44.9 - Chronic obstructive pulmonary disease, unspecified Category: Medical Plan: Underlying COPD reasonably controlled on Anoro and albuterol MDI. Continue current regimen. Now appears to be into beginning of an exacerbation. Will treat with a course of prednisone and Augmentin. Medications: New prednisone 40 mg (2 x 20 mg) PO DAILY 10 tabs 0RF amoxicillin-pot clavulanate 875-125 mg 1 tab PO BID 14 tabs 0RF Discontinued doxycycline monohydrate Discontinued Reason: Doctor's Order 100 mg PO BID 5 days 10 caps 0RF prednisone Discontinued Reason: Doctor's Order 50 mg PO DAILY 4 days 4 tabs 0RF Coding Level of Care Code Est Pt Level 4 (17909) Diagnoses COPD (chronic obstructive pulmonary disease) J44.9
[2024-01-15 15:33] VITALS: BP 102/70; PULSE 74; TEMP 37.3; O2SAT 93; BMI 30.8
== END 2024-01-15 15:51 | disposition home or self-care (01) ==
PROVIDERS: PCP Nurse Practitioner Family; Visit Provider Internal Medicine Pulmonary Disease
DX: J44.9 Chronic obstructive pulmonary disease, unspecified (principal)
CPT/HCPCS: 99214

== ENCOUNTER → 2024-01-15 15:30 | Outpatient (BNVA) | payer OTHER, MEDICARE, SELFPAY | PROVIDERS: PCP Nurse Practitioner Family; Visit Provider Internal Medicine Pulmonary Disease ==

== ENCOUNTER 2024-01-18 11:17 | Outpatient (AMB) | payer MEDICARE, OTHER, SELFPAY ==
--- NOTE | 2024-01-18 11:17 | A.OFFVIS_ITS ---
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 Accompanied by: Self / Same As Patient Allergies No Known Allergies Allergy (Verified 01/18/24 11:49) Medication List - Last Reconciled 01/18/24 by TARSHA Gray-NIMESH amlodipine 7.5 mg (1.5 x 5 mg) PO DAILY amoxicillin-pot clavulanate 875-125 mg 1 tab PO BID Anoro Ellipta 62.5-25 mcg/actuation (umeclidinium-vilanterol) 1 inh inhalation DAILY NS apixaban (Eliquis) 5 mg PO BID atorvastatin 80 mg PO DAILY carvedilol 6.25 mg PO BID cholecalciferol (vitamin D3) (Vitamin D3) 25 mcg PO DAILY dronedarone (Multaq) 400 mg PO BID 90 days latanoprost 0.005% 1 drp ophthalmic (eye) BEDTIME paroxetine HCl 20 mg PO QAM prednisone 40 mg (2 x 20 mg) PO DAILY triamcinolone acetonide 0.1% 1 appl topical DAILY PRN HPI Comments Details: Nakul Kilpatrick is a very pleasant 73-year-old male patient of Dr. Parada. He has a past medical history of retinopathy, RSV infection, COPD, hypertension, nonischemic cardiomyopathy, and paroxysmal AFib. He presents to the office today as a new patient for microscopic hematuria. In discussion with the patient today reports having followed up with his PCP at which time microscopic hematuria was noted and a CT urogram was ordered for further assessment evaluation and recommendations were made for urology referral. Recent CT results reviewed with the patient today. No nephrolithiasis, symmetric nephrograms. Simple cyst in the mid and lower left kidney. No follow-up imaging is recommended per radiology report. No filling defects in the collecting system or ureters. The bladder is trabeculated. There is a sessile area of thickening along the posterior bladder wall measuring approximately 3.3 cm in diameter and approximately 10 mm in thickness. This appears separate from the prostate. Mildly enlarged prostate. When asked he does report a history of recreational marijuana smoking. 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 When asked he also reports noting urinary frequency however states this has been his whole life and does not find it bothersome. He otherw ise denies urinary urgency, incontinence, nocturia, dysuria, foul smelling urine, changes to urinary stream, flank pain, fever, and or chills. He is happy with his current voiding parameters. In office urinalysis results reviewed with the patient today no microscopic hematuria noted. Discussed at length reasons for blood in the urine may include but are not limited to kidney stones, cancer in the urinary tract, BPH, kidney stone disease or inflammatory conditions of the urinary tract. He otherwise offers no other issues or concerns at this time. In review of patient's chart it appears PSAs are as follows: 11/28 1.4, 01/29 1.4, 12/01 2.0. [facility] Medical History Retinopathy RSV infection COPD (chronic obstructive pulmonary disease) Essential hypertension NICM (nonischemic cardiomyopathy) PAF (paroxysmal atrial fibrillation) COPD (chronic obstructive pulmonary disease) Atrial fibrillation Hypertension Cardiac arrhythmia Surgical History Status post catheter ablation of atrial fibrillation History of appendectomy History of hernia repair History of colonoscopy Family History Father Cancer of prostate Mother No problems noted. Daughter No problems noted. Daughter No problems noted. Brother Cancer of prostate Social History Household Members: Spouse Housing: House Do you presently have visiting nurse or other home services: No Alcohol intake: former Year quit: 2021 Patient Tobacco Use Status: Never used Tobacco e-Cigarette/Vaping Use: Never Used Second Hand Smoke Exposure: No Advance Directives Date on File: 05/26/21 service: Yes Current occupational status: retired Cognitive needs: No Hearing needs: No Vision needs: Yes Review of Systems Const Reports no additional complaints Eyes Reports no additional complaints ENT Reports no additional complaints Card Reports as per HPI Resp Reports as per HPI GI Reports no additional complaints Reports as per HPI Musc Reports no additional complaints Neuro Reports no additional complaints Psych Reports no additional complaints Endo Reports no additional complaints Channing/Lymph Reports no additional complaints Aller/Immun Reports no additional complaints Physical Exam Const General: cooperative, healthy appearing, comfortable, no acute distress, well developed, alert and awake Orientation/consciousness: patient oriented x3 Limitations: no limitations HEENT Head: Yes normal to inspection, Yes normocephalic and Yes atraumatic Ears: hearing grossly normal bilaterally Eyes General: appearance normal, both eyes and all related structures Neck Neck: Yes normal visual inspection and Yes trachea midline Chest Chest palpation & inspection: normal inspection of the chest Resp Effort & Inspection: normal respiratory effort and able to speak in complete sentences Cardio Rate: regular rate GI Inspection: Yes normal to inspection General: Yes no CVA tenderness Back/Spine/Pelvis Back: no CVA tenderness Skin General skin exam: no rashes or lesions noted Neuro General: patient oriented x3 Extrem General: Yes normal to inspection Psych Appearance: grossly normal and well kempt Mental Status: mental status grossly normal Speech and movement: Normal speech and movement present and Clear speech present Affect: normal affect Attitude: cooperative Thought process: Normal thought process present Thought content: Normal thought content present Insight: Fair insight present (Psych) Judgement: Fair judgement present (Psych) Results AMB Urinalysis, Automated UA Leukoctes 0 Lis/uL Last Edit by [employer] on 01/18/24 11:38 UA Nitrite Negative Last Edit by [employer] on 01/18/24 11:38 UA Urobilinogen 0.2 mg/dL Last Edit by [employer] on 01/18/24 11:38 UA Protein 15 mg/dL Last Edit by [employer] on 01/18/24 11:38 UA pH 6.0 Last Edit by [employer] on 01/18/24 11:38 UA Blood 0 Roney/uL Last Edit by [employer] on 01/18/24 11:38 UA Specific [place] 1.020 Last Edit by [employer] on 06/10/24 11:38 UA Ketone Negative Last Edit by Jered Murrell on 01/18/24 11:38 UA Bilirubin 0 mg/dL Last Edit by Jered Murrell on 01/18/24 11:38 UA Glucose 0 mg/dL Last Edit by Jered Murrell on 01/18/24 11:38 Results Reviewed Results Reviewed: Laboratory Last Values Urine pH (Auto) 6.0 01/18/24 11:21 Specific [place] (Auto) 1.020 01/18/24 11:21 Urine Protein (Auto) 15 mg/dL 01/18/24 11:21 Glucose (UA)(Auto) 0 mg/dL 01/18/24 11:21 Urine Ketones (Auto) Negative 01/18/24 11:21 Urine Blood (Auto) 0 Roney/uL 01/18/24 11:21 Urine Nitrite (Auto) Negative 01/18/24 11:21 Urine Bilirubin (Auto) 0 mg/dL 01/18/24 11:21 Urine Urobilinogen (Auto) 0.2 mg/dL 01/18/24 11:21 Leukocyte Esterase (Auto) 0 Lis/uL 01/18/24 11:21 Date of Service: 12/22/23 EXAMINATION: CT ABDOMEN AND PELVIS WITHOUT AND WITH CONTRAST FINDINGS: LUNG BASES: Stable scarring in the lingula and bilateral lower lobes compared to CT chest 11/13/2023. LIVER, GALLBLADDER, AND BILIARY TREE: The liver is normal in size, shape, and attenuation tiny cyst in the left hepatic lobe for which no imaging follow-up is recommended. No biliary ductal dilatation is present. The gallbladder is unremarkable with no evidence of radiopaque gallstones, gallbladder wall thickening, or obvious pericholecystic inflammatory changes. PANCREAS: No discrete pancreatic mass. No pancreatic ductal dilatation. SPLEEN: Unremarkable. ADRENAL GLANDS: Unremarkable. KIDNEYS AND URETERS: No nephrolithiasis. Symmetric nephrograms. Simple cysts in the mid and lower left kidney. No follow-up imaging is recommended. Several tiny cortical hypodensities in both kidneys are too small to characterize but most likely cysts and no follow-up imaging is indicated. Symmetric urinary excretion of contrast no hydroureteronephrosis. No filling defects in the collecting system or ureters. BLADDER: Trabeculated urinary bladder. There is a sessile area of thickening along the posterior bladder wall measuring 3.3 x 1.7 cm in diameter and approximately 10 mm in thickness. This appears separate from the prostate. GASTROINTESTINAL TRACT: Small large bowel are normal in caliber. No inflammatory changes. ABDOMINAL WALL: Fat-containing left inguinal hernia. LYMPH NODES: No adenopathy. VASCULAR: No aortic aneurysm. Mild aortoiliac atherosclerosis. PELVIC VISCERA: The prostate is mildly enlarged measuring 4.2 x 3.2 x 4.4 cm. OSSEUS STRUCTURES: Degenerative changes in the spine. IMPRESSION: No nephrolithiasis or renal mass to explain hematuria. The renal collecting systems appear normal. No hydroureteronephrosis. Trabeculated bladder with prominent area of sessile thickening along the posterior bladder wall measuring 3.3 x 1.7 x 1.0 cm. This may be a more prominent trabeculation although a bladder mass is not excluded. In the presence of hematuria, recommend cystoscopy for further examination. Mildly enlarged prostate. Assessment & Plan Assessment & Plan (1) Enlarged prostate: Code(s): N40.0 - Benign prostatic hyperplasia without lower urinary tract symptoms Category: Medical (2) Microscopic hematuria: Code(s): R31.29 - Other microscopic hematuria Category: Medical (3) Bladder trabeculation: Code(s): N32.89 - Other specified disorders of bladder Category: Medical (4) H/O urinary frequency: Code(s): Z87.898 - Personal history of other specified conditions Category: Medical Plan In office urinalysis results reviewed with the patient today; as noted above; will send for urine cytology. Discussed at length potential causes for microscopic hematuria. Discussed further microscopic hematuria workup to include urine cytology, and in office cystoscopy; risks and benefits of these interventions were discussed at length. Recent CT results reviewed with the patient today; as noted above. Patient does report longstanding history of urinary frequency however does not feel this is bothersome. He otherwise denies any bothersome urinary issues or concerns. Recent PSA results reviewed with the patient today; as noted above. Follow-up in office cystoscopy; or sooner with any issues, concerns, and or questions. Orders: Orders AMB Urinalysis Automated Today Z13.9 - Encounter for screening, unspecified Urine Cytology Today R31.29 - Other microscopic hematuria Patient Instructions: The patient had an opportunity to ask questions regarding the treatment plan. All questions were answered. Physical exam, labs, and imaging were discussed and reviewed in detail. As well as risks, benefits, and discussion of treatment choices. No major barriers to understanding were identified. The patient expressed understanding and agreement with the above treatment plan. The patient was made aware they should contact our office by phone for worsening of their current condition, the appearance of new symptoms, or with any questions or concerns. Compliance is encouraged with any medications and follow up testing that is ordered. It is a privilege to be allowed the opportunity to participate in? your urological care.? Again, if you have any questions or concerns If you have any questions or concerns please do not hesitate to contact me. The office is [phone]. This note is constructed using voice recognition software. While every effort has been made to ensure accuracy warehouse order filler errors may have been included. Yours sincerely, ALLEN Gray Coding Level of Care Code New Pt Level 3 (73454) Diagnoses Enlarged prostate N40.0 Microscopic hematuria R31.29 Bladder trabeculation N32.89 H/O urinary frequency Z87.898
== END 2024-01-18 11:51 | disposition home or self-care (01) ==
PROVIDERS: PCP Nurse Practitioner Family; Visit Provider Nurse Practitioner Family
DX: N40.0 Benign prostatic hyperplasia without lower urinary tract symptoms (principal); R31.29 Other microscopic hematuria; N32.89 Other specified disorders of bladder; Z87.898 Personal history of other specified conditions; Z13.9 Encounter for screening, unspecified
CPT/HCPCS: 99203

== ENCOUNTER 2024-01-18 11:17 | Outpatient (REF) | payer MEDICARE, OTHER, SELFPAY ==
[2024-01-18 17:04] LABS: Urine Cytology See Pathology rpt
== END 2024-01-18 11:18 | disposition home or self-care (01) ==
LOC: HO.LNP 11:17
PROVIDERS: PCP Nurse Practitioner Family; Visit Provider Nurse Practitioner Family
DX: R31.29 Other microscopic hematuria (principal); N40.0 Benign prostatic hyperplasia without lower urinary tract symptoms; N32.89 Other specified disorders of bladder; Z87.898 Personal history of other specified conditions
CPT/HCPCS: 81003; 88112; 99202

== ENCOUNTER → 2024-02-17 12:46 | Outpatient (REF) | payer MEDICARE, OTHER, SELFPAY ==
--- NOTE | 2024-02-17 12:50 | CA_ITS ---
Transthoracic Echocardiogram Patient (Last, First, Middle): Nakul Real, Gender: Male Date of : 1950 Age: 73 Procedure Date: 02/17/2024 Procedure Type: Transthoracic Echocardiogram Location: OP Height: 182.88 cm Weight: 104.33 kg BSA: 2.26 m2 Heart Rate: bpm BP: 120 / 75 mmHg Wearing Apparel Folder: BRY Referring MD: Juarez Herrera MD Symptoms: I71.2 - Thoracic aortic aneurysm, without rupture Study Quality: Adequate Conclusions: - 1. Normal LV ejection fraction of 60 65% 2. Trivial aortic and mild mitral regurgitation 3. Normal RV systolic pressure 4. Moderately dilated ascending aorta at 4.8 cm and mildly dilated arch at 4.1 cm 5. No pericardial effusion Findings Left Ventricle Normal left ventricular size, thickness, and systolic function. The visually estimated ejection fraction is between 60-65%. Spectral Doppler is indicative of a normal filling pattern. Right Ventricle Normal right ventricular cavity size and systolic function. Atria The left atrium is mildly dilated. There is lipomatous hypertrophy of the interatrial septum. There is no evidence of interatrial shunt. The right atrium is normal in size. Aortic Valve Normal aortic valve structure and function. There is no aortic valve stenosis. There is trace (trivial) aortic valve regurgitation. Mitral Valve Normal mitral valve structure and function. There is mild mitral valve regurgitation. There is no mitral valve stenosis. Pulmonic Valve The pulmonic valve is likely normal. There is trace pulmonic valve regurgitation. Tricuspid Valve Normal tricuspid valve structure. There is trace tricuspid valve regurgitation. The right ventricular systolic pressure is normal. The right ventricular systolic pressure is 25 mmHg. Normal right atrial pressure. There is no evidence of pulmonary hypertension. Great Vessels The pulmonary artery was not well visualized. There is mild dilatation of the aortic arch. Venous The inferior vena cava is normal in size and collapses greater than 50% with inspiration. Pericardium/Pleural There is no evidence of pericardial effusion. Prior Study Comparison No significant change compared to prior study dated: 02/12/2023. Measurements 2D Linear Measurements IVSd: 1.10 0.6-0.9/0.6-1.0 cm LVIDd: 5.02 3.9-5.3/4.2-5.9 cm LVIDd Index: 2.22 2.4-3.2/2.2-3.1 cm/m2 LVIDs: 3.40 2.0-3.6 cm LVPWd: 1.14 0.7-1.1 cm LA Diam: 3.70 2.7-3.8/3.0-4.0 cm LAIDs Index: 1.64 1.5-2.3 cm/m2 LV Mass: 266.40 67-162/88-224 g LV Mass Index: 117.87 43-95/49-115 g/m2 LVOT Diam: 2.40 3.0+(-)1.3 cm 2D Systolic Function EF 4C: 62.00 >55% EF 2C: 58.10 >55% EF BiP: 60.40 >55% Mitral Valve MV Pk E: 0.72 MV PK A: 0.48 MV Decel Time: 257.00 E/A: 1.50 E'Lateral: 9.68 E'Medial: 8.81 E/E' Med: 8.20 E/E' Lat: 7.50 PHT: 75.00 MVA PHT: 2.93 Decel [place]: 2.82 Aortic Valve AoV Pk Brian: 1.48 AoV Mn Biran: 1.07 AoV VTI: 0.35 AoV Pk Grad: 9.00 Aov Mn Grad: 5.00 ROSALVA Cont.VTI: 3.05 LVOT LVOT Pk Brian: 1.04 LVOT Mn Brian: 0.72 LVOT VTI: 0.24 LVOT Pk Grad: 4.00 LVOT Mn Grad: 2.00 LVOT Diam: 2.40 LVOT Area: 4.52 Diastolic Function MV Pk E: 0.72 MV Pk A: 0.48 E/A: 1.50 E'Medial: 8.81 E/E' Med: 8.20 E' Laterial: 9.68 E/E' Lat: 7.50 Right Ventricle TAPSE (mm): 23.50 TVS' Brian: 10.90 Tricuspid Valve TR Pk Brian: 2.37 TR Pk Grad: 22.00 RA Press: 3.00 RVSP: 25.00 Great Vessels Aorta Sinus of Valsalva: 4.48 2.0-3.[address] [place]: 3.53 1.7-3.4 cm Ao Asc: 4.80 2.1-3.4 cm Ao Arch: 4.10 Updated in Other Vendor System with Status of Final Dhiraj Gurrola MD electronically signed on 02/18/2024 9:06:02 AM with status of Final
== END ==
LOC: HO.CARD 12:46
PROVIDERS: PCP Nurse Practitioner Family; Visit Provider Internal Medicine
DX: I71.20 Thoracic aortic aneurysm, without rupture, unspecified (principal)
CPT/HCPCS: 93306

== ENCOUNTER → 2024-02-17 12:50 | Outpatient (BNV) | payer MEDICARE, OTHER, SELFPAY | PROVIDERS: PCP Nurse Practitioner Family; Visit Provider Internal Medicine Cardiovascular Disease | DX: I34.0 Nonrheumatic mitral (valve) insufficiency (principal) | CPT/HCPCS: 93306 ==

== ENCOUNTER 2024-03-02 13:29 | Outpatient (AMB) | payer MEDICARE, OTHER, SELFPAY ==
[2024-03-02 13:31] VITALS: BP 114/68; PULSE 62; BMI 31.7
--- NOTE | 2024-03-02 13:31 | MHC.OFFVIS ---
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 Accompanied by: Self / Same As Patient Allergies No Known Allergies Allergy (Verified 01/18/24 11:49) Medication List - Last Reconciled 03/02/24 by Juarez Herrera MD amlodipine 7.5 mg (1.5 x 5 mg) PO DAILY Anoro Ellipta 62.5-25 mcg/actuation (umeclidinium-vilanterol) 1 inh inhalation DAILY NS apixaban (Eliquis) 5 mg PO BID atorvastatin 80 mg PO DAILY carvedilol 6.25 mg PO BID cholecalciferol (vitamin D3) (Vitamin D3) 25 mcg PO DAILY dronedarone (Multaq) 400 mg PO BID 90 days latanoprost 0.005% 1 drp ophthalmic (eye) BEDTIME paroxetine HCl 20 mg PO QAM triamcinolone acetonide 0.1% 1 appl topical DAILY PRN HPI Comments Details: Nakul returns for follow-up regarding atrial fibrillation, cardiomyopathy as well as aortic aneurysm. Due to symptomatic atrial fibrillation in spite of cardioversions as well as Amiodarone use, he underwent atrial fibrillation ablation. In 2021, he had a recurrence of the same. Possibly related to alcohol. Then underwent one further cardioversion and then was on Amiodarone. Then switched to Multaq. Since that time, he states he is doing pretty good. No further atrial fibrillation or in fact any issues whatsoever. He is also not drinking much according to him. No other complaints. [facility] Medical History Retinopathy RSV infection COPD (chronic obstructive pulmonary disease) Essential hypertension NICM (nonischemic cardiomyopathy) PAF (paroxysmal atrial fibrillation) COPD (chronic obstructive pulmonary disease) Atrial fibrillation Hypertension Cardiac arrhythmia Surgical History Status post catheter ablation of atrial fibrillation History of appendectomy History of hernia repair History of colonoscopy Family History Father Cancer of prostate Mother No problems noted. Daughter No problems noted. Daughter No problems noted. Brother Cancer of prostate Social History Household Members: Spouse Housing: House Do you presently have visiting nurse or other home services: No Alcohol intake: former Year quit: 2021 Patient Tobacco Use Status: Never used Tobacco e-Cigarette/Vaping Use: Never Used Second Hand Smoke Exposure: No Advance Directives Date on File: 05/26/21 service: Yes Current occupational status: retired Cognitive needs: No Hearing needs: No Vision needs: Yes Review of Systems Const Denies chills, Denies fatigue, Denies fever(s), Denies weight gain and Denies weight loss ENT Denies dizziness Card Denies chest pain, Denies leg edema, Denies lightheadedness, Denies palpitations, Denies dyspnea on exertion, Denies orthopnea and Denies other Resp Denies cough and Denies dyspnea on exertion GI Denies hematochezia and Denies change in stool character Musc Denies abnormal gait, Denies muscle weakness, Denies numbness, Denies radiating pain into limb and Denies tingling Neuro Denies abnormal gait, Denies dizziness, Denies numbness and Denies tingling Endo Denies fatigue and Denies palpitations Physical Exam Vital Signs: Last Vital Signs Pulse 62 03/02/24 13:31 BP 114/68 03/02/24 13:31 BMI result Body Mass Index 31.7 Const General: comfortable and no acute distress Orientation/consciousness: patient oriented x3 HEENT Other: Unremarkable Head: Yes normal to inspection Neck Neck: Yes normal visual inspection Chest Chest palpation & inspection: normal inspection of the chest Resp Auscultation: clear to auscultation bilaterally Cardio Palpation: normal PMI Heart sounds: S1 normal heart sound present, S2 normal heart sound present, no gallops, no murmurs and no rubs GI Palpation (GI): Soft to palpation Back/Spine/Pelvis Other: unremarkable Skin General skin exam: no rashes or lesions noted Neuro General: patient oriented x3 Extrem General: Yes normal to inspection Psych Mental Status: mental status grossly normal Office Procedures EKG Details: EKG with sinus rhythm at 62/Min; no significant ST-T changes and otherwise unremarkable. [place]. [id number], Complete Assessment & Plan Assessment & Plan (1) PAF (paroxysmal atrial fibrillation): Code(s): I48.0 - Paroxysmal atrial fibrillation Category: Medical Plan: Status post atrial fibrillation ablation. Continue Multaq. Continue Eliquis. (2) NICM (nonischemic cardiomyopathy): Code(s): I42.8 - Other cardiomyopathies Category: Medical Plan: Cardiac catheterization from 2017 with normal coronary arteries. Most recent echocardiogram with recovered LVEF. 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 Continue Coreg. He has hyperkalemia and hence unable to take lisinopril. Otherwise, stable. (3) Essential hypertension: Code(s): I10 - Essential (primary) hypertension Category: Medical Plan: Stable. Continue Amlodipine. (4) Ascending aortic aneurysm: Code(s): I71.2 - Thoracic aortic aneurysm, without rupture Category: Medical Plan: Per echocardiogram, ascending aortic size 4.8 cm. Previously, about 4.7 cm. Overall, it has been thought to be mostly stable over the last few years. We will recheck this in about 6 months' time. (5) Excessive drinking alcohol: Code(s): F10.10 - Alcohol abuse, uncomplicated Category: Social Hx Plan: Per patient, he is not drinking these days. He is aware of various health implications including atrial fibrillation. Orders: Orders CA Echo Limited 6 Months I71.2 - Thoracic aortic aneurysm, without rupture Coding Level of Care Code Est Pt Level 4 (39413) Diagnoses PAF (paroxysmal atrial fibrillation) I48.0 NICM (nonischemic cardiomyopathy) I42.8 Essential hypertension I10 Ascending aortic aneurysm I71.2 Excessive drinking alcohol F10.10 CPT Codes EKG - CPT: 39642-[id number], Complete ([id number])
== END 2024-03-02 13:53 | disposition home or self-care (01) ==
PROVIDERS: PCP Nurse Practitioner Family; Visit Provider Internal Medicine
DX: I48.0 Paroxysmal atrial fibrillation (principal); I42.8 Other cardiomyopathies; I10 Essential (primary) hypertension; I71.20 Thoracic aortic aneurysm, without rupture, unspecified; F10.10 Alcohol abuse, uncomplicated
CPT/HCPCS: 93010; 99214

== ENCOUNTER → 2024-03-02 13:29 | Outpatient (BNVA) | payer MEDICARE, OTHER, SELFPAY | PROVIDERS: PCP Nurse Practitioner Family; Visit Provider Internal Medicine | DX: I48.0 Paroxysmal atrial fibrillation (principal); I42.8 Other cardiomyopathies; I10 Essential (primary) hypertension; I71.20 Thoracic aortic aneurysm, without rupture, unspecified; F10.10 Alcohol abuse, uncomplicated | CPT/HCPCS: 93005; 99212 ==

== ENCOUNTER 2024-03-08 12:57 | Outpatient (AMB) | payer MEDICARE, OTHER, SELFPAY ==
--- NOTE | 2024-03-08 13:04 | A.OFFVIS_ITS ---
Intake Visit Reasons: cysto Intake Note: Patient is present for Cystoscopy Urology Medication:none Antibiotic Allergy:none Blood Thinner:lyric Lot:[id number] Exp:09/24/2026 Network Security Consultant Required: No Allergies No Known Allergies Allergy (Verified 03/08/24 13:05) HPI Comments Details: Finesse is a pleasant male. He is a patient Dr. Parada. He seen for the following urologic conditions - microscopic hematuria Here for cystoscopy Has trigonitis PSA 11/28 1.4, 01/29 1.4, 12/01 2.0 Plan six-month follow-up. If stable can follow-up p.r.n. Microscopic hematuria Incidental finding CT urogram with simple cyst mid left kidney, trabeculated bladder, sessile area of thickening along posterior wall. Mildly enlarged prostate. Cytology negative [facility] Medical History Retinopathy RSV infection COPD (chronic obstructive pulmonary disease) Essential hypertension NICM (nonischemic cardiomyopathy) PAF (paroxysmal atrial fibrillation) COPD (chronic obstructive pulmonary disease) Atrial fibrillation Hypertension Cardiac arrhythmia Surgical History Status post catheter ablation of atrial fibrillation History of appendectomy History of hernia repair History of colonoscopy Family History Father Cancer of prostate Mother No problems noted. Daughter No problems noted. Daughter No problems noted. Brother Cancer of prostate Social History Household Members: Spouse Housing: House Do you presently have visiting nurse or other home services: No Alcohol intake: former Year quit: 2021 Patient Tobacco Use Status: Never used Tobacco e-Cigarette/Vaping Use: Never Used Second Hand Smoke Exposure: No Advance Directives Date on File: 05/26/21 service: Yes Current occupational status: retired Cognitive needs: No Hearing needs: No Vision needs: Yes Review of Systems Const Denies chills and Denies fever(s) Card Reports no additional complaints and Denies syncope Resp Denies cough GI Denies abdominal pain and Denies heartburn Reports as per HPI and Denies change in libido Neuro Denies syncope Psych Denies change in libido Endo Denies change in libido Physical Exam Const General: cooperative, healthy appearing, comfortable and no acute distress Orientation/consciousness: patient oriented x3 HEENT Face and sinus: Yes normal facial exam Mouth: moist mucous membranes Neck Neck: Yes normal visual inspection, Yes full ROM and Yes trachea midline Chest Chest palpation & inspection: normal inspection of the chest Resp Effort & Inspection: normal respiratory effort, able to speak in complete sentences and no respiratory distress GI Inspection: Yes normal to inspection Back/Spine/Pelvis Cervical Spine: normal cervical lordosis Thoracic/Lumbar Spine: thoracic and lumbar spine normal to inspection Skin General skin exam: no rashes or lesions noted Neuro General: patient oriented x3, gait normal, tone normal and moves all extremities Extrem General: Yes normal to inspection and Yes capillary refill normal Office Procedures Cystoscopy Consent Discussed risk and benefit or proposed procedure with the patient. Information consent for procedure given to the patient. Discussed technical aspects, risks, benefits and alternatives in full. Addressed all of the patient's questions and concerns regarding the procedure. The patient demonstrated knowledge and understanding. They wish to proceed with this procedure. Preparation The patient was prepped in the usual manner. A senior front end web developer was present and in the room. Genitalia was prepped with betadine solution in a sterile manner. Lidocaine Jelly 2% was placed into the urethra and 16Fr flexible Olympus cystoscope was inserted into the meatus after adequate lubrication. Procedure Cystoscopy performed using a disposable Urovue digital 16 Peruvian cystoscope. Meatus circumcised Urethra anterior posterior urethra normal Prostatic Urethra unremarkable Bladder examination with retroflexion of cystoscope Bladder Orifices normal shape and position trigonitis Bladder Capacity me Trabeculations grade 2/3 Cellule Formation yes Diverticulum Formation small Mucosal Erythema trigonitis Bladder Tumor - [id number] DISPOSABLE SCOPE URO-G FLEXIBLE SCOPE Procedure code (CPT) selection complete Office Meds lidocaine HCl 2 % mucosal jelly in applicator Performing Provider: Trevor Shipley MD [place] [facility] [place] [facility] Administered by: Robin Lucio LPN on 03/08/24 13:23 Dose Route Admin Location Dispensed Lot Number Expiration Date NDC Library Associate 10 mL intra-urethral 10 mL nitrofurantoin monohydrate/macrocrystals 100 mg capsule Performing Provider: Trevor Shipley MD Performing Location[place] [facility] [place] [facility] Administered by: Robin Lucio LPN on 03/08/24 13:23 Dose Route Admin Location Dispensed Lot Number Expiration Date NDC Library Associate 100 mg PO 1 cap naproxen 500 mg tablet Performing Provider: Trevor Shipley MD [place] [facility] [place] [facility] Administered by: Robin Lucio LPN on 03/08/24 13:23 Dose Route Admin Location Dispensed Lot Number Expiration Date NDC Library Associate 500 mg PO 1 tab Results AMB Urinalysis, Automated UA Leukoctes 0 Lis/uL Last Edit by LUDIN Astudillo on 03/08/24 13:17 UA Nitrite Negative Last Edit by LUDIN Astudillo on 03/08/24 13:17 UA Urobilinogen 0.2 mg/dL Last Edit by LUDIN Astudillo on 03/08/24 13:1 7 UA Protein 0 mg/dL Last Edit by LUDIN Astudillo on 03/08/24 13:17 UA pH 5.5 Last Edit by LUDIN Astudillo on 03/08/24 13:17 UA Blood 0 Roney/uL Last Edit by LUDIN Astudillo on 03/08/24 13:17 UA Specific [place] 1.020 Last Edit by LUDIN Astudillo on 03/08/24 13: 17 UA Ketone Negative Last Edit by LUDIN Astudillo on 03/08/24 13:17 UA Bilirubin 0 mg/dL Last Edit by LUDIN Astudillo on 03/08/24 13:17 UA Glucose 0 mg/dL Last Edit by LUDIN Astudillo on 03/08/24 13:17 Results Reviewed Results Reviewed: Laboratory Last Values Urine pH (Auto) 5.5 03/08/24 13:16 Specific [place] (Auto) 1.020 03/08/24 13:16 Urine Protein (Auto) 0 mg/dL 03/08/24 13:16 Glucose (UA)(Auto) 0 mg/dL 03/08/24 13:16 Urine Ketones (Auto) Negative 03/08/24 13:16 Urine Blood (Auto) 0 Roney/uL 03/08/24 13:16 Urine Nitrite (Auto) Negative 03/08/24 13:16 Urine Bilirubin (Auto) 0 mg/dL 03/08/24 13:16 Urine Urobilinogen (Auto) 0.2 mg/dL 03/08/24 13:16 Leukocyte Esterase (Auto) 0 Lis/uL 03/08/24 13:16 Assessment & Plan Assessment & Plan (1) Bladder trabeculation: Code(s): N32.89 - Other specified disorders of bladder Category: Medical (2) Enlarged prostate: Code(s): N40.0 - Benign prostatic hyperplasia without lower urinary tract symptoms Category: Medical Plan Six month follow-up UA with nurse practitioner Orders: Orders AMB Urinalysis Automated Today Z13.9 - Encounter for screening, unspecified AMB Cystoscopy Today N32.89 - Other specified disorders of bladder, R31.29 - Other microscopic hematuria, Z87.898 - Personal history of other specified conditions Patient Instructions: Imaging studies, laboratory and physical exam results were discussed and reviewed in detail. No major barriers to patient understanding were identified. An opportunity to ask questions regarding the treatment plan was provided. All questions were answered. The patient expressed understanding and agreement with the above treatment plan. The patient is aware they should contact our office by phone for worsening of their current condition or the appearance of new urologic symptoms. Compliance is encouraged with any medications and followup testing that is ordered. It is a privilege to participate in the urologic care of your patient. If you have any questions or concerns regarding treatment for the above conditions, or other urologic issues, please do not hesitate to contact me. The office telephone contact is [phone]. This note is constructed using voice recognition software. While every effort has been made to ensure accuracy sales department manager errors may have been included. Yours sincerely, Dr Trevor Shipley MD, TE[facility] - Urology Providers of Expert, Compassionate Care for the Genitourinary System Coding Level of Care Code Est Pt Level 3 (51213) Diagnoses Bladder trabeculation N32.89 Enlarged prostate N40.0 CPT Codes Cystoscopy - CPT: [id number] ([id number])
== END 2024-03-08 13:53 | disposition home or self-care (01) ==
PROVIDERS: PCP Nurse Practitioner Family; Visit Provider Urology
DX: N32.89 Other specified disorders of bladder (principal); R31.29 Other microscopic hematuria; N40.0 Benign prostatic hyperplasia without lower urinary tract symptoms; Z13.9 Encounter for screening, unspecified; Z87.898 Personal history of other specified conditions
CPT/HCPCS: 52000; 99213

== ENCOUNTER → 2024-03-08 12:57 | Outpatient (BNVA) | payer MEDICARE, OTHER, SELFPAY | PROVIDERS: PCP Nurse Practitioner Family; Visit Provider Urology | DX: N40.0 Benign prostatic hyperplasia without lower urinary tract symptoms (principal); N32.89 Other specified disorders of bladder | CPT/HCPCS: 52000; 81003; 99212 ==

== ENCOUNTER 2024-06-07 13:31 | Outpatient (AMB) | payer MEDICARE, OTHER, SELFPAY ==
[2024-06-07 13:36] VITALS: BP 132/78; PULSE 66; O2SAT 93; BMI 33.0
--- NOTE | 2024-06-07 13:36 | A.OFFVIS_ITS ---
Vital Signs 06/07/24 13:36 Height 6 ft Weight 243 lb 9.773 oz BMI 33.0 BP 132/78 Blood Pressure Location Lt brachial Position Sitting Pulse 66 Pulse Source Doppler Pulse Oximetry (%) 93 Oxygen Delivery Method Room Air Intake Visit Reasons: COPD Allergies No Known Allergies Allergy (Verified 03/08/24 13:05) HPI HPI COPD: Details: 74-year-old gentleman, never smoker of tobacco products, previously used marijuana,?followed for underlying moderate COPD and pulmonary nodules.? He continues to use Anoro and albuterol MDI with good control of his underlying symptoms.? He denies recent exacerbations. [facility] Medical History Retinopathy RSV infection COPD (chronic obstructive pulmonary disease) Essential hypertension NICM (nonischemic cardiomyopathy) PAF (paroxysmal atrial fibrillation) COPD (chronic obstructive pulmonary disease) Atrial fibrillation Hypertension Cardiac arrhythmia Surgical History Status post catheter ablation of atrial fibrillation History of appendectomy History of hernia repair History of colonoscopy Family History Father Cancer of prostate Mother No problems noted. Daughter No problems noted. Daughter No problems noted. Brother Cancer of prostate Social History Household Members: Spouse Housing: House Do you presently have visiting nurse or other home services: No Alcohol intake: former Year quit: 2021 Patient Tobacco Use Status: Never used Tobacco e-Cigarette/Vaping Use: Never Used Second Hand Smoke Exposure: No Advance Directives Date on File: 05/26/21 service: Yes Current occupational status: retired Cognitive needs: No Hearing needs: No Vision needs: Yes Review of Systems Const Denies daytime sleepiness, Denies excessive sweating, Denies fatigue, Denies fever(s), Denies lethargy, Denies malaise, Denies night sweats, Denies snoring and Denies weight loss Eyes Denies blurry vision and Denies itchy eyes ENT Denies nasal congestion, Denies post nasal drip, Denies sinus pain, Denies sinus pressure and Denies other ( Thrush) Card Denies chest pain, Denies pedal edema, Denies dyspnea, Denies orthopnea and Denies paroxysmal nocturnal dyspnea Resp Denies cough, Denies hemoptysis, Denies excessive phlegm production, Denies dyspnea, Denies snoring and Denies wheezing GI Denies abdominal pain and Denies heartburn Musc Denies myalgias, Denies arthralgias and Denies joint swelling Skin/Breast Denies rash Neuro Denies memory loss and Denies seizure-like activity Psych Denies abnormal sleep pattern, Denies anxiety and Denies memory loss Endo Denies excessive sweating, Denies fatigue and Denies heat intolerance Channing/Lymph Denies easy bruising Aller/Immun Denies itchy eyes, Denies seasonal rhinorrhea and Denies wheezing Physical Exam Vital Signs: Last Vital Signs Pulse 66 06/07/24 13:36 BP 132/78 06/07/24 13:36 Pulse Ox 93 06/07/24 13:36 Oxygen Delivery Method Room Air 06/07/24 13:36 BMI result Body Mass Index 33.0 Const General: no acute distress and alert Nutritional Appearance: obese Orientation/consciousness: Other orientation findings ( oriented) HEENT Head: Yes atraumatic Eyes General: appearance normal, both eyes and all related structures Sclerae: sclerae normal EOM: EOMs intact bilaterally Neck Neck: Yes supple Lymphatic: no lymphadenopathy noted Resp Effort & Inspection: normal respiratory effort and no use of accessory muscles Auscultation: clear to auscultation bilaterally Cardio Rate: regular rate Rhythm: regular rhythm Heart sounds: no gallops, no murmurs and no rubs Skin General skin exam: other ( warm) Extrem General: No clubbing, No cyanosis and No edema Assessment & Plan Assessment & Plan (1) COPD (chronic obstructive pulmonary disease): Code(s): J44.9 - Chronic obstructive pulmonary disease, unspecified Category: Medical Plan: Well controlled on current regimen of Anoro and albuterol MDI. Continue current regimen. Coding Level of Care Code Est Pt Level 3 (31839) Diagnoses COPD (chronic obstructive pulmonary disease) J44.9
== END 2024-06-07 13:58 | disposition home or self-care (01) ==
LOC: HO.HPS 13:32
PROVIDERS: PCP Nurse Practitioner Family; Visit Provider Internal Medicine Pulmonary Disease
DX: J44.9 Chronic obstructive pulmonary disease, unspecified (principal)
CPT/HCPCS: 99213

== ENCOUNTER → 2024-06-07 13:31 | Outpatient (BNVA) | payer MEDICARE, OTHER, SELFPAY | PROVIDERS: PCP Nurse Practitioner Family; Visit Provider Internal Medicine Pulmonary Disease | DX: J44.9 Chronic obstructive pulmonary disease, unspecified (principal); R91.8 Other nonspecific abnormal finding of lung field | CPT/HCPCS: 99212 ==

== ENCOUNTER 2024-07-18 10:09 | Outpatient (AMB) | payer MEDICARE, OTHER, SELFPAY ==
--- NOTE | 2024-07-18 10:18 | AM.OFFVISNUR ---
Intake Visit Reasons: EKG Allergies No Known Allergies Allergy (Verified 03/08/24 13:05) Nursing Note pt is here for nurse visit with ekg pt is taking dronedaron 400 mg PO BID pt does not feel good , sob , palpitations, is feeling flutters [place] [facility] [place] patricia randolph for review Office Procedures EKG [id number], Complete
== END 2024-07-18 10:40 | disposition home or self-care (01) ==
PROVIDERS: PCP Nurse Practitioner Family; Visit Provider Internal Medicine
DX: R94.31 Abnormal electrocardiogram [ECG] [EKG] (principal)
CPT/HCPCS: 93010

== ENCOUNTER 2024-07-18 10:33 | Emergency (ER) | payer MEDICARE, OTHER, SELFPAY ==
[2024-07-18] VITALS (11 sets, daily range): BP systolic 88–152; BP diastolic 73–107; PULSE 64–122; RESP 16–19; TEMP 36.6–37.2; O2SAT 94–98; BMI 30.2
--- NOTE | ~2024-07-18 | XR_ITS ---
EXAMINATION: XR CHEST CLINICAL INFORMATION: Bradycardia. COMPARISON: 01/03/2024. TECHNIQUE: 2 frontal views of the chest was obtained. FINDINGS: There is no gross pneumothorax. Heart size is normal. Dextroscoliosis of the thoracic spine with multilevel degenerative changes. Increased, predominantly streaky opacities in the bfw-kj-[id number] left lung. No significant pleural effusion. XR/XR chest 1V IMPRESSION: Increased predominantly streaky opacities in the alb-[id number] left lung. This study was presented today July 18, 2024 for interpretation. Stat results provided at this time as requested by referring provider. Electronically signed by: Janine Zelaya MD 07/18/2024 01:12 PM [facility]
--- NOTE | 2024-07-18 10:35 | ECG_ITS ---
Test Reason : chest tightness Blood Pressure : / mmHG Vent. Rate : 139 BPM Atrial Rate : 000 BPM P-R Int : 000 ms QRS Dur : 086 ms QT Int : 306 ms P-R-T Axes : 000 -37 083 degrees QTc Int : 465 ms Atrial fibrillation with rapid ventricular response Left axis deviation Low voltage QRS Inferior infarct , age undetermined Cannot rule out Anterior infarct , age undetermined Abnormal ECG When compared with ECG of 03-JAN-2024 07:41, Atrial fibrillation has replaced Sinus rhythm Vent. rate has increased BY 66 BPM Inferior infarct is now Present Referred By: Generic ED Physician Electronically Signed By:CATHY NAGY MD
--- NOTE | 2024-07-18 11:09 | ED.ARRPALP ---
HPI - Arrhythmia/Palpitations General Chief Complaint: Arrhythmia/Palpitations Stated Complaint: High heart rate, palpitations from cardiology Time Seen by Provider: 07/18/24 11:03 Source: patient Mode of arrival: ambulatory Limitations: no limitations History of Present Illness HPI narrative: this is a 74 years old male with history of atrial fibrillation presented to the ED complaining of palpitation. No fever no chills no vomiting MD complaint: rapid heart beat and heart racing Onset (ago): day(s) (1) Duration: constant Severity: moderate Arrhythmia history: atrial fibrillation Associated symptoms: denies other symptoms Related Data Home Medications ?Medication ?Instructions ?Recorded ?Confirmed latanoprost 0.005 % eye drops 1 drp ophthalmic (eye) BEDTIME 01/10/21 03/02/24 triamcinolone acetonide 0.1 % 1 appl topical DAILY PRN Rash 01/10/21 03/02/24 topical ointment cholecalciferol (vitamin D3) 25 25 mcg PO DAILY 05/26/21 03/02/24 mcg (1,000 unit) tablet (Vitamin D3) Previous Rx's ?Medication ?Instructions ?Recorded apixaban 5 mg tablet (Eliquis) 5 mg PO BID #180 tabs 08/13/23 carvedilol 6.25 mg tablet 6.25 mg PO BID #180 tabs 08/18/23 amlodipine 5 mg tablet 7.5 mg (1.5 x 5 mg) PO DAILY #135 11/30/23 tabs paroxetine HCl 20 mg tablet 20 mg PO QAM #90 tabs 03/01/24 Anoro Ellipta 62.5 mcg-25 1 ea inhalation DAILY #180 ea 03/08/24 mcg/actuation powder for inhalation (umeclidinium-vilanterol) atorvastatin 80 mg tablet 80 mg PO DAILY #90 tabs 03/08/24 dronedarone 400 mg tablet (Multaq) 400 mg PO BID #180 tabs 04/09/24 Allergies Allergy/AdvReac Type Severity Reaction Status Date / Time No Known Allergies Allergy Verified 07/18/24 10:59 Review of Systems Constitutional: Constitutional: Reports no additional constitutional complaints Eyes: Eyes: Reports no additional eye complaints Cardiovascular: Cardiovascular: Reports as per HPI [facility] Past Medical History Attestation statement: The following information was validated with the patient. Source: unable to obtain Medical History Retinopathy RSV infection COPD (chronic obstructive pulmonary disease) Essential hypertension NICM (nonischemic cardiomyopathy) PAF (paroxysmal atrial fibrillation) COPD (chronic obstructive pulmonary disease) Atrial fibrillation Hypertension Cardiac arrhythmia Surgical History Status post catheter ablation of atrial fibrillation History of appendectomy History of hernia repair History of colonoscopy Family History Family History Father Cancer of prostate Mother No problems noted. Daughter No problems noted. Daughter No problems noted. Brother Cancer of prostate Social History Social History Household Members: Spouse Housing: House Do you presently have visiting nurse or other home services: No Alcohol intake: former Year quit: 2021 Patient Tobacco Use Status: Never used Tobacco Smoked in Last 30 Days: No e-Cigarette/Vaping Use: Never Used Second Hand Smoke Exposure: No Use of substances other than those prescribed or required for medical reasons: No Substance Use Type: Marijuana Any prior treatment program specific to substance use: No Advance Directives: No Advance Directives Information Provided: Yes Advance Directives Date on File: 05/26/21 Do you have a plan to hurt others: No Plan service: Yes Current occupational status: retired Cognitive needs: No Hearing needs: No Vision needs: Yes Physical Exam Vital Signs: Vital Signs: Last Vital Signs Temp 98 F 07/18/24 13:15 Pulse 64 07/18/24 13:15 Resp 18 07/18/24 13:15 BP 102/73 07/18/24 13:15 Pulse Ox 97 07/18/24 13:15 O2 Del Method Room Air 07/18/24 12:40 Oxygen Flow Rate 3 07/18/24 13:15 BMI result Body Mass Index 30.2 no acute distress Const: General: cooperative Nutritional Appearance: average body habitus Orientation/consciousness: patient oriented x3 Limitations: no limitations HEENT: Head: Yes normal to inspection Ears: hearing grossly normal bilaterally General nose exam: Normal external nose present Face and sinus: Yes normal facial exam Mouth: Normal oral and palatal mucosa present Throat: Yes posterior oropharynx normal Neck: Neck: Yes normal visual inspection Thyroid: Thyroid normal Chest: Chest palpation & inspection: normal inspection of the chest Resp: Effort & Inspection: normal respiratory effort and able to speak in complete sentences Cardio: Rate: tachycardic Rhythm: abnormal rhythm GI: Inspection: Yes normal to inspection Palpation (GI): Soft to palpation, not firm, nontender and no guarding Skin: General skin exam: no rashes or lesions noted Neuro: General: patient oriented x3 Course Reevaluation(s) Reevaluation #1: patient remained in AFib he is anticoagulated he is NPO I discussed the case with the medical director/head team physician cardioversion is an option, risk benefit discussed with the patient patient wants to go ahead with the cardioversion Time: 12:59 Reevaluation #2: cardioverted to sinus rythm Time: 13:17 Medications Administered Generic Name Dose Route Start Last Admin Trade Name Freq PRN Reason Stop Dose Admin Diltiazem HCl 125 mg/ Sodium 125 mls @ 0 mls/hr 07/18/24 11:15 07/18/24 11:45 Chloride IVCONT 10 mg/hr .Q0M NANNETTE 10 mls/hr Administration Protocol Per Protocol Discontinued Medications Generic Name Dose Route Start Last Admin Trade Name Freq PRN Reason Stop Dose Admin Diltiazem HCl 20 mg 07/18/24 11:08 07/18/24 11:20 Diltiazem Hcl 50 Mg/10 Ml Vial IVPUSH 07/18/24 11:09 20 mg ONCE ONE Administration Propofol 100 mg 07/18/24 12:58 07/18/24 13:07 Propofol 200 Mg/20 Ml Vial IVPUSH 07/18/24 12:59 60 mg ONCE ONE Administration Medical Decision Making Medical Decision Making [facility] Narrative: patient presented with palpitation found to be in rapid atrial fib we will start him on Cardizem drip Differential Diagnosis Differential Diagnoses: The differential diagnosis associated with the presentation includes AFib/SVT Admission/Observation Consideration of admission/observation: Escalation of care including admission/observation considered Consult Healthcare Provider Management of the patient was discussed with: Gravity Prospecting Operator Helper Dr Gurrola Lab Data [facility] Lab Attestation statement: I reviewed the patient's lab results. 07/18/24 11:14 07/18/24 11:14 Labs: Lab Results 07/18/24 07/18/24 Range/Units 11:13 11:14 WBC 11.6 H (4.8-10.8) X10*3/uL RBC 5.73 (4.60-5.80) X10*6/uL Hgb 17.4 (14.0-18.0) g/dl Hct 51.3 (42.0-52.0) % MCV 89.5 (80.0-98.0) fL MCH 30.4 (27.0-33.0) pg MCHC 33.9 (31.0-36.0) g/dl RDW 13.2 (11.0-16.0) % Plt Count 307 D (160-400) X10*3/uL MPV 10.7 (9.4-12.4) fL Immature Gran % (Auto) 0.3 (0.0-0.4) % Neut % (Auto) 76.8 H (45-73) % Lymph % (Auto) 14.6 L (20-40) % [place] % (Auto) 7.5 (2-11) % Eos % (Auto) 0.5 (0-4) % Baso % (Auto) 0.3 (0-2) % Lymph # (Auto) 1.7 (1.2-4.9) X10*3/uL [place] # (Auto) 0.9 (0.1-1.2) X10*3/uL Eos # (Auto) 0.1 (0.0-0.4) X10*3/uL Baso # (Auto) 0.0 (0.0-0.2) X10*3/uL Abs Immat Gran (auto) 0.04 H (0.00-0.03) X10*3/uL Absolute Neuts (auto) 8.9 H (2.0-8.3) x10*3/uL Absolute Nucleated RBC 0.000 (0.0-0.012) X10*3/uL Nucleated RBC % (auto) 0.0 (0.0-0.2) /100WBC PT 15.1 H (10.9-12.4) SEC INR 1.3 H (0.9-1.1) APTT 35.7 (26.0-36.8) SEC Sodium 140 (135-145) mmol/L Potassium 3.9 (3.3-5.1) mmol/L Chloride 108 (96-108) mmol/L Carbon Dioxide 22 (22-29) mmol/L Anion Gap 14 (12-20) BUN 18 H (9-16) mg/dL Creatinine 1.26 (0.5-1.4) mg/dL Estim Creat Clear Calc 61.3 Estimated GFR 56 Random Glucose 141 H (60-115) mg/dL Calcium 10.2 (8.4-10.2) mg/dL Magnesium 2.0 (1.6-2.6) mg/dL Total Bilirubin 1.0 (0.0-1.0) mg/dL AST 30 (5-37) U/L ALT 36 (0-40) U/L Alkaline Phosphatase 66 (39-117) U/L Troponin I High Sens 4.2 D (<3.5-35.0) ng/L Total Protein 7.5 (6.5-8.0) g/dL Albumin 4.2 (3.5-5.0) g/dL Influenza Type A (PCR) NEGATIVE (Negative) Influenza Type B (PCR) NEGATIVE (Negative) RSV RNA Qual (PCR) NEGATIVE (Negative) SARS-CoV-2 RNA (RT-PCR) NEGATIVE (Negative) Independent Interpretation I performed an independent interpretation of an: EKG Interpretation: rapid A.Fib Radiology Impression Discussion of test interpretation with radiology: I have reviewed the radiologist's reading. Independent Historian Clinical information obtained from an independent historian. History obtained from or confirmed by: Spouse External Record Review External record reviewed: Inpatient record Procedures Procedure Narrative Procedure Narrative: Cardioversion:indication atrial fibrillation with RVR risk and benefit discussed consent signed cardioverted with 200 J sync with jainism sinus rythm Procedural Sedation Indication: other (cardioversion) ASA Class: II Mallampati Class: I Preparation: library monitor applied, pulse oximeter, capnometry used, supplemental O2 applied and IV secured IV Propofol dose (mg): 60 Patient Tolerated Procedure: well Complications: none Critical Care Time Critical Care Time Critical Care Time: Yes Total Critical Care Time: 90 Attestation: cardizen and cardioversion Discharge Plan Discharge Clinical Impression: Atrial fibrillation with rapid ventricular response Patient Disposition: Home, Self-Care Instructions: A-fib (Atrial Fibrillation) (DC) Additional Instructions: follow up with you medical director/head team physician,call today and make an appointment Prescriptions: No Action Eliquis 5 mg tablet 5 mg PO BID Qty: 180 3RF carvedilol 6.25 mg tablet 6.25 mg PO BID Qty: 180 3RF amlodipine 5 mg tablet 7.5 mg PO DAILY Qty: 135 3RF paroxetine HCl 20 mg tablet 20 mg PO QAM Qty: 90 1RF Anoro Ellipta 62.5-25 mcg/actuation blister with device 1 ea inhalation DAILY Qty: 180 2RF atorvastatin 80 mg tablet 80 mg PO DAILY Qty: 90 1RF Multaq 400 mg tablet 400 mg PO BID Qty: 180 3RF cholecalciferol (vitamin D3) [Vitamin D3] 25 mcg (1,000 unit) Tablet 25 mcg PO DAILY latanoprost 0.005 % drops 1 drp ophthalmic (eye) BEDTIME triamcinolone acetonide 0.1 % ointment 1 appl topical DAILY PRN (Reason: Rash) Interventions: ED Discharge Assessment Last Done: 07/18/24 14:54 Print Language: [place] Tim[place]
[2024-07-18] MEDS: dilTIAZem HCL 50 MG/10 ML VIAL 20 MG IVPUSH (11:20)
[2024-07-18] MEDS: dilTIAZem HCL 125 MG in 0.9 % Sodium Chloride 100 ML 10 MG IVCONT (11:45)
[2024-07-18 11:47] LABS: MANUAL DIFF FLAG NO
[2024-07-18 11:49] LABS: Basophils Percent Auto 0.3 % (0-2); Eosinophils Absolute Auto 0.1 X10*3/uL (0.0-0.4); Eosinophils Percent Auto 0.5 % (0-4); Hematocrit 51.3 % (42.0-52.0); Hemoglobin 17.4 g/dl (14.0-18.0); Imm Gran Abs Auto 0.04 X10*3/uL (0.00-0.03); Imm Gran Pct Auto 0.3 % (0.0-0.4); Lymphocytes Absolute Auto 1.7 X10*3/uL (1.2-4.9); Lymphocytes Percent Auto 14.6 % (20-40); Mean Corpuscular HGB Conc 33.9 g/dl (31.0-36.0); Mean Corpuscular Hemoglobin 30.4 pg (27.0-33.0); Mean Corpuscular Volume 89.5 fL (80.0-98.0); Mean Platelet Volume 10.7 fL (9.4-12.4); Monocytes Absolute Auto 0.9 X10*3/uL (0.1-1.2); Monocytes Percent Auto 7.5 % (2-11); Neutrophils Absolute Auto 8.9 x10*3/uL (2.0-8.3); Neutrophils Percent Auto 76.8 % (45-73); Platelet Count 307 X10*3/uL (160-400); Red Blood Count 5.73 X10*6/uL (4.60-5.80); Red Cell Distribution Width 13.2 % (11.0-16.0); White Blood Count 11.6 X10*3/uL (4.8-10.8)
[2024-07-18 11:59] LABS: INTERNATIONAL NORM RATIO 1.3 (0.9-1.1); Prothrombin Time 15.1 SEC (10.9-12.4)
[2024-07-18 12:02] LABS: Partial Thromboplastin Time 35.7 SEC (26.0-36.8)
[2024-07-18 12:04] LABS: Alanine Aminotransferase 36 U/L (0-40); Albumin Level 4.2 g/dL (3.5-5.0); Alkaline Phosphatase 66 U/L (39-117); Anion Gap 14 (12-20); Aspartate Amino Transferase 30 U/L (5-37); Blood Urea Nitrogen 18 mg/dL (9-16); Calcium 10.2 mg/dL (8.4-10.2); Carbon Dioxide 22 mmol/L (22-29); Chloride 108 mmol/L (96-108); Creatinine Clr Calc Pharmacy 61.3; Estimated Glomerular Filt Rate 56; Glucose Random 141 mg/dL (60-115); Potassium 3.9 mmol/L (3.3-5.1); Sodium 140 mmol/L (135-145); Total Protein 7.5 g/dL (6.5-8.0)
[2024-07-18 12:10] LABS: Troponin-I High Sensitivity 4.2 ng/L (<3.5-35.0)
[2024-07-18 12:29] LABS: Influenza A PCR NEGATIVE (Negative); Influenza B PCR NEGATIVE (Negative); Resp Syncy Virus RNA Qual PCR NEGATIVE (Negative); SARS COV2 PCR INHOUSE NEGATIVE (Negative)
[2024-07-18] MEDS: propofoL 200 MG/20 ML VIAL 100 MG IVPUSH (13:07)
--- NOTE | 2024-07-18 13:16 | ECG_ITS ---
Test Reason : cardioaversion Blood Pressure : / mmHG Vent. Rate : 065 BPM Atrial Rate : 065 BPM P-R Int : 192 ms QRS Dur : 086 ms QT Int : 420 ms P-R-T Axes : 077 -39 050 degrees QTc Int : 436 ms Normal sinus rhythm Left axis deviation Anterior infarct (cited on or before 18-JUL-2024) Abnormal ECG When compared with ECG of 18-JUL-2024 10:31, Sinus rhythm has replaced Atrial fibrillation Vent. rate has decreased BY 74 BPM Nonspecific T wave abnormality now evident in Anterior leads Referred By: Quan Holguin Electronically Signed By:
== END 2024-07-18 14:56 | disposition home or self-care (01) ==
PROVIDERS: Physician Assistant Medical; Emergency Provider Emergency Medicine; PCP Nurse Practitioner Family
DX: I48.20 Chronic atrial fibrillation, unspecified (principal); R00.2 Palpitations; I49.9 Cardiac arrhythmia, unspecified; I48.91 Unspecified atrial fibrillation; Z03.818 Encounter for observation for suspected exposure to other biological agents ruled out; Z79.899 Other long term (current) drug therapy
CPT/HCPCS: 0241U; 71045; 80053; 83735; 84484; 85025; 85610; 85730; 92960; 93005; 96374; 96375; 99285; J2704

== ENCOUNTER → 2024-07-25 13:00 | Outpatient (BNVA) | payer MEDICARE, OTHER, SELFPAY | PROVIDERS: PCP Nurse Practitioner Family; Visit Provider Nurse Practitioner Family ==

== ENCOUNTER → 2024-08-12 12:55 | Outpatient (REF) | payer MEDICARE, OTHER, SELFPAY ==
--- NOTE | 2024-08-12 12:58 | CA_ITS ---
Transthoracic Echocardiogram Patient (Last, First, Middle): Nakul Real, Gender: Male Date of : 1950 Age: 74 Procedure Date: 08/12/2024 Procedure Type: Transthoracic Echocardiogram Location: OP Height: 182.88 cm Weight: 108.86 kg BSA: 2.30 m2 Heart Rate: bpm BP: 140 / 82 mmHg Chili Powder Mixer: TO Referring MD: Juarez Herrera MD Ship Scraper: Dhiraj Gurrola MD Symptoms: I71.2 - Thoracic aortic aneurysm, without rupture Study Quality: Adequate ECG Rhythm: Sinus Conclusions: - Moderately dilated ascending aorta at 4.8 cm Findings Great Vessels There is moderate dilatation of the ascending aorta measuring 4.80 cm. Prior Study Comparison No significant change compared to prior study dated: 02/17/2024. Measurements Great Vessels Aorta Ao Asc: 4.80 2.1-3.4 cm Ao Arch: 4.10 Updated in Other Vendor System with Status of Final Dhiraj Gurrola MD electronically signed on 08/13/2024 2:21:03 PM with status of Final
== END ==
LOC: HO.CARD 12:55
PROVIDERS: PCP Nurse Practitioner Family; Visit Provider Internal Medicine
DX: I71.20 Thoracic aortic aneurysm, without rupture, unspecified (principal)
CPT/HCPCS: 93308

== ENCOUNTER → 2024-08-12 12:58 | Outpatient (BNV) | payer MEDICARE, OTHER, SELFPAY | PROVIDERS: PCP Nurse Practitioner Family; Visit Provider Internal Medicine Cardiovascular Disease | DX: I71.21 Aneurysm of the ascending aorta, without rupture (principal) | CPT/HCPCS: 93308 ==

== ENCOUNTER 2024-09-01 12:26 | Outpatient (AMB) | payer MEDICARE, OTHER, SELFPAY ==
[2024-09-01 12:38] VITALS: BP 122/68; PULSE 68; BMI 32.0
--- NOTE | 2024-09-01 12:38 | A.OFFVIS_ITS ---
Vital Signs 09/01/24 12:38 Height 6 ft Weight 235 lb 14.314 oz BMI 32.0 BP 122/68 Blood Pressure Location Lt brachial Position Sitting Pulse 68 Pulse Source Monitor Intake Visit Reasons: 6 mth /w ekg Allergies No Known Allergies Allergy (Verified 07/18/24 10:59) Medication List - Last Reconciled 09/01/24 by Juarez Herrera MD amiodarone 200 mg tablets - take 400 mg twice daily for 2 weeks then reduce dose down to 200 mg once daily.; 30 days amlodipine 7.5 mg (1.5 x 5 mg) PO DAILY Anoro Ellipta 62.5-25 mcg/actuation (umeclidinium-vilanterol) 1 ea inhalation DAILY NS apixaban (Eliquis) 5 mg PO BID atorvastatin 80 mg PO DAILY carvedilol 6.25 mg PO BID cholecalciferol (vitamin D3) (Vitamin D3) 25 mcg PO DAILY latanoprost 0.005% 1 drp ophthalmic (eye) BEDTIME paroxetine HCl 20 mg PO QAM triamcinolone acetonide 0.1% 1 appl topical DAILY PRN HPI Comments Details: Nakul returns for follow-up regarding atrial fibrillation, cardiomyopathy as well as aortic aneurysm. Due to symptomatic atrial fibrillation in spite of cardioversions as well as Amiodarone use, he underwent atrial fibrillation ablation. In 2021, he had a recurrence of the same. Possibly related to alcohol. Then underwent one further cardioversion and then was on Amiodarone. Then switched to Multaq. More recently, he came to the ER with atrial fibrillation/rapid rate and had one further cardioversion. He was then switched to amiodarone. Currently taking amiodarone maintenance after the load. He states he did have some alcohol prior to that last occurrence and that might have played a role. Since that time, doing okay. [facility] Medical History Retinopathy RSV infection COPD (chronic obstructive pulmonary disease) Essential hypertension NICM (nonischemic cardiomyopathy) PAF (paroxysmal atrial fibrillation) COPD (chronic obstructive pulmonary disease) Atrial fibrillation Hypertension Cardiac arrhythmia Surgical History Status post catheter ablation of atrial fibrillation History of appendectomy History of hernia repair History of colonoscopy Family History Father Cancer of prostate Mother No problems noted. Daughter No problems noted. Daughter No problems noted. Brother Cancer of prostate Social History Household Members: Spouse Housing: House Do you presently have visiting nurse or other home services: No Alcohol intake: former Year quit: 2021 Patient Tobacco Use Status: Never used Tobacco e-Cigarette/Vaping Use: Never Used Second Hand Smoke Exposure: No Substance Use Type: Marijuana Advance Directives Date on File: 05/26/21 service: Yes Current occupational status: retired Cognitive needs: No Hearing needs: No Vision needs: Yes Review of Systems Const Denies weakness ENT Denies dizziness Card Denies chest pain, Denies chest pain with activity, Denies syncope, Denies rapid heart rate, Denies pedal edema, Denies edema, Denies leg edema, Denies lightheadedness, Denies palpitations, Denies dyspnea, Denies dyspnea on exertion and Denies orthopnea Resp Denies cough, Denies dyspnea and Denies dyspnea on exertion GI Denies hematochezia and Denies change in stool character Musc Denies abnormal gait, Denies muscle cramps, Denies muscle weakness, Denies numbness, Denies radiating pain into limb and Denies tingling Neuro Denies abnormal gait, Denies dizziness, Denies syncope, Denies numbness, Denies tingling and Denies weakness Endo Denies palpitations Physical Exam Vital Signs: Last Vital Signs Pulse 68 09/01/24 12:38 BP 122/68 09/01/24 12:38 BMI result Body Mass Index 32.0 Const General: comfortable and no acute distress Orientation/consciousness: patient oriented x3 HEENT Other: Unremarkable Head: Yes normal to inspection Neck Neck: Yes normal visual inspection Chest Chest palpation & inspection: normal inspection of the chest Resp Auscultation: clear to auscultation bilaterally Cardio Palpation: normal PMI Heart sounds: S1 normal heart sound present, S2 normal heart sound present, no gallops, no murmurs and no rubs GI Palpation (GI): Soft to palpation Back/Spine/Pelvis Other: unremarkable Skin General skin exam: no rashes or lesions noted Neuro General: patient oriented x3 Extrem General: Yes normal to inspection Psych Mental Status: mental status grossly normal Office Procedures EKG Details: EKG with underlying sinus rhythm at 68/Min; mild PA prolongation to 202 milliseconds; normal corrected QT; no significant ST-T changes. [id number], Complete Assessment & Plan Assessment & Plan (1) PAF (paroxysmal atrial fibrillation): Code(s): I48.0 - Paroxysmal atrial fibrillation Category: Medical Plan: Status post atrial fibrillation ablation and cardioversions at different times. Most recently July of 2024. He was on Multaq and after the last cardioversion has been switched to Amiodarone. May continue the maintenance dose. Check TSH. Continue anticoagulation. Referred back to EP for consideration of another ablation. (2) NICM (nonischemic cardiomyopathy): Code(s): I42.8 - Other cardiomyopathies Category: Medical Plan: Cardiac catheterization from 2017 with normal coronary arteries. Most recent echocardiogram with recovered LVEF. 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 Continue Coreg. He has hyperkalemia and hence unable to take lisinopril. Otherwise, stable. (3) Essential hypertension: Code(s): I10 - Essential (primary) hypertension Category: Medical Plan: Stable. Continue Amlodipine. (4) Ascending aortic aneurysm: Code(s): I71.2 - Thoracic aortic aneurysm, without rupture Category: Medical Plan: Per echocardiogram, ascending aortic size 4.8 cm. Dimensions somewhat smaller on CT scans. Has generally remained stable. (5) Excessive drinking alcohol: Code(s): F10.10 - Alcohol abuse, uncomplicated Category: Social Hx Plan: Strongly advised to avoid as he very well knows that this can precipitate atrial fibrillation. Again discussed today. Orders: Orders TSH reflex Free T4 Today R94.6 - Abnormal results of thyroid function studies Referrals Cardiac Electrophysiology Referral I48.0 - Paroxysmal atrial fibrillation Coding Level of Care Code Est Pt Level 4 (59727) Diagnoses PAF (paroxysmal atrial fibrillation) I48.0 NICM (nonischemic cardiomyopathy) I42.8 Essential hypertension I10 Ascending aortic aneurysm I71.2 Excessive drinking alcohol F10.10 CPT Codes EKG - CPT: 61510-[id number], Complete ([id number])
== END 2024-09-01 12:59 | disposition home or self-care (01) ==
PROVIDERS: PCP Nurse Practitioner Family; Visit Provider Internal Medicine
DX: I48.0 Paroxysmal atrial fibrillation (principal); I42.8 Other cardiomyopathies; I10 Essential (primary) hypertension; I71.20 Thoracic aortic aneurysm, without rupture, unspecified; F10.10 Alcohol abuse, uncomplicated
CPT/HCPCS: 93010; 99214

== ENCOUNTER → 2024-09-01 12:26 | Outpatient (BNVA) | payer MEDICARE, OTHER, SELFPAY | PROVIDERS: PCP Nurse Practitioner Family; Visit Provider Internal Medicine | DX: I48.0 Paroxysmal atrial fibrillation (principal); I42.8 Other cardiomyopathies; I71.21 Aneurysm of the ascending aorta, without rupture; I10 Essential (primary) hypertension; F10.10 Alcohol abuse, uncomplicated; R94.31 Abnormal electrocardiogram [ECG] [EKG] | CPT/HCPCS: 93005; 99212 ==

== ENCOUNTER 2024-09-07 13:27 | Outpatient (REF) | payer MEDICARE, OTHER, SELFPAY ==
[2024-09-07 16:38] LABS: Urine Cytology See Pathology rpt
== END 2024-09-07 13:28 | disposition home or self-care (01) ==
LOC: HO.LAB 13:27
PROVIDERS: PCP Nurse Practitioner Family; Visit Provider Nurse Practitioner Family
DX: R31.29 Other microscopic hematuria (principal); N32.89 Other specified disorders of bladder; N40.0 Benign prostatic hyperplasia without lower urinary tract symptoms; Z87.898 Personal history of other specified conditions
CPT/HCPCS: 81003; 88112; 99212

== ENCOUNTER 2024-09-07 13:27 | Outpatient (AMB) | payer MEDICARE, OTHER, SELFPAY ==
--- NOTE | 2024-09-07 13:42 | A.OFFVIS_ITS ---
Intake Visit Reasons: 6m/UA Intake Note: Patient is Present for Follow Up Urinalysis Urology Medication: None Antibiotic Allergies:None Blood Thinners: Eliquis Allergies No Known Allergies Allergy (Verified 09/07/24 14:19) Medication List - Last Reconciled 09/07/24 by TARSHA Gray- amiodarone 200 mg PO ONCE 3 months amlodipine 7.5 mg (1.5 x 5 mg) PO DAILY Anoro Ellipta 62.5-25 mcg/actuation (umeclidinium-vilanterol) 1 ea inhalation DAILY NS apixaban (Eliquis) 5 mg PO BID atorvastatin 80 mg PO DAILY carvedilol 6.25 mg PO BID cholecalciferol (vitamin D3) (Vitamin D3) 25 mcg PO DAILY latanoprost 0.005% 1 drp ophthalmic (eye) BEDTIME paroxetine HCl 20 mg PO QAM triamcinolone acetonide 0.1% 1 appl topical DAILY PRN HPI Comments Details: Nakul Kilpatrick is a very pleasant 74-year-old male patient of Dr. Parada. He has a past medical history of retinopathy, RSV infection, COPD, hypertension, nonischemic cardiomyopathy, and paroxysmal AFib. He presents to the office today for follow-up of his microscopic hematuria. Of note, during last office visit approximately 6 months ago patient underwent an office cystoscopy with Dr. Shipley at which time he was noted to have trigonitis. Previous workup has included a CT urogram 03/02 that noted no nephrolithiasis, symmetric nephrograms. Simple cyst in the mid and lower left kidney. No follow-up imaging is recommended per radiology report. No filling defects in the collecting system or ureters. The bladder is trabeculated. There is a s essile area of thickening along the posterior bladder wall measuring approximately 3.3 cm in diameter and approximately 10 mm in thickness. This appears separate from the prostate. Mildly enlarged prostate. He denies having had any bothersome urinary issues or concerns since his last office visit here. He does discuss a longstanding history of urinary frequency his entire life however does not find this bothersome. He otherwise denies urinary urgency, incontinence, nocturia, dysuria, foul smelling urine, changes to urinary stream, flank pain, fever, and or chills. He is happy with his current voiding parameters. In office urinalysis results reviewed with the patient today. In review of patient's chart it appears PSAs are as follows: 11/28 1.4, 01/29 1.4, 12/01 2.0. Urine Cytology 01/31 Negative for high-grade urothelial carcinoma. [facility] Medical History Retinopathy RSV infection COPD (chronic obstructive pulmonary disease) Essential hypertension NICM (nonischemic cardiomyopathy) PAF (paroxysmal atrial fibrillation) COPD (chronic obstructive pulmonary disease) Atrial fibrillation Hypertension Cardiac arrhythmia Surgical History Status post catheter ablation of atrial fibrillation History of appendectomy History of hernia repair History of colonoscopy Family History Father Cancer of prostate Mother No problems noted. Daughter No problems noted. Daughter No problems noted. Brother Cancer of prostate Social History Household Members: Spouse Housing: House Do you presently have visiting nurse or other home services: No Alcohol intake: former Year quit: 2021 Patient Tobacco Use Status: Never used Tobacco e-Cigarette/Vaping Use: Never Used Second Hand Smoke Exposure: No Substance Use Type: Marijuana Advance Directives Date on File: 05/26/21 service: Yes Current occupational status: retired Cognitive needs: No Hearing needs: No Vision needs: Yes Review of Systems Const Reports no additional complaints Eyes Reports no additional complaints ENT Reports no additional complaints Card Reports as per HPI Resp Reports as per HPI GI Reports no additional complaints Reports as per HPI Musc Reports no additional complaints Neuro Reports no additional complaints Psych Reports no additional complaints Endo Reports no additional complaints Channing/Lymph Reports no additional complaints Aller/Immun Reports no additional complaints Physical Exam Const General: cooperative, healthy appearing, comfortable, no acute distress, well developed, alert and awake Orientation/consciousness: patient oriented x3 Limitations: no limitations HEENT Head: Yes normal to inspection, Yes normocephalic and Yes atraumatic Ears: hearing grossly normal bilaterally Eyes General: appearance normal, both eyes and all related structures Neck Neck: Yes normal visual inspection and Yes trachea midline Chest Chest palpation & inspection: normal inspection of the chest Resp Effort & Inspection: normal respiratory effort and able to speak in complete sentences Cardio Rate: regular rate GI Inspection: Yes normal to inspection General: Yes no CVA tenderness Back/Spine/Pelvis Back: no CVA tenderness Skin General skin exam: no rashes or lesions noted Neuro General: patient oriented x3 Extrem General: Yes normal to inspection Psych Appearance: grossly normal and well kempt Mental Status: mental status grossly normal Speech and movement: Normal speech and movement present and Clear speech present Affect: normal affect Attitude: cooperative Thought process: Normal thought process present Thought content: Normal thought content present Insight: Fair insight present (Psych) Judgement: Fair judgement present (Psych) Results AMB Urinalysis, Automated UA Leukoctes 0 Lis/uL Last Edit by EMBER Stover on 09/07/24 13:59 UA Nitrite Negative Last Edit by Summer Ennis [facility] on 09/07/24 13:59 UA Urobilinogen 0.2 mg/dL Last Edit by Summer Ennis [facility] on 09/07/24 13:5 9 UA Protein 0 mg/dL Last Edit by Summer Ennis [facility] on 09/07/24 13:59 UA pH 6.0 Last Edit by Summer Ennis [facility] on 09/07/24 13:59 UA Blood 10 Roney/uL Last Edit by Summer Ennis Marybeth on 09/07/24 13:59 UA Specific [place] 1.015 Last Edit by Summer Ennis [facility] on 09/07/24 13: 59 UA Ketone Negative Last Edit by Summer Ennis Marybeth on 09/07/24 13:59 UA Bilirubin 0 mg/dL Last Edit by Summer Ennis [facility] on 09/07/24 13:59 UA Glucose 0 mg/dL Last Edit by Summer Ennis [facility] on 09/07/24 13:59 Results Reviewed Results Reviewed: Laboratory Last Values Urine pH (Auto) 6.0 09/07/24 13:57 Specific [place] (Auto) 1.015 09/07/24 13:57 Urine Protein (Auto) 0 mg/dL 09/07/24 13:57 Glucose (UA)(Auto) 0 mg/dL 09/07/24 13:57 Urine Ketones (Auto) Negative 09/07/24 13:57 Urine Blood (Auto) 10 Roney/uL 09/07/24 13:57 Urine Nitrite (Auto) Negative 09/07/24 13:57 Urine Bilirubin (Auto) 0 mg/dL 09/07/24 13:57 Urine Urobilinogen (Auto) 0.2 mg/dL 09/07/24 13:57 Leukocyte Esterase (Auto) 0 Lis/uL 09/07/24 13:57 Assessment & Plan Assessment & Plan (1) H/O urinary frequency: Code(s): Z87.898 - Personal history of other specified conditions Category: Medical (2) Bladder trabeculation: Code(s): N32.89 - Other specified disorders of bladder Category: Medical (3) Enlarged prostate: Code(s): N40.0 - Benign prostatic hyperplasia without lower urinary tract symptoms Category: Medical Plan In office urinalysis results reviewed with the patient today; as noted above; will send for urine cytology. Patient currently denies any bothersome urinary issues or concerns. He reports be happy with current voiding parameters. Will continue with surveillance monitoring. Will obtain PSA. Follow-up in 1 year with PSA and PVR; or sooner with any issues, concerns, and or questions. Orders: Orders AMB Urinalysis Automated Today Z13.9 - Encounter for screening, unspecified Prostate Specific Antigen Today N40.0 - Benign prostatic hyperplasia without lower urinary tract symptoms Urine Cytology Today R31.29 - Other microscopic hematuria Patient Instructions: The patient had an opportunity to ask questions regarding the treatment plan. All questions were answered. Physical exam, labs, and imaging were discussed and reviewed in detail. As well as risks, benefits, and discussion of treatment choices. No major barriers to understanding were identified. The patient expressed understanding and agreement with the above treatment plan. The patient was made aware they should contact our office by phone for worsening of their current condition, the appearance of new symptoms, or with any que stions or concerns. Compliance is encouraged with any medications and follow up testing that is ordered. It is a privilege to be allowed the opportunity to participate in? your urological care.? Again, if you have any questions or concerns If you have any questions or concerns please do not hesitate to contact me. The office is [phone]. This note is constructed using voice recognition software. While every effort has been made to ensure accuracy kettle coordinator errors may have been included. Yours sincerely, Alexsandra Worrell GRANULATING BLENDER-[employer] Coding Level of Care Code Est Pt Level 3 (71172) Diagnoses H/O urinary frequency Z87.898 Bladder trabeculation N32.89 Enlarged prostate N40.0
== END 2024-09-07 14:12 | disposition home or self-care (01) ==
PROVIDERS: PCP Nurse Practitioner Family; Visit Provider Nurse Practitioner Family
DX: Z87.898 Personal history of other specified conditions (principal); N32.89 Other specified disorders of bladder; N40.0 Benign prostatic hyperplasia without lower urinary tract symptoms; Z13.9 Encounter for screening, unspecified
CPT/HCPCS: 99213

== ENCOUNTER 2024-11-26 19:43 | Emergency (ER) | payer MEDICARE, OTHER, SELFPAY ==
[2024-11-26 19:55] VITALS: BP 157/97; BP 96/61; PULSE 78; PULSE 94; RESP 16; TEMP 36.7; O2SAT 95; O2SAT 97; BMI 31.2
[2024-11-26 19:56] VITALS: PULSE 74; RESP 16; O2SAT 94
[2024-11-26] MEDS: Albuterol Sulfate 2.5 MG, Albuterol/Iprat 2.5/0.5MG 3 ML 3 ML INHALE (19:56)
--- NOTE | 2024-11-26 19:56 | ED.SOB ---
HPI - SOB/Dyspnea General Chief Complaint: General Medical Stated Complaint: sob while cooking with smoke (boggs) Time Seen by Provider: 11/26/24 19:53 History of Present Illness ED Provider: HPI Narrative: Patient's history of COPD, hypotension, paroxysmal AFib came here for acute shortness a breath after while making boggs got exposed to smoke patient had hard time to catch the breath saturating 95% at room air Related Data Home Medications ?Medication ?Instructions ?Recorded ?Confirmed latanoprost 0.005 % eye drops 1 drp ophthalmic (eye) BEDTIME 01/10/21 09/07/24 triamcinolone acetonide 0.1 % 1 appl topical DAILY PRN Rash 01/10/21 09/07/24 topical ointment cholecalciferol (vitamin D3) 25 25 mcg PO DAILY 05/26/21 09/07/24 mcg (1,000 unit) tablet (Vitamin D3) Previous Rx's ?Medication ?Instructions ?Recorded Anoro Ellipta 62.5 mcg-25 1 ea inhalation DAILY #180 ea 03/08/24 mcg/actuation powder for inhalation (umeclidinium-vilanterol) apixaban 5 mg tablet (Eliquis) 5 mg PO BID #180 tabs 08/15/24 carvedilol 6.25 mg tablet 6.25 mg PO BID #180 tabs 08/15/24 amiodarone 200 mg tablet 200 mg PO ONCE 3 months #90 tabs 09/02/24 amlodipine 5 mg tablet 7.5 mg (1.5 x 5 mg) PO DAILY #120 09/19/24 tabs atorvastatin 80 mg tablet 80 mg PO DAILY #90 tabs 09/29/24 paroxetine HCl 20 mg tablet 20 mg PO QAM #90 tabs 09/29/24 prednisone 20 mg tablet 40 mg (2 x 20 mg) PO DAILY #10 tabs 11/26/24 Allergies Allergy/AdvReac Type Severity Reaction Status Date / Time No Known Allergies Allergy Verified 11/26/24 19:57 [facility] Past Medical History Medical History Retinopathy RSV infection COPD (chronic obstructive pulmonary disease) Essential hypertension NICM (nonischemic cardiomyopathy) PAF (paroxysmal atrial fibrillation) COPD (chronic obstructive pulmonary disease) Atrial fibrillation Hypertension Cardiac arrhythmia Surgical History Status post catheter ablation of atrial fibrillation History of appendectomy History of hernia repair History of colonoscopy Family History Family History Father Cancer of prostate Mother No problems noted. Daughter No problems noted. Daughter No problems noted. Brother Cancer of prostate Social History Social History Household Members: Spouse Housing: House Do you presently have visiting nurse or other home services: No Alcohol intake: former Year quit: 2021 Patient Tobacco Use Status: Never used Tobacco Smoked in Last 30 Days: No e-Cigarette/Vaping Use: Never Used Second Hand Smoke Exposure: No Use of substances other than those prescribed or required for medical reasons: Yes Substance Use Type: Marijuana Substance Use Frequency: Occasionally Advance Directives: No Advance Directives Information Provided: No Advance Directives Date on File: 05/26/21 Do you have a plan to hurt others: No Plan service: Yes Current occupational status: retired Cognitive needs: No Hearing needs: No Vision needs: Yes Physical Exam Vital Signs: Vital Signs: Last Vital Signs Temp 97.9 F 11/26/24 22:51 Pulse 66 11/26/24 22:51 Resp 18 11/26/24 22:51 BP 120/76 11/26/24 22:51 Pulse Ox 94 11/26/24 22:51 O2 Del Method Room Air 11/26/24 22:51 O2 Flow Rate 1 11/26/24 20:00 Oxygen Flow Rate 1 11/26/24 19:55 BMI result Body Mass Index 31.2 Appearance: Alert. Oriented X3. No acute distress. Eyes: PERRLA, no pallor ENT: Pharynx normal. Oral Mucosa moist Neck: Normal inspection. Neck supple. CVS: Normal heart rate and rhythm. Pulses normal. Respiratory: No respiratory distress. Equal air entry bilateral, bilateral wheezing Abdomen: Soft and nontender. Bowel sounds are present, no mass palpable, no CVA tenderness Skin: Skin warm and dry. Normal skin color. Normal skin turgor. Extremities: No lower extremity edema. No calf tenderness Neuro: Oriented X 3. No motor deficit. Medications Administered Discontinued Medications Generic Name Dose Route Start Last Admin Trade Name Freq PRN Reason Stop Dose Admin Albuterol Sulfate 2.5 mg/ 0 mg 11/26/24 19:50 11/26/24 19:56 Albuterol/Ipratropium 3 ml INHALE 11/26/24 19:51 5 dose ONCE ONE Administration Methylprednisolone Sodium Succinate 125 mg 11/26/24 20:26 11/26/24 20:39 Methylprednisolone Sod Succ 125 Mg/2 Ml Vial IVPUSH 11/26/24 20:27 125 mg ONCE ONE Administration Medical Decision Making Medical Decision Making MDM Narrative: Patient with stable COPD got acute bronchospasm after inhaling smoke labs are stable patient responded to nebulizer treatment and prednisone saturating 95% on room air will discharge patient home on prednisone Lab Data MDM Lab Attestation statement: I reviewed the patient's lab results. 11/26/24 20:37 11/26/24 20:37 Labs: Lab Results 11/26/24 Range/Units 20:37 WBC 9.9 (4.8-10.8) X10*3/uL RBC 4.63 (4.60-5.80) X10*6/uL Hgb 14.2 (14.0-18.0) g/dl Hct 41.9 L (42.0-52.0) % MCV 90.5 (80.0-98.0) fL MCH 30.7 (27.0-33.0) pg MCHC 33.9 (31.0-36.0) g/dl RDW 13.0 (11.0-16.0) % Plt Count 222 D (160-400) X10*3/uL MPV 9.8 (9.4-12.4) fL Immature Gran % (Auto) 0.3 (0.0-0.4) % Neut % (Auto) 78.2 H (45-73) % Lymph % (Auto) 12.4 L (20-40) % [place] % (Auto) 7.3 (2-11) % Eos % (Auto) 1.4 (0-4) % Baso % (Auto) 0.4 (0-2) % Lymph # (Auto) 1.2 (1.2-4.9) X10*3/uL [place] # (Auto) 0.7 (0.1-1.2) X10*3/uL Eos # (Auto) 0.1 (0.0-0.4) X10*3/uL Baso # (Auto) 0.0 (0.0-0.2) X10*3/uL Abs Immat Gran (auto) 0.03 (0.00-0.03) X10*3/uL Absolute Neuts (auto) 7.8 (2.0-8.3) x10*3/uL Absolute Nucleated RBC 0.000 (0.0-0.012) X10*3/uL Nucleated RBC % (auto) 0.0 (0.0-0.2) /100WBC Sodium 140 (135-145) mmol/L Potassium 4.2 (3.3-5.1) mmol/L Chloride 107 (96-108) mmol/L Carbon Dioxide 25 (22-29) mmol/L Anion Gap 12 (12-20) BUN 19 H (9-16) mg/dL Creatinine 0.96 (0.5-1.4) mg/dL Estim Creat Clear Calc 81.8 Estimated GFR > 60 Random Glucose 124 H (60-115) mg/dL Calcium 8.9 D (8.4-10.2) mg/dL Total Bilirubin 0.5 (0.0-1.0) mg/dL AST 16 (5-37) U/L ALT 12 (0-40) U/L Alkaline Phosphatase 63 (39-117) U/L Troponin I High Sens < 2.7 (<3.5-35.0) ng/L Total Protein 6.5 (6.5-8.0) g/dL Albumin 4.0 (3.5-5.0) g/dL Discharge Plan Discharge Clinical Impression: COPD (chronic obstructive pulmonary disease) Patient Disposition: Home, Self-Care Instructions: COPD (Chronic Obstructive Pulmonary Disease) (DC) Additional Instructions: Continue medications as prescribed by your presidential helicopter crew chief Start taking prednisone if shortness a breath continues Prescriptions: New prednisone 20 mg tablet 40 mg PO DAILY Qty: 10 0RF No Action Anoro Ellipta 62.5-25 mcg/actuation blister with device 1 ea inhalation DAILY Qty: 180 2RF carvedilol 6.25 mg tablet 6.25 mg PO BID Qty: 180 3RF Eliquis 5 mg tablet 5 mg PO BID Qty: 180 3RF amiodarone 200 mg tablet 200 mg PO ONCE 90 Days Qty: 90 1RF amlodipine 5 mg tablet 7.5 mg PO DAILY Qty: 120 3RF atorvastatin 80 mg tablet 80 mg PO DAILY Qty: 90 1RF paroxetine HCl 20 mg tablet 20 mg PO QAM Qty: 90 1RF cholecalciferol (vitamin D3) [Vitamin D3] 25 mcg (1,000 unit) Tablet 25 mcg PO DAILY latanoprost 0.005 % drops 1 drp ophthalmic (eye) BEDTIME triamcinolone acetonide 0.1 % ointment 1 appl topical DAILY PRN (Reason: Rash) Interventions: ED Discharge Assessment Last Done: 11/26/24 22:51 Discharge Date/Time: 11/26/24 22:51 Print Language: Ugandan
[2024-11-26 20:00] VITALS: BP 96/61; PULSE 74; RESP 16; TEMP 36.7; O2SAT 95
--- NOTE | 2024-11-26 20:26 | ECG_ITS ---
Test Reason : at fib Blood Pressure : */* mmHG Vent. Rate : 73 BPM Atrial Rate : 73 BPM P-R Int : 218 ms QRS Dur : 92 ms QT Int : 426 ms P-R-T Axes : 86 -26 39 degrees QTcB Int : 469 ms Sinus rhythm with 1st degree A-V block Otherwise normal ECG When compared with ECG of 18-Jul-2024 10:31, Sinus rhythm has replaced Atrial fibrillation Vent. rate has decreased by 66 bpm Referred By: Rodriguez Chavez Electronically Signed By: CATHY NAGY MD
[2024-11-26] MEDS: methylPREDNISolone Sod Succ 125 MG/2 ML VIAL IVPUSH (20:39)
[2024-11-26 20:43] LABS: MANUAL DIFF FLAG NO
[2024-11-26 20:45] LABS: Basophils Percent Auto 0.4 % (0-2); Eosinophils Absolute Auto 0.1 X10*3/uL (0.0-0.4); Eosinophils Percent Auto 1.4 % (0-4); Hematocrit 41.9 % (42.0-52.0); Hemoglobin 14.2 g/dl (14.0-18.0); Imm Gran Abs Auto 0.03 X10*3/uL (0.00-0.03); Imm Gran Pct Auto 0.3 % (0.0-0.4); Lymphocytes Absolute Auto 1.2 X10*3/uL (1.2-4.9); Lymphocytes Percent Auto 12.4 % (20-40); Mean Corpuscular HGB Conc 33.9 g/dl (31.0-36.0); Mean Corpuscular Hemoglobin 30.7 pg (27.0-33.0); Mean Corpuscular Volume 90.5 fL (80.0-98.0); Mean Platelet Volume 9.8 fL (9.4-12.4); Monocytes Absolute Auto 0.7 X10*3/uL (0.1-1.2); Monocytes Percent Auto 7.3 % (2-11); Neutrophils Absolute Auto 7.8 x10*3/uL (2.0-8.3); Neutrophils Percent Auto 78.2 % (45-73); Platelet Count 222 X10*3/uL (160-400); Red Blood Count 4.63 X10*6/uL (4.60-5.80); White Blood Count 9.9 X10*3/uL (4.8-10.8)
[2024-11-26 20:59] LABS: Alanine Aminotransferase 12 U/L (0-40); Alkaline Phosphatase 63 U/L (39-117); Anion Gap 12 (12-20); Aspartate Amino Transferase 16 U/L (5-37); Bilirubin Total 0.5 mg/dL (0.0-1.0); Blood Urea Nitrogen 19 mg/dL (9-16); Calcium 8.9 mg/dL (8.4-10.2); Carbon Dioxide 25 mmol/L (22-29); Chloride 107 mmol/L (96-108); Creatinine Clr Calc Pharmacy 81.8; Estimated Glomerular Filt Rate > 60; Glucose Random 124 mg/dL (60-115); Potassium 4.2 mmol/L (3.3-5.1); Sodium 140 mmol/L (135-145); Total Protein 6.5 g/dL (6.5-8.0)
[2024-11-26 21:09] LABS: Troponin-I High Sensitivity < 2.7 ng/L (<3.5-35.0)
[2024-11-26 22:44] VITALS: BP 120/76; PULSE 66; RESP 18; TEMP 36.6; O2SAT 94
[2024-11-26 22:51] VITALS: BP 120/76; PULSE 66; RESP 18; TEMP 36.6; O2SAT 94
== END 2024-11-26 22:51 | disposition home or self-care (01) ==
PROVIDERS: Emergency Provider Internal Medicine; PCP Nurse Practitioner Family
DX: J44.9 Chronic obstructive pulmonary disease, unspecified (principal); I48.0 Paroxysmal atrial fibrillation; R06.2 Wheezing; Z79.899 Other long term (current) drug therapy
CPT/HCPCS: 36415; 80053; 84484; 85025; 93005; 94640; 96374; 99284; 99285; J2919

== ENCOUNTER → 2024-11-26 20:26 | Outpatient (BNV) | payer MEDICARE, OTHER, SELFPAY | PROVIDERS: Emergency Provider Internal Medicine; PCP Nurse Practitioner Family; Visit Provider Internal Medicine Cardiovascular Disease | DX: I44.0 Atrioventricular block, first degree (principal) | CPT/HCPCS: 93010 ==

== ENCOUNTER 2024-12-02 13:30 | Outpatient (AMB) | payer MEDICARE, OTHER, SELFPAY ==
[2024-12-02 13:34] VITALS: BP 100/60; PULSE 64; BMI 30.5
--- NOTE | 2024-12-02 13:34 | MHC.OFFVIS ---
Vital Signs 12/02/24 13:34 Height 6 ft Weight 224 lb 13.944 oz BMI 30.5 BP 100/60 Blood Pressure Location Lt brachial Position Sitting Pulse 64 Pulse Source Monitor Intake Visit Reasons: follow up post EP Ict Support [employer] Required: No Accompanied by: Self / Same As Patient Allergies No Known Allergies Allergy (Verified 11/26/24 19:57) Medication List - Last Reconciled 12/02/24 by Juarez Herrera MD amiodarone 200 mg PO ONCE 3 months amlodipine 7.5 mg (1.5 x 5 mg) PO DAILY Anoro Ellipta 62.5-25 mcg/actuation (umeclidinium-vilanterol) 1 ea inhalation DAILY NS apixaban (Eliquis) 5 mg PO BID atorvastatin 80 mg PO DAILY carvedilol 6.25 mg PO BID cholecalciferol (vitamin D3) (Vitamin D3) 25 mcg PO DAILY latanoprost 0.005% 1 drp ophthalmic (eye) BEDTIME paroxetine HCl 20 mg PO QAM triamcinolone acetonide 0.1% 1 appl topical DAILY PRN HPI Comments Details: Nakul returns for follow-up regarding atrial fibrillation, cardiomyopathy as well as aortic aneurysm. Due to symptomatic atrial fibrillation in spite of cardioversions as well as Amiodarone use, he underwent atrial fibrillation ablation. In 2021, he had a recurrence of the same. Possibly related to alcohol. Then underwent one further cardioversion and then was on Amiodarone. Then switched to Multaq. More recently, had more atrial fibrillation and had one further cardioversion and then put on amiodarone. Then saw EP and had another ablation September 2024. Now he states that he feels fine. No new concerns. No specific cardiac symptoms. [facility] Medical History Retinopathy RSV infection COPD (chronic obstructive pulmonary disease) Essential hypertension NICM (nonischemic cardiomyopathy) PAF (paroxysmal atrial fibrillation) COPD (chronic obstructive pulmonary disease) Atrial fibrillation Hypertension Cardiac arrhythmia Surgical History Status post catheter ablation of atrial fibrillation History of appendectomy History of hernia repair History of colonoscopy Family History Father Cancer of prostate Mother No problems noted. Daughter No problems noted. Daughter No problems noted. Brother Cancer of prostate Social History Household Members: Spouse Housing: House Do you presently have visiting nurse or other home services: No Alcohol intake: former Year quit: 2021 Patient Tobacco Use Status: Never used Tobacco e-Cigarette/Vaping Use: Never Used Second Hand Smoke Exposure: No Substance Use Type: Marijuana Advance Directives Date on File: 05/26/21 service: Yes Current occupational status: retired Cognitive needs: No Hearing needs: No Vision needs: Yes Review of Systems Const Denies chills, Denies fatigue, Denies fever(s), Denies frequent falls, Denies weakness, Denies weight gain and Denies weight loss ENT Denies dizziness Card Denies chest pain, Denies leg edema, Denies lightheadedness, Denies palpitations, Denies dyspnea and Denies dyspnea on exertion Resp Denies cough, Denies dyspnea and Denies dyspnea on exertion GI Denies hematochezia Musc Denies abnormal gait, Denies muscle weakness, Denies numbness, Denies radiating pain into limb and Denies tingling Neuro Denies abnormal gait, Denies dizziness, Denies frequent falls, Denies numbness, Denies tingling and Denies weakness Endo Denies fatigue and Denies palpitations Physical Exam Vital Signs: Last Vital Signs Pulse 64 12/02/24 13:34 BP 100/60 12/02/24 13:34 BMI result Body Mass Index 30.5 Const General: comfortable and no acute distress Orientation/consciousness: patient oriented x3 HEENT Other: Unremarkable Head: Yes normal to inspection Neck Neck: Yes normal visual inspection Chest Chest palpation & inspection: normal inspection of the chest Resp Auscultation: clear to auscultation bilaterally Cardio Palpation: normal PMI Heart sounds: S1 normal heart sound present, S2 normal heart sound present, no gallops, no murmurs and no rubs GI Palpation (GI): Soft to palpation Back/Spine/Pelvis Other: unremarkable Skin General skin exam: no rashes or lesions noted Neuro General: patient oriented x3 Extrem General: Yes normal to inspection Psych Mental Status: mental status grossly normal Office Procedures EKG Details: EKG with sinus rhythm at 64/Min; cannot exclude old anterior infarct; [place] [id number], Complete Assessment & Plan Assessment & Plan (1) PAF (paroxysmal atrial fibrillation): Code(s): I48.0 - Paroxysmal atrial fibrillation Category: Medical Plan: Status post atrial fibrillation ablation in 2019 as well as September 2024. Previously on Multaq and then switched to amiodarone. Now that he is status post ablation and maintaining sinus we can stop the amiodarone. Discussed about this today. Continue with anticoagulation. (2) NICM (nonischemic cardiomyopathy): Code(s): I42.8 - Other cardiomyopathies Category: Medical Plan: Cardiac catheterization from 2017 with normal coronary arteries. Most recent echocardiogram with recovered LVEF. 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 Continue Coreg. He has hyperkalemia and hence unable to take lisinopril. Otherwise, stable. (3) Essential hypertension: Code(s): I10 - Essential (primary) hypertension Category: Medical Plan: Stable. Continue Amlodipine. (4) Ascending aortic aneurysm: Code(s): I71.2 - Thoracic aortic aneurysm, without rupture Category: Medical Plan: Per echocardiogram, ascending aortic size 4.8 cm. Dimensions somewhat smaller on CT scans. Has generally remained stable. (5) Excessive drinking alcohol: Code(s): F10.10 - Alcohol abuse, uncomplicated Category: Social Hx Plan: He states he has not done that recently. Plan Discussion Notes During the consultation, I reviewed the patient's post-ablation status and reminded him to finish his Amiodarone prescription before discontinuation. We discussed the importance of continued anticoagulation therapy and emphasized reducing alcohol ingestion to ensure cardiac stability. The necessity of lifestyle modifications, including minimal alcohol intake, was highlighted as beneficial. I scheduled a follow-up visit in three months to monitor his cardiovascular condition. Patient was informed and verbally consented to the use of an ambient scribe for clinic note documentation during this visit. Orders: Orders ECG 3 day holter monitor 3 Months I48.0 - Paroxysmal atrial fibrillation Medications: Discontinued amiodarone Discontinued Reason: Doctor's Order 200 mg PO ONCE 3 months 90 tabs 1RF Patient Instructions: - Finish your current amiodarone medication and do not refill it. - Keep taking your blood thinner as you have been doing. - Reduce alcohol consumption as much as possible. - Come back for a check-up in three months for follow-up and heart health monitoring. Coding Level of Care Code Est Pt Level 4 (10826) Complex EM visit Add On G2211 Diagnoses PAF (paroxysmal atrial fibrillation) I48.0 NICM (nonischemic cardiomyopathy) I42.8 Essential hypertension I10 Ascending aortic aneurysm I71.2 Excessive drinking alcohol F10.10 CPT Codes EKG - CPT: 50958-[id number], Complete ([id number])
== END 2024-12-02 13:49 | disposition home or self-care (01) ==
LOC: HO.HCS 13:30
PROVIDERS: PCP Nurse Practitioner Family; Visit Provider Internal Medicine
DX: I48.0 Paroxysmal atrial fibrillation (principal); I42.8 Other cardiomyopathies; I10 Essential (primary) hypertension; I71.20 Thoracic aortic aneurysm, without rupture, unspecified; F10.10 Alcohol abuse, uncomplicated
CPT/HCPCS: 93010; 99214; G2211

== ENCOUNTER → 2024-12-02 13:30 | Outpatient (BNVA) | payer MEDICARE, OTHER, SELFPAY | PROVIDERS: PCP Nurse Practitioner Family; Visit Provider Internal Medicine | DX: I48.0 Paroxysmal atrial fibrillation (principal); I42.8 Other cardiomyopathies; I10 Essential (primary) hypertension; I71.20 Thoracic aortic aneurysm, without rupture, unspecified; F10.10 Alcohol abuse, uncomplicated | CPT/HCPCS: 93005; 99212 ==

== ENCOUNTER 2024-12-27 14:26 | Outpatient (REF) | payer MEDICARE, OTHER, SELFPAY ==
[2024-12-27 17:11] LABS: Prostate Specific Antigen 3.17 ng/mL (<0.05-4.0)
== END 2024-12-27 14:27 | disposition home or self-care (01) ==
LOC: HO.HMGCLDS 14:26
PROVIDERS: PCP Nurse Practitioner Family; Visit Provider Nurse Practitioner Family
DX: N40.0 Benign prostatic hyperplasia without lower urinary tract symptoms (principal); Z12.5 Encounter for screening for malignant neoplasm of prostate
CPT/HCPCS: 36415; 84153

== ENCOUNTER 2024-12-30 13:37 | Outpatient (AMB) | payer MEDICARE, OTHER, SELFPAY ==
[2024-12-30 13:38] VITALS: BP 124/78; PULSE 65; O2SAT 93; BMI 30.9
--- NOTE | 2024-12-30 13:38 | A.OFFVIS_ITS ---
Vital Signs 12/30/24 13:38 Height 6 ft Weight 228 lb BMI 30.9 BP 124/78 Blood Pressure Location Lt brachial Position Sitting Pulse 65 Pulse Source Doppler Pulse Oximetry (%) 93 Oxygen Delivery Method Room Air Intake Visit Reasons: COPD Allergies No Known Allergies Allergy (Verified 12/30/24 13:43) HPI HPI COPD: Details: 74-year-old gentleman, never smoker of tobacco products, previously used marijuana,?followed for underlying moderate COPD and pulmonary nodules.? He continues to use Anoro and albuterol MDI with good control of his underlying symptoms.? He did have recent provoked exacerbation for which he required nebulizer treatment. [facility] Medical History Retinopathy RSV infection COPD (chronic obstructive pulmonary disease) Essential hypertension NICM (nonischemic cardiomyopathy) PAF (paroxysmal atrial fibrillation) COPD (chronic obstructive pulmonary disease) Atrial fibrillation Hypertension Cardiac arrhythmia Surgical History Status post catheter ablation of atrial fibrillation History of appendectomy History of hernia repair History of colonoscopy Family History Father Cancer of prostate Mother No problems noted. Daughter No problems noted. Daughter No problems noted. Brother Cancer of prostate Social History Household Members: Spouse Housing: House Do you presently have visiting nurse or other home services: No Alcohol intake: former Year quit: 2021 Patient Tobacco Use Status: Never used Tobacco e-Cigarette/Vaping Use: Never Used Second Hand Smoke Exposure: No Substance Use Type: Marijuana Advance Directives Date on File: 05/26/21 service: Yes Current occupational status: retired Cognitive needs: No Hearing needs: No Vision needs: Yes Review of Systems Const Denies daytime sleepiness, Denies excessive sweating, Denies fatigue, Denies fever(s), Denies lethargy, Denies malaise, Denies night sweats, Denies snoring and Denies weight loss Eyes Denies blurry vision and Denies itchy eyes ENT Denies nasal congestion, Denies post nasal drip, Denies sinus pain, Denies sinus pressure and Denies other ( Thrush) Card Denies chest pain, Denies pedal edema, Denies dyspnea, Denies orthopnea and Denies paroxysmal nocturnal dyspnea Resp Denies cough, Denies hemoptysis, Denies excessive phlegm production, Denies dyspnea, Denies snoring and Denies wheezing GI Denies abdominal pain and Denies heartburn Musc Denies myalgias, Denies arthralgias and Denies joint swelling Skin/Breast Denies rash Neuro Denies memory loss and Denies seizure-like activity Psych Denies abnormal sleep pattern, Denies anxiety and Denies memory loss Endo Denies excessive sweating, Denies fatigue and Denies heat intolerance Channing/Lymph Denies easy bruising Aller/Immun Denies itchy eyes, Denies seasonal rhinorrhea and Denies wheezing Physical Exam Vital Signs: Last Vital Signs Pulse 65 12/30/24 13:38 BP 124/78 12/30/24 13:38 Pulse Ox 93 12/30/24 13:38 Oxygen Delivery Method Room Air 12/30/24 13:38 BMI result Body Mass Index 30.9 Const General: no acute distress and alert Nutritional Appearance: not obese Orientation/consciousness: Other orientation findings ( oriented) HEENT Head: Yes atraumatic Eyes General: appearance normal, both eyes and all related structures Sclerae: sclerae normal EOM: EOMs intact bilaterally Neck Neck: Yes supple Lymphatic: no lymphadenopathy noted Resp Effort & Inspection: normal respiratory effort and no use of accessory muscles Auscultation: clear to auscultation bilaterally Cardio Rate: regular rate Rhythm: regular rhythm Heart sounds: no gallops, no murmurs and no rubs Skin General skin exam: other ( warm) Extrem General: No clubbing, No cyanosis and No edema Assessment & Plan Assessment & Plan (1) COPD (chronic obstructive pulmonary disease): Code(s): J44.9 - Chronic obstructive pulmonary disease, unspecified Category: Medical Plan: Well controlled on current regimen of Anoro and albuterol MDI. Will add duo nebs as needed. Coding Level of Care Code Est Pt Level 3 (20350) Diagnoses COPD (chronic obstructive pulmonary disease) J44.9
== END 2024-12-30 13:49 | disposition home or self-care (01) ==
LOC: HO.HPS 13:37
PROVIDERS: PCP Nurse Practitioner Family; Visit Provider Internal Medicine Pulmonary Disease
DX: J44.9 Chronic obstructive pulmonary disease, unspecified (principal)
CPT/HCPCS: 99213

== ENCOUNTER → 2024-12-30 13:37 | Outpatient (BNVA) | payer MEDICARE, OTHER, SELFPAY | PROVIDERS: PCP Nurse Practitioner Family; Visit Provider Internal Medicine Pulmonary Disease | DX: J44.9 Chronic obstructive pulmonary disease, unspecified (principal); R91.8 Other nonspecific abnormal finding of lung field | CPT/HCPCS: 99212 ==

== ENCOUNTER 2025-01-25 10:18 | Inpatient (IN) | payer MEDICARE, OTHER, SELFPAY ==
[2025-01-25] VITALS (13 sets, daily range): BP systolic 119–138; BP diastolic 75–92; PULSE 82–98; RESP 17–26; TEMP 36.6–36.9; O2SAT 88–96; BMI 30.6; BMI 30.7
--- NOTE | ~2025-01-25 | CT_ITS ---
EXAMINATION: CT CHEST WITHOUT CONTRAST CLINICAL INFORMATION: Continued shortness of breath. COMPARISON: CT exam 11/13/2023, 10/22/2022, 04/01/2022. Chest radiograph 01/25/2025. TECHNIQUE: Multidetector volumetric CT imaging of the chest was done. Axial MIP volume rendering provided. Sagittal and coronal reformatted images were obtained. This CT examination was performed using dose optimization techniques as appropriate, variously including the following: *Automated exposure control *Adjustment of mA and/or kV according to patient size (this includes techniques or standardized protocols for targeted exams where dose is matched to indication/reason for exam; i.e. extremities or head) *Use of iterative reconstruction technique FINDINGS: LUNGS: There is mild centrilobular emphysema. There is thickening of the small airways again noted, suggestive of chronic bronchitis. There is chronic lingular scarring, and mild linear scarring in the peripheral lower lobes left greater than right. There is a stable 5 mm darryl-fissural lymph node in the left lower lobe along the major fissure (series 5, image 79). There is a smaller 2 mm mm subpleural right lower lobe nodule (series 5, image 95), previously 4 mm. There are a few tiny scattered stable calcified granulomata. No new or enlarging pulmonary nodules present. No pleural effusion or pneumothorax. MEDIASTINUM: Mild aneurysmal dilatation of the ascending aorta at 4.5 cm, unchanged. Main pulmonary artery is normal in caliber. No adenopathy or mass. Heart size is normal. No pericardial effusion. Normal esophagus. 10 mm right-sided thyroid nodule again noted. Central airways are patent. CORONARY ARTERY CALCIFICATION: Mild coronary calcification. AXILLA: No lymphadenopathy. UPPER ABDOMEN: Partially imaged left renal cyst. Bilateral mild perirenal stranding, nonspecific. Remainder of the imaged upper abdominal contents appear normal. OSSEOUS STRUCTURES: No suspicious lytic or blastic bone lesions. There are degenerative spinal changes again noted. CT/CT chest wo IV con IMPRESSION: 1. Mild centrilobular emphysema. 2. Diffuse small airway thickening suggestive of chronic bronchitis. 3. Stable scarring most notable in the lingular segment. No acute pneumonic consolidation or opacity. 4. Stable pulmonary nodules. No new or enlarging nodule. 5. Stable aneurysmal dilatation of the ascending aorta at 4.5 cm. 6. Stable 10 mm right thyroid nodule. Electronically signed by: Didier Torrez MD 01/30/2025 12:56 PM EDT RP
--- NOTE | ~2025-01-25 | XR_ITS ---
EXAMINATION: XR CHEST CLINICAL INFORMATION: dyspnea COMPARISON: 07/18/2024 TECHNIQUE: 2 views of the chest were obtained. FINDINGS: Heart and stomach contours are within normal limits. 2 Linear opacities in the left lower lung laterally have decreased with minimal residual opacity near the costophrenic angle No other changes are evident. XR/XR chest 2V IMPRESSION: Subsegmental atelectasis and/or scarring in the lateral left lower lung is decreased. Improving pneumonia is in the differential. Electronically signed by: Joe Garces MD 01/25/2025 10:42 AM EDT
--- NOTE | 2025-01-25 10:22 | ED.GENADULT ---
HPI - General Adult General Chief complaint: Upper Respiratory Symptoms Stated complaint: sob, 92% per ems Time Seen by Provider: 01/25/25 10:22 Source: patient, EMS, RN notes reviewed and old records reviewed Mode of arrival: EMS Limitations: no limitations History of Present Illness ED Provider: Violeta HPI narrative: Patient is a 74-year-old male with history of COPD, hypertension, AFib on Eliquis, nonischemic cardiomyopathy presenting to the emergency department with complaint of congestion, cough and worsening shortness of breath over the past 3 days. He describes this as cold symptoms. Reports low-grade fever of 100-101 at nighttime. Denies any known sick contacts. Complains of some chest tightness but denies chest pain or palpitations. Denies any abdominal pain, nausea, vomiting, diarrhea or back pain. MD complaint: cough and dyspnea Onset (ago): day(s) Related Data Home Medications ?Medication ?Instructions ?Recorded ?Confirmed latanoprost 0.005 % eye drops 1 drp ophthalmic (eye) BEDTIME 01/10/21 12/02/24 triamcinolone acetonide 0.1 % 1 appl topical DAILY PRN Rash 01/10/21 12/02/24 topical ointment cholecalciferol (vitamin D3) 25 25 mcg PO DAILY 05/26/21 12/02/24 mcg (1,000 unit) tablet (Vitamin D3) Previous Rx's ?Medication ?Instructions ?Recorded Anoro Ellipta 62.5 mcg-25 1 ea inhalation DAILY #180 ea 03/08/24 mcg/actuation powder for inhalation (umeclidinium-vilanterol) apixaban 5 mg tablet (Eliquis) 5 mg PO BID #180 tabs 08/15/24 carvedilol 6.25 mg tablet 6.25 mg PO BID #180 tabs 08/15/24 amlodipine 5 mg tablet 7.5 mg (1.5 x 5 mg) PO DAILY #120 09/19/24 tabs atorvastatin 80 mg tablet 80 mg PO DAILY #90 tabs 09/29/24 paroxetine HCl 20 mg tablet 20 mg PO QAM #90 tabs 09/29/24 ipratropium 0.5 mg-albuterol 3 mg 3 ml inhalation Q4-6H PRN wheezing 01/19/25 (2.5 mg base)/3 mL nebulization #180 mL soln Allergies Allergy/AdvReac Type Severity Reaction Status Date / Time No Known Allergies Allergy Verified 01/25/25 10:43 Review of Systems Review of Systems: As per HPI Yes all other systems are reviewed and are negative Constitutional: Constitutional: Reports as per HPI [facility] Past Medical History Medical History Retinopathy RSV infection COPD (chronic obstructive pulmonary disease) Essential hypertension NICM (nonischemic cardiomyopathy) PAF (paroxysmal atrial fibrillation) COPD (chronic obstructive pulmonary disease) Atrial fibrillation Hypertension Cardiac arrhythmia Surgical History Status post catheter ablation of atrial fibrillation History of appendectomy History of hernia repair History of colonoscopy Family History Family History Father Cancer of prostate Mother No problems noted. Daughter No problems noted. Daughter No problems noted. Brother Cancer of prostate Social History Social History Household Members: Spouse Housing: House Do you presently have visiting nurse or other home services: No Unable to assess alcohol history related to: Unknown Alcohol intake: former Year quit: 2021 Patient Tobacco Use Status: Never used Tobacco Smoked in Last 30 Days: No e-Cigarette/Vaping Use: Never Used Second Hand Smoke Exposure: No Use of substances other than those prescribed or required for medical reasons: No Substance Use Type: Marijuana Advance Directives: No Advance Directives Information Provided: Yes Advance Directives Date on File: 05/26/21 Do you have a plan to hurt others: No Plan service: Yes Current occupational status: retired Cognitive needs: No Hearing needs: No Vision needs: Yes Physical Exam ED Vital Signs: Vital Signs - 24 hr 01/25/25 10:36 01/25/25 10:47 01/25/25 10:48 Temperature 97.9 F 97.9 F Pulse Rate 82 82 Respiratory Rate 18 18 Blood Pressure 119/80 133/88 Pulse Oximetry 90 L 90 L 90 L Oxygen Delivery Method Room Air Room Air Room Air Oxygen Flow Rate 01/25/25 11:02 01/25/25 11:27 01/25/25 12:50 Temperature 97.8 F Pulse Rate 82 82 Respiratory Rate 18 18 Blood Pressure 126/84 Pulse Oximetry 89 L 93 Oxygen Delivery Method Room Air Room Air Oxygen Flow Rate 2 01/25/25 14:53 01/25/25 15:12 Temperature Pulse Rate 82 Respiratory Rate 26 H 24 H Blood Pressure Pulse Oximetry 88 L Oxygen Delivery Method Room Air Oxygen Flow Rate BMI result Body Mass Index 30.6 Vital signs have been reviewed and appear to be correct. Blood pressure normal. Heart rate normal. Respiratory rate normal. Temperature normal. Oxygen saturation hypoxic on room air. Const General: cooperative, healthy appearing and no acute distress Orientation/consciousness: oriented to person, oriented to place, oriented to time and patient oriented x3 Limitations: no limitations HENMT Head: Yes normocephalic and Yes atraumatic Ears: external ears normal General nose exam: Normal external nose present Face and sinus: Yes face symmetric Mouth: oropharynx normal and moist mucous membranes Throat: Yes uvula midline Eyes Pupils: Equal, round and reactive pupils present Neck Neck: Yes normal visual inspection and Yes supple Resp Effort & Inspection: normal respiratory effort and able to speak in complete sentences Auscultation: diminished lung sounds diffuse Cardio Rate: regular rate Rhythm: regular rhythm Heart sounds: S1 normal heart sound present and S2 normal heart sound present GI Palpation (GI): Soft to palpation and nontender Auscultation: normoactive bowel sounds General: Yes no CVA tenderness Back/Spine/Pelvis Back: no CVA tenderness Skin General skin exam: elasticity normal and turgor normal Neuro General: oriented to person, oriented to place, oriented to time, patient oriented x3, moves all extremities, no focal motor deficits and CN's II-XI intact bilaterally Cranial nerves: Yes Equal, round and reactive pupils present Cognition (Neuro): normal cognition Extrem General: Yes full ROM, Yes no pedal edema and Yes no calf tenderness Psych Mental Status: mental status grossly normal Affect: normal affect Thought process: Normal thought process present Medications Administered Generic Name Dose Route Start Last Admin Trade Name Freq PRN Reason Stop Dose Admin Magnesium Sulfate 2 gm in 50 mls @ 25 mls/hr 01/25/25 14:52 01/25/25 15:01 Magnesium Sulfate/H2o IV 01/25/25 16:51 25 mls/hr ONCE ONE Administration Discontinued Medications Generic Name Dose Route Start Last Admin Trade Name Freq PRN Reason Stop Dose Admin Albuterol Sulfate 4 puff 01/25/25 10:44 01/25/25 11:08 Albuterol Sulfate 90 Mcg 8 Gm Inhaler INHALE 01/25/25 10:45 4 puff ONCE ONE Administration Ceftriaxone Sodium 1 gm 01/25/25 12:07 01/25/25 12:35 Ceftriaxone Sodium 1 Gm Vial IVPUSH 01/25/25 12:08 1 gm ONCE ONE Administration Albuterol Sulfate 2.5 mg/ 0 mg 01/25/25 15:09 01/25/25 15:12 Albuterol/Ipratropium 3 ml INHALE 01/25/25 15:10 1 dose ONCE ONE Administration Methylprednisolone Sodium Succinate 125 mg 01/25/25 14:50 01/25/25 15:01 Methylprednisolone Sod Succ 125 Mg Vial IVPUSH 01/25/25 14:51 125 mg ONCE ONE Administration Medical Decision Making Medical Decision Making [facility] Narrative: Patient is a 74-year-old male with history of COPD, hypertension, AFib on Eliquis, nonischemic cardiomyopathy presenting to the emergency department with complaint of congestion, cough and worsening shortness of breath over the past 3 days. On exam patient is awake, A+Ox3, hypoxic on room air, VS otherwise WNL, afebrile, normal neurological exam without focal deficits, physical exam findings as above. Given reported symptoms and physical exam findings, initial differential includes but is not limited to viral illness, bronchitis, pneumonia, COPD exacerbation. Labs notable for left shift without leukocytosis, negative troponin. X-ray chest notable for improving linear opacities to left lower lobe. My interpretation is in agreement with the radiologist's interpretation. Patient became dyspneic and hypoxic with ambulation dropping to 88% in room air. Admission discussed with hospitalist, Dr. Dacosta who accepts patient to medicine service. Differential Diagnosis Differential Diagnoses: The differential diagnosis associated with the presentation includes As per [facility] Admission/Observation Consideration of admission/observation: Escalation of care including admission/observation considered Patient would have been admitted to the hospital had their work up had any findings where hospital admission was appropriate and their clinical presentation warranted hospital admission. Consult Healthcare Provider Management of the patient was discussed with: Hospitalist Lab Data [facility] Lab Attestation statement: I reviewed the patient's lab results. As per [facility] 01/25/25 11:19 01/25/25 11:19 Labs: Lab Results 06/18/25 Range/Units 11:19 WBC 9.4 (4.8-10.8) X10*3/uL RBC 4.94 (4.60-5.80) X10*6/uL Hgb 15.2 (14.0-18.0) g/dl Hct 44.7 (42.0-52.0) % MCV 90.5 (80.0-98.0) fL MCH 30.8 (27.0-33.0) pg MCHC 34.0 (31.0-36.0) g/dl RDW 13.5 (11.0-16.0) % Plt Count 201 (160-400) X10*3/uL MPV 10.3 (9.4-12.4) fL Immature Gran % (Auto) 0.4 (0.0-0.4) % Neut % (Auto) 90.0 H (45-73) % Lymph % (Auto) 4.6 L (20-40) % Saunders % (Auto) 4.7 (2-11) % Eos % (Auto) 0.1 (0-4) % Baso % (Auto) 0.2 (0-2) % Lymph # (Auto) 0.4 L (1.2-4.9) X10*3/uL Saunders # (Auto) 0.4 (0.1-1.2) X10*3/uL Eos # (Auto) 0.0 (0.0-0.4) X10*3/uL Baso # (Auto) 0.0 (0.0-0.2) X10*3/uL Abs Immat Gran (auto) 0.04 H (0.00-0.03) X10*3/uL Absolute Neuts (auto) 8.5 H (2.0-8.3) x10*3/uL Absolute Nucleated RBC 0.000 (0.0-0.012) X10*3/uL Nucleated RBC % (auto) 0.0 (0.0-0.2) /100WBC PT 13.2 H (10.9-12.4) SEC INR 1.2 H (0.9-1.1) Sodium 143 (135-145) mmol/L Potassium 4.3 (3.3-5.1) mmol/L Chloride 111 H (96-108) mmol/L Carbon Dioxide 24 (22-29) mmol/L Anion Gap 12 (12-20) BUN 14 (9-16) mg/dL Creatinine 0.88 (0.5-1.4) mg/dL Estim Creat Clear Calc 88.3 Estimated GFR > 60 Random Glucose 166 H (60-115) mg/dL Calcium 9.3 (8.4-10.2) mg/dL Magnesium 1.8 (1.6-2.6) mg/dL Total Bilirubin 0.5 (0.0-1.0) mg/dL AST 27 (5-37) U/L ALT 26 (0-40) U/L Alkaline Phosphatase 72 (39-117) U/L Troponin I High Sens < 2.7 (<3.5-35.0) ng/L B-Natriuretic Peptide 12 (<100) pg/mL Total Protein 7.0 (6.5-8.0) g/dL Albumin 4.2 (3.5-5.0) g/dL Influenza Type A (PCR) NEGATIVE (Negative) Influenza Type B (PCR) NEGATIVE (Negative) RSV RNA Qual (PCR) NEGATIVE (Negative) SARS-CoV-2 RNA (RT-PCR) NEGATIVE (Negative) Independent Interpretation I performed an independent interpretation of an: Plain X-Ray Interpretation: Chest x-ray notable for improving linear opacities to left lower lobe Radiology Impression Discussion of test interpretation with radiology: I have reviewed the radiologist's reading. Radiologist Impression: XR/XR chest 2V IMPRESSION: Subsegmental atelectasis and/or scarring in the lateral left lower lung is decreased. Improving pneumonia is in the differential. External Record Review External record reviewed: Inpatient record, Office record and Outpatient record Critical Care Time Critical Care Time Critical Care Time: Yes Total Critical Care Time: 32 Attestation: I have personally provided critical care time exclusive of time spent on separately billable procedures. Time includes review of lab data, radiology results, discussion with consultants, and monitoring for potential decompensation. Intervention performed as documented. Discharge Plan Discharge Clinical Impression: COPD exacerbation Patient Disposition: Admitted As Inpatient Print Language: Slovenian
--- NOTE | 2025-01-25 10:23 | ECG_ITS ---
Test Reason : sob Blood Pressure : */* mmHG Vent. Rate : 80 BPM Atrial Rate : 80 BPM P-R Int : 198 ms QRS Dur : 92 ms QT Int : 398 ms P-R-T Axes : 80 -15 54 degrees QTcB Int : 459 ms Normal sinus rhythm Inferior infarct , age undetermined Abnormal ECG When compared with ECG of 26-Nov-2024 20:28, No significant change was found Referred By: Sally Mcdaniel Electronically Signed By: Matthew Savage
[2025-01-25] MEDS: Albuterol Sulfate 90 MCG 8 GM INHALER 4 PUFF INHALE (11:08)
[2025-01-25 11:24] LABS: MANUAL DIFF FLAG NO
--- NOTE | 2025-01-25 11:28 | PC.NURSE ---
pt was applied on oxygen on 2l via nasal cannual because was sating 89% on room air per DIE HARDENER's request
[2025-01-25 11:29] LABS: Basophils Percent Auto 0.2 % (0-2); Eosinophils Percent Auto 0.1 % (0-4); Hematocrit 44.7 % (42.0-52.0); Hemoglobin 15.2 g/dl (14.0-18.0); Imm Gran Abs Auto 0.04 X10*3/uL (0.00-0.03); Imm Gran Pct Auto 0.4 % (0.0-0.4); Lymphocytes Absolute Auto 0.4 X10*3/uL (1.2-4.9); Lymphocytes Percent Auto 4.6 % (20-40); Mean Corpuscular Hemoglobin 30.8 pg (27.0-33.0); Mean Corpuscular Volume 90.5 fL (80.0-98.0); Mean Platelet Volume 10.3 fL (9.4-12.4); Monocytes Absolute Auto 0.4 X10*3/uL (0.1-1.2); Monocytes Percent Auto 4.7 % (2-11); Neutrophils Absolute Auto 8.5 x10*3/uL (2.0-8.3); Platelet Count 201 X10*3/uL (160-400); Red Blood Count 4.94 X10*6/uL (4.60-5.80); Red Cell Distribution Width 13.5 % (11.0-16.0); White Blood Count 9.4 X10*3/uL (4.8-10.8)
[2025-01-25 11:42] LABS: INTERNATIONAL NORM RATIO 1.2 (0.9-1.1); Prothrombin Time 13.2 SEC (10.9-12.4)
[2025-01-25 11:48] LABS: Alanine Aminotransferase 26 U/L (0-40); Albumin Level 4.2 g/dL (3.5-5.0); Alkaline Phosphatase 72 U/L (39-117); Anion Gap 12 (12-20); Aspartate Amino Transferase 27 U/L (5-37); Bilirubin Total 0.5 mg/dL (0.0-1.0); Blood Urea Nitrogen 14 mg/dL (9-16); Calcium 9.3 mg/dL (8.4-10.2); Carbon Dioxide 24 mmol/L (22-29); Chloride 111 mmol/L (96-108); Creatinine Clr Calc Pharmacy 88.3; Estimated Glomerular Filt Rate > 60; Glucose Random 166 mg/dL (60-115); Magnesium 1.8 mg/dL (1.6-2.6); Potassium 4.3 mmol/L (3.3-5.1); Sodium 143 mmol/L (135-145)
[2025-01-25 11:50] LABS: B Type Natriuretic Peptide 12 pg/mL (<100)
[2025-01-25 11:54] LABS: Troponin-I High Sensitivity < 2.7 ng/L (<3.5-35.0)
[2025-01-25 12:04] LABS: Influenza A PCR NEGATIVE (Negative); Influenza B PCR NEGATIVE (Negative); Resp Syncy Virus RNA Qual PCR NEGATIVE (Negative); SARS COV2 PCR INHOUSE NEGATIVE (Negative)
[2025-01-25] MEDS: cefTRIAXone sodium 1 GM VIAL IVPUSH (12:35)
--- NOTE | 2025-01-25 14:54 | PC.NURSE ---
PA requested and oxygen ambulation trail, pt desated to 88% on room air and become quite tachypnic at 26 and tachy 106
[2025-01-25] MEDS: Magnesium Sulfate/H2O 2 GM/50 ML PIGGYBACK IV (15:01)
[2025-01-25] MEDS: Albuterol Sulfate 2.5 MG, Albuterol/Iprat 2.5/0.5MG 3 ML 3 ML INHALE (15:12)
--- NOTE | 2025-01-25 16:36 | PM.IMHP ---
History of Present Illness Date of Service: 01/25/25 Chief Complaint: Shortness of breath 74-year-old male with a known history of COPD not O2 dependent at home, hypertension AFib on Eliquis nonischemic cardiomyopathy presents with a proximally 1 week of worsening shortness of breath cough that has not responded to normal regimen of nebulizers. States was sick previously and feels he caught the ?cold? from her. Sats correctable on 2 L. Review of Systems Review of Systems: Denies chest pain Admits shortness of breath worsening over the last week Denies nausea vomiting diarrhea Denies fever chills [facility] Medical History Retinopathy RSV infection COPD (chronic obstructive pulmonary disease) Essential hypertension NICM (nonischemic cardiomyopathy) PAF (paroxysmal atrial fibrillation) COPD (chronic obstructive pulmonary disease) Atrial fibrillation Hypertension Cardiac arrhythmia Family History Father Cancer of prostate Mother No problems noted. Daughter No problems noted. Daughter No problems noted. Brother Cancer of prostate Surgical History Status post catheter ablation of atrial fibrillation History of appendectomy History of hernia repair History of colonoscopy Social History Household Members: Spouse Housing: House Do you presently have visiting nurse or other home services: No Unable to assess alcohol history related to: Unknown Alcohol intake: former Year quit: 2021 Patient Tobacco Use Status: Never used Tobacco Smoked in Last 30 Days: No e-Cigarette/Vaping Use: Never Used Second Hand Smoke Exposure: No Use of substances other than those prescribed or required for medical reasons: No Substance Use Type: Marijuana Advance Directives: No Advance Directives Information Provided: Yes Advance Directives Date on File: 05/26/21 Do you have a plan to hurt others: No Plan service: Yes Current occupational status: retired Cognitive needs: No Hearing needs: No Vision needs: Yes Meds Allergies Allergy/AdvReac Type Severity Reaction Status Date / Time No Known Allergies Allergy Verified 01/25/25 10:43 Active Medications: Current Medications Acetaminophen (Acetaminophen 325 Mg Tablet) 650 mg PO Q6H PRN PRN Reason: Pain, Mild 1-3,fever,headache Albuterol/Ipratropium (Albuterol/Iprat 2.5/0.5mg 3 Ml Ampul.Neb) 3 ml INHALE RQ4H WHILE AWAKE [facility] Calcium Carbonate (Calcium Carbonate 750 Mg Tab.Chew) 750 mg PO Q4H PRN PRN Reason: Heartburn Ceftriaxone Sodium (Ceftriaxone Sodium 1 Gm Vial) 1 gm IVPUSH Q24H [facility] Magnesium Sulfate (Magnesium Sulfate/H2o) 2 gm in 50 mls @ 25 mls/hr IV ONCE ONE Stop: 01/25/25 16:51 Last Infusion: 01/25/25 15:16 Dose: Infused Azithromycin 500 mg/ Sodium (Chloride) 250 mls @ 125 mls/hr IV Q24H NANNETTE Stop: 01/27/25 18:34 Magnesium Hydroxide (Milk Of Magnesia 30 Ml Oral.Susp) 30 ml PO DAILY PRN PRN Reason: Constipation Melatonin (Melatonin 3 Mg Tablet) 6 mg PO BEDTIME PRN PRN Reason: Insomnia Methylprednisolone Sodium Succinate (Methylprednisolone Sod Succ 125 Mg Vial) 60 mg IVPUSH Q6H [facility] Ondansetron HCl (Ondansetron Hcl 4 Mg/2 Ml Vial) 4 mg IVPUSH Q6H PRN PRN Reason: Nausea and Vomiting Sodium Chloride (0.9 % Sodium Chloride Flush 3 Ml Syringe) 3 ml IVFLUSH QSHIFT [facility] Home Medications ?Medication ?Instructions ?Recorded ?Confirmed ?Last Taken ?Type latanoprost 0.005 % eye drops 1 drp ophthalmic (eye) BEDTIME 01/10/21 12/02/24 05/25/21 History triamcinolone acetonide 0.1 % 1 appl topical DAILY PRN Rash 01/10/21 12/02/24 05/25/21 History topical ointment cholecalciferol (vitamin D3) 25 25 mcg PO DAILY 05/26/21 12/02/24 05/25/21 History mcg (1,000 unit) tablet (Vitamin D3) amiodarone 200 mg tablet 200 mg PO DAILY 01/25/25 Unknown History dronedarone 400 mg tablet (Multaq) 400 mg PO BID 01/25/25 Unknown History Physical Exam Vital Signs and Narrative: Vital Signs: Last Vital Signs Temp 98.4 F 01/25/25 16:29 Pulse 91 01/25/25 16:29 Resp 18 01/25/25 16:29 BP 125/86 01/25/25 16:29 Pulse Ox 92 01/25/25 16:29 O2 Del Method Room Air 01/25/25 16:29 O2 Flow Rate 2 01/25/25 16:29 BMI result Body Mass Index 30.6 Const: Other: Awake alert oriented x3 in no acute distress able to speak in full sentences Resp: Other: Diminished throughout with scant expiratory wheezes at bases. No rhonchi or rales appreciated Cardio: Other: No S4; positive S1-S2; no S3 murmurs rubs or gallops GI: Other: Soft nontender nondistended normoactive bowel sounds Extrem: Other: No edema bilaterally Results Labs 01/25/25 11:19 01/25/25 11:19 Labs: Laboratory Results - last 24 hr 01/25/25 11:19 MCV 90.5 MCH 30.8 MCHC 34.0 RDW 13.5 Plt Count 201 MPV 10.3 Immature Gran % (Auto) 0.4 Neut % (Auto) 90.0 H Lymph % (Auto) 4.6 L Cowley % (Auto) 4.7 Eos % (Auto) 0.1 Baso % (Auto) 0.2 Lymph # (Auto) 0.4 L Cowley # (Auto) 0.4 Eos # (Auto) 0.0 Baso # (Auto) 0.0 Abs Immat Gran (auto) 0.04 H Absolute Neuts (auto) 8.5 H Absolute Nucleated RBC 0.000 Nucleated RBC % (auto) 0.0 PT 13.2 H INR 1.2 H Anion Gap 12 Estim Creat Clear Calc 88.3 Estimated GFR > 60 Random Glucose 166 H Calcium 9.3 Magnesium 1.8 Total Bilirubin 0.5 AST 27 ALT 26 Alkaline Phosphatase 72 Troponin I High Sens < 2.7 B-Natriuretic Peptide 12 Total Protein 7.0 Albumin 4.2 Influenza Type A (PCR) NEGATIVE Influenza Type B (PCR) NEGATIVE RSV RNA Qual (PCR) NEGATIVE SARS-CoV-2 RNA (RT-PCR) NEGATIVE Imaging Radiologist's Impressions: Impressions Chest X-Ray 01/25/25 09:34 IMPRESSION: Subsegmental atelectasis and/or scarring in the lateral left lower lung is decreased. Improving pneumonia is in the differential. Electronically signed by: Joe Garces MD 01/25/2025 10:42 AM EDT RP Assessment and Plan (1) Acute exacerbation of chronic obstructive pulmonary disease: Status: Acute (2) Paroxysmal atrial fibrillation with rapid ventricular response: Status: Acute (3) Essential hypertension: Status: Acute (4) NICM (nonischemic cardiomyopathy): Status: Acute Plan 74-year-old male with a history of COPD not on home O2, paroxysmal atrial fibrillation on Eliquis, essential hypertension, nonischemic cardiomyopathy presents with 3-5 days of worsening shortness of breath at home after exposure to viral illness. He states recently with sputum production. He was failing his usual outpatient remedies and presented to ER 1. COPD exacerbation -ceftriaxone/azithromycin (1). .. Sputum production -Solu-Medrol 125 IV in ER; we will continue 60 mg IV q.6 while in-house -DuoNebs q.4 hours while awake -titrate O2 to maintain sats greater than or equal to 92% 2. Paroxysmal atrial fibrillation -examines normal sinus rhythm (EKG was same) -Eliquis as ordered -treatments as clinically indicated by ventricular response 3. Hypertension -acceptable control on current therapies -adjust as indicated 4. Nonischemic cardiomyopathy -stable and well compensated on outpatient therapies -continue same Full code Eliquis Will require 2 midnights of inpatient hospitalization to treat COPD with IV antibiotics and steroids. This can not be achieved a lesser acute setting Quality Stroke Does the patient have a stroke diagnosis?: No VTE Prior VTE?: No VTE Risk Level:: Medical - moderate - high VTE Device Contraindication: Treatment Not Indicated VTE Drug Contraindication: N/A - Med Ordered
--- NOTE | 2025-01-25 16:53 | PHA.MEDREC ---
Addendum entered by Damien Jones brina 01/25/25 17:14: med rec reviewed Original Note: Pharmacy Consult ? Medication Reconciliation Pharmacy has completed the medication reconciliation. Spoke to Patient to confirm med list. Patient had a list of his medications with him. Patient states he is no longer taking Amiodarone 200 mg, and Multaq 400 mg. Patient states he last had his medications last night.
[2025-01-25] MEDS: Azithromycin 500 MG in 0.9 % Sodium Chloride 250 ML 125 MG IV (17:22)
[2025-01-25] MEDS: 0.9 % Sodium Chloride Flush 3 ML SYRINGE IVFLUSH ×2 (17:40→22:33)
[2025-01-25] MEDS: Albuterol/Iprat 2.5/0.5MG 3 ML AMPUL.NEB INHALE (19:54)
[2025-01-25] MEDS: Loperamide HCl 2 MG CAPSULE PO (22:11)
[2025-01-25] MEDS: carvediloL 6.25 MG TABLET PO (22:11)
[2025-01-25] MEDS: Apixaban 5 MG TABLET PO (22:11)
[2025-01-25] MEDS: PARoxetine HCL 20 MG TABLET PO (22:11)
[2025-01-25] MEDS: Latanoprost 0.005 % Ophth Sol 2.5 ML DROPS 1 DROP EYE-BOTH (22:30)
[2025-01-25] MEDS: methylPREDNISolone Sod Succ 125 MG/2 ML VIAL 60 MG IVPUSH (22:30)
[2025-01-26] VITALS (11 sets, daily range): BP systolic 127–165; BP diastolic 83–96; PULSE 79–101; RESP 16–24; TEMP 36.3–36.8; O2SAT 90–98
[2025-01-26] MEDS: Albuterol Sulfate (0.083%) 2.5 MG/3 ML VIAL.NEB INHALE ×2 (00:31→04:10)
[2025-01-26] MEDS: methylPREDNISolone Sod Succ 125 MG/2 ML VIAL 60 MG IVPUSH (04:27)
[2025-01-26] MEDS: Albuterol/Iprat 2.5/0.5MG 3 ML AMPUL.NEB INHALE ×4 (07:34→19:46)
--- NOTE | 2025-01-26 07:38 | MHC.CM.PN ---
CM met with Patient at bedside and addressed IMM with him, providing Patient with the original and a copy has been placed on the chart. Patient lives in a house with his /HCP/Judie, who will transport to home if that is the ultimate plan. Patient may benefit from a PT Eval to assist with disposition(Home new vna vs STR/Pulmonary rehab) and CM has initiated and will follow for dc planning. PCP is Dr. Jose Marie.
[2025-01-26 07:44] LABS: Basophils Percent Auto 0.1 % (0-2); Hemoglobin 16.7 g/dl (14.0-18.0); Imm Gran Abs Auto 0.11 X10*3/uL (0.00-0.03); Imm Gran Pct Auto 0.9 % (0.0-0.4); Lymphocytes Absolute Auto 0.5 X10*3/uL (1.2-4.9); Lymphocytes Percent Auto 4.1 % (20-40); MANUAL DIFF FLAG SCAN; Mean Corpuscular HGB Conc 33.4 g/dl (31.0-36.0); Mean Corpuscular Hemoglobin 30.4 pg (27.0-33.0); Mean Corpuscular Volume 91.1 fL (80.0-98.0); Mean Platelet Volume 10.2 fL (9.4-12.4); Monocytes Absolute Auto 0.3 X10*3/uL (0.1-1.2); Monocytes Percent Auto 2.3 % (2-11); Neutrophils Percent Auto 92.6 % (45-73); Platelet Count 235 X10*3/uL (160-400); Red Blood Count 5.49 X10*6/uL (4.60-5.80); Red Cell Distribution Width 13.5 % (11.0-16.0); SCAN SMEAR FLAG 1; White Blood Count 11.9 X10*3/uL (4.8-10.8)
[2025-01-26 08:01] LABS: Alanine Aminotransferase 28 U/L (0-40); Albumin Level 4.8 g/dL (3.5-5.0); Alkaline Phosphatase 82 U/L (39-117); Anion Gap 16 (12-20); Aspartate Amino Transferase 26 U/L (5-37); Bilirubin Total 0.6 mg/dL (0.0-1.0); Blood Urea Nitrogen 14 mg/dL (9-16); Calcium 9.9 mg/dL (8.4-10.2); Carbon Dioxide 27 mmol/L (22-29); Chloride 107 mmol/L (96-108); Creatinine Clr Calc Pharmacy 98.6; Estimated Glomerular Filt Rate > 60; Glucose Fasting 162 mg/dL (60-99); Potassium 5.3 mmol/L (3.3-5.1); Sodium 145 mmol/L (135-145); Total Protein 7.9 g/dL (6.5-8.0)
[2025-01-26] MEDS: carvediloL 6.25 MG TABLET PO ×2 (08:14→20:49)
[2025-01-26] MEDS: PARoxetine HCL 20 MG TABLET PO (08:14)
[2025-01-26] MEDS: Apixaban 5 MG TABLET PO ×2 (08:14→20:49)
[2025-01-26] MEDS: Atorvastatin Calcium 80 MG TABLET PO (08:14)
[2025-01-26] MEDS: amLODIPine Besylate 2.5 MG TABLET 7.5 MG PO (08:14)
[2025-01-26] MEDS: Cholecalciferol (Vitamin D3) 25 MCG TABLET PO (08:14)
[2025-01-26] MEDS: 0.9 % Sodium Chloride Flush 3 ML SYRINGE IVFLUSH ×3 (08:15→22:43)
[2025-01-26 08:16] LABS: SLIDE REVIEW VERIFIED
[2025-01-26 10:54] LABS: Adenovirus PCR Not Detected (Not Detect.); Bordetella parapertussis PCR Not Detected (Not Detect.); Bordetella pertussis PCR Not Detected (Not Detect.); Chlamydia pneumoniae PCR Not Detected (Not Detect.); Coronavirus 229E PCR Not Detected (Not Detect.); Coronavirus HKU1 PCR Not Detected (Not Detect.); Coronavirus NL63 PCR Not Detected (Not Detect.); Coronavirus OC43 PCR Not Detected (Not Detect.); Human metapneumovirus PCR Not Detected (Not Detect.); Influenza A PCR Not Detected (Not Detect.); Influenza B PCR Not Detected (Not Detect.); Mycoplasma pneumoniae PCR Not Detected (Not Detect.); Parainfluenza 1 PCR Not Detected (Not Detect.); Parainfluenza 2 PCR Not Detected (Not Detect.); Parainfluenza 3 PCR Detected (Not Detect.); Parainfluenza 4 PCR Not Detected (Not Detect.); RSV PCR Not Detected (Not Detect.); Rhino/Enterovirus PCR Not Detected (Not Detect.)
[2025-01-26 11:07] LABS: SARS-CoV-2 PCR Not Detected (Not Detect.)
[2025-01-26 11:08] LABS: Influenza A H1 PCR Not Detected (Not Detect.); Influenza A H1-2009 PCR Not Detected (Not Detect.); Influenza A H3 PCR Not Detected (Not Detect.)
[2025-01-26] MEDS: cefTRIAXone sodium 1 GM VIAL IVPUSH (11:13)
[2025-01-26] MEDS: methylPREDNISolone Sod Succ 125 MG/2 ML VIAL 40 MG IVPUSH ×3 (11:14→22:41)
[2025-01-26] MEDS: hydrOXYzine HCL 25 MG TABLET PO (11:44)
--- NOTE | 2025-01-26 12:17 | HO.PM.IMPN ---
Subjective Subjective Date of Service: 01/26/25 Interval History: Seen and examined this morning Follow-up for shortness of breath/COPD exacerbation Patient reporting feeling short of breath. No significant cough Constitutional Constitutional: Denies chills and Denies fever(s) Cardiovascular Cardiovascular: Denies chest pain, Denies palpitations and Reports dyspnea Respiratory Respiratory: Denies cough and Reports dyspnea Gastrointestinal Gastrointestinal: Denies abdominal pain Endocrine Endocrine: Denies palpitations Physical Exam Vital Signs: Vital Signs: Last Vital Signs Temp 97.4 F 01/26/25 11:25 Pulse 83 01/26/25 11:30 Resp 20 01/26/25 11:30 BP 141/83 H 01/26/25 11:25 Pulse Ox 92 01/26/25 11:25 O2 Del Method Nasal Cannula 01/26/25 11:25 O2 Flow Rate 3 01/26/25 11:25 BMI result Body Mass Index 30.7 Const: Other: appears anxious General: alert and awake Orientation/consciousness: patient oriented x3 Resp: Other: dim with scattered expiratory wheeze Effort & Inspection: normal respiratory effort and no use of accessory muscles Cardio: Rate: regular rate GI: Inspection: No distended Palpation (GI): Soft to palpation Neuro: General: patient oriented x3, moves all extremities and CN's II-XI intact bilaterally Objective Data Active Medications Acetaminophen (Acetaminophen 325 Mg Tablet) 650 mg PO Q6H PRN PRN Reason: Pain, Mild 1-3,fever,headache Albuterol Sulfate (Albuterol Sulfate (0.083%) 2.5 Mg/3 Ml Vial.Neb) 2.5 mg INHALE Q3H PRN PRN Reason: Wheezing Last Admin: 01/26/25 04:10 Dose: 2.5 mg Documented By: LD Albuterol/Ipratropium (Albuterol/Iprat 2.5/0.5mg 3 Ml Ampul.Neb) 3 ml INHALE RQ4H WHILE AWAKE [facility] Last Admin: 01/26/25 11:23 Dose: 3 ml Documented By: MILLY Amlodipine Besylate (Amlodipine Besylate 2.5 Mg Tablet) 7.5 mg PO DAILY [facility]; Protocol Last Admin: 01/26/25 08:14 Dose: 7.5 mg Documented By: ALLEGRA Apixaban (Apixaban 5 Mg Tablet) 5 mg PO BID [facility] Last Admin: 01/26/25 08:14 Dose: 5 mg Documented By: ALLEGRA Atorvastatin Calcium (Atorvastatin Calcium 80 Mg Tablet) 80 mg PO DAILY [facility] Last Admin: 01/26/25 08:14 Dose: 80 mg Documented By: ALLEGRA Calcium Carbonate (Calcium Carbonate 750 Mg Tab.Chew) 750 mg PO Q4H PRN PRN Reason: Heartburn Carvedilol (Carvedilol 6.25 Mg Tablet) 6.25 mg PO BID [facility]; Protocol Last Admin: 01/26/25 08:14 Dose: 6.25 mg Documented By: ALLEGRA Ceftriaxone Sodium (Ceftriaxone Sodium 1 Gm Vial) 1 gm IVPUSH Q24H [facility] Last Admin: 01/26/25 11:13 Dose: 1 gm Documented By: ALLEGRA Azithromycin 500 mg/ Sodium (Chloride) 250 mls @ 125 mls/hr IV Q24H [facility] Stop: 01/27/25 18:59 Last Infusion: 01/25/25 19:30 Dose: Infused Documented By: MAXWELL Latanoprost (Latanoprost 0.005 % Ophth Samara 2.5 Ml Drops) 1 drop EYE-BOTH BEDTIME [facility] Last Admin: 01/25/25 22:30 Dose: 1 drop Documented By: MACIE Loperamide HCl (Loperamide Hcl 2 Mg Capsule) 2 mg PO Q4H PRN PRN Reason: Diarrhea Last Admin: 01/25/25 22:11 Dose: 2 mg Documented By: MACIE Magnesium Hydroxide (Milk Of Magnesia 30 Ml Oral.Susp) 30 ml PO DAILY PRN PRN Reason: Constipation Melatonin (Melatonin 3 Mg Tablet) 6 mg PO BEDTIME PRN PRN Reason: Insomnia Methylprednisolone Sodium Succinate (Methylprednisolone Sod Succ 125 Mg/2 Ml Vial) 40 mg IVPUSH Q6H [facility] Last Admin: 01/26/25 11:14 Dose: 40 mg Documented By: ALLEGRA Non-Formulary Medication (Umeclidinium-Vilanterol [Anoro Ellipta]) 1 each INHALE DAILY [facility] Ondansetron HCl (Ondansetron Hcl 4 Mg/2 Ml Vial) 4 mg IVPUSH Q6H PRN PRN Reason: Nausea and Vomiting Paroxetine HCl (Paroxetine Hcl 20 Mg Tablet) 20 mg PO DAILY [facility] Last Admin: 01/26/25 08:14 Dose: 20 mg Documented By: ALLEGRA Sodium Chloride (0.9 % Sodium Chloride Flush 3 Ml Syringe) 3 ml IVFLUSH QSHIFT [facility] Last Admin: 01/26/25 08:15 Dose: 3 ml Documented By: ALLEGRA Vitamin D (Cholecalciferol (Vitamin D3) 25 Mcg Tablet) 25 mcg PO DAILY [facility] Last Admin: 01/26/25 08:14 Dose: 25 mcg Documented By: ALLEGRA Labs 01/26/25 07:00 01/26/25 07:00 Labs: Laboratory Results - last 24 hr 01/26/25 01/26/25 07:00 09:26 MCV 91.1 MCH 30.4 MCHC 33.4 RDW 13.5 Plt Count 235 MPV 10.2 Immature Gran % (Auto) 0.9 H Neut % (Auto) 92.6 H Lymph % (Auto) 4.1 L [place] % (Auto) 2.3 Eos % (Auto) 0.0 Baso % (Auto) 0.1 Lymph # (Auto) 0.5 L [place] # (Auto) 0.3 Eos # (Auto) 0.0 Baso # (Auto) 0.0 Abs Immat Gran (auto) 0.11 H Absolute Neuts (auto) 11.0 H Absolute Nucleated RBC 0.000 Nucleated RBC % (auto) 0.0 Smear Tech's Comments VERIFIED Anion Gap 16 Estim Creat Clear Calc 98.6 Estimated GFR > 60 Fasting Glucose 162 H Calcium 9.9 D Total Bilirubin 0.6 AST 26 ALT 28 Alkaline Phosphatase 82 Total Protein 7.9 Albumin 4.8 Respiratory Panel Andersen See Note Adenovirus (Rapid PCR) Not Detected B.pert (TEM-PCR) Not Detected B.parapertussis DNA PCR Not Detected C. pneumoniae DNA (PCR) Not Detected Coronavirus OC43 (PCR) Not Detected Coronavirus HKU1 (PCR) Not Detected Coronavirus 229E (PCR) Not Detected Coronavirus NL63 (PCR) Not Detected Human Metapneumovir PCR Not Detected Influenza A (RT-PCR) Not Detected Influenza A (H1) PCR Not Detected Influ A (H1/09) PCR Not Detected Influenza A (H3) PCR Not Detected Influenza B (RT-PCR) Not Detected M. pneumoniae (PCR) Not Detected Parainfluenza 1 (PCR) Not Detected Parainfluenza 2 (PCR) Not Detected Parainfluenza 3 (PCR) Detected A Parainfluenza 4 (PCR) Not Detected RSV (PCR) Not Detected Entero/Rhino (PCR) Not Detected SARS-CoV-2 RNA (RT-PCR) Not Detected Assessment and Plan (1) COPD (chronic obstructive pulmonary disease): Status: Acute Plan 74-year-old male with a history of COPD not on home O2, paroxysmal atrial fibrillation on Eliquis, essential hypertension, nonischemic cardiomyopathy presents with 3-5 days of worsening shortness of breath at home after exposure to viral illness. He states recently with sputum production. He was failing his usual outpatient remedies and presented to ER Acute COPD exacerbation due to parainfluenza Continue IV ceftriaxone/azithromycin Continue systemic steroids DuoNebs q.4 hours while awake titrate O2 to maintain sats greater than or equal to 92%- currently requiring 3 L of supplemental oxygen RPP + for parainfluenza Paroxysmal atrial fibrillation In sinus rhythm Continue Eliquis, Coreg Hypertension acceptable control on current therapies Nonischemic cardiomyopathy stable and well compensated on outpatient therapies BNP low continue same Mood Continue paroxetine Full code Eliquis Requires ongoing inpatient stay for COPD with IV antibiotics and steroids. This can not be achieved a lesser acute setting Quality Stroke Does the patient have a stroke diagnosis?: No VTE Prior VTE?: No VTE Risk Level:: Medical - moderate - high VTE Device Contraindication: Treatment Not Indicated VTE Drug Contraindication: N/A - Med Ordered
[2025-01-26 15:01] LABS: Potassium 4.4 mmol/L (3.3-5.1)
[2025-01-26] MEDS: Azithromycin 500 MG in 0.9 % Sodium Chloride 250 ML 125 MG IV (16:49)
[2025-01-26] MEDS: Latanoprost 0.005 % Ophth Sol 2.5 ML DROPS 1 DROP EYE-BOTH (20:48)
[2025-01-27] VITALS (12 sets, daily range): BP systolic 113–167; BP diastolic 59–91; PULSE 74–91; RESP 16–20; TEMP 36.3–37.1; O2SAT 91–96
[2025-01-27] MEDS: Albuterol Sulfate (0.083%) 2.5 MG/3 ML VIAL.NEB INHALE (04:45)
[2025-01-27] MEDS: methylPREDNISolone Sod Succ 125 MG/2 ML VIAL 40 MG IVPUSH ×3 (05:35→20:06)
[2025-01-27] MEDS: Albuterol/Iprat 2.5/0.5MG 3 ML AMPUL.NEB INHALE ×4 (08:12→19:11)
[2025-01-27] MEDS: carvediloL 6.25 MG TABLET PO ×2 (08:35→20:05)
[2025-01-27] MEDS: PARoxetine HCL 20 MG TABLET PO (08:36)
[2025-01-27] MEDS: Atorvastatin Calcium 80 MG TABLET PO (08:36)
[2025-01-27] MEDS: Cholecalciferol (Vitamin D3) 25 MCG TABLET PO (08:36)
[2025-01-27] MEDS: Apixaban 5 MG TABLET PO ×2 (08:36→20:05)
[2025-01-27] MEDS: amLODIPine Besylate 2.5 MG TABLET 7.5 MG PO (08:36)
[2025-01-27] MEDS: 0.9 % Sodium Chloride Flush 3 ML SYRINGE IVFLUSH ×3 (08:36→20:07)
--- NOTE | 2025-01-27 10:32 | MHC.CM.PN ---
Per ROUNDS discussion, Patient is not yet medically cleared for dc(still SOB); Patient may benefit from a PT Eval to assist with disposition. CM will follow.
--- NOTE | 2025-01-27 10:39 | P.PNIM_ITS ---
Subjective Subjective Date of Service: 01/27/25 Interval History: Seen and examined this morning Follow-up for COPD exacerbation, parainfluenza Patient reports shortness of breath a little better today Constitutional Constitutional: Denies chills and Denies fever(s) Cardiovascular Cardiovascular: Denies chest pain, Denies palpitations, Reports dyspnea and Reports dyspnea on exertion Respiratory Respiratory: Denies cough, Reports dyspnea and Reports dyspnea on exertion Endocrine Endocrine: Denies palpitations Physical Exam 2 Vital Signs: Vital Signs: Last Vital Signs Temp 97.6 F 01/27/25 08:00 Pulse 90 01/27/25 08:13 Resp 20 01/27/25 08:13 BP 140/76 H 01/27/25 08:00 Pulse Ox 92 01/27/25 08:00 O2 Del Method Room Air, Oxymask 01/27/25 08:00 O2 Flow Rate 3 01/27/25 03:50 BMI result Body Mass Index 30.7 Const: Other: appears anxious General: alert and awake Orientation/consciousness: patient oriented x3 Resp: Other: dim with scattered expiratory wheeze Effort & Inspection: normal respiratory effort and no use of accessory muscles Cardio: Rate: regular rate GI: Inspection: No distended Palpation (GI): Soft to palpation Neuro: General: patient oriented x3, moves all extremities and CN's II-XI intact bilaterally Objective Data Active Medications Acetaminophen (Acetaminophen 325 Mg Tablet) 650 mg PO Q6H PRN PRN Reason: Pain, Mild 1-3,fever,headache Albuterol Sulfate (Albuterol Sulfate (0.083%) 2.5 Mg/3 Ml Vial.Neb) 2.5 mg INHALE Q3H PRN PRN Reason: Wheezing Last Admin: 01/27/25 04:45 Dose: 2.5 mg Documented By: LD Albuterol/Ipratropium (Albuterol/Iprat 2.5/0.5mg 3 Ml Ampul.Neb) 3 ml INHALE RQ4H WHILE AWAKE [facility] Last Admin: 01/27/25 08:12 Dose: 3 ml Documented By: ALVIN Amlodipine Besylate (Amlodipine Besylate 2.5 Mg Tablet) 7.5 mg PO DAILY [facility]; Protocol Last Admin: 01/27/25 08:36 Dose: 7.5 mg Documented By: ALLEGRA Apixaban (Apixaban 5 Mg Tablet) 5 mg PO BID [facility] Last Admin: 01/27/25 08:36 Dose: 5 mg Documented By: ALLEGRA Atorvastatin Calcium (Atorvastatin Calcium 80 Mg Tablet) 80 mg PO DAILY [facility] Last Admin: 01/27/25 08:36 Dose: 80 mg Documented By: ALLEGRA Calcium Carbonate (Calcium Carbonate 750 Mg Tab.Chew) 750 mg PO Q4H PRN PRN Reason: Heartburn Carvedilol (Carvedilol 6.25 Mg Tablet) 6.25 mg PO BID [facility]; Protocol Last Admin: 01/27/25 08:35 Dose: 6.25 mg Documented By: ALLEGRA Ceftriaxone Sodium (Ceftriaxone Sodium 1 Gm Vial) 1 gm IVPUSH Q24H [facility] Last Admin: 01/26/25 11:13 Dose: 1 gm Documented By: ALLEGRA Azithromycin 500 mg/ Sodium (Chloride) 250 mls @ 125 mls/hr IV Q24H [facility] Stop: 01/27/25 18:59 Last Infusion: 01/26/25 19:09 Dose: Infused Documented By: LAURIE Latanoprost (Latanoprost 0.005 % Ophth Samara 2.5 Ml Drops) 1 drop EYE-BOTH BEDTIME [facility] Last Admin: 01/26/25 20:48 Dose: 1 drop Documented By: KLARISSA Loperamide HCl (Loperamide Hcl 2 Mg Capsule) 2 mg PO Q4H PRN PRN Reason: Diarrhea Last Admin: 01/25/25 22:11 Dose: 2 mg Documented By: MACIE Magnesium Hydroxide (Milk Of Magnesia 30 Ml Oral.Susp) 30 ml PO DAILY PRN PRN Reason: Constipation Melatonin (Melatonin 3 Mg Tablet) 6 mg PO BEDTIME PRN PRN Reason: Insomnia Methylprednisolone Sodium Succinate (Methylprednisolone Sod Succ 125 Mg/2 Ml Vial) 40 mg IVPUSH Q6H [facility] Last Admin: 01/27/25 05:35 Dose: 40 mg Documented By: CHARANTRLupe Non-Formulary Medication (Umeclidinium-Vilanterol [Anoro Ellipta]) 1 each INHALE DAILY [facility] Ondansetron HCl (Ondansetron Hcl 4 Mg/2 Ml Vial) 4 mg IVPUSH Q6H PRN PRN Reason: Nausea and Vomiting Paroxetine HCl (Paroxetine Hcl 20 Mg Tablet) 20 mg PO DAILY [facility] Last Admin: 01/27/25 08:36 Dose: 20 mg Documented By: ALLEGRA Sodium Chloride (0.9 % Sodium Chloride Flush 3 Ml Syringe) 3 ml IVFLUSH QSHIFT [facility] Last Admin: 01/27/25 08:36 Dose: 3 ml Documented By: ALLEGRA Vitamin D (Cholecalciferol (Vitamin D3) 25 Mcg Tablet) 25 mcg PO DAILY [facility] Last Admin: 01/27/25 08:36 Dose: 25 mcg Documented By: ALLEGRA Labs 01/26/25 07:00 01/26/25 14:12 Labs: Laboratory Results - last 24 hr 01/26/25 09:26 Respiratory Panel [facility] See Note Adenovirus (Rapid PCR) Not Detected B.pert (TEM-PCR) Not Detected B.parapertussis DNA PCR Not Detected C. pneumoniae DNA (PCR) Not Detected Coronavirus OC43 (PCR) Not Detected Coronavirus HKU1 (PCR) Not Detected Coronavirus 229E (PCR) Not Detected Coronavirus NL63 (PCR) Not Detected Human Metapneumovir PCR Not Detected Influenza A (RT-PCR) Not Detected Influenza A (H1) PCR Not Detected Influ A (H1/09) PCR Not Detected Influenza A (H3) PCR Not Detected Influenza B (RT-PCR) Not Detected M. pneumoniae (PCR) Not Detected Parainfluenza 1 (PCR) Not Detected Parainfluenza 2 (PCR) Not Detected Parainfluenza 3 (PCR) Detected A Parainfluenza 4 (PCR) Not Detected RSV (PCR) Not Detected Entero/Rhino (PCR) Not Detected SARS-CoV-2 RNA (RT-PCR) Not Detected Assessment and Plan (1) COPD (chronic obstructive pulmonary disease): Status: Acute Plan This is a 74-year-old male with a history of COPD not on home O2, paroxysmal atrial fibrillation on Eliquis, essential hypertension, nonischemic cardiomyopathy presents with 3-5 days of worsening shortness of breath at home after exposure to viral illness. He states recently with sputum production. He was failing his usual outpatient remedies and presented to ER Acute COPD exacerbation due to parainfluenza Continue IV ceftriaxone/azithromycin Continue systemic steroids - will wean to q8h DuoNebs q.4 hours while awake titrate O2 to maintain sats greater than or equal to 92%- currently requiring 3 L of supplemental oxygen; feels more comfortable on the simple face mask RPP + for parainfluenza Paroxysmal atrial fibrillation In sinus rhythm Continue Eliquis, Coreg Hypertension acceptable control on current therapies Nonischemic cardiomyopathy stable and well compensated on outpatient therapies BNP low continue same Mood Continue paroxetine Full code Eliquis Requires ongoing inpatient stay for COPD with IV antibiotics and steroids. This can not be achieved a lesser acute setting Quality Stroke Does the patient have a stroke diagnosis?: No VTE Prior VTE?: No VTE Risk Level:: Medical - moderate - high VTE Device Contraindication: Treatment Not Indicated VTE Drug Contraindication: N/A - Med Ordered
[2025-01-27] MEDS: cefTRIAXone sodium 1 GM VIAL IVPUSH (12:38)
[2025-01-27] MEDS: Azithromycin 500 MG in 0.9 % Sodium Chloride 250 ML 125 MG IV (16:24)
[2025-01-27] MEDS: Latanoprost 0.005 % Ophth Sol 2.5 ML DROPS 1 DROP EYE-BOTH (20:05)
[2025-01-28] VITALS (11 sets, daily range): BP systolic 128–156; BP diastolic 68–86; PULSE 72–93; RESP 16–20; TEMP 36.4–36.9; O2SAT 92–98
[2025-01-28] MEDS: Albuterol Sulfate (0.083%) 2.5 MG/3 ML VIAL.NEB INHALE (01:06)
[2025-01-28] MEDS: methylPREDNISolone Sod Succ 125 MG/2 ML VIAL 40 MG IVPUSH ×3 (05:18→19:47)
[2025-01-28] MEDS: Albuterol/Iprat 2.5/0.5MG 3 ML AMPUL.NEB INHALE ×4 (07:44→18:54)
[2025-01-28] MEDS: amLODIPine Besylate 2.5 MG TABLET 7.5 MG PO (10:14)
[2025-01-28] MEDS: carvediloL 6.25 MG TABLET PO ×2 (10:14→19:44)
[2025-01-28] MEDS: Atorvastatin Calcium 80 MG TABLET PO (10:14)
[2025-01-28] MEDS: Cholecalciferol (Vitamin D3) 25 MCG TABLET PO (10:14)
[2025-01-28] MEDS: Apixaban 5 MG TABLET PO ×2 (10:14→19:45)
[2025-01-28] MEDS: PARoxetine HCL 20 MG TABLET PO (10:14)
[2025-01-28] MEDS: cefTRIAXone sodium 1 GM VIAL IVPUSH (10:15)
[2025-01-28] MEDS: 0.9 % Sodium Chloride Flush 3 ML SYRINGE IVFLUSH ×3 (10:18→19:48)
--- NOTE | 2025-01-28 14:37 | HO.PM.IMPN ---
Subjective Subjective Date of Service: 01/28/25 Interval History: Seen and examined this morning Follow-up for COPD exacerbation, parainfluenza Patient reports shortness of breath a little better today Constitutional Constitutional: Denies chills and Denies fever(s) Cardiovascular Cardiovascular: Denies chest pain, Denies palpitations, Reports dyspnea and Reports dyspnea on exertion Respiratory Respiratory: Denies cough, Reports dyspnea and Reports dyspnea on exertion Endocrine Endocrine: Denies palpitations Physical Exam Vital Signs: Vital Signs: Last Vital Signs Temp 97.6 F 01/28/25 11:34 Pulse 92 01/28/25 11:34 Resp 20 01/28/25 11:34 BP 146/84 H 01/28/25 11:34 Pulse Ox 92 01/28/25 11:34 O2 Del Method Nasal Cannula 01/28/25 11:34 O2 Flow Rate 2 01/28/25 11:34 BMI result Body Mass Index 30.7 Objective Data Active Medications Acetaminophen (Acetaminophen 325 Mg Tablet) 650 mg PO Q6H PRN PRN Reason: Pain, Mild 1-3,fever,headache Albuterol Sulfate (Albuterol Sulfate (0.083%) 2.5 Mg/3 Ml Vial.Neb) 2.5 mg INHALE Q3H PRN PRN Reason: Wheezing Last Admin: 01/28/25 01:06 Dose: 2.5 mg Documented By: LD Albuterol/Ipratropium (Albuterol/Iprat 2.5/0.5mg 3 Ml Ampul.Neb) 3 ml INHALE RQ4H WHILE AWAKE [facility] Last Admin: 01/28/25 11:13 Dose: 3 ml Documented By: ADRIANNA Amlodipine Besylate (Amlodipine Besylate 2.5 Mg Tablet) 7.5 mg PO DAILY [facility]; Protocol Last Admin: 01/28/25 10:14 Dose: 7.5 mg Documented By: LATOYA Apixaban (Apixaban 5 Mg Tablet) 5 mg PO BID [facility] Last Admin: 01/28/25 10:14 Dose: 5 mg Documented By: LATOYA Atorvastatin Calcium (Atorvastatin Calcium 80 Mg Tablet) 80 mg PO DAILY [facility] Last Admin: 01/28/25 10:14 Dose: 80 mg Documented By: LATOYA Calcium Carbonate (Calcium Carbonate 750 Mg Tab.Chew) 750 mg PO Q4H PRN PRN Reason: Heartburn Carvedilol (Carvedilol 6.25 Mg Tablet) 6.25 mg PO BID [facility]; Protocol Last Admin: 01/28/25 10:14 Dose: 6.25 mg Documented By: LATOYA Ceftriaxone Sodium (Ceftriaxone Sodium 1 Gm Vial) 1 gm IVPUSH Q24H [facility] Last Admin: 01/28/25 10:15 Dose: 1 gm Documented By: LATOYA Latanoprost (Latanoprost 0.005 % Ophth Samara 2.5 Ml Drops) 1 drop EYE-BOTH BEDTIME [facility] Last Admin: 01/27/25 20:05 Dose: 1 drop Documented By: MACIE Loperamide HCl (Loperamide Hcl 2 Mg Capsule) 2 mg PO Q4H PRN PRN Reason: Diarrhea Last Admin: 01/25/25 22:11 Dose: 2 mg Documented By: MACIE Magnesium Hydroxide (Milk Of Magnesia 30 Ml Oral.Susp) 30 ml PO DAILY PRN PRN Reason: Constipation Melatonin (Melatonin 3 Mg Tablet) 6 mg PO BEDTIME PRN PRN Reason: Insomnia Methylprednisolone Sodium Succinate (Methylprednisolone Sod Succ 125 Mg/2 Ml Vial) 40 mg IVPUSH Q8H [facility] Last Admin: 01/28/25 13:00 Dose: 40 mg Documented By: LATOYA Non-Formulary Medication (Umeclidinium-Vilanterol [Anoro Ellipta]) 1 each INHALE DAILY [facility] Ondansetron HCl (Ondansetron Hcl 4 Mg/2 Ml Vial) 4 mg IVPUSH Q6H PRN PRN Reason: Nausea and Vomiting Paroxetine HCl (Paroxetine Hcl 20 Mg Tablet) 20 mg PO DAILY [facility] Last Admin: 01/28/25 10:14 Dose: 20 mg Documented By: LATOYA Sodium Chloride (0.9 % Sodium Chloride Flush 3 Ml Sy[facility]) [facility] Last Admin: 01/28/25 10:18 Dose: 3 ml Documented By: LATOYA Vitamin D (Cholecalciferol (Vitamin D3) 25 Mcg Tablet) 25 mcg PO DAILY [facility] Last Admin: 01/28/25 10:14 Dose: 25 mcg Documented By: LATOYA Labs 01/26/25 07:00 01/26/25 14:12 Assessment and Plan (1) COPD (chronic obstructive pulmonary disease): Status: Acute Plan 74-year-old male with a history of COPD not on home O2, paroxysmal atrial fibrillation on Eliquis, essential hypertension, nonischemic cardiomyopathy presents with 3-5 days of worsening shortness of breath at home after exposure to viral illness. He states recently with sputum production. He was failing his usual outpatient remedies and presented to ER Acute COPD exacerbation due to parainfluenza Continue IV ceftriaxone/azithromycin Continue systemic steroids - will wean to q8h DuoNebs q.4 hours while awake titrate O2 to maintain sats greater than or equal to 92%- currently requiring 3 L of supplemental oxygen; feels more comfortable on the simple face mask RPP + for parainfluenza Paroxysmal atrial fibrillation In sinus rhythm Continue Eliquis, Coreg Hypertension acceptable control on current therapies Nonischemic cardiomyopathy stable and well compensated on outpatient therapies BNP low continue same Mood Continue paroxetine Full code Eliquis Requires ongoing inpatient stay for COPD with IV antibiotics and steroids. This can not be achieved a lesser acute setting Quality Stroke Does the patient have a stroke diagnosis?: No VTE Prior VTE?: No VTE Risk Level:: Medical - moderate - high VTE Device Contraindication: Treatment Not Indicated VTE Drug Contraindication: N/A - Med Ordered
[2025-01-28 15:52] LABS: Glucose, Whole Blood 240 mg/dL (60-115)
[2025-01-28] MEDS: Latanoprost 0.005 % Ophth Sol 2.5 ML DROPS 1 DROP EYE-BOTH (19:44)
[2025-01-29] VITALS (11 sets, daily range): BP systolic 123–153; BP diastolic 77–89; PULSE 66–104; RESP 16–20; TEMP 36.4–36.9; O2SAT 91–98
[2025-01-29] MEDS: Albuterol Sulfate (0.083%) 2.5 MG/3 ML VIAL.NEB INHALE (01:21)
[2025-01-29] MEDS: methylPREDNISolone Sod Succ 125 MG/2 ML VIAL 40 MG IVPUSH ×3 (05:53→21:01)
[2025-01-29] MEDS: Albuterol/Iprat 2.5/0.5MG 3 ML AMPUL.NEB INHALE ×4 (07:58→18:47)
[2025-01-29] MEDS: Atorvastatin Calcium 80 MG TABLET PO (08:36)
[2025-01-29] MEDS: Apixaban 5 MG TABLET PO ×2 (08:36→21:01)
[2025-01-29] MEDS: Cholecalciferol (Vitamin D3) 25 MCG TABLET PO (08:36)
[2025-01-29] MEDS: amLODIPine Besylate 2.5 MG TABLET 7.5 MG PO (08:36)
[2025-01-29] MEDS: PARoxetine HCL 20 MG TABLET PO (08:36)
[2025-01-29] MEDS: carvediloL 6.25 MG TABLET PO ×2 (08:36→21:01)
[2025-01-29] MEDS: 0.9 % Sodium Chloride Flush 3 ML SYRINGE IVFLUSH ×3 (08:36→21:03)
--- NOTE | 2025-01-29 08:51 | HO.PM.IMPN ---
Subjective Subjective Date of Service: 01/29/25 Interval History: Seen and examined this morning Follow-up for COPD exacerbation, parainfluenza Patient reports shortness of breath a little better today Constitutional Constitutional: Denies chills and Denies fever(s) Cardiovascular Cardiovascular: Denies chest pain, Denies palpitations, Reports dyspnea and Reports dyspnea on exertion Respiratory Respiratory: Denies cough, Reports dyspnea and Reports dyspnea on exertion Endocrine Endocrine: Denies palpitations Physical Exam Vital Signs: Vital Signs: Last Vital Signs Temp 98.2 F 01/29/25 08:00 Pulse 93 01/29/25 08:00 Resp 20 01/29/25 08:00 BP 140/80 H 01/29/25 08:00 Pulse Ox 97 01/29/25 08:00 O2 Del Method Nasal Cannula 01/29/25 08:00 O2 Flow Rate 1 01/29/25 08:00 BMI result Body Mass Index 30.7 Appearing in no acute distress lung sounds dim heart regular rate rhythm, clear S1, S2 positive bowel sounds, abdomen is soft, nontender neuro patient is alert x3, no focal deficits Objective Data Active Medications Acetaminophen (Acetaminophen 325 Mg Tablet) 650 mg PO Q6H PRN PRN Reason: Pain, Mild 1-3,fever,headache Albuterol Sulfate (Albuterol Sulfate (0.083%) 2.5 Mg/3 Ml Vial.Neb) 2.5 mg INHALE Q3H PRN PRN Reason: Wheezing Last Admin: 01/29/25 01:21 Dose: 2.5 mg Documented By: LD Albuterol/Ipratropium (Albuterol/Iprat 2.5/0.5mg 3 Ml Ampul.Neb) 3 ml INHALE RQ4H WHILE AWAKE [facility] Last Admin: 01/29/25 07:58 Dose: 3 ml Documented By: ADRIANNA Amlodipine Besylate (Amlodipine Besylate 2.5 Mg Tablet) 7.5 mg PO DAILY [facility]; Protocol Last Admin: 01/29/25 08:36 Dose: 7.5 mg Documented By: LATOYA Apixaban (Apixaban 5 Mg Tablet) 5 mg PO BID [facility] Last Admin: 01/29/25 08:36 Dose: 5 mg Documented By: LATOYA Atorvastatin Calcium (Atorvastatin Calcium 80 Mg Tablet) 80 mg PO DAILY [facility] Last Admin: 01/29/25 08:36 Dose: 80 mg Documented By: LATOYA Calcium Carbonate (Calcium Carbonate 750 Mg Tab.Chew) 750 mg PO Q4H PRN PRN Reason: Heartburn Carvedilol (Carvedilol 6.25 Mg Tablet) 6.25 mg PO BID [facility]; Protocol Last Admin: 01/29/25 08:36 Dose: 6.25 mg Documented By: LATOYA Ceftriaxone Sodium (Ceftriaxone Sodium 1 Gm Vial) 1 gm IVPUSH Q24H [facility] Last Admin: 01/28/25 10:15 Dose: 1 gm Documented By: LATOYA Latanoprost (Latanoprost 0.005 % Ophth Samara 2.5 Ml Drops) 1 drop EYE-BOTH BEDTIME [facility] Last Admin: 01/28/25 19:44 Dose: 1 drop Documented By: MACIE Loperamide HCl (Loperamide Hcl 2 Mg Capsule) 2 mg PO Q4H PRN PRN Reason: Diarrhea Last Admin: 01/25/25 22:11 Dose: 2 mg Documented By: MACIE Magnesium Hydroxide (Milk Of Magnesia 30 Ml Oral.Susp) 30 ml PO DAILY PRN PRN Reason: Constipation Melatonin (Melatonin 3 Mg Tablet) 6 mg PO BEDTIME PRN PRN Reason: Insomnia Methylprednisolone Sodium Succinate (Methylprednisolone Sod Succ 125 Mg/2 Ml Vial) 40 mg IVPUSH Q8H [facility] Last Admin: 01/29/25 05:53 Dose: 40 mg Documented By: MACIE Non-Formulary Medication (Umeclidinium-Vilanterol [Anoro Ellipta]) 1 each INHALE DAILY [facility] Ondansetron HCl (Ondansetron Hcl 4 Mg/2 Ml Vial) 4 mg IVPUSH Q6H PRN PRN Reason: Nausea and Vomiting Paroxetine HCl (Paroxetine Hcl 20 Mg Tablet) 20 mg PO DAILY [facility] Last Admin: 01/29/25 08:36 Dose: 20 mg Documented By: LATOYA Sodium Chloride (0.9 % Sodium Chloride Flush 3 Ml Syringe) 3 ml IVFLUSH QSHIFT [facility] Last Admin: 01/29/25 08:36 Dose: 3 ml Documented By: LATOYA Vitamin D (Cholecalciferol (Vitamin D3) 25 Mcg Tablet) 25 mcg PO DAILY [facility] Last Admin: 01/29/25 08:36 Dose: 25 mcg Documented By: LATOYA Labs 01/26/25 07:00 01/26/25 14:12 Labs: Laboratory Results - last 24 hr 01/28/25 15:46 POC Glucose 240 H Assessment and Plan (1) COPD (chronic obstructive pulmonary disease): Status: Acute Plan 74-year-old male with a history of COPD not on home O2, paroxysmal atrial fibrillation on Eliquis, essential hypertension, nonischemic cardiomyopathy presents with 3-5 days of worsening shortness of breath at home after exposure to viral illness. He states recently with sputum production. He was failing his usual outpatient remedies and presented to ER Acute COPD exacerbation due to parainfluenza Continue IV ceftriaxone/azithromycin Continue systemic steroids - will wean to q8h DuoNebs q.4 hours while awake titrate O2 to maintain sats greater than or equal to 92%- currently requiring 3 L of supplemental oxygen; feels more comfortable on the simple face mask RPP + for parainfluenza We will need home oxygen evaluation Paroxysmal atrial fibrillation In sinus rhythm Continue Eliquis, Coreg Hypertension Stable blood pressure Continue amlodipine Nonischemic cardiomyopathy stable and well compensated on outpatient therapies BNP low continue same Mood Continue paroxetine Full code Eliquis Requires ongoing inpatient stay for COPD with IV antibiotics and steroids. This can not be achieved a lesser acute setting Quality Stroke Does the patient have a stroke diagnosis?: No VTE Prior VTE?: No VTE Risk Level:: Medical - moderate - high VTE Device Contraindication: Treatment Not Indicated VTE Drug Contraindication: N/A - Med Ordered
--- NOTE | 2025-01-29 10:12 | PC.RT ---
Home O2 eval completed as ordered. Patient fatigued quickly with ambulation. SpO2 measured using ear sensor. Approximately 10 percentage point difference in SpO2 measurement using ear sensor vs. finger sensor. Provider aware.
[2025-01-29] MEDS: cefTRIAXone sodium 1 GM VIAL IVPUSH (10:57)
[2025-01-29] MEDS: Latanoprost 0.005 % Ophth Sol 2.5 ML DROPS 1 DROP EYE-BOTH (21:02)
[2025-01-30] VITALS (11 sets, daily range): BP systolic 124–147; BP diastolic 68–89; PULSE 69–107; RESP 16–20; TEMP 36.3–37; O2SAT 91–98
[2025-01-30] MEDS: Albuterol/Iprat 2.5/0.5MG 3 ML AMPUL.NEB INHALE ×3 (08:12→15:42)
[2025-01-30] MEDS: carvediloL 6.25 MG TABLET PO ×2 (08:17→19:56)
[2025-01-30] MEDS: Atorvastatin Calcium 80 MG TABLET PO (08:17)
[2025-01-30] MEDS: Cholecalciferol (Vitamin D3) 25 MCG TABLET PO (08:18)
[2025-01-30] MEDS: amLODIPine Besylate 2.5 MG TABLET 7.5 MG PO (08:18)
[2025-01-30] MEDS: methylPREDNISolone Sod Succ 125 MG/2 ML VIAL 40 MG IVPUSH ×2 (08:18→19:56)
[2025-01-30] MEDS: PARoxetine HCL 20 MG TABLET PO (08:18)
[2025-01-30] MEDS: Apixaban 5 MG TABLET PO ×2 (08:18→19:56)
[2025-01-30] MEDS: 0.9 % Sodium Chloride Flush 3 ML SYRINGE IVFLUSH ×2 (08:20→19:57)
--- NOTE | 2025-01-30 11:46 | HO.PM.IMPN ---
Subjective Subjective Date of Service: 01/30/25 Interval History: Seen and examined this morning Follow-up for COPD exacerbation, parainfluenza reports sob with ambulation Constitutional Constitutional: Denies chills and Denies fever(s) Cardiovascular Cardiovascular: Denies chest pain, Denies palpitations, Reports dyspnea and Reports dyspnea on exertion Respiratory Respiratory: Denies cough, Reports dyspnea and Reports dyspnea on exertion Endocrine Endocrine: Denies palpitations Physical Exam Vital Signs: Vital Signs: Last Vital Signs Temp 97.3 F 01/30/25 11:01 Pulse 87 01/30/25 11:41 Resp 19 01/30/25 11:41 BP 130/83 01/30/25 11:01 Pulse Ox 91 L 01/30/25 11:01 O2 Del Method Room Air 01/30/25 11:01 O2 Flow Rate 1 01/30/25 07:09 BMI result Body Mass Index 30.7 Appearing in no acute distress lung sounds are clear to auscultation heart regular rate rhythm, clear S1, S2 positive bowel sounds, abdomen is soft, nontender neuro patient is alert x3, no focal deficits Objective Data Active Medications Acetaminophen (Acetaminophen 325 Mg Tablet) 650 mg PO Q6H PRN PRN Reason: Pain, Mild 1-3,fever,headache Albuterol Sulfate (Albuterol Sulfate (0.083%) 2.5 Mg/3 Ml Vial.Neb) 2.5 mg INHALE Q3H PRN PRN Reason: Wheezing Last Admin: 01/29/25 01:21 Dose: 2.5 mg Documented By: LD Albuterol/Ipratropium (Albuterol/Iprat 2.5/0.5mg 3 Ml Ampul.Neb) 3 ml INHALE RQ4H WHILE AWAKE [facility] Last Admin: 01/30/25 11:40 Dose: 3 ml Documented By: DAVID Amlodipine Besylate (Amlodipine Besylate 2.5 Mg Tablet) 7.5 mg PO DAILY [facility]; Protocol Last Admin: 01/30/25 08:18 Dose: 7.5 mg Documented By: LATOYA Apixaban (Apixaban 5 Mg Tablet) 5 mg PO BID [facility] Last Admin: 01/30/25 08:18 Dose: 5 mg Documented By: LATOYA Atorvastatin Calcium (Atorvastatin Calcium 80 Mg Tablet) 80 mg PO DAILY [facility] Last Admin: 01/30/25 08:17 Dose: 80 mg Documented By: LATOYA Calcium Carbonate (Calcium Carbonate 750 Mg Tab.Chew) 750 mg PO Q4H PRN PRN Reason: Heartburn Carvedilol (Carvedilol 6.25 Mg Tablet) 6.25 mg PO BID [facility]; Protocol Last Admin: 01/30/25 08:17 Dose: 6.25 mg Documented By: LTAOYA Ceftriaxone Sodium (Ceftriaxone Sodium 1 Gm Vial) 1 gm IVPUSH Q24H [facility] Last Admin: 01/29/25 10:57 Dose: 1 gm Documented By: LATOYA Latanoprost (Latanoprost 0.005 % Ophth Samara 2.5 Ml Drops) 1 drop EYE-BOTH BEDTIME [facility] Last Admin: 01/29/25 21:02 Dose: 1 drop Documented By: DESIGERI Loperamide HCl (Loperamide Hcl 2 Mg Capsule) 2 mg PO Q4H PRN PRN Reason: Diarrhea Last Admin: 01/25/25 22:11 Dose: 2 mg Documented By: MACIE Magnesium Hydroxide (Milk Of Magnesia 30 Ml Oral.Susp) 30 ml PO DAILY PRN PRN Reason: Constipation Melatonin (Melatonin 3 Mg Tablet) 6 mg PO BEDTIME PRN PRN Reason: Insomnia Methylprednisolone Sodium Succinate (Methylprednisolone Sod Succ 125 Mg/2 Ml Vial) 40 mg IVPUSH Q12H [facility] Last Admin: 01/30/25 08:18 Dose: 40 mg Documented By: LATOYA Non-Formulary Medication (Umeclidinium-Vilanterol [Anoro Ellipta]) 1 each INHALE DAILY [facility] Ondansetron HCl (Ondansetron Hcl 4 Mg/2 Ml Vial) 4 mg IVPUSH Q6H PRN PRN Reason: Nausea and Vomiting Paroxetine HCl (Paroxetine Hcl 20 Mg Tablet) 20 mg PO DAILY [facility] Last Admin: 01/30/25 08:18 Dose: 20 mg Documented By: LATOYA Sodium Chloride (0.9 % Sodium Chloride Flush 3 Ml Syringe) 3 ml IVFLUSH QSHIFT [facility] Last Admin: 01/30/25 08:20 Dose: 3 ml Documented By: LATOYA Vitamin D (Cholecalciferol (Vitamin D3) 25 Mcg Tablet) 25 mcg PO DAILY [facility] Last Admin: 01/30/25 08:18 Dose: 25 mcg Documented By: LATOYA Labs 01/26/25 07:00 01/26/25 14:12 Assessment and Plan (1) COPD (chronic obstructive pulmonary disease): Status: Acute Plan 74-year-old male with a history of COPD not on home O2, paroxysmal atrial fibrillation on Eliquis, essential hypertension, nonischemic cardiomyopathy presents with 3-5 days of worsening shortness of breath at home after exposure to viral illness. He states recently with sputum production. He was failing his usual outpatient remedies and presented to ER Acute COPD exacerbation due to parainfluenza Continue IV ceftriaxone/azithromycin Continue systemic steroids - will wean to q8h DuoNebs q.4 hours while awake titrate O2 to maintain sats greater than or equal to 92% RPP + for parainfluenza home o2 eval yesterday> not requiring oxygen with ambulation still complaining of sob despite less wheezing, ordered chest CT, echo, labs Paroxysmal atrial fibrillation In sinus rhythm Continue Eliquis, Coreg Hypertension Stable blood pressure Continue amlodipine Nonischemic cardiomyopathy stable and well compensated on outpatient therapies BNP low continue same Mood Continue paroxetine Full code Eliquis Requires ongoing inpatient stay for COPD with IV antibiotics and steroids. This can not be achieved a lesser acute setting Quality Stroke Does the patient have a stroke diagnosis?: No VTE Prior VTE?: No VTE Risk Level:: Medical - moderate - high VTE Device Contraindication: Treatment Not Indicated VTE Drug Contraindication: N/A - Med Ordered
[2025-01-30] MEDS: cefTRIAXone sodium 1 GM VIAL IVPUSH (11:58)
[2025-01-30 12:44] LABS: Hematocrit 50.8 % (42.0-52.0); Hemoglobin 17.3 g/dl (14.0-18.0); Mean Corpuscular HGB Conc 34.1 g/dl (31.0-36.0); Mean Corpuscular Hemoglobin 30.4 pg (27.0-33.0); Mean Corpuscular Volume 89.1 fL (80.0-98.0); Mean Platelet Volume 9.9 fL (9.4-12.4); Platelet Count 289 X10*3/uL (160-400); White Blood Count 16.9 X10*3/uL (4.8-10.8)
[2025-01-30 13:00] LABS: Anion Gap 16 (12-20); Blood Urea Nitrogen 23 mg/dL (9-16); Calcium 9.2 mg/dL (8.4-10.2); Carbon Dioxide 26 mmol/L (22-29); Chloride 104 mmol/L (96-108); Creatinine Clr Calc Pharmacy 96.1; Estimated Glomerular Filt Rate > 60; Glucose Random 145 mg/dL (60-115); Potassium 4.2 mmol/L (3.3-5.1); Sodium 142 mmol/L (135-145)
[2025-01-30 13:04] LABS: B Type Natriuretic Peptide 44 pg/mL (<100)
--- NOTE | 2025-01-30 13:05 | MHC.CM.PN ---
PT NOT MEDICALLY CLEARED FOR DC, STILL RECEIVING IV ABX AND STEROIDS DCP HOME ? [facility] TO TRANSPORT
--- NOTE | 2025-01-30 14:25 | CA_ITS ---
Transthoracic Echocardiogram Patient (Last, First, Middle): Nakul Real, Gender: Male Date of : 1950 Age: 74 Procedure Date: 01/30/2025 Procedure Type: Transthoracic Echocardiogram Location: [facility] [place] Height: 182.88 cm Weight: 102.51 kg BSA: 2.24 m2 Heart Rate: bpm BP: 130 / 83 mmHg Surface Plate Finisher: BRY Referring MD: Deidra Villa NP Symptoms: continued sob Study Quality: Fair Conclusions: - The left ventricular systolic function is normal. The calculated ejection fraction is 63% by biplane method. - No obvious valvular pathology seen on this study. - There is mild dilatation of the sinuses of Valsalva measuring 4.44 cm, moderate dilatation of the ascending aorta measuring 4.80 cm, and mild dilatation of the aortic arch measuring 4.10 cm. Findings Left Ventricle Normal left ventricular cavity size. There is mildly increased left ventricular wall thickness. The left ventricular systolic function is normal. The calculated ejection fraction is 63% by biplane method. There is no evidence of regional wall motion abnormalities. Diastolic function is normal for age. Right Ventricle Normal right ventricular cavity size and systolic function. Atria Both atria are normal in size. Aortic Valve There is a normal trileaflet aortic valve. There is mild calcification of the aortic valve. There is no aortic valve stenosis. There is trace (trivial) aortic valve regurgitation. Mitral Valve The mitral valve appears normal. There is no mitral valve regurgitation. There is no mitral valve stenosis. Pulmonic Valve The pulmonic valve is likely normal. Tricuspid Valve There is trace tricuspid valve regurgitation. There is no evidence of pulmonary hypertension. Great Vessels There is mild dilatation of the sinuses of Valsalva measuring 4.44 cm, moderate dilatation of the ascending aorta measuring 4.80 cm, and mild dilatation of the aortic arch measuring 4.10 cm. Venous The inferior vena cava is normal in size and collapses greater than 50% with inspiration. Pericardium/Pleural There is no evidence of pericardial effusion. Prior Study Comparison No significant change compared to prior study dated: 08/12/2024. Recommendations, Care & Conclusions No obvious valvular pathology seen on this study. Measurements 2D Linear Measurements IVSd: 1.02 0.6-0.9/0.6-1.0 cm LVIDd: 5.60 3.9-5.3/4.2-5.9 cm LVIDd Index: 2.50 2.4-3.2/2.2-3.1 cm/m2 LVIDs: 4.01 2.0-3.6 cm LVPWd: 1.06 0.7-1.1 cm LA Diam: 3.70 2.7-3.8/3.0-4.0 cm LAIDs Index: 1.65 1.5-2.3 cm/m2 LV Mass: 288.46 67-162/88-224 g LV Mass Index: 128.78 43-95/49-115 g/m2 LVOT Diam: 2.30 3.0+(-)1.3 cm 2D Systolic Function EF 4C: 62.90 >55% EF 2C: 61.00 >55% EF BiP: 62.70 >55% Mitral Valve MV Pk E: 0.62 MV PK A: 0.55 MV Decel Time: 270.00 E/A: 1.10 E'Lateral: 9.14 E'Medial: 7.51 E/E' Med: 8.20 E/E' Lat: 6.80 PHT: 79.00 MVA PHT: 2.78 Decel [place]: 2.29 Aortic Valve AoV Pk Brian: 1.37 AoV Mn Brian: 0.99 AoV VTI: 0.30 AoV Pk Grad: 8.00 Aov Mn Grad: 4.00 ROSALVA Cont.VTI: 2.74 LVOT LVOT Pk Brian: 0.94 LVOT Mn Brian: 0.66 LVOT VTI: 0.20 LVOT Pk Grad: 4.00 LVOT Mn Grad: 2.00 LVOT Diam: 2.30 LVOT Area: 4.15 Diastolic Function MV Pk E: 0.62 MV Pk A: 0.55 E/A: 1.10 E'Medial: 7.51 E/E' Med: 8.20 E' Laterial: 9.14 E/E' Lat: 6.80 Right Ventricle TAPSE (mm): 24.30 TVS' Brian: 16.50 Tricuspid Valve RA Press: 8.00 Great Vessels Aorta Sinus of Valsalva: 4.44 2.0-3.[address] [place]: 3.03 1.7-3.4 cm Ao Asc: 4.80 2.1-3.4 cm Ao Arch: 4.10 Updated in Other Vendor System with Status of Final Juarez Herrera MD electronically signed on 01/30/2025 4:11:18 PM with status of Final
[2025-01-30] MEDS: Latanoprost 0.005 % Ophth Sol 2.5 ML DROPS 1 DROP EYE-BOTH (19:56)
[2025-01-31 04:00] VITALS: BP 136/77; PULSE 82; RESP 16; TEMP 37.1; O2SAT 100
[2025-01-31] MEDS: Albuterol Sulfate (0.083%) 2.5 MG/3 ML VIAL.NEB INHALE (04:32)
[2025-01-31 04:33] VITALS: PULSE 82; RESP 18; O2SAT 93
[2025-01-31 07:02] VITALS: BP 152/88; PULSE 90; RESP 20; TEMP 36.6; O2SAT 93
[2025-01-31] MEDS: methylPREDNISolone Sod Succ 125 MG/2 ML VIAL 40 MG IVPUSH (08:36)
[2025-01-31] MEDS: 0.9 % Sodium Chloride Flush 3 ML SYRINGE IVFLUSH (08:36)
[2025-01-31] MEDS: amLODIPine Besylate 2.5 MG TABLET 7.5 MG PO (08:37)
[2025-01-31] MEDS: carvediloL 6.25 MG TABLET PO (08:37)
[2025-01-31] MEDS: PARoxetine HCL 20 MG TABLET PO (08:37)
[2025-01-31] MEDS: Atorvastatin Calcium 80 MG TABLET PO (08:37)
[2025-01-31] MEDS: Cholecalciferol (Vitamin D3) 25 MCG TABLET PO (08:37)
[2025-01-31] MEDS: Apixaban 5 MG TABLET PO (08:37)
--- NOTE | 2025-01-31 09:51 | PM.DS ---
DS: Providers Provider Date of Service: 01/31/25 Date of admission: 01/25/25 15:03 Date of discharge: 01/31/25 Primary care physician: ALLEN Beal Consults: 01/31/25 08:49 Consult to Pulmonology Routine Consulting Provider: [facility] [place] Pul[facility]ology [facility] Reason for consultation: continued sob DS: Diagnosis Discharge Diagnosis (1) COPD (chronic obstructive pulmonary disease): Status: Acute DS: Summary Hospital Course Hospital Course: History and physical as per admitting provider. 74-year-old male with a known history of COPD not O2 dependent at home, hypertension AFib on Eliquis nonischemic cardiomyopathy presents with a proximally 1 week of worsening shortness of breath cough that has not responded to normal regimen of nebulizers. States was sick previously and feels he caught the ?cold? from her. Sats correctable on 2 L. 74-year-old man treated for acute COPD exacerbation secondary to parainfluenza. Treated with IV ceftriaxone IV azithromycin, systemic steroids, scheduled DuoNebs. Oxygen was titrated to keep oxygen saturation greater than 92%. Home oxygen evaluation completed and did not show that patient required any oxygen. He continued to have complaints of shortness breath despite less wheezing. Chest CT echocardiogram and BNP all within normal limits. Seen and evaluated by manager analysis with recommendation for outpatient follow up for possible oxygen start. Paroxysmal atrial fibrillation continue Eliquis and Coreg Hypertension. Stable blood pressure. Continue amlodipine Nonischemic cardiomyopathy. Stable and well compensated, normal EF Mental health. Continue paroxetine Time Attestation Discharge Coordination Time (in mins): 40 Quality: Safe Use of Opioids Does Pt have an Active Cancer Diagnosis on the Problem List?: No Quality: Stroke Does the patient have a stroke diagnosis?: No Physical Exam Vital Signs: Vital Signs: Last Vital Signs Temp 97.8 F 01/31/25 07:02 Pulse 90 01/31/25 07:02 Resp 20 01/31/25 07:02 BP 152/88 H 01/31/25 07:02 Pulse Ox 93 01/31/25 07:02 O2 Del Method Nasal Cannula 01/31/25 07:02 O2 Flow Rate 1 01/31/25 07:02 BMI result Body Mass Index 30.7 Appearing in no acute distress head is normocephalic atraumatic eyes pupils are PERRLA sclera is anicteric mouth throat mucous membranes are intact and moist neck is supple no lymphadenopathy, no JVD noted lung sounds are clear to auscultation heart regular rate rhythm, clear S1, S2 positive bowel sounds, abdomen is soft, nontender neuro patient is alert x3, no focal deficits DS: Data Data Completed and Pending Completed studies during hospitalization [Text1]: Procedures Anglican of Cardiac Rhythm, Single (02/28/22) Labs on day of discharge: Laboratory Results - last 24 hr 01/30/25 12:21 WBC 16.9 H RBC 5.70 Hgb 17.3 Hct 50.8 MCV 89.1 MCH 30.4 MCHC 34.1 RDW 13.0 Plt Count 289 MPV 9.9 Absolute Nucleated RBC 0.000 Nucleated RBC % (auto) 0.0 Sodium 142 Potassium 4.2 Chloride 104 Carbon Dioxide 26 Anion Gap 16 BUN 23 H Creatinine 0.81 Estim Creat Clear Calc 96.1 Estimated GFR > 60 Random Glucose 145 H Calcium 9.2 D B-Natriuretic Peptide 44 Discharge Plan Discharge Anticipated Discharge Date/Time: 01/31/25 08:49 Patient Disposition: Home, Self-Care Discharge Diagnosis: Acute COPD exacerbation Parainfluenza Referrals: Jose Marie FNP- [Primary Care Provider, Internal Medicine] - 1 Week Niles Pineda MD [Physician, Pulmonology] Discharge Medications: New prednisone 10 mg tablet See Taper PO DIRECTED 12 Days Qty: 30 0RF Taper: Prednisone 40 mg daily for 3 Days and 0 Hour 30 mg daily for 3 Days and 0 Hour 20 mg daily for 3 Days and 0 Hour 10 mg daily for 3 Days and 0 Hour Rx Instructions: see taper instructions Continued Anoro Ellipta 62.5-25 mcg/actuation blister with device 1 ea inhalation DAILY Qty: 180 2RF carvedilol 6.25 mg tablet 6.25 mg PO BID Qty: 180 3RF Eliquis 5 mg tablet 5 mg PO BID Qty: 180 3RF amlodipine 5 mg tablet 7.5 mg PO DAILY Qty: 120 3RF atorvastatin 80 mg tablet 80 mg PO DAILY Qty: 90 1RF paroxetine HCl 20 mg tablet 20 mg PO QAM Qty: 90 1RF ipratropium-albuterol 0.5 mg-3 mg(2.5 mg base)/3 mL solution for nebulization 3 ml inhalation Q4-6H PRN (Reason: wheezing) Qty: 180 6RF cholecalciferol (vitamin D3) [Vitamin D3] 25 mcg (1,000 unit) Tablet 25 mcg PO DAILY latanoprost 0.005 % drops 1 drp ophthalmic (eye) BEDTIME triamcinolone acetonide 0.1 % ointment 1 appl topical DAILY PRN (Reason: Rash) Discharge Orders: Discharge Order (Routine); Ordered 01/31/25 Ordered By: Deidra Villa Diet: Advance to usual diet Activity on Discharge: As tolerated Stand Alone Forms: Patient Portal Discharge page Print Language: Faroese Care Plan Goals: Follow up with manager analysis outpatient Health Concerns: Acute COPD exacerbation Parainfluenza Plan of Treatment: Follow-up with primary care provider as needed Take all medications as prescribed Assessment: See discharge summary
[2025-01-31 10:24] LABS: D Dimer High Sensitivity < 150 NG/ML
[2025-01-31 10:55] VITALS: PULSE 105; PULSE 89; O2SAT 91; O2SAT 97
[2025-01-31 10:59] VITALS: BP 126/82; PULSE 90; RESP 20; TEMP 36.6; O2SAT 97
[2025-01-31 11:16] VITALS: PULSE 87; RESP 18; O2SAT 96
[2025-01-31] MEDS: Albuterol/Iprat 2.5/0.5MG 3 ML AMPUL.NEB INHALE (11:16)
[2025-01-31] MEDS: cefTRIAXone sodium 1 GM VIAL IVPUSH (12:07)
--- NOTE | 2025-01-31 12:37 | P.CONPL_ITS ---
History of Present Illness History of Present Illness Consult date: 01/31/25 Reason for consult: dyspnea Chief complaint: COPD exacerbation Narrative: 74-year-old gentleman, never smoker of tobacco products, previously used marijuana,?with underlying COPD, cardiomyopathy, AFib hospitalized on 01/26/2025 with parainfluenza induced COPD exacerbation with slow improvement, however still significantly dyspneic. Review of Systems 2 Constitutional: Constitutional: Denies daytime sleepiness, Denies excessive sweating, Denies fatigue, Denies fever(s), Denies lethargy, Denies malaise, Denies night sweats, Denies snoring and Denies weight loss Eyes: Eyes: Denies blurry vision and Denies itchy eyes ENT: Denies nasal congestion, Denies post nasal drip, Denies sinus pain, Denies sinus pressure and Denies other ( Thrush) Cardiovascular: Cardiovascular: Denies chest pain, Reports pedal edema, Denies dyspnea, Reports dyspnea on exertion, Denies orthopnea and Denies paroxysmal nocturnal dyspnea Respiratory: Respiratory: Denies cough, Denies hemoptysis, Denies excessive phlegm production, Denies dyspnea, Reports dyspnea on exertion, Denies snoring and Denies wheezing Gastrointestinal: Gastrointestinal: Denies abdominal pain and Denies heartburn Musculoskeletal: Musculoskeletal: Denies myalgias, Denies arthralgias and Denies joint swelling Integumentary/Breasts: Skin/Breast: Denies rash Neurologic: Denies memory loss and Denies seizure-like activity Psychiatric: Psychiatric: Denies abnormal sleep pattern, Denies anxiety and Denies memory loss Endocrine: Endocrine: Denies excessive sweating, Denies fatigue and Denies heat intolerance Hematologic/Lymphatic: Hematologic/Lymphatic: Denies easy bruising Allergic/Immunologic: Allergic/Immunologic: Denies itchy eyes, Denies seasonal rhinorrhea and Denies wheezing PMFSH Past Medical History Medical History Retinopathy RSV infection COPD (chronic obstructive pulmonary disease) Essential hypertension NICM (nonischemic cardiomyopathy) PAF (paroxysmal atrial fibrillation) COPD (chronic obstructive pulmonary disease) Atrial fibrillation Hypertension Cardiac arrhythmia Family History Family History Father Cancer of prostate Mother No problems noted. Daughter No problems noted. Daughter No problems noted. Brother Cancer of prostate Surgical History Surgical History Status post catheter ablation of atrial fibrillation History of appendectomy History of hernia repair History of colonoscopy Social History Social History Household Members: Spouse Housing: House Do you presently have visiting nurse or other home services: No Unable to assess alcohol history related to: Unknown Alcohol intake: former Year quit: 2021 Patient Tobacco Use Status: Never used Tobacco e-Cigarette/Vaping Use: Never Used Second Hand Smoke Exposure: No Substance Use Type: Marijuana Advance Directives Date on File: 05/26/21 service: Yes Current occupational status: retired Cognitive needs: No Hearing needs: No Vision needs: Yes Meds Allergies Allergy/AdvReac Type Severity Reaction Status Date / Time No Known Allergies Allergy Verified 01/25/25 10:43 Active Medications: Current Medications Acetaminophen (Acetaminophen 325 Mg Tablet) 650 mg PO Q6H PRN PRN Reason: Pain, Mild 1-3,fever,headache Albuterol Sulfate (Albuterol Sulfate (0.083%) 2.5 Mg/3 Ml Vial.Neb) 2.5 mg INHALE Q3H PRN PRN Reason: Wheezing Last Admin: 01/31/25 04:32 Dose: 2.5 mg Albuterol/Ipratropium (Albuterol/Iprat 2.5/0.5mg 3 Ml Ampul.Neb) 3 ml INHALE RQ4H WHILE AWAKE [facility] Last Admin: 01/31/25 11:16 Dose: 3 ml Amlodipine Besylate (Amlodipine Besylate 2.5 Mg Tablet) 7.5 mg PO DAILY NANNETTE; Protocol Last Admin: 01/31/25 08:37 Dose: 7.5 mg Apixaban (Apixaban 5 Mg Tablet) 5 mg PO BID NANNETTE Last Admin: 01/31/25 08:37 Dose: 5 mg Atorvastatin Calcium (Atorvastatin Calcium 80 Mg Tablet) 80 mg PO DAILY NANNETTE Last Admin: 01/31/25 08:37 Dose: 80 mg Calcium Carbonate (Calcium Carbonate 750 Mg Tab.Chew) 750 mg PO Q4H PRN PRN Reason: Heartburn Carvedilol (Carvedilol 6.25 Mg Tablet) 6.25 mg PO BID [facility]; Protocol Last Admin: 01/31/25 08:37 Dose: 6.25 mg Ceftriaxone Sodium (Ceftriaxone Sodium 1 Gm Vial) 1 gm IVPUSH Q24H [facility] Last Admin: 01/31/25 12:07 Dose: 1 gm Latanoprost (Latanoprost 0.005 % Ophth Samara 2.5 Ml Drops) 1 drop EYE-BOTH BEDTIME [facility] Last Admin: 01/30/25 19:56 Dose: 1 drop Loperamide HCl (Loperamide Hcl 2 Mg Capsule) 2 mg PO Q4H PRN PRN Reason: Diarrhea Last Admin: 01/25/25 22:11 Dose: 2 mg Magnesium Hydroxide (Milk Of Magnesia 30 Ml Oral.Susp) 30 ml PO DAILY PRN PRN Reason: Constipation Melatonin (Melatonin 3 Mg Tablet) 6 mg PO BEDTIME PRN PRN Reason: Insomnia Methylprednisolone Sodium Succinate (Methylprednisolone Sod Succ 125 Mg/2 Ml Vial) 40 mg IVPUSH Q12H [facility] Last Admin: 01/31/25 08:36 Dose: 40 mg Non-Formulary Medication (Umeclidinium-Vilanterol [Anoro Ellipta]) 1 each INHALE DAILY [facility] Ondansetron HCl (Ondansetron Hcl 4 Mg/2 Ml Vial) 4 mg IVPUSH Q6H PRN PRN Reason: Nausea and Vomiting Paroxetine HCl (Paroxetine Hcl 20 Mg Tablet) 20 mg PO DAILY [facility] Last Admin: 01/31/25 08:37 Dose: 20 mg Sodium Chloride (0.9 % Sodium Chloride Flush 3 Ml Syringe) 3 ml IVFLUSH QSHIFT [facility] Last Admin: 01/31/25 08:36 Dose: 3 ml Vitamin D (Cholecalciferol (Vitamin D3) 25 Mcg Tablet) 25 mcg PO DAILY [facility] Last Admin: 01/31/25 08:37 Dose: 25 mcg Home Medications ?Medication ?Instructions ?Recorded ?Confirmed ?Last Taken ?Type latanoprost 0.005 % eye drops 1 drp ophthalmic (eye) B EDTIME 01/10/21 01/25/25 01/24/25 History triamcinolone acetonide 0.1 % 1 appl topical DAILY PRN Rash 01/10/21 01/25/25 01/24/25 History topical ointment cholecalciferol (vitamin D3) 25 25 mcg PO DAILY 01/25/25 01/24/25 History mcg (1,000 unit) tablet (Vitamin D3) Physical Exam 2 Vital Signs: Vital Signs: Last Vital Signs Temp 97.9 F 01/31/25 10:59 Pulse 87 01/31/25 11:16 Resp 18 01/31/25 11:16 BP 126/82 01/31/25 10:59 Pulse Ox 97 01/31/25 10:59 O2 Del Method Room Air 01/31/25 10:59 O2 Flow Rate 1 01/31/25 07:02 BMI result Body Mass Index 30.7 Const: General: no acute distress, alert and awake Eyes: Sclerae: sclerae normal EOM: EOMs intact bilaterally Neck: Neck: Yes no lymphadenopathy, Yes trachea midline and Yes supple Resp: Effort & Inspection: normal respiratory effort and no respiratory distress Auscultation: clear to auscultation bilaterally Cardio: Rate: regular rate Rhythm: regular rhythm Heart sounds: no gallops, no murmurs and no rubs GI: Palpation (GI): Soft to palpation and Other GI palpation findings present ( Nontender) Auscultation: normal bowel sounds Extrem: General: No clubbing, No cyanosis and Yes edema (1+ bilateral) Results Laboratory Findings 01/30/25 12:21 01/30/25 12:21 ABG, PT/INR, D-dimer: PT/INR, D-dimer PT 13.2 SEC (10.9-12.4) H 01/25/25 11:19 INR 1.2 (0.9-1.1) H 01/25/25 11:19 Abnormal lab findings: Abnormal Labs 01/25/25 01/26/25 01/26/25 11:19 07:00 09:26 WBC 11.9 H Immature Gran % (Auto) 0.9 H Neut % (Auto) 90.0 H 92.6 H Lymph % (Auto) 4.6 L 4.1 L Lymph # (Auto) 0.4 L 0.5 L Abs Immat Gran (auto) 0.04 H 0.11 H Absolute Neuts (auto) 8.5 H 11.0 H PT 13.2 H INR 1.2 H Potassium 5.3 H D Chloride 111 H BUN POC Glucose Random Glucose 166 H Fasting Glucose 162 H Parainfluenza 3 (PCR) Detected A 01/28/25 01/30/25 15:46 12:21 WBC 16.9 H Immature Gran % (Auto) Neut % (Auto) Lymph % (Auto) Lymph # (Auto) Abs Immat Gran (auto) Absolute Neuts (auto) PT INR Potassium Chloride BUN 23 H POC Glucose 240 H Random Glucose 145 H Fasting Glucose Parainfluenza 3 (PCR) Assessment and Plan (1) Acute exacerbation of chronic obstructive pulmonary disease: Status: Acute (2) Acute respiratory failure with hypoxia: Status: Resolved Plan Impression: 74-year-old gentleman with underlying COPD and cardiomyopathy hospitalized with parainfluenza induced COPD exacerbation and fluid retention, improving slowly, however still significantly dyspneic and on my evaluation requiring supplemental oxygen up to 1 L to maintain normal oximetry with exertion. Recommendations: Agree with current including nebulized bronchodilators and systemic glucocorticoids taper. Consider additional dose of diuresis. Will arrange for outpatient oxygen. Procedures Date of Service Date of Service: 01/31/25
--- NOTE | 2025-01-31 13:06 | MHC.CM.PN ---
IMM 01/31/25 DELIVERED TO BEDSIDE, PT MEDICALLY CLEARED FOR DC HOME W/NEW [facility] FOR SN, PT'S AT BEDSIDE FOR TRANSPORT.
--- NOTE | 2025-02-08 12:43 | P.F2F_ITS ---
Service Date Service Date: 02/08/25 Encounter Date of encounter: 01/31/25 Reasons for Services Signs and symptoms assessed: Acute respiratory failure Reason for nursing home: CV/CP assess and/or care and other (New oxygen start) Homebound: Leaving the home is medically contraindicated at this time without the asist of a device and/or another person due th the listed conditions above and below. Reason homebound: unsteady gait / fall risk and shortness of breath with minimal effort Certification: Based on the above findings, I certify that this patient is confined to the home and needs intermittent nursing home care, physical therapy and/or speech therapy, or continues to need occupational therapy. The patient is under my care, and I have initiated the establishment of the plan of care. The patient will be followed by a physician who will periodically review the plan of care. Time Spent With Patient Time: Total time managing care of this patient today ____ minutes.
== END 2025-01-31 15:34 | disposition home health service (06) | DRG 191 ==
LOC: HO.ED 15:22 → HO.EDOVER 15:44 → HO.IMC 19:32
PROVIDERS: Internal Medicine Pulmonary Disease; Physician Assistant Medical; Registered Nurse Emergency; Admitting Provider Hospitalist; Emergency Provider Emergency Medicine; PCP Nurse Practitioner Family; Visit Provider Nurse Practitioner Acute Care
DX: J44.1 Chronic obstructive pulmonary disease with (acute) exacerbation (principal); I42.8 Other cardiomyopathies; I10 Essential (primary) hypertension; I48.0 Paroxysmal atrial fibrillation; B97.89 Other viral agents as the cause of diseases classified elsewhere; Z20.822 Contact with and (suspected) exposure to COVID-19; Z79.01 Long term (current) use of anticoagulants; Z79.899 Other long term (current) drug therapy
CPT/HCPCS: 0241U; 36415; 71046; 71250; 80048; 80053; 82947; 83735; 83880; 84132; 84484; 85025; 85027; 85379; 85610; 87633; 93005; 93306; 94640; 99285; J0456; J0696; J2919; J3475; Q9957

== ENCOUNTER → 2025-01-25 10:23 | Outpatient (BNV) | payer MEDICARE, OTHER, SELFPAY | PROVIDERS: Admitting Provider Hospitalist; Emergency Provider Emergency Medicine; PCP Nurse Practitioner Family; Visit Provider Internal Medicine Cardiovascular Disease | DX: R94.31 Abnormal electrocardiogram [ECG] [EKG] (principal); R06.02 Shortness of breath | CPT/HCPCS: 93010 ==

== ENCOUNTER → 2025-01-25 10:23 | Outpatient (BNV) | payer MEDICARE, OTHER, SELFPAY | PROVIDERS: Emergency Provider Emergency Medicine; PCP Nurse Practitioner Family; Visit Provider Radiology Diagnostic Radiology | DX: J98.11 Atelectasis (principal) | CPT/HCPCS: 71046 ==

== ENCOUNTER 2025-01-25 15:03 | Outpatient (BNV) | payer MEDICARE, OTHER, SELFPAY | END 2025-01-30 11:01 | PROVIDERS: Admitting Provider Hospitalist; Emergency Provider Emergency Medicine; PCP Nurse Practitioner Family; Visit Provider Radiology Diagnostic Radiology | DX: J43.2 Centrilobular emphysema (principal) | CPT/HCPCS: 71250 ==

== ENCOUNTER 2025-01-25 15:03 | Outpatient (BNV) | payer MEDICARE, OTHER, SELFPAY | END 2025-01-30 14:25 | PROVIDERS: Admitting Provider Hospitalist; Emergency Provider Emergency Medicine; PCP Nurse Practitioner Family; Visit Provider Internal Medicine | DX: I71.21 Aneurysm of the ascending aorta, without rupture (principal); I35.8 Other nonrheumatic aortic valve disorders | CPT/HCPCS: 93306 ==

== ENCOUNTER → 2025-01-25 15:03 | Outpatient (BNV) | payer MEDICARE, OTHER, SELFPAY | PROVIDERS: Admitting Provider Hospitalist; Emergency Provider Emergency Medicine; PCP Nurse Practitioner Family; Visit Provider Internal Medicine Pulmonary Disease | DX: J44.1 Chronic obstructive pulmonary disease with (acute) exacerbation (principal); J96.01 Acute respiratory failure with hypoxia | CPT/HCPCS: 99223 ==

== ENCOUNTER → 2025-01-25 15:03 | Outpatient (BNV) | payer MEDICARE, OTHER, SELFPAY | PROVIDERS: Admitting Provider Hospitalist; Emergency Provider Emergency Medicine; PCP Nurse Practitioner Family; Visit Provider Hospitalist | DX: J44.9 Chronic obstructive pulmonary disease, unspecified (principal) | CPT/HCPCS: 99232; 99239 ==

== ENCOUNTER 2025-02-09 13:10 | Outpatient (AMB) | payer MEDICARE, OTHER, SELFPAY ==
--- NOTE | 2025-02-09 12:47 | A.OFFPC_ITS ---
Vital Signs 02/09/25 13:18 Height 6 ft Weight 208 lb BMI 28.2 BP 110/80 Blood Pressure Location Lt brachial Position Sitting Respiration 16 Pulse 83 Temp 98.5 F Temp Source Oral Pulse Oximetry (%) 95 Oxygen Delivery Method Nasal Cannula Intake Visit Reasons: TCM Allergies No Known Allergies Allergy (Verified 02/09/25 13:18) Tobacco use date assessed: 02/09/25 Fall risk assessment: No Falls in past year Last assessed Fall Risk: 02/09/25 Dental Screening Dental Screen Date: 02/09/25 Did you have a dental visit in the last 12 months?: Yes Did you have a dental problem in the last 6 months where you did not have access to dental care?: Yes Was dental information given to patient?: Patient has dentist HPI TCM TCM Information Date of Discharge 01/31/25 Discharged From [facility] Interactive Contact Date (Reference documentation from this date) 02/03/25 HPI Comments History of Present Illness Details Patient is a 74-year-old male with a past medical history of COPD who was previously on 1L of oxygen (4 years ago) in the past but currently not on oxygen at home, HTN, AFib on Eliquis (s/p 2 ablations), nonischemic cardiomyopathy who is here with his for a TCM. Records show he went to the [facility] emergency department on January 25 complaining of worsening shortness of breath and a cough. His shortness of breath was not relieved with his daily regimen of Anoro and duoneb nebulizers. It was found that he was having an acute COPD exacerbation secondary to parainfluenza virus. He was placed on up to 2 L of oxygen via nasal cannula, was treated with IV ceftriaxone, IV azithromycin, steroids and scheduled DuoNebs. He was evaluated by pulmonology and they recommended outpatient follow up to start regular home oxygen. While in the hospital, he had a chest CT which showed the following: CT/CT chest wo IV con IMPRESSION: 1. Mild centrilobular emphysema. 2. Diffuse small airway thickening sugge stive of chronic bronchitis. 3. Stable scarring most notable in the l ingular segment. No acute pneumonic consolidation or opacity. 4. Stable pulmonary nodules. No new or e nlarging nodule. 5. Stable aneurysmal dilatation of the a scending aorta at 4.5 cm. 6. Stable 10 mm right thyroid nodule. He also had an echocardiogram, which was essentially normal and showed the following: Conclusions: - The left ventricular systolic function is normal. The calculated ejection fraction is 63% by biplane method. - No obvious valvular pathology seen on this study. - There is mild dilatation of the sinuse s of Valsalva measuring 4.44 cm, moderate dilatation of the asce nding aorta measuring 4.80 cm, and mild dilatation of the aort ic arch measuring 4.10 cm. BNP was also normal. He was discharged on January 31 with 1L O2 which he has been wearing around the clock and a 12 day prednisone taper and was told to continue his daily home medications. He does have follow-up scheduled with cardiology on February 16, he has a 3 day Holter monitor scheduled with the results to be reviewed on March 06 and he has follow up with pulmonology on March 03. Since being discharged from the hospital, patient reports he is breathing much easier but with exertion he has some shortness of breath but it is improving over the last week. He has 2 days of the pred taper left. He is coughing up copious amounts of phlegm. He denies chest pain, wheezing, fevers, or cough. He has been using his Duoneb nebulizers once a day and Anoro once a day. He has been wearing his 1L O2 ATC. [facility] Medical History Retinopathy RSV infection COPD (chronic obstructive pulmonary disease) Essential hypertension NICM (nonischemic cardiomyopathy) PAF (paroxysmal atrial fibrillation) COPD (chronic obstructive pulmonary disease) Atrial fibrillation Hypertension Cardiac arrhythmia Surgical History Status post catheter ablation of atrial fibrillation History of appendectomy History of hernia repair History of colonoscopy Family History Father Cancer of prostate Mother No problems noted. Daughter No problems noted. Daughter No problems noted. Brother Cancer of prostate Social History Household Members: Spouse Housing: House Do you presently have visiting nurse or other home services: No Unable to assess alcohol history related to: Unknown Alcohol intake: former Year quit: 2021 Patient Tobacco Use Status: Never used Tobacco e-Cigarette/Vaping Use: Never Used Second Hand Smoke Exposure: No Substance Use Type: Marijuana Advance Directives Date on File: 05/26/21 service: Yes Current occupational status: retired Cognitive needs: No Hearing needs: No Vision needs: Yes Questionnaire Thrive Questionnaire Date Thrive assessed: 01/26/25 ROSE-7 AMB Questionnaire ROSE-7 Date ROSE - 7 assessed: 11/25/22 Source: Developed by Drs. Avelino Burrell, Francine Montana, Kannan Shane and colleagues, with an educational ronaldo from [employer]. Review of Systems Const All systems reviewed & are unremarkable except as noted in HPI and below Physical exam (Primary Care) Vital Signs: Last Vital Signs Temp 98.5 F 02/09/25 13:18 Pulse 83 02/09/25 13:18 Resp 16 02/09/25 13:18 BP 110/80 02/09/25 13:18 Pulse Ox 95 02/09/25 13:18 Oxygen Delivery Method Nasal Cannula 02/09/25 13:18 BMI result Body Mass Index 28.2 Tobacco/Smoking Status: Tobacco use Status Tobacco use date assessed 02/09/25 02/09/25 13:19 Patient Tobacco Use Status Never used Tobacco 02/09/25 12:52 e-Cigarette/Vaping Use Never Used 02/09/25 12:52 Thrive Assessment: Date of Thrive Assessment Date Thrive assessed 01/26/25 02/09/25 12:52 Const General: cooperative, healthy appearing, comfortable, no acute distress and well developed Orientation/consciousness: patient oriented x3 Limitations: no limitations [facility] Other: NC in place Head: Yes normal to inspection Ears: hearing grossly normal bilaterally General nose exam: Normal external nose present Face and sinus: Yes normal facial exam Eyes General: appearance normal, both eyes and all related structures Neck Neck: Yes normal visual inspection and Yes full ROM Resp Effort & Inspection: normal respiratory effort and able to speak in complete sentences Auscultation: rhonchi (mild/faint coarseness) throughout Cardio Rate: regular rate Rhythm: regular rhythm Heart sounds: normal S1 and S2 Skin General skin exam: no rashes or lesions noted Neuro General: patient oriented x3 Extrem General: Yes normal to inspection Coding Level of Care Code TCM Mod MDM <= 14 Days Diagnoses Hospital discharge follow-up Z09 COPD (chronic obstructive pulmonary disease) J44.9 Supplemental oxygen dependent Z99.81 Assessment & Plan Assessment & Plan (1) Hospital discharge follow-up: Code(s): Z09 - Encounter for follow-up examination after completed treatment for conditions other than malignant neoplasm Category: Medical Plan: It appears patient has been recovering well from his illness. He is still wearing the 1 L of oxygen and has follow up with pulmonology on March 03. I encouraged him to attend this appointment. Continue to use DuoNeb nebulizers every 4-6 hours as needed. (2) COPD (chronic obstructive pulmonary disease): Code(s): J44.9 - Chronic obstructive pulmonary disease, unspecified Category: Medical Plan: As above (3) Supplemental oxygen dependent: Code(s): Z99.81 - Dependence on supplemental oxygen Category: Medical Plan: As above
[2025-02-09 13:18] VITALS: BP 110/80; PULSE 83; RESP 16; TEMP 36.9; O2SAT 95; BMI 28.2
== END 2025-02-09 14:27 | disposition home or self-care (01) ==
LOC: HO.HMCC 13:11
PROVIDERS: PCP Nurse Practitioner Family; Visit Provider Physician Assistant
DX: J44.9 Chronic obstructive pulmonary disease, unspecified (principal); Z99.81 Dependence on supplemental oxygen; Z09 Encounter for follow-up examination after completed treatment for conditions other than malignant neoplasm

== ENCOUNTER → 2025-02-09 13:10 | Outpatient (BNVA) | payer MEDICARE, OTHER, SELFPAY | PROVIDERS: PCP Nurse Practitioner Family; Visit Provider Physician Assistant | DX: Z09 Encounter for follow-up examination after completed treatment for conditions other than malignant neoplasm (principal); J44.9 Chronic obstructive pulmonary disease, unspecified; Z99.81 Dependence on supplemental oxygen | CPT/HCPCS: 99495 ==

== ENCOUNTER → 2025-02-16 13:24 | Outpatient (REF) | payer MEDICARE, OTHER, SELFPAY ==
--- NOTE | 2025-02-16 13:27 | HM_ITS ---
* Total monitoring time 3 days. * Underlying rhythm is sinus with an average rate of 73/Min. * Rare supraventricular ectopy. Very brief runs. * Rare ventricular ectopy. * No significant pauses or high-grade AV blocks. * Palpitations in patient diary correlates with sinus rhythm. MTDD
== END ==
LOC: HO.CARD 13:24
PROVIDERS: PCP Nurse Practitioner Family; Visit Provider Internal Medicine
DX: I48.0 Paroxysmal atrial fibrillation (principal)
CPT/HCPCS: 93242

== ENCOUNTER → 2025-02-16 13:27 | Outpatient (BNV) | payer MEDICARE, OTHER, SELFPAY | PROVIDERS: PCP Nurse Practitioner Family; Visit Provider Internal Medicine | DX: I47.10 Supraventricular tachycardia, unspecified (principal); I49.3 Ventricular premature depolarization; R00.2 Palpitations | CPT/HCPCS: 93244 ==

== ENCOUNTER 2025-03-03 13:45 | Outpatient (AMB) | payer MEDICARE, OTHER, SELFPAY ==
[2025-03-03 13:48] VITALS: BP 111/66; PULSE 79; O2SAT 93; BMI 29.6
--- NOTE | 2025-03-03 13:48 | A.OFFVIS_ITS ---
Vital Signs 03/03/25 13:48 Height 6 ft Weight 218 lb BMI 29.6 BP 111/66 Blood Pressure Location Rt brachial Position Sitting Pulse 79 Pulse Source Pulse Oximeter Pulse Oximetry (%) 93 Oxygen Delivery Method Room Air Intake Visit Reasons: HDF-COPD Allergies No Known Allergies Allergy (Verified 02/09/25 13:18) HPI HPI HDF-COPD: Details: 74-year-old gentleman, never smoker of tobacco products, previously used marijuana,?followed for underlying moderate COPD, supplemental oxygen dependent at night and up to 1 L per day as needed, and pulmonary nodules.? He continues to use Anoro and albuterol MDI with good control of his underlying symptoms.? He was recently hospitalized for an acute exacerbation and now has recovered essentially to baseline. [facility] Medical History Retinopathy RSV infection COPD (chronic obstructive pulmonary disease) Essential hypertension NICM (nonischemic cardiomyopathy) PAF (paroxysmal atrial fibrillation) COPD (chronic obstructive pulmonary disease) Atrial fibrillation Hypertension Cardiac arrhythmia Surgical History Status post catheter ablation of atrial fibrillation History of appendectomy History of hernia repair History of colonoscopy Family History Father Cancer of prostate Mother No problems noted. Daughter No problems noted. Daughter No problems noted. Brother Cancer of prostate Social History Household Members: Spouse Housing: House Do you presently have visiting nurse or other home services: No Unable to assess alcohol history related to: Unknown Alcohol intake: former Year quit: 2021 Patient Tobacco Use Status: Never used Tobacco e-Cigarette/Vaping Use: Never Used Second Hand Smoke Exposure: No Substance Use Type: Marijuana Advance Directives Date on File: 05/26/21 service: Yes Current occupational status: retired Cognitive needs: No Hearing needs: No Vision needs: Yes Review of Systems Const Denies daytime sleepiness, Denies excessive sweating, Denies fatigue, Denies fever(s), Denies lethargy, Denies malaise, Denies night sweats, Denies snoring and Denies weight loss Eyes Denies blurry vision and Denies itchy eyes ENT Denies nasal congestion, Denies post nasal drip, Denies sinus pain, Denies sinus pressure and Denies other ( Thrush) Card Denies chest pain, Denies pedal edema, Denies dyspnea, Denies orthopnea and Denies paroxysmal nocturnal dyspnea Resp Denies cough, Denies hemoptysis, Denies excessive phlegm production, Denies dyspnea, Denies snoring and Denies wheezing GI Denies abdominal pain and Denies heartburn Musc Denies myalgias, Denies arthralgias and Denies joint swelling Skin/Breast Denies rash Neuro Denies memory loss and Denies seizure-like activity Psych Denies abnormal sleep pattern, Denies anxiety and Denies memory loss Endo Denies excessive sweating, Denies fatigue and Denies heat intolerance Channing/Lymph Denies easy bruising Aller/Immun Denies itchy eyes, Denies seasonal rhinorrhea and Denies wheezing Physical Exam Vital Signs: Last Vital Signs Pulse 79 03/03/25 13:48 BP 111/66 03/03/25 13:48 Pulse Ox 93 03/03/25 13:48 Oxygen Delivery Method Room Air 03/03/25 13:48 BMI result Body Mass Index 29.6 Const General: no acute distress and alert Nutritional Appearance: not obese Orientation/consciousness: Other orientation findings ( oriented) HEENT Head: Yes atraumatic Eyes General: appearance normal, both eyes and all related structures Sclerae: sclerae normal EOM: EOMs intact bilaterally Neck Neck: Yes supple Lymphatic: no lymphadenopathy noted Resp Effort & Inspection: normal respiratory effort and no use of accessory muscles Auscultation: clear to auscultation bilaterally Cardio Rate: regular rate Rhythm: regular rhythm Heart sounds: no gallops, no murmurs and no rubs Skin General skin exam: other ( warm) Extrem General: No clubbing, No cyanosis and No edema Assessment & Plan Assessment & Plan (1) COPD (chronic obstructive pulmonary disease): Code(s): J44.9 - Chronic obstructive pulmonary disease, unspecified Category: Medical Plan: Well controlled on current regimen of Anoro, duo nebs, and albuterol MDI. Continue current regimen. Will refer to Pulmonary rehab. (2) Supplemental oxygen dependent: Code(s): Z99.81 - Dependence on supplemental oxygen Category: Medical Plan: Continue nocturnal supplemental oxygen and daytime with exertion up to 1 L to maintain O2 saturation of 89-93%. Coding Level of Care Code Est Pt Level 4 (81651) Complex EM visit Add On G2211 Diagnoses COPD (chronic obstructive pulmonary disease) J44.9 Supplemental oxygen dependent Z99.81
== END 2025-03-03 14:02 | disposition home or self-care (01) ==
LOC: HO.HPS 13:46
PROVIDERS: PCP Nurse Practitioner Family; Visit Provider Internal Medicine Pulmonary Disease
DX: J44.9 Chronic obstructive pulmonary disease, unspecified (principal); Z99.81 Dependence on supplemental oxygen
CPT/HCPCS: 99214; G2211

== ENCOUNTER → 2025-03-03 13:45 | Outpatient (BNVA) | payer MEDICARE, OTHER, SELFPAY | PROVIDERS: PCP Nurse Practitioner Family; Visit Provider Internal Medicine Pulmonary Disease | DX: J44.9 Chronic obstructive pulmonary disease, unspecified (principal); Z99.81 Dependence on supplemental oxygen; Z79.899 Other long term (current) drug therapy | CPT/HCPCS: 99212 ==

== ENCOUNTER 2025-03-06 12:36 | Outpatient (AMB) | payer MEDICARE, OTHER, SELFPAY ==
--- NOTE | 2025-03-06 12:50 | A.OFFVIS_ITS ---
Vital Signs 03/06/25 12:51 Height 6 ft Weight 218 lb BMI 29.6 BP 120/62 Blood Pressure Location Lt brachial Position Sitting Pulse 72 Pulse Source Pulse Oximeter Intake Visit Reasons: follow-up after holter Allergies No Known Allergies Allergy (Verified 02/09/25 13:18) Medication List - Last Reconciled 03/06/25 by Juarez Herrera MD amlodipine 7.5 mg (1.5 x 5 mg) PO DAILY Anoro Ellipta 62.5-25 mcg/actuation (umeclidinium-vilanterol) 1 ea inhalation DAILY NS apixaban (Eliquis) 5 mg PO BID atorvastatin 80 mg PO DAILY B.coagulans-digestive enzym 10 2 billion cell (Digestive Advantage Probiotics Plus Gas) caps PO carvedilol 6.25 mg PO BID cholecalciferol (vitamin D3) (Vitamin D3) 25 mcg PO DAILY ipratropium-albuterol 0.5 mg-3 mg(2.5 mg base)/3 mL 3 mL inhalation Q4-6H PRN latanoprost 0.005% 1 drp ophthalmic (eye) BEDTIME paroxetine HCl 20 mg PO QAM triamcinolone acetonide 0.1% 1 appl topical DAILY PRN HPI Comments Details: Nakul returns for follow-up regarding atrial fibrillation, cardiomyopathy as well as aortic aneurysm. He underwent atrial fibrillation in 2018 and 2024. Overall, he states he is feeling quite well. No clear-cut cardiac symptoms or other concerns. [facility] Medical History Retinopathy RSV infection COPD (chronic obstructive pulmonary disease) Essential hypertension NICM (nonischemic cardiomyopathy) PAF (paroxysmal atrial fibrillation) COPD (chronic obstructive pulmonary disease) Atrial fibrillation Hypertension Cardiac arrhythmia Surgical History Status post catheter ablation of atrial fibrillation History of appendectomy History of hernia repair History of colonoscopy Family History Father Cancer of prostate Mother No problems noted. Daughter No problems noted. Daughter No problems noted. Brother Cancer of prostate Social History Household Members: Spouse Housing: House Do you presently have visiting nurse or other home services: No Unable to assess alcohol history related to: Unknown Alcohol intake: former Year quit: 2021 Patient Tobacco Use Status: Never used Tobacco e-Cigarette/Vaping Use: Never Used Second Hand Smoke Exposure: No Substance Use Type: Marijuana Advance Directives Date on File: 05/26/21 service: Yes Current occupational status: retired Cognitive needs: No Hearing needs: No Vision needs: Yes Review of Systems Const Denies weakness ENT Denies dizziness Card Denies chest pain, Denies chest pain with activity, Denies syncope, Denies rapid heart rate, Denies pedal edema, Denies edema, Denies leg edema, Denies lightheadedness, Denies palpitations, Denies dyspnea, Denies dyspnea on exertion and Denies orthopnea Resp Denies cough, Denies dyspnea and Denies dyspnea on exertion GI Denies hematochezia and Denies change in stool character Musc Denies abnormal gait, Denies muscle cramps, Denies muscle weakness, Denies numbness, Denies radiating pain into limb and Denies tingling Neuro Denies abnormal gait, Denies dizziness, Denies syncope, Denies numbness, Denies tingling and Denies weakness Endo Denies palpitations Physical Exam Vital Signs: Last Vital Signs Pulse 72 03/06/25 12:51 BP 120/62 03/06/25 12:51 BMI result Body Mass Index 29.6 Const General: comfortable and no acute distress Orientation/consciousness: patient oriented x3 HEENT Other: Unremarkable Head: Yes normal to inspection Neck Neck: Yes normal visual inspection Chest Chest palpation & inspection: normal inspection of the chest Resp Auscultation: clear to auscultation bilaterally Cardio Palpation: normal PMI Heart sounds: S1 normal heart sound present, S2 normal heart sound present, no gallops, no murmurs and no rubs GI Palpation (GI): Soft to palpation Back/Spine/Pelvis Other: unremarkable Skin General skin exam: no rashes or lesions noted Neuro General: patient oriented x3 Extrem General: Yes normal to inspection Psych Mental Status: mental status grossly normal Assessment & Plan Assessment & Plan (1) PAF (paroxysmal atrial fibrillation): Code(s): I48.0 - Paroxysmal atrial fibrillation Category: Medical Plan: Status post atrial fibrillation ablation in 2018 as well as September 2024. Off amiodarone. Most recent Holter monitor is unremarkable. Continue with anticoagulation. (2) NICM (nonischemic cardiomyopathy): Code(s): I42.8 - Other cardiomyopathies Category: Medical Plan: Cardiac catheterization from 2017 with normal coronary arteries. Most recent echocardiogram with recovered LVEF. 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 Continue Coreg. He has hyperkalemia and hence unable to take lisinopril. Otherwise, stable. (3) Essential hypertension: Code(s): I10 - Essential (primary) hypertension Category: Medical Plan: Stable. Continue Amlodipine. (4) Ascending aortic aneurysm: Code(s): I71.2 - Thoracic aortic aneurysm, without rupture Category: Medical Plan: Per echocardiogram, ascending aortic size 4.8 cm. Dimensions somewhat smaller on CT scans. Has generally remained stable. (5) Excessive drinking alcohol: Code(s): F10.10 - Alcohol abuse, uncomplicated Category: Social Hx Plan: He states he has not done that recently. Coding Level of Care Code Est Pt Level 4 (86876) Complex EM visit Add On G2211 Diagnoses PAF (paroxysmal atrial fibrillation) I48.0 NICM (nonischemic cardiomyopathy) I42.8 Essential hypertension I10 Ascending aortic aneurysm I71.2 Excessive drinking alcohol F10.10
[2025-03-06 12:51] VITALS: BP 120/62; PULSE 72; BMI 29.6
== END 2025-03-06 13:09 | disposition home or self-care (01) ==
LOC: HO.HCS 12:37
PROVIDERS: PCP Nurse Practitioner Family; Visit Provider Internal Medicine
DX: I48.0 Paroxysmal atrial fibrillation (principal); I42.8 Other cardiomyopathies; I10 Essential (primary) hypertension; I71.20 Thoracic aortic aneurysm, without rupture, unspecified; F10.10 Alcohol abuse, uncomplicated
CPT/HCPCS: 99214; G2211

== ENCOUNTER → 2025-03-06 12:36 | Outpatient (BNVA) | payer MEDICARE, OTHER, SELFPAY | PROVIDERS: PCP Nurse Practitioner Family; Visit Provider Internal Medicine | DX: I48.0 Paroxysmal atrial fibrillation (principal); I42.8 Other cardiomyopathies; I10 Essential (primary) hypertension; I71.20 Thoracic aortic aneurysm, without rupture, unspecified; F10.10 Alcohol abuse, uncomplicated; Z79.01 Long term (current) use of anticoagulants; Z98.890 Other specified postprocedural states | CPT/HCPCS: 99212 ==

== ENCOUNTER 2025-05-10 11:08 | Outpatient (REF) | payer MEDICARE, OTHER, SELFPAY ==
[2025-05-10 13:01] LABS: MANUAL DIFF FLAG NO
[2025-05-10 13:31] LABS: Hematocrit 43.4 % (42.0-52.0); Hemoglobin 14.5 g/dl (14.0-18.0); Imm Gran Abs Auto 0.03 X10*3/uL (0.00-0.03); Imm Gran Pct Auto 0.4 % (0.0-0.4); Lymphocytes Absolute Auto 1.3 X10*3/uL (1.2-4.9); Mean Corpuscular HGB Conc 33.4 g/dl (31.0-36.0); Mean Corpuscular Hemoglobin 30.8 pg (27.0-33.0); Mean Corpuscular Volume 92.1 fL (80.0-98.0); NRBC Abs Auto 0.000 X10*3/uL (0.0-0.012); NRBC Pct Auto 0.0 /100WBC (0.0-0.2); Platelet Count 266 X10*3/uL (160-400); Red Blood Count 4.71 X10*6/uL (4.60-5.80); White Blood Count 7.8 X10*3/uL (4.8-10.8)
[2025-05-10 13:34] LABS: Appearance Urine Clear; Glucose Urine UA Negative (Negative); PH 6.0 (5.0-9.0); Specific Gravity - Urine 1.020 (1.005-1.025)
[2025-05-10 13:59] LABS: Alanine Aminotransferase 26 U/L (0-40); Albumin Level 4.4 g/dL (3.5-5.0); Alkaline Phosphatase 66 U/L (39-117); Anion Gap 10 (12-20); Aspartate Amino Transferase 24 U/L (5-37); Blood Urea Nitrogen 13 mg/dL (9-16); Calcium 9.4 mg/dL (8.4-10.2); Carbon Dioxide 28 mmol/L (22-29); Chloride 109 mmol/L (96-108); Cholesterol 161 mg/dL (<200); Estimated Glomerular Filt Rate > 60; HDL Cholesterol 63 mg/dL (>40); Potassium 4.8 mmol/L (3.3-5.1); Sodium 142 mmol/L (135-145); Total Protein 7.0 g/dL (6.5-8.0); Triglycerides 94 mg/dL (<150)
== END 2025-05-10 11:09 | disposition home or self-care (01) ==
LOC: HO.HMGCLDS 11:08
PROVIDERS: PCP Nurse Practitioner Family; Visit Provider Nurse Practitioner Family
DX: R79.89 Other specified abnormal findings of blood chemistry (principal); E78.5 Hyperlipidemia, unspecified; L98.9 Disorder of the skin and subcutaneous tissue, unspecified
CPT/HCPCS: 36415; 80053; 80061; 81003; 84443; 85025; 86376; 99212

== ENCOUNTER 2025-05-10 11:08 | Outpatient (AMB) | payer MEDICARE, OTHER, SELFPAY ==
--- NOTE | 2025-05-10 11:13 | A.OFFPC_ITS ---
Vital Signs 05/10/25 11:15 Height 6 ft Weight 233 lb BMI 31.6 BP 124/82 Blood Pressure Location Lt brachial Position Sitting Respiration 16 Pulse 76 Pulse Source Pulse Oximeter Temp 98.8 F Temp Source Oral Pulse Oximetry (%) 95 Oxygen Delivery Method Room Air Intake Visit Reasons: follow up Physical Director Required: No Accompanied by: Self / Same As Patient Allergies No Known Allergies Allergy (Verified 05/10/25 11:15) Tobacco use date assessed: 05/10/25 Fall risk assessment: No Falls in past year Last assessed Fall Risk: 05/10/25 Dental Screening Dental Screen Date: 02/09/25 HPI follow up HPI Details Chief Complaint The patient presents for follow-up management of dyslipidemia. History of Present Illness The patient is a 74-year-old male presenting with a follow-up for dyslipidemia management. He is currently on atorvastatin 80 mg and has been compliant with his medication regimen. The patient has a history of Chronic Obstructive Pulmonary Disease (COPD) and is under the care of both cardiology and pulmonary teams. He denies any increased shortness of breath, headaches, dizziness, blurred vision, or chest pain, indicating stable respiratory and cardiovascular status. His blood pressure remains stable, and he is scheduled for laboratory tests including lipid profile and thyroid-stimulating hormone (TSH) levels, as he has been fasting. The patient has several dermatological concerns, including macular and papular lesions on the scalp, face, upper torso, and back. A large dark papular lesion is noted on his left facial cheek, prompting a referral to dermatology for fur ther evaluation. Social History Health Maintenance - Lipid profile and TSH levels to be nathen cked during this visit. - Referral to dermatology for skin lesio n evaluation. Review of Systems - Respiratory: Denies increased dyspnea. - Neurological: Denies headaches, dizzin ess, or blurred vision. - Cardiovascular: Denies chest pain. Physical Exam General: Cooperative, healthy appearing, comfortable, no acute distress and well developed, obese Orientation: Patient oriented x3 Limitations: No limitations Head: Normal to inspection Ears: Hearing grossly normal bilaterally Nose: Normal external nose present Face and sinus: Normal facial exam Eyes: Appearance normal, both eyes and all related structures Neck: Normal visual inspection and Yes full ROM Respiratory: Diminished on moving air bilaterally Cardiovascular: Regular rate and rhythm. Normal S1 and S2 GI: Normal to inspection. Soft to palpation and nontender Skin: Several macular lesions, some papular, dry scalp, and face. One large, dark papular lesion on left facial cheek Neuro: Patient oriented x3 Extremities: Normal to inspection Plan 1. Dyslipidemia The patient is currently on atorvastatin 80 mg for dyslipidemia management. Lipid profile will be checked during this visit to assess the effectiveness of the current treatment regimen. 2. Chronic Obstructive Pulmonary Disease (Copd) The patient is under the care of cardiology and pulmonary teams for COPD management. He denies any increased dyspnea, indicating stable disease status. 3. Dermatological Evaluation The patient has several macular and papular lesions, including a large dark papular lesion on the left facial cheek. A referral to dermatology will be placed for further evaluation and management. Discussion Notes I discussed with the patient the importance of monitoring his lipid levels to manage dyslipidemia effectively. We also talked about the need for a dermatological evaluation due to the presence of skin lesions, and a referral will be made. Patient Instructions - Continue taking atorvastatin 80 mg as prescribed. - Attend the scheduled lab tests for lip id profile and TSH levels. - Follow up with dermatology for skin le mohini evaluation. [facility] Medical History Retinopathy RSV infection COPD (chronic obstructive pulmonary disease) Essential hypertension NICM (nonischemic cardiomyopathy) PAF (paroxysmal atrial fibrillation) COPD (chronic obstructive pulmonary disease) Atrial fibrillation Hypertension Cardiac arrhythmia Surgical History Status post catheter ablation of atrial fibrillation History of appendectomy History of hernia repair History of colonoscopy Family History Father Cancer of prostate Mother No problems noted. Daughter No problems noted. Daughter No problems noted. Brother Cancer of prostate Social History Household Members: Spouse Housing: House Do you presently have visiting nurse or other home services: No Alcohol intake: former Year quit: 2021 Patient Tobacco Use Status: Never used Tobacco e-Cigarette/Vaping Use: Never Used Second Hand Smoke Exposure: No Substance Use Type: Marijuana Advance Directives Date on File: 05/26/21 service: Yes Current occupational status: retired Cognitive needs: No Hearing needs: No Vision needs: Yes Questionnaire Thrive Questionnaire Date Thrive assessed: 02/09/25 I am a: Patient What is your living situation today?: I have a steady place to live Within the past 12 months, did the food you bought not last and you didn't have the money to get more?: Never true Within the past 12 months, did you worry whether your food would run out before you got money to buy more?: Never true Do you have trouble paying for medicines?: No Do you have trouble getting transportation to medical appointments?: No Do you have trouble paying your heating and electricity bill?: No Do you have trouble taking care of your child, family member or friend?: No Do you have trouble with day-to-day activities such as bathing, preparing meals, shopping, managing finances, etc.?: No Are you currently unemployed and looking for a job?: No Are you interested in more education?: No Please select the resources that you would like help with: None Currently or been in a relationship where the following occur: No concerns reported THRIVE Score: 0 ROSE-7 AMB Questionnaire ROSE-7 Date ROSE - 7 assessed: 11/25/22 Source: Developed by Drs. Avelino Burrell, Francine Montana, Kannan Shane and colleagues, with an educational ronaldo from [employer]. Physical exam (Primary Care) Vital Signs: Last Vital Signs Temp 98.8 F 05/10/25 11:15 Pulse 76 05/10/25 11:15 Resp 16 05/10/25 11:15 BP 124/82 05/10/25 11:15 Pulse Ox 95 05/10/25 11:15 Oxygen Delivery Method Room Air 05/10/25 11:15 BMI result Body Mass Index 31.6 Tobacco/Smoking Status: Tobacco use Status Tobacco use date assessed 05/10/25 05/10/25 11:26 Patient Tobacco Use Status Never used Tobacco 05/10/25 11:14 e-Cigarette/Vaping Use Never Used 05/10/25 11:14 Thrive Assessment: Date of Thrive Assessment Date Thrive assessed 02/09/25 05/10/25 11:14 Currently or been in a relationship where the following occur: No concerns reported Coding Level of Care Code Est Pt Level 3 (17216) Diagnoses Dyslipidemia E78.5 Skin lesions L98.9 Assessment & Plan Assessment & Plan (1) Dyslipidemia: Code(s): E78.5 - Hyperlipidemia, unspecified Category: Medical (2) Skin lesions: Code(s): L98.9 - Disorder of the skin and subcutaneous tissue, unspecified Category: Medical Plan . Orders: Orders Complete Blood Count Auto Diff Today E78.5 - Hyperlipidemia, unspecified TSH reflex Free T4 Today E78.5 - Hyperlipidemia, unspecified UA CC w/rflx Micro + Cult Today E78.5 - Hyperlipidemia, unspecified Comprehensive Mears. Panel Fast Today E78.5 - Hyperlipidemia, unspecified Lipid Panel Today E78.5 - Hyperlipidemia, unspecified Thyroid Peroxidase Antibodies Today R79.89 - Other specified abnormal findings of blood chemistry Referrals Dermatology Referral L98.9 - Disorder of the skin and subcutaneous tissue, unspecified Medications: New triamcinolone acetonide 0.1% 1 appl topical DAILY 80 grams 0RF Refilled paroxetine HCl 20 mg PO QAM 90 tabs 1RF
[2025-05-10 11:15] VITALS: BP 124/82; PULSE 76; RESP 16; TEMP 37.1; O2SAT 95; BMI 31.6
== END 2025-05-10 11:35 | disposition home or self-care (01) ==
LOC: HO.HMCC 11:09
PROVIDERS: PCP Nurse Practitioner Family; Visit Provider Nurse Practitioner Family
DX: E78.5 Hyperlipidemia, unspecified (principal); L98.9 Disorder of the skin and subcutaneous tissue, unspecified

== ENCOUNTER 2025-05-16 09:57 | Outpatient (REF) | payer MEDICARE, OTHER, SELFPAY ==
--- NOTE | ~2025-05-16 | XR_ITS ---
EXAMINATION: XR CHEST CLINICAL INFORMATION: R05.9 - Cough, unspecified COMPARISON: 01/25/2025. TECHNIQUE: 2 views of the chest were obtained. FINDINGS: The cardiac size is normal. There is prominence of the aortic arch, questionable aneurysmal dilatation present. Mildly prominent pulmonary arteries noted. Lungs are diffusely hyperaerated bilaterally. Linear platelike atelectasis noted in both lung bases and the lingula. There is no pneumothorax or pleural effusion. There is no focal osseous or soft tissue abnormality. There are degenerative changes throughout the spine. XR/XR chest 2V IMPRESSION: 1. COPD. Discoid type atelectasis in both lung bases. No discrete focal pneumonia or effusion. 2. Prominence of the aortic arch suggesting aneurysmal dilatation. Electronically signed by: Didier Torrez MD 05/16/2025 11:05 AM EDT
[2025-05-16 15:04] LABS: Chlamydia pneumoniae PCR Not Detected (Not Detect.); Coronavirus 229E PCR Not Detected (Not Detect.); Coronavirus HKU1 PCR Not Detected (Not Detect.); Coronavirus NL63 PCR Not Detected (Not Detect.); Coronavirus OC43 PCR Not Detected (Not Detect.); RSV PCR Not Detected (Not Detect.); Rhino/Enterovirus PCR Detected (Not Detect.)
[2025-05-16 15:10] LABS: SARS-CoV-2 PCR Not Detected (Not Detect.)
[2025-05-16 15:11] LABS: Influenza A H1 PCR Not Detected (Not Detect.); Influenza A H1-2009 PCR Not Detected (Not Detect.); Influenza A H3 PCR Not Detected (Not Detect.)
== END 2025-05-16 09:58 | disposition home or self-care (01) ==
LOC: HO.HMGCX 09:57
PROVIDERS: PCP Nurse Practitioner Family; Visit Provider Physician Assistant Medical
DX: R09.81 Nasal congestion (principal); R05.9 Cough, unspecified; R50.9 Fever, unspecified; R52 Pain, unspecified
CPT/HCPCS: 71046; 87633; 99212

== ENCOUNTER 2025-05-16 09:57 | Outpatient (AMB) | payer MEDICARE, OTHER, SELFPAY ==
[2025-05-16 09:59] VITALS: BP 118/74; PULSE 100; TEMP 36.8; O2SAT 95; BMI 31.2
--- NOTE | 2025-05-16 09:59 | MHC.OFFWIV ---
Intake Vital Signs 05/16/25 09:59 Height 6 ft Weight 230 lb BMI 31.2 BP 118/74 Blood Pressure Location Lt brachial Position Sitting Pulse 100 Pulse Source Pulse Oximeter Temp 98.3 F Temp Source Oral Pulse Oximetry (%) 95 Oxygen Delivery Method Room Air Intake Visit Reasons: ep progressive cold Intake Note: pt presents with sinus congestion and chest congestion with mild productive coughing, fevers at night for 3 days Patient Tobacco Use Status: Never used Tobacco Allergies No Known Allergies Allergy (Verified 05/16/25 10:02) Do you need a note to return to daycare/school/sports/work: No HPI HPI Comments History of Present Illness Details History - The patient is a 74-year-old male presenting with symptoms of a cold. - He has concerns about exacerbation of Chronic Obstructive Pulmonary Disease (COPD) due to the cold. - Symptoms began on Thursday, characterized by chest congestion and mild body aches, with evening fevers slightly over 100?F. - The patient has a history of COPD and previous hospitalizations for viral infections, currently using Anoro, albuterol, and nebulizer treatments. - Previous episodes were treated with prednisone and antibiotics. - Home oxygen therapy is available for the patient. - He has been coughing up clear phlegm. - He denies CP, chills, abd pain, n/v/d, sore throat, ear pain, loss of taste or smell. Physical Exam General: Cooperative, healthy appearing, comfortable and no acute distress Orientation/consciousness: Patient oriented x3 Limitations: No limitations Head: Normal to inspection Ears: Hearing grossly normal bilaterally, external ears normal and TM's normal bilaterally Nose: Normal external nose present, normal nares present, and no nasal discharge present. Face and sinus: Sinuses nontender to palpation. Mouth: Normal oral and palatal mucosa present and moist mucous membranes noted. Throat: Tonsils normal. Uvula is midline. Posterior oropharynx with erythema and no exudates. Eyes: Appearance normal, both eyes and all related structures Neck: Normal visual inspection, full ROM. No lymphadenopathy noted. Respiratory: Clear to auscultation bilaterally. Normal respiratory effort, able to speak in complete sentences. No respiratory distress, not tachypneic, no tripod positioning and no use of accessory muscles. Cardiovascular: Regular rate and rhythm. Normal S1 and S2 Skin: No rashes or lesions noted Patient was informed and verbally consented to the use of an ambient scribe for clinic note documentation during this visit [facility] Medical History Retinopathy RSV infection COPD (chronic obstructive pulmonary disease) Essential hypertension NICM (nonischemic cardiomyopathy) PAF (paroxysmal atrial fibrillation) COPD (chronic obstructive pulmonary disease) Atrial fibrillation Hypertension Cardiac arrhythmia Surgical History Status post catheter ablation of atrial fibrillation History of appendectomy History of hernia repair History of colonoscopy Family History Father Cancer of prostate Mother No problems noted. Daughter No problems noted. Daughter No problems noted. Brother Cancer of prostate Social History Household Members: Spouse Housing: House Do you presently have visiting nurse or other home services: No Alcohol intake: former Year quit: 2021 Patient Tobacco Use Status: Never used Tobacco e-Cigarette/Vaping Use: Never Used Second Hand Smoke Exposure: No Substance Use Type: Marijuana Advance Directives Date on File: 05/26/21 service: Yes Current occupational status: retired Cognitive needs: No Hearing needs: No Vision needs: Yes Review of Systems Const All systems reviewed & are unremarkable except as noted in HPI and below Physical Exam Vital Signs: Last Vital Signs Temp 98.3 F 05/16/25 09:59 Pulse 100 05/16/25 09:59 BP 118/74 05/16/25 09:59 Pulse Ox 95 05/16/25 09:59 Oxygen Delivery Method Room Air 05/16/25 09:59 BMI result Body Mass Index 31.2 Results Reviewed Results Reviewed: will review the CXR in the office Assessment & Plan Assessment & Plan (1) URI (upper respiratory infection): Code(s): J06.9 - Acute upper respiratory infection, unspecified Qualifiers: URI type: unspecified URI Qualified Code(s): J06.9 - Acute upper respiratory infection, unspecified Plan Most likely URI vs COPD exacerbation vs flu vs covid vs viral illness plan - Continue current inhalers (Anoro, albuterol) and nebulizer treatments. - Prescribe a five-day course of prednisone. - Obtain a chest x-ray to rule out pneumonia. - Conduct a viral panel to identify any viral infections. - tessalon perles as needed for cough - start Augmentin and will call with the results of the CXR and resp panel - follow up with PCP - advised the ER if cough or SOB worsen, fever is high, etc Orders: Orders XR chest 2V Today R05.9 - Cough, unspecified Resp [place]ogen [place] [facility] [place] J06.9 - Acute upper respiratory infection, unspecified Medications: New prednisone 40 mg (2 x 20 mg) PO DAILY 10 tabs 0RF 5 days benzonatate 100 mg PO bid-tid PRN 21 caps 0RF Cough 7 days amoxicillin-pot clavulanate 875-125 mg 1 tab PO Q12H 14 tabs 0RF Coding Level of Care Code Est Pt Level 4 (58173) Diagnoses Upper respiratory tract infection, unspecified type J06.9 URI type: unspecified URI
== END 2025-05-16 10:45 | disposition home or self-care (01) ==
PROVIDERS: PCP Nurse Practitioner Family; Visit Provider Physician Assistant Medical
DX: J06.9 Acute upper respiratory infection, unspecified (principal)

== ENCOUNTER → 2025-05-16 10:47 | Outpatient (BNV) | payer MEDICARE, OTHER, SELFPAY | PROVIDERS: PCP Nurse Practitioner Family; Visit Provider Radiology Diagnostic Radiology | DX: J44.9 Chronic obstructive pulmonary disease, unspecified (principal); J98.11 Atelectasis | CPT/HCPCS: 71046 ==

== ENCOUNTER 2025-06-28 14:09 | Outpatient (AMB) | payer MEDICARE, OTHER, SELFPAY ==
[2025-06-28 14:18] VITALS: BP 110/67; PULSE 80; O2SAT 93; BMI 32.4
--- NOTE | 2025-06-28 14:18 | A.OFFVIS_ITS ---
Vital Signs 06/28/25 14:18 Height 6 ft Weight 239 lb BMI 32.4 BP 110/67 Blood Pressure Location Rt brachial Position Sitting Pulse 80 Pulse Source Pulse Oximeter Pulse Oximetry (%) 93 Intake Visit Reasons: COPD Allergies No Known Allergies Allergy (Verified 05/16/25 10:02) HPI HPI COPD: Details: 75-year-old gentleman, never smoker of tobacco products, previously used marijuana,?followed for underlying moderate COPD, supplemental oxygen dependent at night and up to 1 L per day as needed, and pulmonary nodules.? He continues to use Anoro and albuterol MDI with good control of his underlying symptoms.? Patient had recent exacerbation with bronchitic symptoms treated by his primary care provider with a course of prednisone, benzonatate, and antibiotics, now resolved and patient is back to his baseline. [facility] Medical History Retinopathy RSV infection COPD (chronic obstructive pulmonary disease) Essential hypertension NICM (nonischemic cardiomyopathy) PAF (paroxysmal atrial fibrillation) COPD (chronic obstructive pulmonary disease) Atrial fibrillation Hypertension Cardiac arrhythmia Surgical History Status post catheter ablation of atrial fibrillation History of appendectomy History of hernia repair History of colonoscopy Family History Father Cancer of prostate Mother No problems noted. Daughter No problems noted. Daughter No problems noted. Brother Cancer of prostate Social History Household Members: Spouse Housing: House Do you presently have visiting nurse or other home services: No Alcohol intake: former Year quit: 2021 Patient Tobacco Use Status: Never used Tobacco e-Cigarette/Vaping Use: Never Used Second Hand Smoke Exposure: No Substance Use Type: Marijuana Advance Directives Date on File: 05/26/21 service: Yes Current occupational status: retired Cognitive needs: No Hearing needs: No Vision needs: Yes Review of Systems Const Denies daytime sleepiness, Denies excessive sweating, Denies fatigue, Denies fever(s), Denies lethargy, Denies malaise, Denies night sweats, Denies snoring and Denies weight loss Eyes Denies blurry vision and Denies itchy eyes ENT Denies nasal congestion, Denies post nasal drip, Denies sinus pain, Denies sinus pressure and Denies other ( Thrush) Card Denies chest pain, Denies pedal edema, Denies dyspnea, Denies orthopnea and Denies paroxysmal nocturnal dyspnea Resp Denies cough, Denies hemoptysis, Denies excessive phlegm production, Denies dyspnea, Denies snoring and Denies wheezing GI Denies abdominal pain and Denies heartburn Musc Denies myalgias, Denies arthralgias and Denies joint swelling Skin/Breast Denies rash Neuro Denies memory loss and Denies seizure-like activity Psych Denies abnormal sleep pattern, Denies anxiety and Denies memory loss Endo Denies excessive sweating, Denies fatigue and Denies heat intolerance Channing/Lymph Denies easy bruising Aller/Immun Denies itchy eyes, Denies seasonal rhinorrhea and Denies wheezing Physical Exam Vital Signs: Last Vital Signs Pulse 80 06/28/25 14:18 BP 110/67 06/28/25 14:18 Pulse Ox 93 06/28/25 14:18 BMI result Body Mass Index 32.4 Const General: no acute distress and alert Nutritional Appearance: not obese Orientation/consciousness: Other orientation findings ( oriented) HEENT Head: Yes atraumatic Eyes General: appearance normal, both eyes and all related structures Sclerae: sclerae normal EOM: EOMs intact bilaterally Neck Neck: Yes supple Lymphatic: no lymphadenopathy noted Resp Effort & Inspection: normal respiratory effort and no use of accessory muscles Auscultation: clear to auscultation bilaterally Cardio Rate: regular rate Rhythm: regular rhythm Heart sounds: no gallops, no murmurs and no rubs Skin General skin exam: other ( warm) Extrem General: No clubbing, No cyanosis and No edema Assessment & Plan Assessment & Plan (1) COPD (chronic obstructive pulmonary disease): Code(s): J44.9 - Chronic obstructive pulmonary disease, unspecified Category: Medical Plan: Well controlled current regimen of Anoro, duo nebs, and albuterol MDI. Continue current regimen. (2) Supplemental oxygen dependent: Code(s): Z99.81 - Dependence on supplemental oxygen Category: Medical Plan: Continue supplemental oxygen to maintain O2 saturation of 89-93%. Coding Level of Care Code Est Pt Level 4 (05316) Diagnoses COPD (chronic obstructive pulmonary disease) J44.9 Supplemental oxygen dependent Z99.81
== END 2025-06-28 14:50 | disposition home or self-care (01) ==
LOC: HO.HPS 14:09
PROVIDERS: PCP Nurse Practitioner Family; Visit Provider Internal Medicine Pulmonary Disease
DX: J44.9 Chronic obstructive pulmonary disease, unspecified (principal); Z99.81 Dependence on supplemental oxygen
CPT/HCPCS: 99214

== ENCOUNTER → 2025-06-28 14:09 | Outpatient (BNVA) | payer MEDICARE, OTHER, SELFPAY | PROVIDERS: PCP Nurse Practitioner Family; Visit Provider Internal Medicine Pulmonary Disease | DX: J44.9 Chronic obstructive pulmonary disease, unspecified (principal); Z99.81 Dependence on supplemental oxygen; R91.8 Other nonspecific abnormal finding of lung field; I10 Essential (primary) hypertension | CPT/HCPCS: 99212 ==

== ENCOUNTER 2025-08-07 10:45 | Outpatient (REF) | payer MEDICARE, OTHER, SELFPAY ==
[2025-08-07 18:50] LABS: Resp Syncy Virus RNA Qual PCR NEGATIVE (Negative); SARS COV2 PCR INHOUSE NEGATIVE (Negative)
== END 2025-08-07 10:46 | disposition home or self-care (01) ==
LOC: HO.LNP 10:45
PROVIDERS: PCP Nurse Practitioner Family; Visit Provider Physician Assistant
DX: J06.9 Acute upper respiratory infection, unspecified (principal)
CPT/HCPCS: 87637; 99212

== ENCOUNTER 2025-08-07 10:45 | Outpatient (AMB) | payer MEDICARE, OTHER, SELFPAY ==
[2025-08-07 11:35] VITALS: BP 118/72; PULSE 87; RESP 17; TEMP 37.3; O2SAT 92; BMI 32.7
--- NOTE | 2025-08-07 11:35 | MHC.OFFWIV ---
Intake Vital Signs 08/07/25 11:35 Height 6 ft Weight 241 lb 2 oz BMI 32.7 BP 118/72 Blood Pressure Location Lt brachial Position Sitting Respiration 17 Pulse 87 Pulse Source Pulse Oximeter Temp 99.2 F Temp Source Oral Pulse Oximetry (%) 92 Oxygen Delivery Method Room Air Intake Visit Reasons: EP Fever, chest congestion Intake Note: Pt is here for chest congestion, started 2 days ago. Pt also pt mentioned he started having fevers of 100 this morning. Patient Tobacco Use Status: Never used Tobacco Allergies No Known Allergies Allergy (Verified 08/07/25 11:35) Do you need a note to return to daycare/school/sports/work: No HPI HPI Comments History of Present Illness Details This is a 75-year-old male with a past medical history of hypertension, COPD oxygen dependent only at night, atrial fibrillation currently maintained on Eliquis presenting for evaluation of chest congestion with cough and fever. Patient states that he has had cold symptoms for the past 2 days and had a fever of 101.6 last night for which he took Tylenol. Patient denies having any chest pain, hemoptysis, increased mucus production but does state other members of his family that he has been in contact with have had similar symptoms. [facility] Medical History Retinopathy RSV infection COPD (chronic obstructive pulmonary disease) Essential hypertension NICM (nonischemic cardiomyopathy) PAF (paroxysmal atrial fibrillation) COPD (chronic obstructive pulmonary disease) Atrial fibrillation Hypertension Cardiac arrhythmia Surgical History Status post catheter ablation of atrial fibrillation History of appendectomy History of hernia repair History of colonoscopy Family History Father Cancer of prostate Mother No problems noted. Daughter No problems noted. Daughter No problems noted. Brother Cancer of prostate Social History Household Members: Spouse Housing: House Do you presently have visiting nurse or other home services: No Alcohol intake: former Year quit: 2021 Patient Tobacco Use Status: Never used Tobacco e-Cigarette/Vaping Use: Never Used Second Hand Smoke Exposure: No Substance Use Type: Marijuana Advance Directives Date on File: 05/26/21 service: Yes Current occupational status: retired Cognitive needs: No Hearing needs: No Vision needs: Yes Review of Systems Const All systems reviewed & are unremarkable except as noted in HPI and below Denies body aches, Denies chills, Denies fatigue, Reports fever(s), Denies headache(s) and Reports weakness Eyes Reports no additional complaints ENT Reports no additional complaints, Denies otalgia, Denies headache(s) and Denies sore throat Card Denies chest pain, Denies leg edema and Denies lightheadedness Resp Denies change in phlegm color, Reports chest congestion, Reports cough, Denies hemoptysis, Denies excessive phlegm production and Denies wheezing GI Reports no additional complaints Reports no additional complaints Musc Reports no additional complaints and Denies myalgias Skin/Breast Reports system reviewed and no additional complaints, except as documented Neuro Reports no additional complaints, Denies headache(s) and Reports weakness Psych Reports no additional complaints Endo Reports no additional complaints and Denies fatigue Aller/Immun Reports no additional complaints and Denies wheezing Physical Exam Vital Signs: Last Vital Signs Temp 99.2 F 08/07/25 11:35 Pulse 87 08/07/25 11:35 Resp 17 08/07/25 11:35 BP 118/72 08/07/25 11:35 Pulse Ox 92 08/07/25 11:35 Oxygen Delivery Method Room Air 08/07/25 11:35 BMI result Body Mass Index 32.7 Patient is afebrile and oxygenation is 92% on room air. Const General: cooperative, healthy appearing, comfortable, no acute distress, well developed, alert, awake and Physically active; No acute distress or ill appearing Nutritional Appearance: average body habitus Orientation/consciousness: patient oriented x3 Limitations: no limitations HEENT Head: Yes normal to inspection and Yes normocephalic Ears: hearing grossly normal bilaterally, external ears normal, TM's normal bilaterally and EAC's normal General nose exam: Normal external nose present Face and sinus: Yes normal facial exam and No sinus tenderness Mouth: Normal oral and palatal mucosa present, oropharynx normal and moist mucous membranes Throat: Yes posterior oropharynx normal Eyes General: appearance normal, both eyes and all related structures Neck Neck: Yes normal visual inspection and Yes no lymphadenopathy Resp Effort & Inspection: normal respiratory effort, able to speak in complete sentences, no audible wheezes, no cough, respiratory effort not decreased, no nasal flaring, not tachypneic and no tripod positioning Auscultation: clear to auscultation bilaterally and diminished lung sounds bilateral and diffuse Cardio Rate: regular rate Rhythm: regular rhythm Skin General skin exam: no rashes or lesions noted Neuro General: patient oriented x3 Psych Appearance: grossly normal Mental Status: mental status grossly normal Insight: Good insight present (Psych) Judgement: Good judgement present (Psych) Assessment & Plan Assessment & Plan (1) Acute upper respiratory infection: Comment: Patient is afebrile and is not tachypneic. His oxygenation is 92% on room air and breath sounds are equal bilaterally yet diminished. Given this patient's report of fever, respiratory panel will be obtained. Patient will be discharged home with a burst of prednisone x5 days. Code(s): J06.9 - Acute upper respiratory infection, unspecified Plan: We will call you with the results of your respiratory panel, prednisone 40 mg x 5 days. Patient will also take Tylenol as needed if his fever recurs. Orders: Orders SARS-CoV2/FLU/RSV Today J06.9 - Acute upper respiratory infection, unspecified Medications: New prednisone 40 mg (2 x 20 mg) PO DAILY 10 tabs 0RF Coding Level of Care Code Est Pt Level 3 (46096) Diagnoses Acute upper respiratory infection J06.9 Time Spent (min) 20
== END 2025-08-07 12:55 | disposition home or self-care (01) ==
PROVIDERS: PCP Nurse Practitioner Family; Visit Provider Physician Assistant
DX: J06.9 Acute upper respiratory infection, unspecified (principal)